=== PATIENT | female | born 1940 | race Caucasian/White ===

== ENCOUNTER → 2017-05-11 | Outpatient (CLI) | payer OTHER, MEDICARE | LOC: FIMAGING 12:24 | PROVIDERS: ATTEND Internal Medicine | DX: J44.9 Chronic obstructive pulmonary disease, unspecified (principal); R91.8 Other nonspecific abnormal finding of lung field; Z51.81 Encounter for therapeutic drug level monitoring; E87.5 Hyperkalemia; I10 Essential (primary) hypertension; K59.09 Other constipation ==

== ENCOUNTER → 2017-05-17 | Outpatient (CLI) | payer OTHER, MEDICARE | LOC: CIMAGING 09:03 | PROVIDERS: ATTEND Internal Medicine | DX: R91.8 Other nonspecific abnormal finding of lung field (principal); Z87.891 Personal history of nicotine dependence | CPT/HCPCS: 71250-PO ==

== ENCOUNTER → 2017-05-29 | Outpatient (CLI) | payer OTHER, MEDICARE | LOC: BHFA 09:30 | PROVIDERS: ATTEND Internal Medicine Cardiovascular Disease | DX: I35.1 Nonrheumatic aortic (valve) insufficiency (principal); I35.0 Nonrheumatic aortic (valve) stenosis ==

== ENCOUNTER → 2017-06-02 | Outpatient (CLI) | payer OTHER, MEDICARE ==
[~2017-06-02] MED LIST: REGADENOSON 0.4 MG/5 ML SYR IVP ONE
--- NOTE | 2017-06-02 16:42 | CPR ---
[f rep st] NONINVASIVE CARDIAC PROCEDURE REPORT DATE OF PROCEDURE: 06/02/2017 PROCEDURE PERFORMED: Nuclear Lexiscan stress test. This is an outpatient test for [facility]. REASON FOR TEST: 1. Chronic obstructive pulmonary disease. 2. Pre-surgical exam. 3. Abdominal electrocardiogram. ELECTROCARDIOGRAM PORTION: Resting EKG shows a regular sinus rhythm with a rate of 70. She has an a nterior T-wave abnormality. Resting blood pressure is 130/80. Resting heart rate 72. Oxygen satura tion 91%. She is asymptomatic. LEXISCAN NUCLEAR PORTION: Lexiscan was injected rapidly, followed by a saline flush. Cardiolite was then injected, followed by a saline flush. Peak blood pressure 132/76. Peak heart rate 85. Oxygen saturation 93%. She did feel flushed and short of breath with the injection. No EKG abnormalities or changes. RECOVERY: She did spontaneously recover. Her shortness of breath and flush did dissipate during rec overy. Recovery blood pressure 132/74, heart rate 76, oxygen saturation 92%. She was asymptomatic a t conclusion of test. At this time, she currently is stable for nuclear imaging. /[id number]/MODL
== END ==
LOC: FIMAGING 10:18
PROVIDERS: ATTEND Internal Medicine Cardiovascular Disease
DX: Z01.810 Encounter for preprocedural cardiovascular examination (principal); I35.1 Nonrheumatic aortic (valve) insufficiency; I65.29 Occlusion and stenosis of unspecified carotid artery; J44.9 Chronic obstructive pulmonary disease, unspecified
CPT/HCPCS: 78452; 93017; A9500; J2785

== ENCOUNTER 2017-06-13 09:05 | Inpatient (IN) | payer OTHER, MEDICARE ==
--- NOTE | 2017-06-13 07:31 | PDHPUP ---
History & Physical Update H&P update statement: This history and physical update is based on an assessment of the patient which was completed after admission or registration (within 24 hours), but prior to the surgery/procedure. H&P update: H&P reviewed & patient examined, no change in patient's condition since H&P completed
[~2017-06-13 09:05] MED LIST changes: -REGADENOSON 0.4 MG/5 ML SYR IVP ONE; +ceFAZolin 2 GM/DEXTROSE 100 ML IV ONE
[2017-06-13] MEDS ORDERED: ceFAZolin 2 GM/DEXTROSE 100 ML IV ONE (09:30)
[2017-06-13] MEDS ORDERED: LR 1,000 ML IV ONE (09:37)
[2017-06-13] MEDS ORDERED: LIDOCAINE 1% 2 ML INJ ID PRN (09:37)
[2017-06-13] MEDS ORDERED: BUPIVACAINE/EPI 0.5% 30 ML SDV ONE (10:08)
--- NOTE | 2017-06-13 10:08 | PDANEPAE ---
ANE History of Present Illness '77 yo F with lung nodule here for VATS vs open thoracotomy ANE Past Medical History - Cardiovascular History Hx Hypertension: Yes Hx Arrhythmias: No Hx Chest Pain: No Hx Coronary Artery / Peripheral Vascular Disease: Yes Hx CHF / Valvular Disease: Yes Hx Palpitations: No Cardiovascular History Comment: h/o aortic stenosis - Pulmonary History Hx COPD: Yes Hx Asthma/Reactive Airway Disease: No Hx Recent Upper Respiratory Infection: No Hx Oxygen in Use at Home: Yes O2 in Use at Home (L/minute): O2 2L NOC Hx Sleep Apnea: Yes Sleep Apnea Screening Result - Last Documented: Positive Pulmonary History Comment: POS SLEEP APNEA W/CPAP - Neurologic History Hx Cerebrovascular Accident: No Hx Seizures: No Hx Dementia: No - Endocrine History Hx Diabetes: No - Renal History Hx Renal Disorders: No - Liver History Hx Hepatic Disorders: No - Neurological & Psychiatric Hx Hx Neurological and Psychiatric Disorders: No - Cancer History Hx Cancer: Yes Cancer History Comment: Oral cancer. SKIN CA - REMOVED - Congenital Disorder History Hx Congenital Disorders: No - GI History Hx Gastrointestinal Disorders: No Gastrointestinal History Comment: CONSTIPATION - Other Health History Other Health History: LEG CRAMPS NOC - Chronic Pain History Chronic Pain: Yes (L LEG AND BACK) - Surgical History Prior Surgeries: 1966. Hernia (unknown date). bilateral hip replacements. Prolapsed uterus. L leg hardware. R shoulder replacement. Oral CA surgery "under my tounge" ANE Review of Systems Review of Systems: - Exercise capacity Exercise capacity: limited by disability METS (RN): 3 METS ANE Patient History - Allergies Allergies/Adverse Reactions: No Known Allergies Allergy (Unverified 05/30/17 15:00) - Home Medications Home Medications: Albuterol Sulfate [Proair Hfa] 2 puffs IH PRN 05/30/17 [Last Taken Unknown] Allopurinol 300 MG (RX) 300 mg PO BID 05/30/17 [Last Taken Unknown] Aspirin 81mg (*) 81 mg PO DAILY 05/30/17 [Last Taken 05/30/17 08:00] Atorvastatin Calcium 40 mg PO DAILY 05/30/17 [Last Taken Unknown] Chlorpheniramine Maleate [Allergy Relief] 4 mg PO PRN 05/30/17 [Last Taken Unknown] Multivitamin [Multi-Day Vitamins] 1 each PO DAILY 05/30/17 [Last Taken Unknown] Triamterene-Hctz 37.5-25 mg Cp 1 cap PO DAILY 05/30/17 [Last Taken Unknown] Vitamin D3 1,000 units PO DAILY 05/30/17 [Last Taken Unknown] traZODONE 50MG (*) 100 mg PO HS 05/30/17 [Last Taken Unknown] Umeclidinium Brm/Vilanterol Tr 06/09/17 [Last Taken Unknown] - NPO status NPO Status: no food or drink >8 hours - Anes Hx Anes Hx: no prior problems - Smoking Hx Smoking Status: Former smoker (quit ten years) - Alcohol Use Alcohol Use: Rarely - Family Anes Hx Family Anes Hx: none Family Hx Anesthesia Complications: None ANE Labs/Vital Signs - Vital Signs Vital Signs: reviewed preoperatively; see RN documention for details Height: 152.4 cm Weight: 87.09 kg ANE Physical Exam - Airway Neck exam: FROM Mallampati Score: Class 2 Mouth exam: normal dental/mouth exam - Pulmonary Pulmonary: no respiratory distress, clear to auscultation - Cardiovascular Cardiovascular: regular rate and rhythym - ASA Status ASA Status: III ANE Anesthesia Plan Anesthesia Plan: general endotracheal anesthesia Lines/Monitors: arterial line Specialized Airway: double lumen tube
[2017-06-13] MEDS ORDERED: MIDAZOLAM 2 MG/2 ML VIAL IVP ONE (10:17)
[2017-06-13] MEDS ORDERED: PROPOFOL 200 MG/20 ML VIAL ONE ×2 (10:33)
[2017-06-13] MEDS ORDERED: ROCURONIUM 50 MG/5 ML VIAL ONE (10:33)
[2017-06-13] MEDS ORDERED: fentaNYL 100 MCG/2 ML INJ ONE ×2 (10:33→11:55)
[2017-06-13] MEDS ORDERED: LIDOCAINE 2% 100 MG/5 ML SYR ONE (10:33)
[2017-06-13] MEDS ORDERED: LIDOCAINE 2% 5 ML SDV ONE (10:33)
[2017-06-13] MEDS ORDERED: HYDROmorphONE/DILAUDID 1 MG/ML INJ IVP ONE (12:00)
[2017-06-13] MEDS ORDERED: DEXAMETHASONE 4 MG/ML VIAL ONE (12:24)
[2017-06-13] MEDS ORDERED: ONDANSETRON 4 MG/2 ML VIAL ONE (12:24)
[2017-06-13] MEDS ORDERED: HEPARIN 1000 UNIT/1 ML MDV ONE (12:48)
[2017-06-13] MEDS ORDERED: KETAMINE 100 MG/10 ML SYR ONE (13:51)
[2017-06-13] MEDS ORDERED: ONDANSETRON 4 MG/2 ML VIAL IVP PRN ×2 (14:48→15:40)
[2017-06-13] MEDS ORDERED: NALOXONE HCL 0.4 MG/ML INJ IVP PRN ×2 (14:52→15:40)
--- NOTE | 2017-06-13 14:57 | POSTOPPROG ---
Post Op Note Date of Operation: 06/13/17 Surgeon: Jayden Conde Carton Forming Machine Tender: Anahi Burnette Anesthesiologist: Gurmeet Welsh Anesthesia: GET(General Endotracheal) Pre-op Diagnosis: RUL lung nodule Post-op Diagnosis: probable RUQ squamous cell lung cancer Procedure: R VATS, minithoracotomy with RUL resection, hilar LN biopsies Findings: tumor in wedge, margins grossly clear, unrecognizable RML and RUL fissures Inf/Abcess present in the surg proc area at time of surgery?: No EBL: 500cc Complications: none Specimen(s): wedge bx, RUL, and hilar LN bx's to pathology
[2017-06-13] MEDS ORDERED: fentaNYL 100 MCG/2 ML INJ IVP PRN (15:40)
[2017-06-13] MEDS ORDERED: OXYCODONE/APAP 5/325 TAB PO PRN (15:40)
[2017-06-13] MEDS ORDERED: PROMETHAZINE HCL 25 MG/ML INJ IVP PRN (15:40)
[2017-06-13] MEDS ORDERED: HYDROmorphONE/DILAUDID 1 MG/ML INJ IVP PRN (15:40)
[2017-06-13] MEDS: HYDROmorphONE/DILAUDID 1 MG/ML INJ IVP PRN (16:46)
[2017-06-13] MEDS: HYDROmorphONE/DILAUDID 6 MG/30 ML PCA IV PRN (17:00)
[2017-06-13] MEDS: BUPIVACAINE 0.5% 30 ML SDV MISC SCH ×2 (18:33→22:47)
[2017-06-13] MEDS ORDERED: ONDANSETRON DISINTEGRATING 4 MG TAB ONE (19:12)
[2017-06-13] MEDS: OXYCODONE/APAP 5/325 TAB PO PRN (19:16)
[2017-06-13] MEDS: ONDANSETRON DISINTEGRATING 4 MG TAB PO PRN (19:20)
--- NOTE | 2017-06-13 20:41 | GOP ---
[f rep st] OPERATIVE REPORT DATE OF OPERATION: 06/13/2017 SURGEON: Jayden Conde MD PERL DEVELOPER: SAMUEL Jimenez ANESTHESIOLOGIST: Dr. Welsh. PREOPERATIVE DIAGNOSIS: Suspicious right lung mass. POSTOPERATIVE DIAGNOSIS: Squamous cell carcinoma of the right upper lobe. PROCEDURE PERFORMED: 1. VATS wedge lung biopsy. 2. VATS assisted right upper lobectomy and hilar node dissection. FINDINGS: Patient was found to have a very peripheral, less than 2 cm mass in the posterior aspect o f the right upper lobe which appeared to be squamous cell cancer on frozen section. There was no tracy dence of any metastatic disease identified. Multiple hilar nodes were taken out but appeared to be n egative. Final path is pending. The 1 anatomic thing of note was the patient had no true fissures r equiring sort of artificial separation of the right upper, right middle and right lower lobes. ESTIMATED BLOOD LOSS: Less than 200 cc. DESCRIPTION OF PROCEDURE: Patient was taken to the operating room, where she received a satisfactory general endotracheal anesthesia by Dr. Welsh, had a double-lumen endotracheal tube placed and art li ne monitoring. She was placed in the left lateral decubitus position, prepped and draped in usual st erile fashion. A short incision was made in the 7th intercostal space the midaxillary line. A troca r was introduced. A thoracoscope was introduced. Two other trocars were placed under direct vision and eventually a 4th trocar was placed under direct vision. The right upper lobe was examined, tumor was palpated in the posterior wall of the right upper lobe. This area was isolated with atraumatic clamps and then removed using an Endo-VIRGILIO stapler, with multiple firings. The specimen was sent to p athology, where the report was returned as invasive squamous cell carcinoma, a search in the area rev ealed no evidence of metastatic disease, and we proceeded with a right upper lobectomy. This was chino ewhat hampered by the fact that there were no true fissures. The anterior pleural attachment was div ided over the hilum and multiple branches off the pulmonary artery were identified. These were encir cled and then ligated and divided with the Endo-VIRGILIO stapler. The inferior pulmonary artery was disse cted free in the major fissure, after dissecting this free with a tedious dissection. The superior s egment artery and the middle lobe artery were identified and spared. No other branches were identifi ed to the upper lobe. At that point, the superior pulmonary vein was dissected free and then careful ly divided with Endo-VIRGILIO stapler as well, and this took care of the vascular layer to the right upper lobe. The upper lobe bronchus was then identified and encircled. It was crossclamped and the lung was reinflated with good expansion of the middle lobe and the lower lobe. The bronchus was then divi ded with the Endo-VIRGILIO stapler as well, severing the last major attachment to the right upper lobe. H owever, the fissures were incomplete and these had to then be divided directly with staplers. This r equired enlarging the incision for adequate placement of the staplers. Much care was made to avoid t he blood supply and the bronchus to the middle lobe. This required multiple firings of Endo-VIRGILIO stap ler, where eventually the upper lobe was completely severed and removed and sent to Pathology. The r emaining lung was re-expanded. There was minimal if any air leak. The pathologic evaluation of the upper lobe revealed clear margins. At this point, the hilar node dissection was done removing approx imately 4 or 5 lymph nodes in the hilum and adjacent mediastinum. These were sent out for pathologic evaluation as well. The wound was irrigated. Hemostasis was assured. Two #28 chest tubes were bro ught in through some of the trocar sites and secured to the skin with silk sutures. A Marcaine ashley ter was brought in through a separate site and placed in the posterior chest and secured also with a silk suture. The incision was then closed with #1 Vicryl pericostal sutures, and running 0 Vicryl dean tures for the muscle layers, 2-0 Vicryl for the subcutaneous tissue and skin devin for the skin. T he remaining trocar site was also closed with skin devin for the skin. All wounds and areas were i nfiltrated with 0.5% Marcaine as well as the injection of 10 cc of Marcaine into the chest cavity. S he tolerated the procedure quite well. COMPLICATIONS: There were no complications. /[id number]/MODL
[2017-06-13] MEDS: KETOROLAC 15 MG/1 ML SDV IVP SCH (21:43)
[2017-06-13] MEDS: DOCUSATE SODIUM 100 MG CAP PO SCH (21:50)
[2017-06-13] MEDS ORDERED: ALBUMIN 5% 500 ML IV ONE (23:30)
[2017-06-13] MEDS ORDERED: ALBUMIN 5% 500 ML BOTTLE IV ONE (23:37)
[2017-06-14] MEDS: NS 1,000 ML IV SCH ×2 (03:02→17:59)
[2017-06-14] MEDS: KETOROLAC 15 MG/1 ML SDV IVP SCH ×2 (03:15→06:44)
--- NOTE | 2017-06-14 03:57 | GCON ---
[f rep st] CONSULTATION VENDOR MANAGEMENT ASSOCIATE CONSULTATION REASON FOR ADMISSION: Status post thoracotomy lung mass. HISTORY OF PRESENT ILLNESS: The patient is a very pleasant 77-year-old white female with a past medi bernard history including aortic regurgitation, aortic valve stenosis, carotid stenosis, chronic obstruct penelope pulmonary disease, hypertension, obstructive sleep apnea. She is examined postoperatively after receiving a thoracotomy by Dr. Jayden Conde. She was extubated in the PACU. She is currently only complaining of some pain, as well as some mild breathlessness. PAST MEDICAL HISTORY: Again, significant for obstructive sleep apnea, chronic obstructive pulmonary disease, hypertension, carotid stenosis, aortic stenosis. MEDICATIONS: Allopurinol, aspirin, atorvastatin, chlorpheniramine, ProAir, Spiriva, trazodone, triam terene, hydrochlorothiazide, vitamin D. ALLERGIES: No known allergies to medications. SOCIAL HISTORY: Previous heavy smoker; quit 10 years ago. No significant alcohol use. She is divor jeyson, but she has 2 children. She has excellent family support. PHYSICAL EXAMINATION: VITAL SIGNS: Blood pressure is 136/60, pulse 82, respirations 18, temperature 36.5, oxygen saturation 95% on nasal cannula. GENERAL: She is a mildly overweight, but very pleasa nt, 77-year-old white female, who is resting with mild pain. HEENT: Eyes are CARLOS, EOMI. Throat sh ows no erythema or tonsillar hypertrophy. NECK: Supple. There is no cervical adenopathy. HEART: Regular rate and rhythm without murmurs, rubs, or gallops. LUNGS: Increased crackles in the right b ase. There are no E to A changes. ABDOMEN: Soft. Nontender. Bowel sounds are present in all 4 qu adrants. EXTREMITIES: No clubbing, cyanosis, or edema. LABORATORY DATA: Currently pending. IMAGING DATA: Chest x-ray shows some volume loss with a right hemithorax. Two chest tubes in place. IMPRESSION: 1. Lung mass. 2. Status post thoracotomy. 3. Chronic obstructive pulmonary disease. 4. Hypertension. RECOMMENDATIONS: 1. Adequate pain control. 2. Frequent nebulization with both albuterol and Atrovent. 3. DVT and PE prophylaxis. 4. Stress ulcer prophylaxis. 5. Await pathology report. 6. PT and OT. /[id number]/MODL
[2017-06-14] MEDS: BUPIVACAINE 0.5% 30 ML SDV MISC SCH ×6 (04:22→22:41)
[2017-06-14 04:24] LABS: HEMATOCRIT 27.4 % (38.0-47.0); HEMOGLOBIN 8.9 g/dL (12.6-16.3)
[2017-06-14 04:33] LABS: ANION GAP 11 mEq/L (8-16); CALCIUM 8.6 mg/dL (8.5-10.4); CARBON DIOXIDE 21 mEq/l (22-31); CHLORIDE 104 mEq/L (97-110); CREATININE 1.4 mg/dL (0.6-1.0); GLOMERULAR FILTRATION RATE 37; GLUCOSE 127 mg/dL (70-100); POTASSIUM 4.9 mEq/L (3.5-5.2); SODIUM 136 mEq/L (134-144)
[2017-06-14] MEDS: DOCUSATE SODIUM 100 MG CAP PO SCH ×2 (08:15→20:51)
[2017-06-14] MEDS: OXYCODONE/APAP 5/325 TAB PO PRN ×2 (08:17→16:23)
--- NOTE | 2017-06-14 08:31 | POSTANESTH ---
Post Anesthetic Evaluation Cardiovascular Status: Normal, Stable, Similar to Pre-Op Cond Respiratory Status: Normal, Stable, Similar to Pre-op Cond. Level of Consciousness/Mental Status: Can Participate in Eval, Alert and Oriented Pain Control: Adequate, Prn Tx Ordered Nausea/Vomiting Control: Adequate, Prn Tx Ordered Complications Possibly Related to Anesthesia: None Noted
--- NOTE | 2017-06-14 08:55 | SOAPPROG ---
SOAP Progress Note Assessment/Plan: Assessment/Plan: 77 Y F s/p R VATS c minithoracotomy and RUL lobectomy, hilar LN biopsies, probable SCC, POD#1. AFVSS. CXR ok. Chest tube output ~300 overnight. +air leak. Continue CT's to LWS. Continue pain control c TELEPHONE OPERATOR CHIEF, PO meds PRN, and marcaine catheter. NATTY. Cr 1.4, previously 0.7. Urine is concentrated. D/c toradol. Avoid nephrotoxic agents. Continue/increase IVF. Repeat labs in am. Continue pace catheter for now. Acute post op blood loss anemia. Monitor. Asymptomatic. Hct 27.4. Pathology pending. Dispo: med surg. S: Does have pain. Pain meds helping but feeling "woozy." Denies SOB. Mild nausea. O: alert, nad ncat, mmm chest clear anteriorly, +air leak, occasionally at rest drainage serosanguinous rrr abd soft, nt 06/14/17 08:57 Objective: Vital Signs Temp Pulse Resp BP Pulse Ox 36 C 85 16 120/49 L 100 06/13/17 16:30 06/14/17 06:00 06/14/17 06:00 06/14/17 06:00 06/14/17 06:00 Laboratory Results 06/14/17 04:10 06/14/17 04:10 06/13/17 06/14/17 06/15/17 05:59 05:59 05:59 Intake Total 3785 Output Total 1940 Balance 1845 ICD10 Worksheet Patient Problems: Problems Problem Status Onset Status post lobectomy of lung Acute - ICD10 Problem Qualifiers (1) Status post lobectomy of lung
[2017-06-14] MEDS ORDERED: CHLORPHENIRAMINE MALEATE 4 MG TAB PO PRN (08:58)
[2017-06-14] MEDS ORDERED: ALBUTEROL INH PREPACK MDI TAKEHOME PRN (08:58)
--- NOTE | 2017-06-14 09:09 | PDINTPN ---
Hands Assembler Progress Note Assessment/Plan: Assessment/Plan: * Lung mass-path is pending * Status post thoracotomy * Obstructive sleep apnea * Chronic obstructive pulmonary disease * Chest tube-no leak is apparent, still with high output the * Pain-improved * Hypertension Overall much improved Subjective: Sitting up in bed. Comfortable. Pain is improved. Denies any breathlessness Objective: Vital Signs Temp Pulse Resp BP Pulse Ox 36 C 85 16 120/49 L 100 06/13/17 16:30 06/14/17 06:00 06/14/17 06:00 06/14/17 06:00 06/14/17 06:00 Laboratory Results 06/14/17 04:10 06/14/17 04:10 06/13/17 06/14/17 06/15/17 05:59 05:59 05:59 Intake Total 3785 Output Total 1940 Balance 1845 Physical Exam - Physical Exam General Appearance: alert, no apparent distress EENT: PERRL/EOMI, normal ENT inspection, pharynx normal, TMs normal Neck: non-tender, full range of motion, supple, normal inspection Respiratory: crackles (Increased on the right), No normal breath sounds, No respiratory distress, No wheezing Cardiac/Chest: normal peripheral pulses, regular rate, rhythm, systolic murmur Abdomen: normal bowel sounds, non-tender, soft Pelvic Exam: deferred Rectal: deferred Skin: normal color, warm/dry Extremities: normal range of motion, non-tender, normal inspection, normal capillary refill Neuro/Psych: no motor/sensory deficits, alert, normal mood/affect, oriented x 3 ICD10 Worksheet Patient Problems: Problems Problem Status Onset Status post lobectomy of lung Acute
[2017-06-14] MEDS ORDERED: ACETYLCYSTEINE 10% IH/PO 4 ML VIAL IH SCH (09:15)
[2017-06-14] MEDS: ASPIRIN EC 81 MG TAB PO SCH ×3 (09:21→20:52)
[2017-06-14] MEDS: ALLOPURINOL 300 MG TAB PO SCH ×2 (09:21→20:52)
[2017-06-14] MEDS: ATORVASTATIN CALCIUM 40 MG TAB PO SCH ×3 (09:21→20:52)
[2017-06-14] MEDS: CHOLECALCIFEROL VIT D3 1,000 UNITS TAB PO SCH ×3 (09:21→20:51)
[2017-06-14] MEDS: UMECLIDINIUM BRM IH SCH (10:00)
[2017-06-14] MEDS: VILANTEROL TR IH SCH (10:00)
[2017-06-14] MEDS ORDERED: ALBUMIN 5% 500 ML BOTTLE IV ONE (11:01)
[2017-06-14] MEDS ORDERED: ALBUMIN 5% 500 ML IV ONE (11:30)
[2017-06-14] MEDS: TRIAMTERENE/HCTZ 37.5/25 1 EACH CAP PO SCH (11:36)
--- NOTE | 2017-06-14 12:44 | ASMTCMCOM ---
CM Note CM Note Notes: Patient is POD #1 VATs and RUL lobectomy, pathology pending. She is doing well and should be able to work with PT/OT today. Has supportive daughter. Discharge needs TBD at this time, CM will follow. Date Signed: 06/14/2017 12:43 PM Electronically Signed By:Joan Yanez RN
[2017-06-14] MEDS: ALBUTEROL 200 PUFFS/18 GM MDI IH PRN (17:16)
[2017-06-14] MEDS: HYDROmorphONE/DILAUDID 1 MG/ML INJ IVP PRN (17:42)
[2017-06-14] MEDS: HYDROmorphONE/DILAUDID 6 MG/30 ML PCA IV PRN (18:29)
[2017-06-14] MEDS: traZODone 50 MG TAB PO SCH (20:53)
[2017-06-15] MEDS: NS 1,000 ML IV SCH ×4 (00:58→18:32)
[2017-06-15] MEDS: BUPIVACAINE 0.5% 30 ML SDV MISC SCH ×6 (02:20→21:54)
[2017-06-15] MEDS: OXYCODONE/APAP 5/325 TAB PO PRN ×3 (05:49→21:57)
[2017-06-15 06:04] LABS: ANION GAP 6 mEq/L (8-16); CALCIUM 6.2 mg/dL (8.5-10.4); CARBON DIOXIDE 17 mEq/l (22-31); CHLORIDE 115 mEq/L (97-110); CREATININE 0.7 mg/dL (0.6-1.0); GLOMERULAR FILTRATION RATE > 60; GLUCOSE 104 mg/dL (70-100); POTASSIUM 3.5 mEq/L (3.5-5.2); SODIUM 138 mEq/L (134-144)
[2017-06-15] MEDS: ENOXAPARIN 40 MG/0.4 ML SYR SC SCH (08:25)
[2017-06-15] MEDS: ALLOPURINOL 300 MG TAB PO SCH ×2 (08:25→21:53)
[2017-06-15] MEDS: DOCUSATE SODIUM 100 MG CAP PO SCH ×2 (08:25→21:54)
[2017-06-15] MEDS: TRIAMTERENE/HCTZ 37.5/25 1 EACH CAP PO SCH (08:50)
[2017-06-15] MEDS: UMECLIDINIUM BRM IH SCH (08:51)
[2017-06-15] MEDS: VILANTEROL TR IH SCH (08:51)
--- NOTE | 2017-06-15 11:35 | SOAPPROG ---
SOAP Progress Note Assessment/Plan: Assessment: 77 Y F s/p R VATS c minithoracotomy and RUL lobectomy, hilar LN biopsies, probable SCC, POD#2. SBP in 70s when rechecked in the 90s, H&H drop from last night Hct 20.0. Will get repeat H&H and stat CXR to evaluate. Chest tube output 1060cc. Serosang. + air leak at rest and with cough. Cont to LWS. Creat improved, 0.7 today. Cont avoiding nephrotoxic agents. Continue pace for accurate Is and Os. Uop good Pathology pending Continue pain control Regular diet S: Denies pain, SOB, dizziness. Stood up well with PT today without dizziness. Feels like her brain is "fuzzy"- Spoke with nurse who feels that she was overmedicated last night with GLOBAL HUMAN RESOURCES DIRECTOR. O: Sitting up in chair, about to start eating. NAD MMM No increased WOB. Lungs CTAB, can appreciate air leak on right CT to suction with high serosang drainage. + air leak at rest and with cough. Dressings c/d/i Abd soft, + BS Oriented and alert Objective: Vital Signs Temp Pulse Resp BP Pulse Ox 37.4 C 90 20 93/70 L 92 06/15/17 08:23 06/15/17 11:00 06/15/17 10:00 06/15/17 11:00 06/15/17 11:00 Laboratory Results 06/15/17 05:40 06/15/17 05:40 06/14/17 06/15/17 06/16/17 05:59 05:59 05:59 Intake Total 9395 2773 Output Total 5711 2242 Balance 1843 1574 ICD10 Worksheet Patient Problems: Problems Problem Status Onset Status post lobectomy of lung Acute
[2017-06-15 12:49] LABS: % IMMATURE GRANULYOCYTES 0.4 % (0.0-1.1); ABSOLUTE IMMATURE GRANULOCYTES 0.04 10^3/uL (0.00-0.10); ADD DIFF? NO; ADD MORPH? NO; ADD SCAN? NO; ATYPICAL LYMPHOCYTE FLAG 10 (0-99); FRAGMENT RBC FLAG 0 (0-99); HEMATOCRIT 23.2 % (38.0-47.0); HEMOGLOBIN 7.5 g/dL (12.6-16.3); LEFT SHIFT FLG 0 (0-99); LIPEMIA HEMOLYSIS FLAG 80 (0-99); MEAN CELL HEMOGLOBIN CONCENTR. 32.3 g/dL (32.4-36.7); MEAN CELL VOLUME 95.9 fL (81.5-99.8); MEAN PLATELET VOLUME 9.9 fL (8.7-11.7); PLATELET CLUMPS FLAG 0 (0-99); PLATELET COUNT 175 10^3/uL (150-400); RED BLOOD CELL COUNT 2.42 10^6/uL (4.18-5.33); RED CELL DISTRIBUTION WIDTH 14.2 % (11.5-15.2)
[2017-06-15] MEDS: NICOTINE POLACRILEX 2 MG GUM B PRN ×2 (12:49→15:36)
--- NOTE | 2017-06-15 12:52 | PDINTPN ---
Revenue Officer Progress Note Assessment/Plan: Assessment/Plan: * Lung mass-path is pending * Status post thoracotomy * Obstructive sleep apnea * Chronic obstructive pulmonary disease * Chest tube-no leak is apparent, still with high output. Subcutaneous emphysema present * Pain-improved * Hypertension Overall much improved Subjective: Pain is well controlled. She denies any breathlessness. Complains of thirst Objective: Vital Signs Temp Pulse Resp BP Pulse Ox 36.9 C 81 16 85/67 L 94 06/15/17 11:56 06/15/17 11:56 06/15/17 11:56 06/15/17 11:56 06/15/17 11:56 Laboratory Results 06/15/17 05:40 06/14/17 06/15/17 06/16/17 05:59 05:59 05:59 Intake Total 3785 3937 Output Total 1940 2365 Balance 1845 1572 Chest [id number]-[id number] by myself. Chest tube in good position. There is significant subcutaneous emphysema present on the right side and up into the neck Physical Exam - Physical Exam General Appearance: alert, no apparent distress EENT: PERRL/EOMI, normal ENT inspection, pharynx normal, TMs normal Neck: other (Subcutaneous emphysema) Respiratory: chest non-tender, lungs clear, normal breath sounds Cardiac/Chest: normal peripheral pulses, regular rate, rhythm, other ( Subcutaneous emphysema) Abdomen: normal bowel sounds, non-tender, soft Pelvic Exam: deferred Rectal: deferred Skin: normal color, warm/dry Extremities: normal range of motion, non-tender, normal inspection, normal capillary refill ICD10 Worksheet Patient Problems: Problems Problem Status Onset Status post lobectomy of lung Acute
[2017-06-15 20:48] LABS: HEMATOCRIT 22.9 % (38.0-47.0); HEMOGLOBIN 7.7 g/dL (12.6-16.3)
--- NOTE | 2017-06-15 21:22 | SOAPPROG ---
SOAP Progress Note Assessment/Plan: Assessment: REASONABLY COMFORTABLE TODAY BUT SIGNIFICANT HEMATOCRIT DROP AND SOME HYPOTENSION SECONDARY TO PAIN MEDICINE EXCESS PRESENTLY ALERT ORIENTED AND COOPERATIVE/SIGNIFICANT TO VOLUME OF CHEST TUBE DRAINAGE BUT SEROSANGUINEOUS FOLLOW-UP HEMATOCRIT IS STABLE AT 23 Plan: POSSIBLE TRANSFUSION IF FURTHER DROP IN HEMATOCRIT 06/15/17 21:21 Objective: Vital Signs Temp Pulse Resp BP Pulse Ox 37.5 C 92 18 118/89 H 96 06/15/17 19:52 06/15/17 19:52 06/15/17 19:52 06/15/17 19:52 06/15/17 19:52 Laboratory Results 06/15/17 20:00 06/15/17 05:40 06/14/17 06/15/17 06/16/17 05:59 05:59 05:59 Intake Total 8075 3937 2447.4 Output Total 3630 5605 950 Balance 1845 1572 1497.4 ICD10 Worksheet Patient Problems: Problems Problem Status Onset Status post lobectomy of lung Acute
[2017-06-15] MEDS: traZODone 50 MG TAB PO SCH (21:53)
[2017-06-15] MEDS: ATORVASTATIN CALCIUM 40 MG TAB PO SCH (21:54)
[2017-06-15] MEDS: ASPIRIN EC 81 MG TAB PO SCH (21:54)
[2017-06-15] MEDS: CHOLECALCIFEROL VIT D3 1,000 UNITS TAB PO SCH (21:54)
[2017-06-16] MEDS: NS 1,000 ML IV SCH ×2 (00:32→06:00)
[2017-06-16] MEDS: KETOROLAC 15 MG/1 ML SDV IVP SCH ×5 (00:32→22:49)
[2017-06-16] MEDS: NICOTINE POLACRILEX 2 MG GUM B PRN (01:00)
[2017-06-16] MEDS: BUPIVACAINE 0.5% 30 ML SDV MISC SCH ×6 (02:05→22:18)
[2017-06-16 04:19] LABS: % IMMATURE GRANULYOCYTES 0.4 % (0.0-1.1); ABSOLUTE IMMATURE GRANULOCYTES 0.04 10^3/uL (0.00-0.10); ADD DIFF? NO; ADD MORPH? NO; ADD SCAN? NO; ATYPICAL LYMPHOCYTE FLAG 0 (0-99); FRAGMENT RBC FLAG 0 (0-99); HEMATOCRIT 21.7 % (38.0-47.0); LEFT SHIFT FLG 0 (0-99); LIPEMIA HEMOLYSIS FLAG 80 (0-99); MEAN CELL HEMOGLOBIN 30.6 pg (27.9-34.1); MEAN CELL HEMOGLOBIN CONCENTR. 32.3 g/dL (32.4-36.7); MEAN CELL VOLUME 94.8 fL (81.5-99.8); MEAN PLATELET VOLUME 9.5 fL (8.7-11.7); PLATELET CLUMPS FLAG 0 (0-99); PLATELET COUNT 166 10^3/uL (150-400); RED BLOOD CELL COUNT 2.29 10^6/uL (4.18-5.33); RED CELL DISTRIBUTION WIDTH 14.2 % (11.5-15.2)
[2017-06-16] MEDS: UMECLIDINIUM BRM IH SCH (08:03)
[2017-06-16] MEDS: VILANTEROL TR IH SCH (08:03)
[2017-06-16] MEDS: TRIAMTERENE/HCTZ 37.5/25 1 EACH CAP PO SCH (09:32)
[2017-06-16] MEDS: ENOXAPARIN 40 MG/0.4 ML SYR SC SCH (09:32)
[2017-06-16] MEDS: ALLOPURINOL 300 MG TAB PO SCH ×2 (09:32→20:22)
[2017-06-16] MEDS: DOCUSATE SODIUM 100 MG CAP PO SCH ×2 (09:32→20:22)
[2017-06-16] MEDS: HYDROmorphONE/DILAUDID 6 MG/30 ML PCA IV PRN (12:01)
--- NOTE | 2017-06-16 12:31 | SOAPPROG ---
SOAP Progress Note Assessment/Plan: Assessment/Plan: * Lung mass-path is pending * Status post thoracotomy * Obstructive sleep apnea * Chronic obstructive pulmonary disease * Chest tube-no leak is apparent, still with high output. Subcutaneous emphysema present and unchanged * Pain-improved * Hypertension Continued to slowly improve Subjective: Up in chair. Complains of cough. Pain is well tolerated. There is no fever Objective: Vital Signs Temp Pulse Resp BP Pulse Ox 37.1 C 101 H 18 168/85 H 92 06/16/17 09:25 06/16/17 10:13 06/16/17 08:14 06/16/17 10:13 06/16/17 09:25 Laboratory Results 06/16/17 04:11 06/15/17 05:40 06/15/17 06/16/17 06/17/17 05:59 05:59 05:59 Intake Total 3937 4034.8 Output Total 2365 1100 1250 Balance 1572 2934.8 -1250 Chest x-geg-[id number] by myself: Little change in subcutaneous emphysema Physical Exam - Physical Exam General Appearance: WD/WN, alert, no apparent distress EENT: PERRL/EOMI, normal ENT inspection Neck: non-tender, full range of motion, supple, normal inspection Respiratory: rhonchi (Scattered), prolonged expiration, No wheezing Cardiac/Chest: normal peripheral pulses, regular rate, rhythm, systolic murmur Abdomen: normal bowel sounds, non-tender, soft Pelvic Exam: deferred Rectal: deferred Skin: normal color ICD10 Worksheet Patient Problems: Problems Problem Status Onset Status post lobectomy of lung Acute
--- NOTE | 2017-06-16 13:29 | SOAPPROG ---
SOAP Progress Note Assessment/Plan: Assessment: 77 Y F s/p R VATS c minithoracotomy and RUL lobectomy, hilar LN biopsies, probable SCC, POD#3 H/H 7 and 21 this morning. Transfused 2 PRBC. Will follow HH today. SBP in 160s. Chest tube output 350cc overnight. Serosanguinous. No air leak. CXR stable PTX and subcutaneous emphysema. Will recheck tomorrow morning. Right lung wheezing. Albuterol inh PRN Cont regular diet Cont pain control, begin weaning off of CONCRETE STONE FABRICATING SUPERVISOR and onto IV/PO for eventual discharge Path pending S: Pain controlled. Tolerating diet. States brain fog has cleared. No difficulty breathing. C/o cough that is blood tinged, explained that this was not uncommon after lung surgery. O: Sitting up in chair, NAD MMM No increased WOB. Lungs CTAB on left, expiratory wheeze appreciated on right. CT to suction with serosang drainage. No air leak. Dressings c/d/i Abd soft, + BS Oriented and alert Objective: Vital Signs Temp Pulse Resp BP Pulse Ox 37.1 C 101 H 18 168/85 H 92 06/16/17 09:25 06/16/17 10:13 06/16/17 08:14 06/16/17 10:13 06/16/17 09:25 Laboratory Results 06/16/17 04:11 06/15/17 05:40 06/15/17 06/16/17 06/17/17 05:59 05:59 05:59 Intake Total 3937 4034.8 Output Total 2365 1100 1250 Balance 1572 2934.8 -1250 ICD10 Worksheet Patient Problems: Problems Problem Status Onset Status post lobectomy of lung Acute
[2017-06-16] MEDS ORDERED: FUROSEMIDE 20 MG TAB PO ONE (17:45)
[2017-06-16 18:52] LABS: HEMATOCRIT 26.9 % (38.0-47.0); HEMOGLOBIN 8.9 g/dL (12.6-16.3)
[2017-06-16] MEDS: traZODone 50 MG TAB PO SCH (20:22)
[2017-06-16] MEDS: ASPIRIN EC 81 MG TAB PO SCH (20:23)
[2017-06-16] MEDS: CHOLECALCIFEROL VIT D3 1,000 UNITS TAB PO SCH (20:23)
[2017-06-16] MEDS: ATORVASTATIN CALCIUM 40 MG TAB PO SCH (20:23)
[2017-06-16] MEDS: OXYCODONE/APAP 5/325 TAB PO PRN (22:47)
[2017-06-17] MEDS: BUPIVACAINE 0.5% 30 ML SDV MISC SCH ×5 (01:26→18:23)
[2017-06-17] MEDS: OXYCODONE/APAP 5/325 TAB PO PRN ×5 (04:17→20:43)
[2017-06-17 04:33] LABS: % IMMATURE GRANULYOCYTES 0.3 % (0.0-1.1); ABSOLUTE IMMATURE GRANULOCYTES 0.03 10^3/uL (0.00-0.10); ABSOLUTE NRBC COUNT 0.03 10^3/uL (0-0.01); ADD DIFF? NO; ADD MORPH? NO; ADD SCAN? NO; ATYPICAL LYMPHOCYTE FLAG 0 (0-99); FRAGMENT RBC FLAG 0 (0-99); HEMATOCRIT 29.3 % (38.0-47.0); HEMOGLOBIN 10.1 g/dL (12.6-16.3); LEFT SHIFT FLG 0 (0-99); LIPEMIA HEMOLYSIS FLAG 90 (0-99); MEAN CELL HEMOGLOBIN 30.2 pg (27.9-34.1); MEAN CELL HEMOGLOBIN CONCENTR. 34.5 g/dL (32.4-36.7); MEAN CELL VOLUME 87.7 fL (81.5-99.8); MEAN PLATELET VOLUME 9.3 fL (8.7-11.7); NRBC-AUTO% 0.3 % (0.0-0.2); PLATELET CLUMPS FLAG 0 (0-99); PLATELET COUNT 201 10^3/uL (150-400); RED BLOOD CELL COUNT 3.34 10^6/uL (4.18-5.33); RED CELL DISTRIBUTION WIDTH 15.6 % (11.5-15.2)
[2017-06-17] MEDS: KETOROLAC 15 MG/1 ML SDV IVP SCH ×3 (05:25→18:22)
[2017-06-17] MEDS: ALBUTEROL 200 PUFFS/18 GM MDI IH PRN (07:54)
[2017-06-17] MEDS: UMECLIDINIUM BRM IH SCH (07:55)
[2017-06-17] MEDS: VILANTEROL TR IH SCH (07:55)
[2017-06-17] MEDS: TRIAMTERENE/HCTZ 37.5/25 1 EACH CAP PO SCH (08:59)
[2017-06-17] MEDS: ALLOPURINOL 300 MG TAB PO SCH ×2 (08:59→20:43)
[2017-06-17] MEDS: NS 1,000 ML IV SCH (09:00)
[2017-06-17] MEDS: ENOXAPARIN 40 MG/0.4 ML SYR SC SCH (09:00)
[2017-06-17] MEDS: DOCUSATE SODIUM 100 MG CAP PO SCH ×2 (10:19→20:43)
--- NOTE | 2017-06-17 10:44 | ASMTCMCOM ---
CM Note CM Note Notes: PT assessed pt yesterday and determined that pt is SNF appropriate. Met with pt and dtr Rosemary to discuss DC planning. Dtr expressed strong dissatisfaction with pt's previous rehab stays though she could not remember which facilities they were. Pt lives in [place] so suggested dtr tour the [facility] at [facility] which she will do over the weekend.Dtr prefers to wait on a referral until she tours. She is also considering home with home care. Told dtr that PT/OT therapists will help her decide if that plan would be appropriate as pt nears DC. Expect pt will be at [facility] a while. C/M will continue to follow. Date Signed: 06/17/2017 10:43 AM Electronically Signed By:Carie Dodd LCSW
--- NOTE | 2017-06-17 12:07 | SOAPPROG ---
SOAP Progress Note Assessment/Plan: Assessment/Plan: * Lung Cancer-squamous cell carcinoma * Status post thoracotomy * Obstructive sleep apnea * Chronic obstructive pulmonary disease * Chest tube-no leak is apparent, still with high output. Subcutaneous emphysema improved * Pain-improved * Hypertension Continued to slowly improve Subjective: Up in chair. Resting comfortably. Pain well controlled. Objective: Vital Signs Temp Pulse Resp BP Pulse Ox 36.4 C 89 22 H 135/77 H 92 06/17/17 08:00 06/17/17 08:00 06/17/17 08:00 06/17/17 08:00 06/17/17 08:00 Laboratory Results 06/17/17 04:18 06/15/17 05:40 06/16/17 06/17/17 06/18/17 05:59 05:59 05:59 Intake Total 4034.8 3573 Output Total 1100 4140 Balance 2934.8 -567 Physical Exam - Physical Exam General Appearance: alert, no apparent distress EENT: PERRL/EOMI, normal ENT inspection Neck: non-tender, full range of motion, supple, normal inspection Respiratory: crackles (Right base), No respiratory distress, No wheezing Cardiac/Chest: normal peripheral pulses, regular rate, rhythm Peripheral Pulses: 2+: carotid (R), carotid (L), femoral (R), femoral (L), dorsalis-pedis (R), dorsalis-pedis (L) Abdomen: normal bowel sounds, non-tender, soft Pelvic Exam: deferred Rectal: deferred Neuro/Psych: no motor/sensory deficits, alert, normal mood/affect, oriented x 3 ICD10 Worksheet Patient Problems: Problems Problem Status Onset Status post lobectomy of lung Acute
--- NOTE | 2017-06-17 12:21 | SOAPPROG ---
SOAP Progress Note Assessment/Plan: Assessment: REASONABLY COMFORTABLE TODAY BUT SIGNIFICANT HEMATOCRIT DROP AND SOME HYPOTENSION SECONDARY TO PAIN MEDICINE EXCESS PRESENTLY ALERT ORIENTED AND COOPERATIVE/SIGNIFICANT TO VOLUME OF CHEST TUBE DRAINAGE BUT SEROSANGUINEOUS FOLLOW-UP HEMATOCRIT IS STABLE AT 23 Plan: POSSIBLE TRANSFUSION IF FURTHER DROP IN HEMATOCRIT 06/15/17 21:21 06/17/17 12:18 ALERT, COOPERATIVE/ AFEBRILE/ NO AIR LEAK/ LARGE DRAINAGE/ CXR STABLE/ WOUND OK PLAN CONTINUE TUBE DRAINAGE UNTIL DECREASED VOLUME Objective: Vital Signs Temp Pulse Resp BP Pulse Ox 36.4 C 89 22 H 135/77 H 92 06/17/17 08:00 06/17/17 08:00 06/17/17 08:00 06/17/17 08:00 06/17/17 08:00 Laboratory Results 06/17/17 04:18 06/15/17 05:40 06/16/17 06/17/17 06/18/17 05:59 05:59 05:59 Intake Total 4034.8 3573 Output Total 1100 4140 Balance 2934.8 -567 ICD10 Worksheet Patient Problems: Problems Problem Status Onset Status post lobectomy of lung Acute
[2017-06-17] MEDS: ONDANSETRON DISINTEGRATING 4 MG TAB PO PRN (14:49)
[2017-06-17] MEDS: ATORVASTATIN CALCIUM 40 MG TAB PO SCH (20:43)
[2017-06-17] MEDS: CHOLECALCIFEROL VIT D3 1,000 UNITS TAB PO SCH (20:43)
[2017-06-17] MEDS: ASPIRIN EC 81 MG TAB PO SCH (20:43)
[2017-06-18] MEDS: KETOROLAC 15 MG/1 ML SDV IVP SCH ×4 (00:13→17:49)
[2017-06-18] MEDS: BUPIVACAINE 0.5% 30 ML SDV MISC SCH ×7 (00:38→21:08)
[2017-06-18] MEDS: traZODone 50 MG TAB PO SCH ×2 (00:38→21:09)
[2017-06-18] MEDS: TRIAMTERENE/HCTZ 37.5/25 1 EACH CAP PO SCH (09:31)
[2017-06-18] MEDS: ALLOPURINOL 300 MG TAB PO SCH ×2 (09:31→21:09)
[2017-06-18] MEDS: DOCUSATE SODIUM 100 MG CAP PO SCH ×2 (09:32→21:09)
[2017-06-18] MEDS: OXYCODONE/APAP 5/325 TAB PO PRN ×4 (09:32→21:09)
[2017-06-18] MEDS: ENOXAPARIN 40 MG/0.4 ML SYR SC SCH (09:34)
[2017-06-18] MEDS: VILANTEROL TR IH SCH (09:51)
[2017-06-18] MEDS: UMECLIDINIUM BRM IH SCH (09:51)
--- NOTE | 2017-06-18 13:35 | GCON ---
[f rep st] CONSULTATION HEMATOLOGY/ONCOLOGY CONSULTATION. REASON FOR CONSULTATION: A stage IA squamous cell carcinoma of the right upper lobe. RECOMMENDATIONS: I will send her tissue for EGFR, alk ros, and PDL1, but her prognosis should be exc ellent. I would recommend a followup CT scan in about 6 months. EXECUTIVE SUMMARY: The patient is a very pleasant, 77-year-old woman, who unfortunately has had a hi story of COPD for a number of years, who was undergoing a cardiac evaluation, who had a chest x-ray p erformed, which revealed that she had a right upper lobe, a 1.4 cm mass on CAT scan. A PET scan show ed no evidence of other metastatic disease. She had an FEV1 of 0.96. She underwent a wedge resectio n. The patient was found to have a 1.0 cm grade 2 squamous cell carcinoma of the lung with widely cl ear margins. The number of nodes that were examined were 3, and none were involved. The patient had a T1a N0 M0. There was no evidence for lymphovascular invasion. The patient's prognosis should be very good for lung cancer, and no adjuvant treatment would be recom mended I did recommend that the patient have a followup chest x-ray in 6 months. I will do testing f or druggable targets, should she recur, with a PDL1, EGFR, alk ros, and BRAF. I have asked her to follow up in a couple weeks, and hopefully we can have those results back. PAST MEDICAL HISTORY: Remarkable for longstanding COPD. She quit smoking a number of years ago, but has a 50 pack-year history of smoking. The patient had COPD and was on oxygen prior to surgery. PAST SURGICAL HISTORY: The patient has had a cholecystectomy in the past, and she has had multiple o rthopedic procedures, including a right shoulder replacement, bilateral knee replacements, and some f racture repairs. She has also had an umbilical hernia repair in the past. ALLERGIES: She has no known drug allergies. MEDICATIONS: She is on medication for hypertension. She also has a remote history of gout, and is o n allopurinol. FAMILY HISTORY: Remarkable in that her father at 59 of lung cancer. Her mother at 69 of o varian cancer. She has 2 sisters. 2 brothers, one of suicide, and one is 74, lives in [place], and had a history of prostate cancer. The patient is a . She had 2 daughters, 1 daughter is h ealthy and alive, and 1 daughter of a drug overdose. The patient is retired, and does not drink alcohol. REVIEW OF SYSTEMS: Noncontributory. CLINICAL EXAM: VITAL SIGNS: Reveals that she has significantly elevated body mass index. HEENT: S he has no scleral icterus. GENERAL APPEARANCE: She is very alert and pleasant. LUNGS: Clear to P and A. CV: S1 normal, S2 normally split. No S3 or S4 murmur. CHEST: She has a chest tube in plac e. EXTREMITIES: There is no extremity edema or calf tenderness. NEUROLOGICAL: She is intact. DISPOSITION: I will order some followup testing, but her prognosis should be excellent. /[id number]/MODL
--- NOTE | 2017-06-18 14:02 | SOAPPROG ---
SOAP Progress Note Assessment/Plan: Assessment/Plan: * Lung Cancer-squamous cell carcinoma * Status post thoracotomy * Obstructive sleep apnea * Chronic obstructive pulmonary disease * Chest tube-no leak is apparent, still with high output. * Pain-improved * Hypertension Continued to slowly improve 06/18/17 13:59 Subjective: Resting comfortably. Breathing easily. Chest tube pain tolerable Objective: Vital Signs Temp Pulse Resp BP Pulse Ox 36.8 C 78 20 114/69 94 06/18/17 12:40 06/18/17 12:40 06/18/17 12:40 06/18/17 12:40 06/18/17 12:40 Laboratory Results 06/17/17 04:18 06/15/17 05:40 06/17/17 06/18/17 06/19/17 05:59 05:59 05:59 Intake Total 3573 1200 Output Total 4140 1225 Balance -567 -25 Physical Exam - Physical Exam General Appearance: alert, obese EENT: PERRL/EOMI, normal ENT inspection Neck: non-tender, full range of motion, supple, normal inspection Respiratory: crackles (Few), No respiratory distress, No stridor, No wheezing Cardiac/Chest: normal peripheral pulses, regular rate, rhythm Peripheral Pulses: 2+: carotid (R), carotid (L), femoral (R), femoral (L), dorsalis-pedis (R), dorsalis-pedis (L) Abdomen: normal bowel sounds, non-tender, soft Pelvic Exam: deferred Rectal: deferred Extremities: normal range of motion, non-tender, normal inspection, normal capillary refill Neuro/Psych: no motor/sensory deficits ICD10 Worksheet Patient Problems: Problems Problem Status Onset Status post lobectomy of lung Acute
--- NOTE | 2017-06-18 14:05 | SOAPPROG ---
SOAP Progress Note Assessment/Plan: Assessment: REASONABLY COMFORTABLE TODAY BUT SIGNIFICANT HEMATOCRIT DROP AND SOME HYPOTENSION SECONDARY TO PAIN MEDICINE EXCESS PRESENTLY ALERT ORIENTED AND COOPERATIVE/SIGNIFICANT TO VOLUME OF CHEST TUBE DRAINAGE BUT SEROSANGUINEOUS FOLLOW-UP HEMATOCRIT IS STABLE AT 23 Plan: POSSIBLE TRANSFUSION IF FURTHER DROP IN HEMATOCRIT 06/15/17 21:21 06/17/17 12:18 ALERT, COOPERATIVE/ AFEBRILE/ NO AIR LEAK/ LARGE DRAINAGE/ CXR STABLE/ WOUND OK PLAN CONTINUE TUBE DRAINAGE UNTIL DECREASED VOLUME 06/18/17 14:03 OVERALL BETTER TODAY/BREATH SOUNDS EQUAL/NO AIR LEAK ON A CHEST TUBE/CHEST TUBE DRAINAGE IS DECREASING/PAIN CONTROL WAS IMPROVED PLAN IS HOPEFULLY CHEST TUBES OUT IN THE A.M./ALSO ONCOLOGY CONSULT Objective: Vital Signs Temp Pulse Resp BP Pulse Ox 36.8 C 78 20 114/69 94 06/18/17 12:40 06/18/17 12:40 06/18/17 12:40 06/18/17 12:40 06/18/17 12:40 Laboratory Results 06/17/17 04:18 06/15/17 05:40 06/17/17 06/18/17 06/19/17 05:59 05:59 05:59 Intake Total 3573 1200 Output Total 4140 1225 Balance -567 -25 ICD10 Worksheet Patient Problems: Problems Problem Status Onset Status post lobectomy of lung Acute
[2017-06-18] MEDS: CHOLECALCIFEROL VIT D3 1,000 UNITS TAB PO SCH (21:08)
[2017-06-18] MEDS: ASPIRIN EC 81 MG TAB PO SCH (21:08)
[2017-06-18] MEDS: ATORVASTATIN CALCIUM 40 MG TAB PO SCH (21:09)
[2017-06-19] MEDS: BUPIVACAINE 0.5% 30 ML SDV MISC SCH ×3 (03:02→11:53)
[2017-06-19] MEDS: KETOROLAC 15 MG/1 ML SDV IVP SCH ×4 (03:06→18:33)
[2017-06-19] MEDS: OXYCODONE/APAP 5/325 TAB PO PRN ×4 (05:02→22:03)
--- NOTE | 2017-06-19 07:42 | SOAPPROG ---
SOAP Progress Note Assessment/Plan: Assessment: 1. Stage I SCC: Should be a good prognosis. I will send for EGFR, ALk,ROS 1, and PDL-1. No further treatment needed now. Plan: follow up as OP. Needs a CT in 6 months. 06/19/17 07:29 Subjective: Laly is a 77 yo F with a T1 SCC of the RUL. She has a Ct on right. Objective: Vital Signs Temp Pulse Resp BP Pulse Ox 36.5 C 86 18 133/72 H 93 06/19/17 05:49 06/19/17 05:49 06/19/17 05:49 06/19/17 05:49 06/19/17 05:49 Laboratory Results 06/17/17 04:18 06/15/17 05:40 06/18/17 06/19/17 06/20/17 05:59 05:59 05:59 Intake Total 1200 2823 Output Total 1225 1510 Balance -25 1313 BS on Right ICD10 Worksheet Patient Problems: Problems Problem Status Onset Status post lobectomy of lung Acute
[2017-06-19] MEDS: ALBUTEROL 200 PUFFS/18 GM MDI IH PRN (08:08)
[2017-06-19] MEDS: VILANTEROL TR IH SCH (08:08)
[2017-06-19] MEDS: UMECLIDINIUM BRM IH SCH (08:08)
[2017-06-19] MEDS ORDERED: FUROSEMIDE 40 MG TAB PO ONE (09:35)
[2017-06-19] MEDS: ALLOPURINOL 300 MG TAB PO SCH ×2 (10:30→22:03)
[2017-06-19] MEDS: TRIAMTERENE/HCTZ 37.5/25 1 EACH CAP PO SCH (10:31)
[2017-06-19] MEDS: ENOXAPARIN 40 MG/0.4 ML SYR SC SCH (10:32)
[2017-06-19] MEDS: DOCUSATE SODIUM 100 MG CAP PO SCH ×2 (10:32→22:03)
--- NOTE | 2017-06-19 10:55 | SOAPPROG ---
SOAP Progress Note Assessment/Plan: Assessment: 77 Y F s/p R VATS c minithoracotomy and RUL lobectomy, hilar LN biopsies, probable SCC Path showed 1mm SCC nodule without lymph node involvement. Chest tube output 350cc overnight. Serosanguinous. Small air leak with cough. Continue chest tube. F/u CXR. Suspect aspect of fluid overload. Give lasix. D/c marcaine cath Cont regular diet Cont pain control S: Pain controlled. Tolerating diet. No difficulty breathing. O: Sitting up in chair, NAD MMM No increased WOB. Lungs CTAB anteriorly CT to suction with serosang drainage. Small airleak . Dressings c/d/i Oriented and alert Objective: Vital Signs Temp Pulse Resp BP Pulse Ox 36.4 C 75 14 138/75 H 96 06/19/17 07:52 06/19/17 08:10 06/19/17 08:10 06/19/17 07:52 06/19/17 08:10 Laboratory Results 06/17/17 04:18 06/15/17 05:40 06/18/17 06/19/17 06/20/17 05:59 05:59 05:59 Intake Total 1200 2823 Output Total 1225 1510 Balance -25 1313 ICD10 Worksheet Patient Problems: Problems Problem Status Onset Status post lobectomy of lung Acute
--- NOTE | 2017-06-19 14:44 | ASMTCMCOM ---
CM Note CM Note Notes: Met w/pt to discuss dc poc. Pt is in agreement w/plan to go to SNF and she said she and her dtr have chosen [facility]. LVM for Keyanna at [facility] and sent referral. PATRICK w/f. Date Signed: 06/19/2017 02:43 PM Electronically Signed By:Letty Brady RN
[2017-06-19] MEDS: ALTEPLASE 2 MG VIAL IVP PRN ×2 (14:56→14:57)
[2017-06-19] MEDS: traZODone 50 MG TAB PO SCH (22:02)
[2017-06-19] MEDS: ATORVASTATIN CALCIUM 40 MG TAB PO SCH (22:03)
[2017-06-19] MEDS: ASPIRIN EC 81 MG TAB PO SCH (22:03)
[2017-06-19] MEDS: CHOLECALCIFEROL VIT D3 1,000 UNITS TAB PO SCH (22:03)
[2017-06-20] MEDS: KETOROLAC 15 MG/1 ML SDV IVP SCH (02:11)
[2017-06-20] MEDS: OXYCODONE/APAP 5/325 TAB PO PRN ×4 (05:36→22:27)
[2017-06-20] MEDS: HYDROmorphONE/DILAUDID 1 MG/ML INJ IVP PRN ×2 (05:45→14:07)
[2017-06-20] MEDS: DOCUSATE SODIUM 100 MG CAP PO SCH ×2 (09:14→20:10)
[2017-06-20] MEDS: ALLOPURINOL 300 MG TAB PO SCH ×2 (09:15→20:10)
[2017-06-20] MEDS: TRIAMTERENE/HCTZ 37.5/25 1 EACH CAP PO SCH (09:15)
[2017-06-20] MEDS: ENOXAPARIN 40 MG/0.4 ML SYR SC SCH (09:16)
--- NOTE | 2017-06-20 09:26 | SOAPPROG ---
SOAP Progress Note Assessment/Plan: Assessment: 1. Stage I SCC: Should be a good prognosis. I will send for EGFR, ALk,ROS 1, and PDL-1. No further treatment needed now. Please note per Dr. Conde she had a LORENZA lobectomy. AT tumor board no adjuvatn therapy is recommended. Plan: follow up as OP. Needs a CT in 6 months. 06/19/17 07:29 06/20/17 09:24 Subjective: Laly is a 77 yo F with a T1 SCC of the RUL. She has a CT on right. Overall she is doing better. I met with her daughter Rosemary today as well. We reviewed her case at Tumor board Objective: Vital Signs Temp Pulse Resp BP Pulse Ox 36.6 C 83 18 146/53 H 94 06/20/17 08:52 06/20/17 08:52 06/20/17 08:52 06/20/17 09:15 06/20/17 08:52 Laboratory Results 06/17/17 04:18 06/15/17 05:40 06/19/17 06/20/17 06/21/17 05:59 05:59 05:59 Intake Total 2823 400 150 Output Total 1510 1650 850 Balance 1313 -1250 -[address] ICD10 Worksheet Patient Problems: Problems Problem Status Onset Status post lobectomy of lung Acute
[2017-06-20] MEDS: VILANTEROL TR IH SCH (09:41)
[2017-06-20] MEDS: UMECLIDINIUM BRM IH SCH (09:41)
[2017-06-20] MEDS: ALBUTEROL 200 PUFFS/18 GM MDI IH PRN (09:53)
--- NOTE | 2017-06-20 10:50 | ASMTCMCOM ---
CM Note CM Note Notes: Latest notes sent to [facility]. Awaiting final discharge orders. CM to follow. Date Signed: 06/20/2017 10:49 AM Electronically Signed By:Carin Martinez RN
--- NOTE | 2017-06-20 10:52 | SOAPPROG ---
SOAP Progress Note Assessment/Plan: Assessment/Plan: 77 Y F s/p R VATS c minithoracotomy and RUL lobectomy, hilar LN biopsies, POD#7. D/c'ed chest tubes. CXR this afternoon. D/c pace. IV buff capped. Appreciate oncology input. Dispo: possibly to SNF tomorrow. S: No SOB. Pain controlled. O: alert, nad ncat, mmm chest clear anteriorly, no airleak drainage serosanguinous rrr abd soft, nt 06/20/17 10:51 Objective: Vital Signs Temp Pulse Resp BP Pulse Ox 36.6 C 94 12 146/53 H 94 06/20/17 08:52 06/20/17 09:42 06/20/17 09:42 06/20/17 09:15 06/20/17 08:52 Laboratory Results 06/17/17 04:18 06/15/17 05:40 06/19/17 06/20/17 06/21/17 05:59 05:59 05:59 Intake Total 2823 400 150 Output Total 1510 1650 850 Balance 1313 -1250 -700 ICD10 Worksheet Patient Problems: Problems Problem Status Onset Status post lobectomy of lung Acute - ICD10 Problem Qualifiers (1) Status post lobectomy of lung
[2017-06-20] MEDS: ASPIRIN EC 81 MG TAB PO SCH (20:10)
[2017-06-20] MEDS: CHOLECALCIFEROL VIT D3 1,000 UNITS TAB PO SCH (20:10)
[2017-06-20] MEDS: ATORVASTATIN CALCIUM 40 MG TAB PO SCH (20:10)
[2017-06-20] MEDS: ALTEPLASE 2 MG VIAL IVP PRN (22:24)
[2017-06-20] MEDS: traZODone 50 MG TAB PO SCH (22:27)
[2017-06-21] MEDS: HYDROmorphONE/DILAUDID 1 MG/ML INJ IVP PRN (05:56)
[2017-06-21] MEDS: OXYCODONE/APAP 5/325 TAB PO PRN ×4 (06:36→20:50)
[2017-06-21] MEDS ORDERED: FUROSEMIDE 20 MG TAB PO ONE (07:42)
[2017-06-21] MEDS: DOCUSATE SODIUM 100 MG CAP PO SCH ×2 (08:57→20:51)
[2017-06-21] MEDS: ALLOPURINOL 300 MG TAB PO SCH ×2 (08:57→20:50)
[2017-06-21] MEDS: ENOXAPARIN 40 MG/0.4 ML SYR SC SCH (08:59)
[2017-06-21] MEDS: TRIAMTERENE/HCTZ 37.5/25 1 EACH CAP PO SCH (09:02)
[2017-06-21] MEDS: ALBUTEROL 200 PUFFS/18 GM MDI IH PRN (09:07)
[2017-06-21] MEDS: VILANTEROL TR IH SCH (09:08)
[2017-06-21] MEDS: UMECLIDINIUM BRM IH SCH (09:08)
[2017-06-21] MEDS ORDERED: LACTULOSE 20 GM/30 ML UDCUP PO PRN (10:15)
[2017-06-21] MEDS ORDERED: BISACODYL 10 MG SUPP PR PRN (10:15)
[2017-06-21] MEDS ORDERED: MAGNESIUM HYDROXIDE 30 ML UDCUP PO PRN (10:15)
[2017-06-21] MEDS ORDERED: POLYETHYLENE GLYCOL 3350 17 GM PKT PO PRN (10:15)
--- NOTE | 2017-06-21 11:58 | SOAPPROG ---
SOAP Progress Note Assessment/Plan: Assessment/Plan: 77 Y F s/p R VATS c minithoracotomy and RUL lobectomy, hilar LN biopsies, POD#8. Chest tubes removed. CXR stable but slightly increased diffuse patchiness. Repeat lasix today. Repeat CXR in am. Encourage OOB, IS, deep breathing. Albuterol today. Afebrile. Doubt PNA, but could develop. Will also get am labs. Dispo: likely to SNF tomorrow. S: No SOB. Had more pain the last few days but better today. Very motivated to build strength today. O: alert, nad ncat, mmm wounds well dressed mild crackles rrr abd soft, nt 06/21/17 11:55 Objective: Vital Signs Temp Pulse Resp BP Pulse Ox 36.9 C 79 18 99/57 L 93 06/21/17 08:55 06/21/17 08:55 06/21/17 08:55 06/21/17 09:02 06/21/17 08:55 Laboratory Results 06/17/17 04:18 06/15/17 05:40 06/20/17 06/21/17 06/22/17 05:59 05:59 05:59 Intake Total 400 1150 Output Total 1650 1152 150 Balance -1250 -2 -150 ICD10 Worksheet Patient Problems: Problems Problem Status Onset Status post lobectomy of lung Acute - ICD10 Problem Qualifiers (1) Status post lobectomy of lung
--- NOTE | 2017-06-21 16:25 | ASMTCMCOM ---
CM Note CM Note Notes: Pt will not DC today. Updated [facility] and faxed latest MD note. Probable DC tomorrow. Date Signed: 06/21/2017 04:25 PM Electronically Signed By:Carie Dodd LCSW
[2017-06-21] MEDS: traZODone 50 MG TAB PO SCH (20:49)
[2017-06-21] MEDS: ASPIRIN EC 81 MG TAB PO SCH (20:50)
[2017-06-21] MEDS: ATORVASTATIN CALCIUM 40 MG TAB PO SCH (20:51)
[2017-06-21] MEDS: SENNOSIDES/DOCUSATE SODIUM TAB PO SCH (20:51)
[2017-06-21] MEDS: CHOLECALCIFEROL VIT D3 1,000 UNITS TAB PO SCH (20:51)
[2017-06-22] MEDS: OXYCODONE/APAP 5/325 TAB PO PRN ×6 (01:09→21:25)
[2017-06-22] MEDS: ALTEPLASE 2 MG VIAL IVP PRN ×2 (05:52→06:25)
[2017-06-22 06:47] LABS: % IMMATURE GRANULYOCYTES 1.7 % (0.0-1.1); ABSOLUTE IMMATURE GRANULOCYTES 0.17 10^3/uL (0.00-0.10); ADD DIFF? NO; ADD MORPH? NO; ADD SCAN? NO; ATYPICAL LYMPHOCYTE FLAG 10 (0-99); FRAGMENT RBC FLAG 0 (0-99); HEMATOCRIT 30.6 % (38.0-47.0); HEMOGLOBIN 10.1 g/dL (12.6-16.3); LEFT SHIFT FLG 10 (0-99); LIPEMIA HEMOLYSIS FLAG 80 (0-99); MEAN CELL HEMOGLOBIN 30.1 pg (27.9-34.1); MEAN CELL VOLUME 91.3 fL (81.5-99.8); MEAN PLATELET VOLUME 8.8 fL (8.7-11.7); PLATELET CLUMPS FLAG 0 (0-99); PLATELET COUNT 305 10^3/uL (150-400); RED BLOOD CELL COUNT 3.35 10^6/uL (4.18-5.33); RED CELL DISTRIBUTION WIDTH 15.2 % (11.5-15.2)
[2017-06-22 07:12] LABS: ANION GAP 10 mEq/L (8-16); CALCIUM 9.7 mg/dL (8.5-10.4); CARBON DIOXIDE 27 mEq/l (22-31); CHLORIDE 102 mEq/L (97-110); CREATININE 0.7 mg/dL (0.6-1.0); GLOMERULAR FILTRATION RATE > 60; GLUCOSE 114 mg/dL (70-100); POTASSIUM 4.1 mEq/L (3.5-5.2); SODIUM 139 mEq/L (134-144)
--- NOTE | 2017-06-22 07:22 | SOAPPROG ---
SOAP Progress Note Assessment/Plan: Assessment: 1. Stage I SCC: Should be a good prognosis. I will send for EGFR, ALk,ROS 1, and PDL-1. No further treatment needed now. Please note per Dr. Conde she had a LORENZA lobectomy. AT tumor board no adjuvant therapy is recommended. I will reeval her in few weeks. Plan: follow up as OP. Needs a CT in 6 months. 06/19/17 07:29 06/20/17 09:24 06/22/17 07:35 Subjective: Laly is a 77 yo F with a T1 SCC of the RUL. She has a CT on right. Overall she is doing better. I met with her daughter Rosemary today as well. We reviewed her case at Tumor board--no adjuvant therapy. Objective: Vital Signs Temp Pulse Resp BP Pulse Ox 36.8 C 77 18 122/73 H 91 L 06/22/17 06:01 06/22/17 06:01 06/22/17 06:01 06/22/17 06:01 06/22/17 06:01 Laboratory Results 06/22/17 06:00 06/22/17 06:00 06/21/17 06/22/17 06/23/17 05:59 05:59 05:59 Intake Total 1150 1600 Output Total 1152 150 Balance -[address] is out. Rales in Right side. ICD10 Worksheet Patient Problems: Problems Problem Status Onset Status post lobectomy of lung Acute
[2017-06-22] MEDS: UMECLIDINIUM BRM IH SCH (08:17)
[2017-06-22] MEDS: VILANTEROL TR IH SCH (08:17)
[2017-06-22] MEDS: ALBUTEROL 200 PUFFS/18 GM MDI IH PRN (08:19)
[2017-06-22] MEDS: ALLOPURINOL 300 MG TAB PO SCH ×2 (08:47→21:24)
[2017-06-22] MEDS: TRIAMTERENE/HCTZ 37.5/25 1 EACH CAP PO SCH (08:47)
[2017-06-22] MEDS: DOCUSATE SODIUM 100 MG CAP PO SCH ×2 (08:48→21:26)
[2017-06-22] MEDS: ENOXAPARIN 40 MG/0.4 ML SYR SC SCH (08:48)
[2017-06-22] MEDS: FUROSEMIDE 40 MG TAB PO SCH (08:48)
[2017-06-22] MEDS: SENNOSIDES/DOCUSATE SODIUM TAB PO SCH ×2 (09:31→21:26)
--- NOTE | 2017-06-22 10:32 | SOAPPROG ---
SOAP Progress Note Assessment/Plan: Assessment: 77 Y F s/p R VATS c minithoracotomy and RUL lobectomy, hilar LN biopsies, SCC Path showed 1mm SCC nodule without lymph node involvement. Pain at chest tube site. Would like to wean off of IV pain medication if possible for eventual dispo to rehab. Added toradol CXR today still demonstrating fluid overload. Give lasix. Pulm toilet Cont regular diet Discussed c Dr. Conde S: Pain controlled. Tolerating diet. No difficulty breathing. O: Sitting up in chair, NAD MMM No increased WOB. Lungs CTAB anteriorly TTP over right thorax Oriented and alert 06/22/17 10:32 Objective: Vital Signs Temp Pulse Resp BP Pulse Ox 36.6 C 80 18 111/58 L 95 06/22/17 08:31 06/22/17 08:31 06/22/17 08:31 06/22/17 08:47 06/22/17 08:31 Laboratory Results 06/22/17 06:00 06/22/17 06:00 06/21/17 06/22/17 06/23/17 05:59 05:59 05:59 Intake Total 1150 1600 Output Total 1152 150 Balance -2 1450 ICD10 Worksheet Patient Problems: Problems Problem Status Onset Status post lobectomy of lung Acute
[2017-06-22] MEDS: KETOROLAC 15 MG/1 ML SDV IVP SCH ×2 (12:51→20:05)
[2017-06-22] MEDS: ASPIRIN EC 81 MG TAB PO SCH (21:24)
[2017-06-22] MEDS: ATORVASTATIN CALCIUM 40 MG TAB PO SCH (21:25)
[2017-06-22] MEDS: CHOLECALCIFEROL VIT D3 1,000 UNITS TAB PO SCH (21:26)
[2017-06-22] MEDS: traZODone 50 MG TAB PO SCH (21:26)
[2017-06-23] MEDS: KETOROLAC 15 MG/1 ML SDV IVP SCH ×3 (01:00→13:08)
[2017-06-23] MEDS: OXYCODONE/APAP 5/325 TAB PO PRN ×4 (01:21→13:54)
[2017-06-23 07:54] VITALS: BP 106/52; PULSE 73; RESP 18; TEMP 98.2; O2SAT 93
[2017-06-23] MEDS: ALBUTEROL 200 PUFFS/18 GM MDI IH PRN (08:26)
[2017-06-23] MEDS: UMECLIDINIUM BRM IH SCH (08:26)
[2017-06-23] MEDS: VILANTEROL TR IH SCH (08:26)
[2017-06-23] MEDS: SENNOSIDES/DOCUSATE SODIUM TAB PO SCH (08:31)
[2017-06-23] MEDS: DOCUSATE SODIUM 100 MG CAP PO SCH (08:31)
[2017-06-23] MEDS: FUROSEMIDE 40 MG TAB PO SCH (08:31)
[2017-06-23] MEDS: ALLOPURINOL 300 MG TAB PO SCH (08:31)
[2017-06-23] MEDS: ENOXAPARIN 40 MG/0.4 ML SYR SC SCH (08:31)
[2017-06-23] MEDS: TRIAMTERENE/HCTZ 37.5/25 1 EACH CAP PO SCH (09:07)
--- NOTE | 2017-06-23 10:55 | PDIAF ---
- Diagnosis Diagnosis: Lung cancer Code Status: Full Code - Medication Management Discharge Medications: Medications to Continue on Transfer Albuterol Sulfate [Proair Hfa] 2 puffs IH DAILY PRN 05/30/17 [Last Taken Unknown ] Chlorpheniramine Maleate [Allergy Relief] 4 mg PO DAILY PRN 05/30/17 [Last Taken 06/09/17] Acetaminophen [Tylenol ES 500 mg (*)] 500 - 1,000 mg PO Q6 PRN 06/13/17 [Last Taken Unknown] Allopurinol [Zyloprim] 300 mg PO BID 06/13/17 [Last Taken 06/11/17] Aspirin EC [Aspirin EC 81 mg (*)] 81 mg PO DAILY 06/13/17 [Last Taken 06/08/17] Atorvastatin Calcium [Lipitor 40 mg (*)] 40 mg PO DAILY 06/13/17 [Last Taken 10/28 21:00] Cholecalciferol Vit D3 [Vitamin D3 (*)] 1,000 units PO DAILY 06/13/17 [Last Taken 06/08/17] Ibuprofen [Motrin (*)] 200 - 600 mg PO Q6H PRN 06/13/17 [Last Taken 06/08/17] Multivitamins [Multivitamin (*)] 1 each PO DAILY 06/13/17 [Last Taken 06/08/17] Triamterene/Hydrochlorothiazid [Triamterene-Hctz 37.5-25 mg Cp] 1 each PO DAILY 06/13/17 [Last Taken 06/11/17 06:00] Umeclidinium Brm/Vilanterol Tr [Anoro Ellipta 62.5-25 Mcg INH] 1 puffs IH DAILY 06/13/17 [Last Taken 06/11/17] traZODone [traZODONE 50MG (*)] 100 mg PO HS 06/13/17 [Last Taken 06/12/17 21:30] Docusate Sodium [Colace 100 MG (*)] 100 mg PO BID cap 06/23/17 [Last Taken Unknown] Polyethylene Glycol 3350 [Miralax 17 gm (*)] 17 gm PO DAILY PRN pkt 06/23/17 [ Last Taken Unknown] Sennosides/Docusate Sodium [Senokot-S] 1 - 2 tab PO BID tab 06/23/17 [Last Taken Unknown] oxyCODONE/APAP 5/325 [Percocet 5/325 (*)] 1 - 2 tab PO Q4 PRN #30 tab 06/23/17 [ Last Taken Unknown] Discharge Medications: Refer to the Discharge Home Medication list for PRN reason. - Orders Services needed: Physical Therapy, Occupational Therapy Diet Recommendation: no restrictions on diet Diet Texture: Regular Texture Diet - Follow Up Care Current Providers and Referrals: Yodit Barclay MD [Primary Care Provider] - Jayden Conde MD [Medical Doctor] - follow up in 10 days
--- NOTE | 2017-06-23 12:21 | ASMTCMCOM ---
CM Note CM Note Notes: Pt ready for DC today. Alerted [facility]. They will provide pickup at 1400. Faxed final orders. Date Signed: 06/23/2017 12:20 PM Electronically Signed By:Carie Dodd LCSW
--- NOTE | 2017-06-23 13:12 | SOAPPROG ---
SOAP Progress Note Assessment/Plan: Assessment: 77 Y F c chronic respiratory failure on O2 s/p R VATS c minithoracotomy and RUL lobectomy, hilar LN biopsies, SCC Path showed 1mm SCC nodule without lymph node involvement. CXR today much improved. Afebrile, no SOB. Pulm toilet Cont regular diet Ambulate Dispo: to rehab today Discussed c Dr. Conde S: Pain controlled. Tolerating diet. No difficulty breathing. O: Sitting up in chair, NAD MMM No increased WOB. Lungs CTAB right thorax incisions c/d/i with devin in place Oriented and alert Objective: Vital Signs Temp Pulse Resp BP Pulse Ox 36.8 C 73 18 106/52 L 93 06/23/17 07:51 06/23/17 07:51 06/23/17 07:51 06/23/17 09:07 06/23/17 07:51 Laboratory Results 06/22/17 06:00 06/22/17 06:00 06/22/17 06/23/17 06/24/17 05:59 05:59 05:59 Intake Total 1600 1200 Output Total 150 Balance 1450 1200 ICD10 Worksheet Patient Problems: Problems Problem Status Onset Status post lobectomy of lung Acute
--- NOTE | 2017-06-23 15:51 | ASDISCHSUM ---
Discharge Information Plan Status:SNF Medically Cleared to Leave: Discharge Date:06/23/2017 02:10 PM D/C Disposition:Group Home Facility ADT D/C Disposition:Other Rehab, Not [facility] Projected Discharge Date:06/21/2017 11:00 AM Transportation at D/C:Wheelchair Van Discharge Delay Reason: Follow-Up Date:06/21/2017 11:00 AM Discharge Slot: Final Diagnosis: Placement Information Referral Type:*Prison/SNF Referral ID:[id number] Provider Name:[facility] Address 1:[address] Address 2: City:[place] Selection Factors: State:[place] Patient Contact Information Contact Name:LAINE Relationship:Daughter Address:[address] City:[place] Phone: State/Zip Code:[place] [address] Email: Financial Information Financial Class: Primary Plan Desc:MEDICARE INPATIENT Primary Plan Number:[id number] Secondary Plan Desc:[employer]/MDR SUPPLEMENT Secondary Plan Number:[id number] Assessment Information [facility] CM Progress Note CM Note CM Note Notes: Patient is POD #1 VATs and RUL lobectomy, pathology pending. She is doing well and should be able to work with PT/OT today. Has supportive daughter. Discharge needs TBD at this time, CM will follow. Date Signed: 06/14/2017 12:43 PM Electronically Signed By:Joan Yanez RN [facility] CM Progress Note CM Note CM Note Notes: PT assessed pt yesterday and determined that pt is SNF appropriate. Met with pt and dtr Rosemary to discuss DC planning. Dtr expressed strong dissatisfaction with pt's previous rehab stays though she could not remember which facilities they were. Pt lives in [place] so suggested dtr tour the [facility] [place] which she will do over the weekend.Dtr prefers to wait on a referral until she tours. She is also considering home with home care. Told dtr that PT/OT therapists will help her decide if that plan would be appropriate as pt nears DC. Expect pt will be at [facility] a while. C/M will continue to follow. Date Signed: 06/17/2017 10:43 AM Electronically Signed By:Carie Dodd LCSW [facility] CM Progress Note CM Note CM Note Notes: Met w/pt to discuss dc poc. Pt is in agreement w/plan to go to SNF and she said she and her dtr have chosen [facility]. [facility] for [facility] at [facility] and sent referral. CM w/f. Date Signed: 06/19/2017 02:43 PM Electronically Signed By:Letty Brady RN [facility] CM Progress Note CM Note CM Note Notes: Latest notes sent to [facility]. Awaiting final discharge orders. CM to follow. Date Signed: 06/20/2017 10:49 AM Electronically Signed By:Carin Martinez RN [facility] CM Progress Note CM Note CM Note Notes: Pt will not DC today. Updated [facility] and faxed latest MD note. Probable DC tomorrow. Date Signed: 06/21/2017 04:25 PM Electronically Signed By:Carie Dodd LCSW [facility] CM Progress Note CM Note CM Note Notes: Pt ready for DC today. Alerted [facility]. They will provide pickup at 1400. Faxed final orders. Date Signed: 06/23/2017 12:20 PM Electronically Signed By:Carie Dodd LCSW Intervention Information
== END 2017-06-23 14:10 | DRG 164 ==
LOC: F3E 09:05 → F2N 16:25 → F1N 06-14 20:23
PROVIDERS: ADMIT Surgery; ATTEND Surgery
PROC: 07B70ZX Excision of Thorax Lymphatic, Open Approach, Diagnostic (ICD-10-PCS; principal; 2017-06-13 10:30)
PROC: 0BTC4ZZ Resection of Right Upper Lung Lobe, Percutaneous Endoscopic Approach (ICD-10-PCS; principal; 2017-06-13 10:30)
PROC: 0BBC0ZX Excision of Right Upper Lung Lobe, Open Approach, Diagnostic (ICD-10-PCS; principal; 2017-06-13 10:30)
DX: C34.11 Malignant neoplasm of upper lobe, right bronchus or lung (principal); J96.10 Chronic respiratory failure, unspecified whether with hypoxia or hypercapnia; D62 Acute posthemorrhagic anemia; N17.9 Acute kidney failure, unspecified; J44.9 Chronic obstructive pulmonary disease, unspecified; I10 Essential (primary) hypertension; G47.33 Obstructive sleep apnea (adult) (pediatric); Z87.891 Personal history of nicotine dependence; Z99.81 Dependence on supplemental oxygen
CPT/HCPCS: 97110-GP; 97116-GP; 97161-GP; 97166-GO; 97530-GO; 97530-GP; 97535-GO; C1751; G8978-GP-CK; G8979-GP-CI; G8980-GP-CJ; G8987-GO-CL; G8988-GO-CI; J0690; J1100; J1170; J1650; J1885; J2001; J2250; J2405; J2704; J2997; J3010; P9016; P9041

== ENCOUNTER → 2017-08-25 | Outpatient (CLI) | payer OTHER, MEDICARE | LOC: BHCLAF 10:45 | PROVIDERS: ATTEND Internal Medicine Cardiovascular Disease | DX: I35.9 Nonrheumatic aortic valve disorder, unspecified (principal) | CPT/HCPCS: 93306-PO ==

== ENCOUNTER → 2017-08-31 | Outpatient (CLI) | payer OTHER, MEDICARE | LOC: BHFA 11:00 | PROVIDERS: ATTEND Internal Medicine Cardiovascular Disease | DX: I35.0 Nonrheumatic aortic (valve) stenosis (principal) ==

== ENCOUNTER 2017-09-13 06:10 | Day surgery (SDC) | payer OTHER, MEDICARE ==
[2017-09-13] MEDS ORDERED: DIAZEPAM 5 MG TAB PO ONE (06:13)
[2017-09-13] MEDS ORDERED: ASPIRIN EC 325 MG TAB PO ONE ×2 (06:13→06:43)
[2017-09-13] MEDS ORDERED: FAMOTIDINE 20 MG TAB PO ONE (06:13)
[2017-09-13] MEDS ORDERED: diphenhydrAMINE 25 MG CAP PO ONE ×2 (06:13→06:42)
[2017-09-13] MEDS ORDERED: NS 1,000 ML IV ONE (06:13)
--- NOTE | 2017-09-13 06:21 | PDPROPOC ---
Sedation Plan of Care Sedation Plan of Care: mental status noted, patient educated of risks, benefits , alternatives, patient can tolerate sedation ASA Classification: ASA 2 Planned drugs: fentanyl, midazolam Mallampati Score: Class 2 Mallampati Reference Image: Patient passed 3-3-2 rule?: Yes
[2017-09-13] MEDS ORDERED: FAMOTIDINE 20 MG TAB ONE (06:42)
[2017-09-13] MEDS ORDERED: DIAZEPAM 5 MG TAB ONE (06:43)
--- NOTE | 2017-09-13 06:49 | CPEKG ---
Heart Rate: 86 RR Interval: 698 P-R Interval: 172 QRSD Interval: 74 QT Interval: 368 QTC Interval: 440 P Ciales: 14 QRS Ciales: 13 T Wave Ciales: 119 EKG Severity - ABNORMAL ECG - EKG Impression: SINUS RHYTHM EKG Impression: NONSPECIFIC T ABNORMALITIES, LATERAL LEADS Electronically Signed By: Jaydne Hinton 13-Sep-2017 14:43:39
[2017-09-13 06:51] LABS: PLATELET COUNT 275 10^3/uL (150-400)
[2017-09-13] MEDS ORDERED: LIDOCAINE 1% 300 MG/30 ML SDV ONE (06:58)
[2017-09-13] MEDS ORDERED: fentaNYL 100 MCG/2 ML INJ ONE (06:58)
[2017-09-13] MEDS ORDERED: MIDAZOLAM 2 MG/2 ML VIAL ONE (06:58)
[2017-09-13] MEDS ORDERED: IOPAMIDOL (ISOVUE-370) 150 ML BTL IV ONE (06:59)
[2017-09-13 07:03] LABS: INR 0.99 (0.83-1.16); PROTIME(PATIENT) 13.3 SEC (12.0-15.0)
[2017-09-13] MEDS ORDERED: HEPARIN 10,000 UNIT/10 ML MDV ONE (07:20)
[2017-09-13] MEDS ORDERED: ONDANSETRON 4 MG/2 ML VIAL IVP PRN (07:45)
[2017-09-13] MEDS ORDERED: HYDROCODONE/APAP 5/325 TAB PO PRN (07:45)
[2017-09-13] MEDS ORDERED: ATROPINE SULFATE 1 MG/10 ML SYR IVP PRN (07:45)
[2017-09-13] MEDS ORDERED: OXYCODONE/APAP 5/325 TAB PO PRN (07:45)
[2017-09-13] MEDS ORDERED: NITROGLYCERIN 0.4 MG BTL SL PRN (07:45)
[2017-09-13] MEDS ORDERED: CHLORPHENIRAMINE MALEATE 4 MG TAB PO PRN (07:46)
[2017-09-13] MEDS ORDERED: ALBUTEROL SULFATE IH PRN (07:46)
--- NOTE | 2017-09-13 08:22 | CPIP ---
[f rep st] INVASIVE CARDIAC PROCEDURE DATE OF PROCEDURE: 09/13/2017 INDICATIONS FOR PROCEDURE: Severe aortic stenosis and shortness of breath. PROCEDURE PERFORMED: 1. Nonselective left groin sheathogram. 2. 7-Lithuanian sheath left common femoral vein. 3. Right heart catheterization with Pontiac-Alfred catheter. 4. Bilateral selective coronary angiography. HISTORY OF PRESENT ILLNESS: This is a 77-year-old female with history of severe aortic stenosis and lung cancer with recent lobectomy lung surgery who has been having worsening dyspnea on exertion whic h has been out of proportion to her recent lung surgery. The patient's recent echocardiogram did cornelisu w a severe aortic stenosis with aortic valve area of less than 1 cm with 1.0 cm with a peak velocity of over 4.0 cm/sec. Given these findings, patient consented for right and left heart catheterization . DESCRIPTION OF PROCEDURE: After informed consent, the patient was brought to the [facility] where the left groin as per staff in sterile fashion. Using local lidocaine, a short 6-Lithuanian sheath was placed in the left common femoral artery, verified angiographically, a 7-Lithuanian sheath lef t common femoral vein. A [place]-Alfred catheter was then advanced. RA pressure was measured to be 11/10 w ith a mean of 8. RV pressure was measure at 39/7, with an end of 13. PA pressure was 40/17 with a tima n of 26, wedge pressure was 20/23 with a mean of 18. Cardiac output was measured to be 5.5 by Blessing wi th a cardiac index of 3.1. AO saturation was 95%. PA saturation was 72%. Pont[place]-Alfred catheter was th en removed. A JL4 catheter was then advanced to the left coronary artery. Images left coronary rosa ry revealed normal left main. Left circumflex artery was large and robust giving off 2 marginal rosa erick distally, both of which were healthy and free of disease. The LAD was a large vessel which gave off a tiny diagonal artery proximally and a medium to large diagonal artery in its mid portion. The ostium of the 2nd diagonal artery had 40% to 50% ostial disease but no other high-grade obstruction. The LAD itself was healthy and free of disease as it wrapped around the apex. The diagonal 1 artery had ostial 30% to 40% disease. After the imaging, the JL4 catheter was removed. The JR4 catheter w as advanced to the right coronary artery. Images of the right coronary artery revealed normal ostial RCA. There was 20% to 30% disease in the mid RCA. The RPDA and RPLS appeared to be healthy and free of disease. At this time, the JR4 catheter was removed. The pigtail catheter was placed in the javier cending aorta. Abdominal aortogram was obtained which showed patent ascending aorta, patent bilatera l common, external, internal and TIRE INSTALLER arteries bilaterally. The common iliac artery on the right side appeared to be slightly aneurysmal but was widely patent. At the site of the catheter removal of the 3.5 wire, the left groin was then closed with manual pressure. The patient tolerated the procedure w ell. No complications. IMPRESSION: 1. Mild pulmonary hypertension. 2. Mild to moderate noncritical diagonal artery disease. 3. Mild mid right coronary artery disease. PLAN: The patient has noncritical coronary artery disease. We will continue with our workup for her underlying aortic stenosis. Given her recent lung surgery for lung cancer and her overall frailty b jc habitus and history of COPD, she appears to be at least an intermediate candidate for a TAVR. Devaughn hagen discuss this further with Dr. Franco from CT surgery and proceed accordingly. /[id number]/MODL
[2017-09-13] MEDS ORDERED: CHOLECALCIFEROL VIT D3 1,000 UNITS TAB PO SCH (09:00)
[2017-09-13] MEDS ORDERED: MULTIVITAMINS 1 EACH TAB PO SCH (09:00)
[2017-09-13] MEDS ORDERED: [UNRECOGNIZED DRUG - MIXTURE] IH SCH (09:00)
[2017-09-13] MEDS ORDERED: ALLOPURINOL 300 MG TAB PO SCH (09:00)
[2017-09-13] MEDS ORDERED: TRIAMTERENE/HCTZ 37.5/25 1 EACH CAP PO SCH (09:00)
[2017-09-13] MEDS ORDERED: ASPIRIN EC 81 MG TAB PO SCH (09:00)
[2017-09-13] MEDS ORDERED: ATORVASTATIN CALCIUM 40 MG TAB PO SCH (09:00)
[2017-09-13] MEDS ORDERED: IOPAMIDOL (ISOVUE 370) 100 ML BTL IV ONE ×2 (10:56→10:57)
--- NOTE | 2017-09-13 13:13 | GCON ---
[f rep st] CONSULTATION DATE OF CONSULTATION: 09/13/2017 PREOPERATIVE DIAGNOSES: 1. Severe aortic stenosis with symptoms of dyspnea on exertion. 2. Mild coronary artery disease. 3. Recent right upper lobectomy for bronchogenic carcinoma without toribio involvement. 4. Obesity. 5. Peripheral vascular occlusive disease with known carotid stenosis. 6. Sleep apnea. 7. Fatty liver disease. 8. Chronic obstructive pulmonary disease with asthma. RECOMMENDATIONS: This patient just underwent resection of the right upper lobe for early bronchogeni c carcinoma. No adjuvant therapy apparently is recommended. She also presented with worsening short ness of breath prior to that, was noted to have critical aortic stenosis, was referred for surgical o r TAVR intervention. MEDICAL HISTORY: As stated. Surgeries include arthroplasty of the hip, arthroplasty of the shoulder , , cholecystectomy, cystocele repair, hernia repair, oral surgery, rectocele repair, and to nsillectomy. MEDICATIONS: Allopurinol, Anoro, Ellipta, aspirin, atorvastatin, vitamin D, ibuprofen, ProAir HFA 90 mcg inhaler, sennosides docusate tablets, trazodone, and triamterene hydrochlorothiazide. ALLERGIES: She has no known allergies. FAMILY HISTORY: Noncontributory. REVIEW OF SYSTEMS: At the present time, she complains of progressive shortness of breath preceding h er lung resection. Her recovery from her right thoracotomy was rather prolonged and was marked by pr olonged ventilation and persistent dyspnea on exertion proceeding as well as following that. This wa s presumed due to her cardiac disease. She underwent diagnostic left heart cath today with nonobstru ctive coronary disease and severe aortic stenosis. Please see Dr. Henriquez's note. PHYSICAL EXAMINATION: GENERAL: This is a morbidly obese, elderly female lying supine in bed, alert, oriented, quite pleasant, in no apparent distress. VITAL SIGNS: 120/64, respirations 18 nonlabored, 93% on room air. HEENT: Normocephalic. PERRLA. EOMI. NECK: Bruits transmitted from the chest. HEART: Rate has a 3/6 systolic ejection murmur. LUNGS: Clear. ABDOMEN: Protuberant, nontender. Bowel sounds are active. She had recent groin access diagnostic left and right heart catheterization . These were not palpated. EXTREMITIES: She has 1+ edema. She has no palpable pedal pulses. RECT AL AND GENITAL: Deferred. RECOMMENDATIONS: This patient would be at a moderate or higher risk for surgery given her comorbidit y. I believe that she should experience some improvement in her symptoms with repair or replacement of her aortic valve; however, I believe her surgical approach would be marked with a high morbidity a nd a rather prolonged convalescence. Given her recent thoracotomy for lung cancer, I would proceed w ith TAVR over SAVR particularly given she has nonobstructive coronary disease and would not need byri ss surgery. Patient and her daughter were adamant about not having surgical intervention, and I conc ur with that. /[id number]/MODL
== END 2017-09-13 13:01 | disposition home or self-care (01) ==
LOC: FCATH 06:10
PROVIDERS: ATTEND Internal Medicine Cardiovascular Disease
PROC: 4A023N6 Measurement of Cardiac Sampling and Pressure, Right Heart, Percutaneous Approach (ICD-10-PCS; principal; 2017-09-13)
PROC: B2111ZZ Fluoroscopy of Multiple Coronary Arteries using Low Osmolar Contrast (ICD-10-PCS; principal; 2017-09-13)
PROC: B2151ZZ Fluoroscopy of Left Heart using Low Osmolar Contrast (ICD-10-PCS; principal; 2017-09-13)
PROC: B4101ZZ Fluoroscopy of Abdominal Aorta using Low Osmolar Contrast (ICD-10-PCS; principal; 2017-09-13)
DX: I35.0 Nonrheumatic aortic (valve) stenosis (principal); I35.1 Nonrheumatic aortic (valve) insufficiency; R06.09 Other forms of dyspnea; I65.23 Occlusion and stenosis of bilateral carotid arteries; I27.20 Pulmonary hypertension, unspecified; I25.10 Atherosclerotic heart disease of native coronary artery without angina pectoris; R01.1 Cardiac murmur, unspecified; J44.9 Chronic obstructive pulmonary disease, unspecified; K76.0 Fatty (change of) liver, not elsewhere classified; I10 Essential (primary) hypertension; I73.9 Peripheral vascular disease, unspecified; G47.33 Obstructive sleep apnea (adult) (pediatric); R91.1 Solitary pulmonary nodule; E66.9 Obesity, unspecified; Z68.36 Body mass index [BMI] 36.0-36.9, adult; Z85.118 Personal history of other malignant neoplasm of bronchus and lung; Z87.891 Personal history of nicotine dependence; Z82.49 Family history of ischemic heart disease and other diseases of the circulatory system; Z96.641 Presence of right artificial hip joint; Z96.619 Presence of unspecified artificial shoulder joint; Z90.2 Acquired absence of lung [part of]
CPT/HCPCS: J1644; J2250; J3010; Q9967

== ENCOUNTER 2017-10-16 06:02 | Inpatient (IN) | payer OTHER, MEDICARE ==
[2017-10-13 11:05] LABS: PLATELET COUNT 264 10^3/uL (150-400)
[2017-10-16] MEDS ORDERED: IOPAMIDOL (ISOVUE-370) 150 ML BTL IV ONE ×2 (06:31→09:17)
--- NOTE | 2017-10-16 06:55 | PDANEPAE ---
ANE History of Present Illness aortic stenosis - TAVR ANE Past Medical History - Cardiovascular History Hx Hypertension: Yes Hx Arrhythmias: No Hx Chest Pain: No Hx Coronary Artery / Peripheral Vascular Disease: Yes Hx CHF / Valvular Disease: Yes Hx Palpitations: No Cardiovascular History Comment: h/o aortic stenosis - Pulmonary History Hx COPD: Yes Hx Asthma/Reactive Airway Disease: No Hx Recent Upper Respiratory Infection: No Hx Oxygen in Use at Home: Yes Hx Sleep Apnea: Yes Pulmonary History Comment: POS SLEEP APNEA W/CPAP - Neurologic History Hx Cerebrovascular Accident: No Hx Seizures: No Hx Dementia: No - Endocrine History Hx Diabetes: No - Renal History Hx Renal Disorders: No - Liver History Hx Hepatic Disorders: No - Neurological & Psychiatric Hx Hx Neurological and Psychiatric Disorders: No - Cancer History Hx Cancer: Yes Cancer History Comment: Oral cancer. SKIN CA - REMOVED - Congenital Disorder History Hx Congenital Disorders: No - GI History Hx Gastrointestinal Disorders: No Gastrointestinal History Comment: CONSTIPATION - Other Health History Other Health History: LEG CRAMPS NOC - Chronic Pain History Chronic Pain: Yes (L LEG AND BACK) - Surgical History Prior Surgeries: 1966. Hernia (unknown date). bilateral hip replacements. Prolapsed uterus. L leg hardware. R shoulder replacement. Oral CA surgery "under my tounge" ANE Review of Systems Review of Systems: - Exercise capacity Exercise capacity: <4 METS ANE Patient History - Allergies Allergies/Adverse Reactions: No Known Allergies Allergy (Verified 06/13/17 19:12) - Home Medications Home Medications: Acetaminophen [Tylenol ES 500 mg (*)] 1,000 mg PO DAILY PRN 06/13/17 [Last Taken Unknown] Aspirin EC [Aspirin EC 81 mg (*)] 81 mg PO HS 06/13/17 [Last Taken 06/08/17] Atorvastatin Calcium [Lipitor 40 mg (*)] 40 mg PO HS 06/13/17 [Last Taken 21:00] Cholecalciferol Vit D3 [Vitamin D3 (*)] 1,000 units PO DAILY18 06/13/17 [Last Taken 06/08/17] Umeclidinium Brm/Vilanterol Tr [Anoro Ellipta 62.5-25 Mcg INH] 1 puffs IH DAILY 06/13/17 [Last Taken 06/11/17] traZODone [traZODONE 50MG (*)] 100 mg PO HS 06/13/17 [Last Taken 06/12/17 21:30] Multivitamins [Multivitamin (*)] 1 each PO DAILY 09/06/17 [Last Taken Unknown] Albuterol [Proventil Inhaler HFA (*)] 2 puffs IH Q6HRS PRN 10/09/17 [Last Taken Unknown] Allopurinol [Allopurinol 300 MG (RX)] 300 mg PO BID 10/09/17 [Last Taken Unknown ] Ibuprofen [Motrin (*)] 200 mg PO Q6HRS PRN 10/09/17 [Last Taken Unknown] Triamterene/Hydrochlorothiazid [Triamterene-Hctz 37.5-25 mg Tb] 1 each PO DAILY 10/09/17 [Last Taken Unknown] - Smoking Hx Smoking Status: Former smoker - Family Anes Hx Family Hx Anesthesia Complications: None ANE Labs/Vital Signs - Labs Result Diagrams: 10/16/17 09:45 10/13/17 10:45 - Vital Signs Height: 149.86 cm Weight: 77.111 kg ANE Physical Exam - Airway Mallampati Score: Class 2 - Pulmonary Pulmonary: no respiratory distress - Cardiovascular Cardiovascular: regular rate and rhythym - ASA Status ASA Status: III ANE Anesthesia Plan Anesthesia Plan: general endotracheal anesthesia
[2017-10-16] MEDS ORDERED: ROCURONIUM 100 MG/10 ML VIAL ONE (07:06)
[2017-10-16] MEDS ORDERED: PHENYLEPHRINE 10 MG/ML SDV ONE (07:06)
--- NOTE | 2017-10-16 07:13 | PDPROPOC ---
Sedation Plan of Care Sedation Plan of Care: patient educated of risks, benefits, alternatives, patient can tolerate sedation ASA Classification: ASA 2 Mallampati Score: Class 2 Mallampati Reference Image: Patient passed 3-3-2 rule?: Yes
[2017-10-16] MEDS ORDERED: LIDOCAINE 2% 5 ML SDV ONE (07:14)
[2017-10-16] MEDS ORDERED: PROPOFOL 200 MG/20 ML VIAL ONE (07:14)
[2017-10-16] MEDS ORDERED: fentaNYL 100 MCG/2 ML INJ ONE ×3 (07:14→09:42)
[2017-10-16] MEDS ORDERED: HEPARIN 10,000 UNIT/10 ML MDV (1,000 UNIT/ML) ONE (08:00)
[2017-10-16] MEDS ORDERED: SUGAMMADEX SODIUM 200 MG/2 ML VIAL IVP ONE (08:34)
[2017-10-16] MEDS ORDERED: PROTAMINE SULFATE 50 MG/5 ML VIAL IVP ONE (08:36)
[2017-10-16] MEDS ORDERED: ALBUMIN 5% 250 ML BOTTLE IV ONE (09:54)
[2017-10-16] MEDS ORDERED: BACITRACIN IRRIGATION/NS 50,000 UNITS/1,000 ML BTL IRR ONE (09:56)
[2017-10-16] MEDS ORDERED: LIDOCAINE 1% 300 MG/30 ML SDV ONE (10:04)
[2017-10-16] MEDS ORDERED: LIDO/EPI 1% **for epidural** 30 ML SDV ONE (10:05)
[2017-10-16] MEDS ORDERED: BUPIVACAINE 0.5% 30 ML SDV ONE (10:05)
[2017-10-16] MEDS ORDERED: MIDAZOLAM 2 MG/2 ML VIAL ONE (10:10)
[2017-10-16] MEDS ORDERED: SUCCINYLCHOLINE CHLORIDE 200 MG/10 ML SYR IVP ONE (10:43)
[2017-10-16] MEDS ORDERED: IOPAMIDOL (ISOVUE-300) 100 ML BTL ONE (10:44)
[2017-10-16] MEDS ORDERED: ROCURONIUM 50 MG/5 ML VIAL ONE (10:47)
--- NOTE | 2017-10-16 10:52 | GOP ---
[f rep st] OPERATIVE REPORT DATE OF OPERATION: 10/16/2017 SURGEON: Chu Franco DO MACHINE SILVER STRIPPER: Aniket Henriquez MD. PREOPERATIVE DIAGNOSIS: Critical aortic stenosis. 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 PROCEDURE PERFORMED: FINDINGS: DESCRIPTION OF PROCEDURE: Please see separate dictation by Dr. Henriquez who was in 1st position. The patient had access to both femoral arteries and the left common femoral vein with temporary pacemaker performed. Please see Dr. Jhaveri 's note. Over a __[employer] wire I positioned and deployed a 26 Medtronic valve with transesophageal echo guidance. Post deployment, there was no evidence of perivalvular leak. The valve functioning well. Ventricular function appeared preserved. There were some conduction issues requiring temporary pacing. I then assisted Dr. Perera as he deployed stents across the iliac artery for presumed disruption and dissection remaining hemodynamically stable. Please see his entire discussion. /[id number]/MODL MTDD
[2017-10-16] MEDS ORDERED: NALOXONE HCL 0.4 MG/ML INJ IVP PRN (11:35)
--- NOTE | 2017-10-16 11:35 | POSTANESTH ---
Post Anesthetic Evaluation Cardiovascular Status: Normal, Stable Respiratory Status: Normal, Stable Level of Consciousness/Mental Status: Can Participate in Eval Pain Control: Adequate, Prn Tx Ordered Nausea/Vomiting Control: Adequate, Prn Tx Ordered Complications Possibly Related to Anesthesia: None Noted
[2017-10-16] MEDS ORDERED: HYDROmorphONE/DILAUDID 1 MG/ML INJ IVP PRN (11:50)
[2017-10-16] MEDS ORDERED: hydrALAZINE 20 MG/ML VIAL IVP PRN (11:50)
[2017-10-16] MEDS ORDERED: ONDANSETRON DISINTEGRATING 4 MG TAB PO PRN (11:50)
[2017-10-16] MEDS ORDERED: ONDANSETRON 4 MG/2 ML VIAL IVP PRN (11:50)
[2017-10-16] MEDS ORDERED: IBUPROFEN 800 MG TAB PO PRN (11:50)
[2017-10-16] MEDS ORDERED: ATROPINE SULFATE 1 MG/10 ML SYR IVP PRN (11:50)
[2017-10-16] MEDS ORDERED: oxyCODONE IR 5 MG TAB PO PRN (11:50)
--- NOTE | 2017-10-16 12:26 | ASMTCMCOM ---
CM Note CM Note Notes: 77 year old female with SOB and valvular dis admitted for TAVR procedure. Patient will be seen by Therapies. NGUYEN to follow for possible discharge needs. Date Signed: 10/16/2017 12:25 PM Electronically Signed By:Jennifer Corral LCSW
[2017-10-16] MEDS: ACETAMINOPHEN 325 MG TAB PO SCH ×2 (13:37→18:33)
--- NOTE | 2017-10-16 15:28 | CPIP ---
[f rep st] INVASIVE CARDIAC PROCEDURE Operators: Drs. Henriquez and Salvador PROCEDURE: 1. Nonselective left groin sheathogram with 8-Yemeni sheath. 2. 6-Yemeni sheath to the left common femoral vein placed. 3. Temporary pacemaker placed, right ventricle. 4. 6-Yemeni sheath, right common femoral artery, upsized to an 8-Yemeni sheath with triple Perclose placement, upsized to a 16-Yemeni sheath. 5. Placement of Medtronic CoreValve Evolut Pro 26 mm valve by the transfemoral route. 6. Repair of right common femoral, external iliac artery utilizing 2 Viabahn 7.0 x 50 self expanding stents. BRIEF HISTORY: This is a 77-year-old female with history of critical aortic stenosis, carotid artery disease, COPD, who was deemed to be a suitable candidate for transfemoral TAVR by CT Surgery at . DESCRIPTION OF PROCEDURE: The patient was brought to [facility] where bilateral groins were prepped and draped in sterile fashion. The patient was electively intubated. AUGUSTINA performed by Dr. Ember Gallagher. Patient was administered 1 g Ancef IV. A 6-Yemeni sheath placed in the left common femoral artery, verified angiographically, upsized to an 8-Yemeni sheath. A 6-Yemeni sheath was placed in the left common femoral vein with temporary pacemaker placed in the right ventricle. Next, a 6-Yemeni sheath placed in right common femoral artery, upsized to an 8-Yemeni sheath after triple Perclose placement. The right groin was upsized to a 16-Yemeni [place] sheath after triple Perclose placements. The valve was crossed with AL1 catheter and a straight stiff Glidewire after 7000 heparin IV was administered, switched out for a pigtail catheter, switched out for Confida wire. The sheath was then removed and a Medtronic CoreValve Evolut PRO 26 mm valve was then advanced and deployed successfully. After deployment, there was no perivalvular leak noted. After deployment of the valve, the patient did appear to be in complete heart block, however, at this time, requiring a backup pacer rate of 50 beats per minute. At this time, the sheath was removed from the right groin. There was significant bleeding from the right groin, indicating most likely a dissection of the right common femoral artery. This was then repaired by an up-and-over method with 2 Viabahn 7 x 50s. These were deployed successfully and the patient was hemodynamically stable. The patient had the left groin sutured into place. The patient's CHB resolved on the table and she reverted back to NSR. The patient was in stable condition to be transfused 2 units, given her bleeding from the right groin, as her hemoglobin was 9.7 from baseline of 12.8. IMPRESSION: 1. Successful placement of Medtronic CoreValve Evolut PRO 26 mm valve via transfemoral route. 2. Dissection of right common femoral artery, external iliac, repaired with 2 overlapping Viabahn stents. PLAN: Further orders following clinical course. Patient will be in ICU postprocedure. /[id number]/MODL MTDD
[2017-10-17 02:49] LABS: PLATELET COUNT 160 10^3/uL (150-400)
[2017-10-17] MEDS: ACETAMINOPHEN 325 MG TAB PO SCH ×4 (03:29→18:18)
[2017-10-17] MEDS ORDERED: ALBUTEROL 60 PUFFS/8 GM MDI IH PRN (06:22)
--- NOTE | 2017-10-17 06:26 | PDCARPN ---
Cardiology Progress Note Chief Complaint: SOB Assessment/Plan: Assessment: s/p TAVR complicated by COPYWRITING INTERN dissection transient CHB Plan: 10/17/17 06:23 Stable Hgb 10, unit transfused Strong pedal pulses Moves all ext BP stable Cr normal OOB Check labs in AM Echo today Keep in ICU Subjective: tired Reviewed/Discussed With: multidisciplinary team Time Spent With Patient: 25 min Objective: Vital Signs (8 Hrs) Pulse Resp BP Pulse Ox 10/17/17 05:00 96 16 123/53 H 97 10/17/17 04:00 100 14 110/63 96 10/17/17 03:00 105 H 18 117/59 L 97 10/17/17 02:00 105 H 20 117/50 L 95 10/17/17 01:00 102 H 16 131/42 H 98 10/17/17 00:00 103 H 15 127/52 H 96 10/16/17 23:00 105 H 15 119/60 96 Intake/Output (24 Hrs) 10/16/17 10/17/17 10/18/17 05:59 05:59 05:59 Output Total 550 Balance -550 Output: Urine (ml) 550 Incontinence 550 Other: Weight 77.111 kg Number of Voids Incontinence 1 Result Diagrams: 10/17/17 02:40 10/17/17 02:40 - Physical Exam Constitutional: no apparent distress Eyes: PERRL Ears, Nose, Mouth, Throat: moist mucous membranes Cardiovascular: regular rate and rhythm Peripheral Pulses: 1+: femoral (R), femoral (L) Respiratory: clear to auscultate bilat Gastrointestinal: normoactive bowel sounds Genitourinary: no suprapubic tenderness Skin: other (bilateral groin bruising) Musculoskeletal: no muscular tenderness Neurologic: AAOx3 Psychiatric: cooperative ICD10 Worksheet Patient Problems: Problems Problem Status Onset Status post lobectomy of lung Acute
--- NOTE | 2017-10-17 08:49 | CPEKG ---
Heart Rate: 96 RR Interval: 625 P-R Interval: 176 QRSD Interval: 74 QT Interval: 376 QTC Interval: 476 P [place]: 21 QRS [place]: 27 T Wave [place]: 210 EKG Severity - ABNORMAL ECG - EKG Impression: SINUS RHYTHM EKG Impression: ABNORMAL T, CONSIDER ISCHEMIA, LATERAL LEADS Electronically Signed By: Roberto Rios 17-Oct-2017 15:53:49
[2017-10-17] MEDS: ALLOPURINOL 300 MG TAB PO SCH ×2 (09:26→19:43)
[2017-10-17] MEDS: MULTIVITAMINS 1 EACH TAB PO SCH (09:26)
--- NOTE | 2017-10-17 10:30 | ECHO ---
[email or web address] [address] Main: [phone] Fax: [email or web address] Echocardiogram Name: BRUCE YU MR#: [id number] Study Date: 10/17/2017 Study Time: 07:28 AM Date of : 1940 Age: 77 year(s) Height: 149.9 cm (59 in.) Weight: 77.11 kg (170 lb.) BSA: 1.72 m2 Gender: Female Examination: Echo Indication: Post TAVR Image Quality: Contrast: Requested by: Aniket Henriquez BP: 124 mmHg/66 mmHg Heart Rate: Rhythm: Normal sinus rhythm Indication: Post TAVR Procedure Staff Sleever: Abraham Gomes RDCS Reading Physician: Aniket Henriquez Requesting Provider: Conclusions: Normal global systolic LV function. EF is 62 %. There is a AV CoreValve with a Av Vmax of 1.8 m/s and AO mean PG of 8 mmHg. There is no obvious evidence of a perivalvular leak and there is no pericardical effusion. The CoreValve is well seated.. No pericardial effusion. Measurements: Chambers Valvular Assessment AV/MV Valvular Assessment TV/PV Normal Normal Normal Name Value Range Name Value Range Name Value Range Ao Yanet (MM): 2.0 cm (2.2 cm-3.7 AV Vmax: 1.87 m/s (1 m/s-1.7 cm) m/s) IVSd (2D): 0.8 cm (0.6 cm-1.1 AV maxP mmHg ( - ) cm) AV meanP mmHg ( - ) LVDd (2D): 4.2 cm (3.9 cm-5.3 YEISON (VTI): 1.6 cm ( - ) cm) MV E Vmax: 1.26 m/s ( - ) LVDs (2D): 2.8 cm (2.1 cm-4 MV A Vmax: 1.51 m/s ( - ) cm) MV E/A: 0.83 ( - ) LVPWd (2D): 0.8 cm ( - ) MV meanP mmHg ( - ) LVOTd 1.6 cm 1.6 cm mm MVA (Vmax): 1.4 m/s ( - ) LVEF (2D): 62 (>=54 %) Continued Measurements: Chambers Valvular Assessment AV/MV Name Value Name Value LADs Lon.7 cm MV E' Septal: 0.05 m/s LA Area: 14.0 cm2 MV E/E' Septal: 25.90 MV E/E' Lateral: 30.10 Patient: BRUCE YU Study Date: 10/17/2017 Page 1 of 2 07:28 AM MV VTI: 39.50 cm Findings: Left Ventricle: Normal size left ventricle. No LV hypertrophy. Normal global systolic LV function. EF is 62 %. No regional wall motion abnormality. Diastolic dysfunction is present. . Right Ventricle: Normal size right ventricle. Normal RV function. Left Atrium: The left atrium is normal in size. Right Atrium: The right atrium is normal in size. Mitral Valve: Mild mitral valve leaflet calcification is present. No mitral stenosis is present. Aortic Valve: There is a AV CoreValve with a Av Vmax of 1.8 m/s and AO mean PG of 8 mmHg. There is no obvious evidence of a perivalvular leak and there is no pericardical effusion. The CoreValve is well seated.. Tricuspid Valve: The tricuspid valve is normal in appearance and function. Pulmonic Valve: The pulmonic valve is normal in appearance and function. Aorta: The aorta is normal. Pericardium: No pericardial effusion. (No Signature Object) Patient: BRUCE YU Study Date: 10/17/2017 Page 2 of 2 07:28 AM [id number]
[2017-10-17 11:44] LABS: PLATELET COUNT 136 10^3/uL (150-400)
--- NOTE | 2017-10-17 13:37 | GCON ---
[f rep st] CONSULTATION PULMONARY/CRITICAL CARE CONSULTATION. DATE OF CONSULTATION: 10/17/2017 REASON FOR CONSULTATION: Intensive care evaluation and medical management of a patient with multiple medical problems, status post TAVR. HISTORY: The patient is a 77-year-old, who was admitted to the hospital on October 16 for a TAVR pro cedure secondary to aortic stenosis. A new aortic valve was placed successfully via a transfemoral a pproach. The procedure was complicated by dissection of the right common femoral artery and internal iliac which were then stented. The patient was kept on the ventilator initially postoperatively but was subsequently extubated prior to returning to the intensive care unit. She has been in stable co ndition since. She was initially slow to wake up and is still a little confused and moving slowly a day after the procedure; however, she has no obvious focal neurologic deficits. PAST MEDICAL HISTORY: Remarkable for obstructive sleep apnea. She uses CPAP and oxygen at night. T here is a history of COPD secondary to previous tobacco abuse. She quit smoking many years ago. 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 O ther problems include systemic hypertension, skin cancer, and depression. MEDICATIONS: Home medication included ibuprofen, Lipitor, aspirin, allopurinol, albuterol, and Anoro Ellipta, trazodone, triamterene/hydrochlorothiazide, multivitamins, and vitamin D. PAST SURGICAL HISTORY: Multiple, as outlined per her records from [facility]. DRUG ALLERGIES: No known drug allergies. SOCIAL HISTORY: The patient lives in [facility]. She is . She has 2 children. She is no longer smoking. Alcohol is denied. She quit smoking over 10 years ago. FAMILY HISTORY: Heart disease, hypertension, and lung cancer. REVIEW OF SYSTEMS: A 10-point review of systems is somewhat difficult to obtain. The patient denies significant pain at this point in time, no shortness of breath. She denies known thromboembolic dis ease or blood clots in the past. Denies abdominal problems or renal disease. PHYSICAL EXAMINATION: GENERAL: Reveals an elderly woman, who is overweight, sitting up in a chair w ithout distress. Nasal cannula oxygen is in place at 2 L. VITAL SIGNS: Saturations are 98%. Blood pressure is 125/66, heart rate 90 with sinus rhythm on the monitor. She is afebrile. HEENT: Unrem arkable for lymphadenopathy or thyromegaly. There is no obvious jugular venous distention; however, she has a relatively large short neck. CHEST: Clear anteriorly. Breath sounds are somewhat diminis hed at the bases bilaterally secondary to body habitus. Breath sounds are somewhat coarse at the rig ht posterior base compared to the left; however, there are no consolidative changes. Few rales are p resent. There are no rhonchi. HEART: Regular in rate and rhythm. A systolic murmur is present. T here are no obvious gallops. ABDOMEN: Overweight, soft, nontender. Bowel sounds are present. EXTR EMITIES: Remarkable for 1+ pitting edema bilaterally. There are no obvious cords, no tenderness. N EUROLOGIC: Appears intact and is nonfocal. She has good strength bilaterally. Cranial nerves and v isual ambriz appear to be intact. She is oriented to person and place, and the fact that it is Febru mike. She has difficulty coming up with names of physicians, where exactly she lives etc. DATABASE: Cardiac echo done today is within normal limits. Ejection fraction is approximately 60%. Right heart function is normal. LABORATORY: White blood cell count is 14,000, hematocrit 33. Platelets are 136,000. Sodium is 147, potassium 3.6, BUN 40 with a creatinine of 0.9. Glucose is 149, calcium 9.0. Urinalysis on 10/13 s howed some white blood cells and trace bacteria. Cultures were not performed. ASSESSMENT: 1. Status post transcatheter aortic valve replacement: She is doing well, is hemodynamically stable , without arrhythmias. 2. Altered mental status: She is having some cognitive issues but neurologically appears to be nonf ocal. This is likely multifactorial and related to surgery, age, possible underlying mild dementia, and acute toxic metabolic factors. 3. History of chronic obstructive pulmonary disease. She appears stable. She is on albuterol. If she has her own Anoro Ellipta inhaler this can be restarted as well, 1 puff per day. There is no tracy dence of exacerbation. 4. Obstructive sleep apnea: She has her continuous positive airway pressure machine here and is usi ng it at night along with oxygen. 5. Metabolic: No issues identified. 6. Gastrointestinal prophylaxis: None indicated, eating. 7. Deep venous thrombosis prophylaxis. Sequential compression devices alone. Prophylactic enoxapar in could be initiated per Cardiology/Cardiovascular Surgery. PLAN AND RECOMMENDATIONS: The patient will be kept in the intensive care unit for now. Increasing m obilization will be encouraged. Laboratory will be followed. Chest x-ray will be repeated in the a. m. Neurologic status will be followed. PT, OT, and Speech will continue to see the patient. Further plans recommendations will be made based on her progress over the next 12-24 hours. /[id number]/MODL
[2017-10-18] MEDS: ACETAMINOPHEN 325 MG TAB PO SCH ×2 (02:42→06:27)
[2017-10-18 04:18] LABS: PLATELET COUNT 134 10^3/uL (150-400)
--- NOTE | 2017-10-18 07:04 | PDCARPN ---
Cardiology Progress Note Chief Complaint: SOB Assessment/Plan: Assessment: s/p TAVR complicated by OCCUPATIONAL THERAPY ASSIST dissection transient CHB Plan: 10/17/17 06:23 Stable Hgb 10, unit transfused Strong pedal pulses Moves all ext BP stable Cr normal OOB Check labs in AM Echo today Keep in ICU 10/18/17 07:02 Pleasantly confused to PPT but moves all ext/no focal deficits BP/HR stable Hgb stable OOB PT transfer to PCU echo- NL EF, NL TAVR Reviewed/Discussed With: multidisciplinary team Time Spent With Patient: 25 min Objective: Vital Signs (8 Hrs) Pulse Resp BP Pulse Ox 10/18/17 06:00 90 15 143/67 H 95 10/18/17 05:00 88 16 141/60 H 94 10/18/17 04:00 87 14 145/60 H 98 10/18/17 03:00 88 16 146/64 H 97 10/18/17 02:00 89 16 159/73 H 96 10/18/17 01:00 90 15 135/67 H 95 10/18/17 00:00 88 14 149/66 H 97 Intake/Output (24 Hrs) 10/17/17 10/18/17 10/19/17 05:59 05:59 05:59 Intake Total 500 1540 Output Total 800 Balance -300 1540 Intake: Oral (ml) 1540 IV Intake (ml) 250 Packed Red Blood Cells ( 250 ml) Output: Urine (ml) 800 Incontinence 800 Other: Weight 77.111 kg Number of Voids Incontinence 1 2 Toilet 2 Number of Stools Incontinence 2 Toilet 1 Result Diagrams: 10/18/17 04:00 10/18/17 04:00 - Physical Exam Constitutional: healthy appearing Eyes: PERRL Ears, Nose, Mouth, Throat: moist mucous membranes Cardiovascular: regular rate and rhythm Peripheral Pulses: 1+: femoral (R), femoral (L) Respiratory: clear to auscultate bilat Gastrointestinal: normoactive bowel sounds Genitourinary: no suprapubic tenderness Skin: no rashes Musculoskeletal: no muscular tenderness Neurologic: AAOx3 Psychiatric: cooperative ICD10 Worksheet Patient Problems: Problems Problem Status Onset Status post lobectomy of lung Acute
[2017-10-18] MEDS ORDERED: ASPIRIN 81 MG CHEWABLE TAB PO SCH (09:00)
[2017-10-18] MEDS ORDERED: CIPROFLOXACIN 250 MG TAB PO SCH (10:00)
--- NOTE | 2017-10-18 11:02 | ASMTCMCOM ---
CM Note CM Note Notes: Patient is POD #2 complicated TAVR. This morning, she c/o neurologic deficits and had trouble word finding. She was taken to CT and found to have multiple CVA, some old and some acute. Her discharge needs/date remain TBD but an inpatient rehab consult has been ordered. Therapies will work with her when appropriate. Her daughter Rosemary is at the bedside. CM will follow. Current CM Discharge plan: TBD Date Signed: 10/18/2017 11:01 AM Electronically Signed By:Joan Yanez RN
[2017-10-18] MEDS ORDERED: ACETAMINOPHEN 650 MG SUPP PR PRN (11:35)
[2017-10-18] MEDS ORDERED: CIPROFLOXACIN 200 MG/DEXTROSE 100 ML IV SCH (11:45)
[2017-10-18] MEDS ORDERED: ASPIRIN RECTAL 300 MG SUPP PR SCH (11:45)
--- NOTE | 2017-10-18 12:22 | PDINTPN ---
Teaching Fellow Progress Note Assessment/Plan: Assessment: Status post TAVR. Doing well. Blood pressure and hemodynamics stable. Stroke. She does have some acute lesions on the left as well as evidence chronic small strokes in the same areas. She has known severe carotid artery disease, the likely source. Started on aspirin. She was on this at home. Swallow safety: Need speech evaluation at bedside, video if indicated. Asthma: No evidence of an exacerbation. On p.r.n. albuterol. She takes Anoro at home. History of lung cancer: Status post right upper lobectomy without evidence of recurrence. Metabolic: No issues identified. DVT prophylaxis: None indicated currently with acute stroke in small area bleeding. On SCDs. GI prophylaxis: None currently. Will start famotidine as she is NPO for now. Plan: Continue care in the intensive care unit. Neurology will evaluate patient later today. Continue present therapies. Continue NPO status until evaluated by speech. When she can swallow we can restart her usual oral outpatient medications, give oral potassium, etc. Continue medications for underlying asthma. Follow the laboratory intermittently. Consider further evaluation of carotids, evaluate for and arterectomy if indicated and feasible. 30 min of critical care time was spent directly with the patient. Discussed with the patient's daughter, nursing, Cardiology, and the ICU multi disciplinary team. Subjective: More somnolent today. Arouses. Increased problems with word finding. Denies headache, shortness of breath. Objective: Vital Signs Temp Pulse Resp BP Pulse Ox 37.7 C 87 20 144/60 H 98 10/18/17 07:56 10/18/17 11:00 10/18/17 11:00 10/18/17 11:00 10/18/17 11:00 Laboratory Results 10/18/17 04:00 10/18/17 04:00 10/17/17 10/18/17 10/19/17 05:59 05:59 05:59 Intake Total 500 1540 Output Total 800 Balance -[address] head: Small areas of acute and chronic stroke in the left frontal and parietal areas. 1 associated with a small area hemorrhage. Physical Exam - Physical Exam General Appearance: obese, other (Somnolent, arouses, obvious word finding problems new since last night. Cannot say "hospital ", "[facility] "this a.m. 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
[2017-10-18] MEDS: POTASSIUM CL 20 MEQ TAB PO SCH (13:45)
[2017-10-18] MEDS: MULTIVITAMINS 1 EACH TAB PO SCH (13:46)
[2017-10-18] MEDS: ALLOPURINOL 300 MG TAB PO SCH (13:46)
[2017-10-18] MEDS ORDERED: ACETAMINOPHEN 325 MG TAB PO PRN (16:02)
--- NOTE | 2017-10-18 16:04 | NEUROPROG ---
Assessment: HOSPITAL NEUROLOGY CONSULT REQUESTING: Aniket Henriquez MD REASON: stroke HPI: 77 year old right-handed woman with a history of HTN, HLD, GIOVANNI on CPAP, known ANGI stenosis, prior smoking with COPD who was admitted 10/16 for TAVR for severe aortic stenosis. She did have a presumed right common femoral/iliac dissection indicated by surgical site bleeding and this was repaired with stenting. Post-operatively, the patient was quite confused. Her daughter, who is present today, indicated the patient is normally mentally sharp and independent. Her mentation has been improving and resembled cognitive difficulty from anesthesia during her prior pneumonectomy, but she is still not herself. Specifically her memory is quite impaired. She has difficulty recalling her home address and city, dates and circumstances of her admission. This morning she was having difficulty navigating the breakfast menu. This prompted a stroke alert and CT head wo revealed wedge-shaped cortical hypodensities in the left frontal and left parietal-occipital lobes consistent with subacute ischemia - the left frontal region had a punctate area of suspected hemorrhage. Telestroke service felt she was not a tPA candidate due to the recent procedure and presence of completed infarct on CT - same goes for intervention. Patient has no prior history of stroke/TIA. She has not had any visual disturbance, GRANDE, weakness, sensory loss, dizziness, hearing changes, speech change. ROS: As per the HPI, otherwise a complete 12 point ROS was performed and is negative ALLERGIES AND MEDS: As recorded in the EMR - reviewed and reconciled PFSH: As per the ICU consult H&P by Dr. Resendiz from 10/16 EXAM: VS reviewed in EMR GEN: WDWN sitting in NAD HEENT: NCAT, sclera anicteric, conjunctiva not injected, MMM, oropharynx clear, no scalp tenderness NECK: supple, nontender, no meningismus CV: RRR s1 s2 wo m/r/c/g. Carotid pulses 2+ wo bruit NEURO: MS: awake, alert, oriented to self only. Speech nondysarthric. She does have some word finding difficulty, but otherwise her language function is preserved. Follows commands. Attends to both sides. Episodic global memory impairment on casual conversation. Mood euthymic. Adequate fund of knowledge. No dyspraxia with mimicking hand gestures or common activities. CN: pupils 3mm round and reactive. Unable to visualize fundi. VFF. Primary gaze centered. Full ocular motility with motor impersistence on smooth pursuit. Facial sensation preserved. Face symmetric. Hearing grossly intact to finger rub. Palatoglossal movements intact. Shoulder shrug and head turn strong. MOTOR: normal bulk/tone. No adventitial movements. Full power throughout, with exception of left hip flexion which is 4/5 (chronic from prior femur fracture). SENSORY: symmetric/intact LT/PP throughout. No extinction. Cortical sensory function intact. COORD: no ataxia FN/HS. Durga preserved. REFLEX: plantars equivocal. No clonus. Absent ankle jerks, other DTRs trace. GAIT: deferred to PT safety eval DATA REVIEW: Labs reviewed in EMR PERSONALLY INTERPRETED RESULTS AND DATA: CT head wo - as per the HPI IMPRESSION AND RECOMMENDATIONS: // SUBACUTE ISCHEMIC STROKE // ACUTE COGNITIVE CHANGE // S/P TAVR // HX ANGI STENOSIS Infarcts are likely from embolism during manipulation of the aortic valve with TAVR - discussed with Dr. Henriquez who is in agreement. Patient's symptoms certainly could be from an embolic shower, but post-anesthesia effect should also be considered. Her frontal and parietal ischemia would not necessarily explain her mainly memory dysfunction, but the frontal infarct could be responsible for her mild word-finding difficulty. Will check MRI brain wo to assess for ischemia to the mesial temporal structures , as well as assess full extent of infarcts. I would also like to update her CTA head/neck to assess any progression of her known ANGI stenosis - there has been some indication of other intracranial stenoses resulting in possible hemispheric perfusion solely from the LICA - this may further guide treatment, both medically and surgically. For now, she will be maintained on ASA, statin, anti-HTN and continue CPAP at night. Maintain BP as per post-TAVR protocol - would avoid hypotension, though. Goal LDL will be < 70 - her last LDL in April 2017 was 45 so continue current statin. Long-term A1c goal < 6.5 - last A1c in 2015 was 5.8 PT/OT/HOSPITALITY RECRUITER consults. Stroke education. Objective: Vital Signs Temp Pulse Resp BP Pulse Ox 37.7 C 89 14 146/102 H 100 10/18/17 07:56 10/18/17 13:00 10/18/17 13:00 10/18/17 13:00 10/18/17 13:00 Laboratory Results 10/18/17 04:00 10/18/17 04:00 10/17/17 10/18/17 10/19/17 05:59 05:59 05:59 Intake Total 500 1540 Output Total 800 300 Balance -300 1540 -300 Allergies/Adverse Reactions: No Known Allergies Allergy (Verified 06/13/17 19:12)
--- NOTE | 2017-10-18 17:12 | ASMTCMCOM ---
CM Note CM Note Notes: PT/OT recommending Inpt Rehab. Met w/pt's daughter, Rosemary to discuss (pt still with some confiusion although improved from yesteday). Rosemary's first choice in [facility] In[facility] re[facility]. Order in and left voicemail for Staci at Inpt rehab. Discussed with daughter that they will evaluate her for inpt rehab but also good idea to have backup SNF in case she does not qualify. Rosemary said that pt was recently at [facility] and that would most likely be choice for SNF if she cannot go to inpt rehab. Daughter reports sean pt normally lives alone in [address] (very independant) and has daughter who is local and very supportive. CM will follow up with inpt rehab in AM. Date Signed: 10/18/2017 05:11 PM Electronically Signed By:Letty Brady RN
[2017-10-18] MEDS ORDERED: IOPAMIDOL (ISOVUE 370) 100 ML BTL IV ONE (20:15)
[2017-10-18] MEDS: CIPROFLOXACIN 250 MG TAB PO SCH (20:54)
[2017-10-19 05:56] LABS: PLATELET COUNT 130 10^3/uL (150-400)
--- NOTE | 2017-10-19 07:09 | PDCARPN ---
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 transient CHB Plan: 10/17/17 06:23 Stable Hgb 10, unit transfused Strong pedal pulses Moves all ext BP stable Cr normal OOB Check labs in AM Echo today Keep in ICU 10/18/17 07:02 Pleasantly confused to PPT but moves all ext/no focal deficits BP/HR stable Hgb stable OOB PT transfer to PCU echo- NL EF, NL TAVR 10/19/17 07:06 improved today MS getting better walking more MRI confirms multiple small infarcts (most likely embolic from procedure) d/w neurology--will plan to d/c to rehab today, continue current meds cipro x 5 more days for uti carotid CTA could not be done secondary to lack of IV access Will check carotid U/S this AM Subjective: still confused but pleasant Reviewed/Discussed With: multidisciplinary team Time Spent With Patient: 25 min Objective: Vital Signs (8 Hrs) Pulse Resp BP Pulse Ox 10/19/17 04:00 89 16 130/61 H 98 10/19/17 00:00 86 18 131/56 H 96 Intake/Output (24 Hrs) 10/18/17 10/19/17 10/20/17 05:59 05:59 05:59 Intake Total 1540 405 Output Total 850 Balance 1540 -445 Intake: Oral (ml) 1540 300 IV Intake (ml) 105 Output: Urine (ml) 850 Bedside Commode 500 Incontinence 350 Other: Number of Voids Bedside Commode 1 Incontinence 2 1 Toilet 2 Number of Stools Incontinence 2 Toilet 1 Result Diagrams: 10/19/17 05:30 10/19/17 05:30 - Physical Exam Constitutional: healthy appearing Eyes: other (left pupil slighlty dilated) Ears, Nose, Mouth, Throat: moist mucous membranes Cardiovascular: regular rate and rhythm Peripheral Pulses: 1+: femoral (R), femoral (L) Respiratory: clear to auscultate bilat Gastrointestinal: normoactive bowel sounds Genitourinary: no suprapubic tenderness Skin: no rashes Musculoskeletal: no muscular tenderness Neurologic: CN II-XII grossly intact Psychiatric: cooperative Lymph, Heme, Immunologic: no lymphadenopathy ICD10 Worksheet Patient Problems: Problems Problem Status Onset Status post lobectomy of lung Acute
[2017-10-19] MEDS: POTASSIUM CL 20 MEQ TAB PO SCH (08:31)
--- NOTE | 2017-10-19 08:32 | NEUROPROG ---
Assessment: BACKGROUND: 10/18 77 year old right-handed woman with a history of HTN, HLD, GIOVANNI on CPAP, known ANGI stenosis, prior smoking with COPD who was admitted 10/16 for TAVR for severe aortic stenosis. She did have a presumed right common femoral/iliac dissection indicated by surgical site bleeding and this was repaired with stenting. Post-operatively, the patient was quite confused. Her daughter, who is present today, indicated the patient is normally mentally sharp and independent. Her mentation has been improving and resembled cognitive difficulty from anesthesia during her prior pneumonectomy, but she is still not herself. Specifically her memory is quite impaired. She has difficulty recalling her home address and city, dates and circumstances of her admission. This morning she was having difficulty navigating the breakfast menu. This prompted a stroke alert and CT head wo revealed wedge-shaped cortical hypodensities in the left frontal and left parietal-occipital lobes consistent with subacute ischemia - the left frontal region had a punctate area of suspected hemorrhage. Telestroke service felt she was not a tPA candidate due to the recent procedure and presence of completed infarct on CT - same goes for intervention. Patient has no prior history of stroke/TIA. She has not had any visual disturbance, GRANDE, weakness, sensory loss, dizziness, hearing changes, speech change. INTERVAL HISTORY: 10/19: No clinical changes. Daughter at bedside and thinks patient is the same. No new signs/symptoms/concerns. Unable to get CTA due to inability to get right AC IV access last night. EXAM: VS reviewed in EMR GEN: WDWN sitting in NAD MS: awake, alert, oriented to self, month only. Speech nondysarthric. She does have some word finding difficulty, but otherwise her language function is preserved. Follows commands. Attends to both sides. Episodic global memory impairment on casual conversation. Mood euthymic. Adequate fund of knowledge. No dyspraxia with mimicking hand gestures or common activities. CN: pupils 3mm round and reactive. VFF. Primary gaze centered. Full ocular motility with motor impersistence on smooth pursuit. Facial sensation preserved. Face symmetric. Hearing grossly intact to finger rub. Palatoglossal movements intact. Shoulder shrug and head turn strong. MOTOR: normal bulk/tone. No adventitial movements. Full power throughout, with exception of left hip flexion which is 4/5 (chronic from prior femur fracture). SENSORY: symmetric/intact LT/PP throughout. No extinction. COORD: no ataxia FN/HS. Durga preserved. REFLEX: plantars equivocal. No clonus. Absent ankle jerks, other DTRs trace. GAIT: deferred to PT safety eval DATA REVIEW: Labs reviewed in EMR PERSONALLY INTERPRETED RESULTS AND DATA: CT head wo - as per the [facility] MRI brain wo 10/18 - subacute wedge-shaped cortically-based infarcts in the left frontal, left parietal-occipital lobes, punctate infarcts in both thalami with a few scattered punctate areas of infarct in the supratentorial hemispheres and cerebellar hemispheres. Small area of petechial hemorrhage in the left frontal infarct. IMPRESSION AND RECOMMENDATIONS: // SUBACUTE ISCHEMIC STROKE // ACUTE COGNITIVE CHANGE // S/P TAVR // HX ANGI STENOSIS Infarcts are likely from embolism during manipulation of the aortic valve with TAVR - discussed with Dr. Henriquez who is in agreement. Patient's symptoms certainly could be from an embolic shower, but post-anesthesia effect should also be considered. Bilateral thalamic infarcts can cause cognitive disturbance , but the infarcts present are quite small. I suspect her cognitive change is likely a combination of embolic shower and post-anesthesia effect. Will check MRI brain wo to assess for ischemia to the mesial temporal structures , as well as assess full extent of infarcts. I would also like to update her CTA head/neck to assess any progression of her known ANGI stenosis - there has been some indication of other intracranial stenoses resulting in possible hemispheric perfusion solely from the LICA - this may further guide treatment, both medically and surgically. We can reattempt right AC access today, and if unable can attempt again after discharge. For now, she will be maintained on ASA, statin, anti-HTN and continue CPAP at night. Maintain BP as per post-TAVR protocol - would avoid hypotension, though. Long- term goal normotension. Goal LDL will be < 70 - her last LDL in April 2017 was 45 so continue current statin. Long-term A1c goal < 6.5 - last A1c in 2016 was 5.8 PT/OT/SILVER PLATER consults. Stroke education. Being transferred to PCU today and likely discharge to rehab later today. I would like her to followup with me after she is discharged from rehab. Objective: Vital Signs Temp Pulse Resp BP Pulse Ox 37.1 C 88 19 97/49 L 97 10/19/17 07:54 02/08/18 07:54 10/19/17 07:54 10/19/17 07:54 10/19/17 07:54 Laboratory Results 10/19/17 05:30 10/19/17 05:30 10/18/17 10/19/17 10/20/17 05:59 05:59 05:59 Intake Total 1540 405 Output Total 850 Balance 1540 -954 Allergies/Adverse Reactions: No Known Allergies Allergy (Verified 06/13/17 19:12)
[2017-10-19] MEDS ORDERED: ASPIRIN 81 MG CHEWABLE TAB PO SCH (09:00)
[2017-10-19] MEDS ORDERED: ATORVASTATIN CALCIUM 20 MG TAB PO SCH (09:00)
[2017-10-19] MEDS: CIPROFLOXACIN 250 MG TAB PO SCH (09:45)
--- NOTE | 2017-10-19 10:52 | ASMTCMCOM ---
CM Note CM Note Notes: Spoke with Staci Wagner from inpatient rehab and let her know patient is ready to d/c today. She agreed to work on completing the admission paperwork and get back to me on the time she wants her to arrive. Awaiting Staci's call to arrange transportation. CM will follow. Date Signed: 10/19/2017 10:52 AM Electronically Signed By:Kathryn Collins LCSW
[2017-10-19 11:56] VITALS: BP 114/49; PULSE 79; RESP 18; TEMP 97.9; O2SAT 98
--- NOTE | 2017-10-19 12:43 | PDIAF ---
- Diagnosis Diagnosis: s/p TAVR Code Status: Full Code - Medication Management Discharge Medications: Medications to Continue on Transfer Acetaminophen [Tylenol ES 500 mg (*)] 1,000 mg PO DAILY PRN 06/13/17 [Last Taken Unknown] Aspirin EC [Aspirin EC 81 mg (*)] 81 mg PO HS 06/13/17 [Last Taken 06/08/17] Atorvastatin Calcium [Lipitor 40 mg (*)] 40 mg PO HS 06/13/17 [Last Taken 21:00] Cholecalciferol Vit D3 [Vitamin D3 (*)] 1,000 units PO DAILY18 06/13/17 [Last Taken 06/08/17] Umeclidinium Brm/Vilanterol Tr [Anoro Ellipta 62.5-25 Mcg INH] 1 puffs IH DAILY 06/13/17 [Last Taken 06/11/17] traZODone [traZODONE 50MG (*)] 100 mg PO HS 06/13/17 [Last Taken 06/12/17 21:30] Multivitamins [Multivitamin (*)] 1 each PO DAILY 09/06/17 [Last Taken Unknown] Albuterol [Proventil Inhaler HFA (*)] 2 puffs IH Q6HRS PRN 10/09/17 [Last Taken Unknown] Allopurinol [Allopurinol 300 MG (RX)] 300 mg PO BID 10/09/17 [Last Taken Unknown ] Aspirin [Aspirin 81mg (*)] 81 mg PO DAILY tab.chew 10/19/17 [Last Taken Unknown ] Ciprofloxacin [Cipro] 250 mg PO BID@1000,2000 5 Days #11 tab 10/19/17 [Last Taken Unknown] Potassium Cl [Klor-Con 20 meq (*)] 20 meq PO DAILY tab 10/19/17 [Last Taken Unknown] Discharge Medications: Refer to the Discharge Home Medication list for PRN reason. PICC Care - Routine: N/A - Orders Services needed: Registered Nurse, Physical Therapy, Occupational Therapy, Speech Language Pathologist Isolation Type: None Diet Recommendation: cardiac -low fat low salt Diet Texture: Thin Liquids, Meds Whole w/Liquids Weigh Patient: weekly - Labs/Radiology BMP Date: 10/24/17 CBC w/diff Date: 10/24/17 - Follow Up Care Current Providers and Referrals: Aniket Henriquez MD [Medical Doctor] - 10/25/17 1:00 pm Shayna Nunn MD [Primary Care Provider] -
--- NOTE | 2017-10-19 15:17 | PDINTPN ---
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 Doing well. Blood pressure and hemodynamics stable. Stroke. She does have acute lesions bilaterally, left greater than right consistent with an embolic shower. She has known severe carotid artery disease as well. Started on aspirin. She was on this at home. Swallow safety: Cleared without precautions Asthma: No evidence of an exacerbation. On p.r.n. albuterol. She takes Anoro at home. She can use her own here History of lung cancer: Status post right upper lobectomy without evidence of recurrence. Metabolic: No issues identified. DVT prophylaxis: None indicated currently with acute stroke and small area bleeding. On SCDs. GI prophylaxis: Famotidine, can discontinue on discharge issues eating.. Plan: Can transfer to rehab inpatient today if a bed is available. Continue medications on transfer. 20 min of critical care time was spent directly with the patient. Discussed with nursing, Cardiology, and the ICU multi disciplinary team. Subjective: Mental status and word-finding seem significantly better this morning. Denies headache, shortness of breath, pain Objective: Vital Signs Temp Pulse Resp BP Pulse Ox 36.6 C 79 18 114/49 L 98 10/19/17 11:55 10/19/17 11:55 10/19/17 11:55 10/19/17 11:55 10/19/17 11:55 Laboratory Results 10/19/17 05:30 10/19/17 05:30 10/18/17 10/19/17 10/20/17 05:59 05:59 05:59 Intake Total 1540 405 Output Total 850 Balance 1540 -445 Carotid ultrasound: Bilateral carotid disease with approximately 60% occlusion bilaterally Physical Exam - Physical Exam General Appearance: alert, no apparent distress, obese EENT: PERRL/EOMI, other (Nasal cannula in place at 1 L) Neck: normal inspection Respiratory: lungs clear (Anteriorly), decreased breath sounds Cardiac/Chest: regular rate, rhythm, systolic murmur Abdomen: normal bowel sounds, non-tender, soft Skin: normal color, warm/dry Extremities: pedal edema (Trace +) Neuro/Psych: no motor/sensory deficits (Moves all extremities equally), cognition abnormalities (Improved today, word-finding much better.) ICD10 Worksheet Patient Problems: Problems Problem Status Onset Status post lobectomy of lung Acute
--- NOTE | 2017-10-19 17:23 | ECHO ---
[email or web address] [address] [address] Main: [phone] Fax: Transesophageal Echocardiography Name: BRUCE YU MR#: [id number] Study Date: 10/16/2017 Study Time: 07:38 AM Date of : 1940 Age: 77 year(s) Height: ( ) Weight: ( ) BSA: Gender: Female Examination: AUGUSTINA Indication: Pre TAVR Image Quality: Contrast: Requested by: Aniket Henriquez Heart Rate: Rhythm: BP: / Procedure Staff Live Truck Technician: Abraham Gomes RDCS Reading Physician: Ember Gallagher Requesting Provider: Aniket Henriquez Live Truck Technician: Reading Physician: Requesting Provider: AUGUSTINA Exam Details Conclusions: Successful TAVR with trace AR slight increase in predeployment MR. Normal LVEF Measurements: Chambers Valvular Assessment AV/MV Valvular Assessment TV/PV Normal Normal Normal Name Value Range Name Value Range Name Value Range LVOTd 1.5 cm 1.5 cm mm AV Vmax: 1.69 m/s (1 m/s-1.7 m/s) AV maxP mmHg ( - ) AV meanP mmHg ( - ) YEISON (VTI): 0.3 cm ( - ) Additional Measurements: Findings: Left Ventricle: Normal global systolic LV function. Exam Comments: Pre TAVR gradients from [facility] was a Ao peak of 4.0 m/s with a Mean Ao gradient of 37 Patient: BRUCE YU Study Date: 10/16/2017 Page 1 of 2 07:38 AM mmHg. In the clinical laboratory scientist prior to TAVR with AUGUSTINA, The Vmax is 2.8 m/s with a Ao mean PG of 20 mmHg. Mild MR. Normal LVEF and normal wall motion. Successful CoreValve deployment with a Ao Mean PG of 6 mmHg and a Ao Vmax of 1.7 m/s. Trace AR; mild to moderate MR. Normal EF, no wall motion abnormalities with no pericardial effusion.. l1n (No Signature Object) Patient: BRUCE YU Study Date: 10/16/2017 Page 2 of 2 07:38 AM [id number]
--- NOTE | 2017-10-19 21:13 | GDS ---
[f rep st] DISCHARGE SUMMARY DISCHARGE DIAGNOSIS: Aortic stenosis/cerebrovascular accident. HOSPITAL COURSE: Briefly, this is a 77-year-old female who underwent transfemoral TAVR on 10/16/2017 secondary to severe symptomatic aortic stenosis and being deemed to be a high-risk candidate by CT s urgery. The patient's procedure was complicated by right common femoral artery/external iliac artery dissection which was repaired successfully endovascular with 2 covered stents. Postprocedure, the p atient did have some difficulty with memory issues as well as word-finding. Neurology was consulted and CT and MRI of the head were performed, which showed multiple tiny embolic infarcts mainly in the left side of the brain. The patient was clinically stable with heart rate and blood pressure being c ontrolled without medications. Echocardiogram showed a normal ejection fraction with normally functi oning TAVR valve. She had no focal deficits with her extremities or facial gestures. Neurology agre ed to the patient at this time, which would be best suited with a conservative therapy with aspirin a nd statin. The patient will be discharged to inpatient rehab today. Of note, the patient did have a transient episode of complete heart block during her TAVR procedure, which she corrected without any intervention on the table. She in the last 72 hours has not had any arrhythmia noted and has been i n sinus rhythm. The patient will be discharged this afternoon with her home medications. She did simpson ve evidence of bacteria and leukocyte esterase on her baseline urinalysis and was started on Cipro 25 0 mg p.o. twice daily for a total of 5 days. She will follow up in the office in 1-2 weeks time. /[id number]/MODL
== END 2017-10-19 13:40 | DRG 266 ==
LOC: FCATH 06:02 → F2N 11:23
PROVIDERS: ADMIT Internal Medicine Cardiovascular Disease; ATTEND Internal Medicine Cardiovascular Disease
PROC: 30233N1 Transfusion of Nonautologous Red Blood Cells into Peripheral Vein, Percutaneous Approach (ICD-10-PCS; principal; 2017-10-16)
PROC: B245ZZ4 Ultrasonography of Left Heart, Transesophageal (ICD-10-PCS; principal; 2017-10-16)
PROC: 047L3DZ Dilation of Left Femoral Artery with Intraluminal Device, Percutaneous Approach (ICD-10-PCS; principal; 2017-10-16)
PROC: 5A1223Z Performance of Cardiac Pacing, Continuous (ICD-10-PCS; principal; 2017-10-16)
PROC: 047H3DZ Dilation of Right External Iliac Artery with Intraluminal Device, Percutaneous Approach (ICD-10-PCS; principal; 2017-10-16)
PROC: 02RF38Z Replacement of Aortic Valve with Zooplastic Tissue, Percutaneous Approach (ICD-10-PCS; principal; 2017-10-16)
DX: I35.0 Nonrheumatic aortic (valve) stenosis (principal); Z00.6 Encounter for examination for normal comparison and control in clinical research program; I77.77 Dissection of artery of lower extremity; I44.2 Atrioventricular block, complete; I97.810 Intraoperative cerebrovascular infarction during cardiac surgery; I65.23 Occlusion and stenosis of bilateral carotid arteries; R82.71 Bacteriuria; E66.09 Other obesity due to excess calories; G47.33 Obstructive sleep apnea (adult) (pediatric); J44.9 Chronic obstructive pulmonary disease, unspecified; I10 Essential (primary) hypertension; Z85.118 Personal history of other malignant neoplasm of bronchus and lung; Z87.891 Personal history of nicotine dependence; Z85.828 Personal history of other malignant neoplasm of skin
CPT/HCPCS: 82947-QW; 92507-GN; 92523-GN; 92526-GN; 92610-GN; 97116-GP; 97161-GP; 97166-GO; 97530-GP; 97535-GO; C1725; C1760; C1769; C1894; G8978-GP-CJ; G8979-GP-CI; G8987-GO-CK; G8988-GO-CJ; G8996-GN-CH; G8996-GN-CI; G8997-GN-CH; G8997-GN-CI; G8998-GN-CH; G9162-GN-CL; G9163-GN-CI; J0171; J0330; J0690; J1644; J2250; J2370; J2704; J2720; J3010; P9016; P9041; Q9967

== ENCOUNTER 2017-10-19 14:10 | Inpatient (IN) | payer OTHER, MEDICARE ==
[2017-10-19] MEDS ORDERED: ALBUTEROL 60 PUFFS/8 GM MDI IH PRN ×2 (15:17→20:00)
[2017-10-19] MEDS ORDERED: ACETAMINOPHEN 500 MG TAB PO PRN (15:17)
[2017-10-19] MEDS ORDERED: ALBUTEROL 200 PUFFS/18 GM MDI IH PRN (15:41)
[2017-10-19] MEDS ORDERED: BISACODYL 10 MG SUPP PR PRN (16:14)
--- NOTE | 2017-10-19 17:12 | GHP ---
[f rep st] HISTORY AND PHYSICAL POST ADMISSION PHYSICIAN EVALUATION AND REHABILITATION TREATMENT PLAN DATE OF ADMISSION: 10/19/2017 DATE OF EVALUATION: October 19, 2017. TIME OF EVALUATION: 1525. REFERRING FACILITY: [facility]. IMPAIRMENT GROUP: 1.9. DATE OF ONSET: 10/18/2017. REFERRING PHYSICIAN: Dr. Resendiz. CONSULTING PHYSICIANS: register repairer, Dr. Henriquez; ferris wheel attendant , Dr. Resendiz; neurologist, Dr. Hodge. REHABILITATION DIAGNOSIS: Cerebrovascular accident following TAVR. ETIOLOGIC DIAGNOSIS: Other stroke. HISTORY OF PRESENT ILLNESS: This patient was admitted to [facility] on 10/16/2017 for a transcatheter aortic valve replacement, which was done on 10/16/2017. She had a dissection of the right common femoral artery and internal iliac artery which was repaired with stenting. She had mental status change on 10/18/2017. A head CT showed acute/ subacute ischemia in the left frontoparietal and occipital lobes with punctate focus of hemorrhagic transformation in the left frontal lobe. Brain MRI showed multiple acute infarcts involving bilateral cerebral hemispheres, bilateral thalami, bilateral cerebellar hemispheres and a left frontal lobe infarct with petechial hemorrhage. Additionally, there was anemia that required a transfusion and she is being treated with antibiotics for a urinary tract infection. Other studies and labs during her stay: She had anemia, and on the day of discharge, her hemoglobin is 9.8 and hematocrit is 29.4. The previous day, hemoglobin was 11 and hematocrit was 31.2. She has had leukocytosis which has been improving. On the day of discharge, her white blood cell count is 11.46. There is no left shift. There is a predominance of absolute neutrophils and absolute monocytes. Serum chemistry on the day of discharge shows mild hyponatremia with a sodium of 146. Otherwise, renal function and electrolytes were within normal limits except for an elevated BUN at 29, creatinine was 0.8 with an estimated GFR of greater than 60. Glucose was elevated at 135. She had labs done prior to admission, which revealed normal liver function tests. Urinalysis done on 10/13/2017 was positive for leukocyte esterase, and had 15- 25 white blood cells. There were trace epithelial cells and trace bacteria. There was no culture. A carotid Doppler study was done which showed bilateral significant calcified plaques at the carotid bulbs with velocities consistent with 50% to 70% stenosis at the origin of the right and left carotid artery. Echocardiogram done the day after the procedure showed an ejection fraction of 62%. The artificial valve was functioning normally with no perivalvular leak and no pericardial effusion. Atria were normal in size. She had normal right ventricular function and there were no other valvular abnormalities. EKG done the day after the procedure showed normal sinus rhythm and abnormal T-waves consistent with possible ischemia in the lateral leads. PRECAUTIONS: She is a fall risk and she is limited to no lifting, pushing or pulling objects heavier than 10 pounds for 2-3 days after the surgery. ACTIVE COMORBIDITIES: She has the tier 2 comorbidity of dysphagia, which is mild, and she has the tier 3 comorbidity of morbid obesity. Otherwise, she has no tier 1, tier 2 or tier 3 comorbidities. PAST MEDICAL HISTORY: 1. Aortic stenosis. 2. Obstructive sleep apnea. 3. Chronic obstructive pulmonary disease. 4. 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 5. Hypertension. 6. Skin cancer. 7. Depression. PAST SURGICAL HISTORY: She has had a section. She has had a lung lobectomy. MEDICATIONS: Prior to admission: 1. Ibuprofen. 2. Atorvastatin. 3. Aspirin. 4. Allopurinol. 5. Albuterol. 6. Umeclidinium/vilaterol metered dose inhaler. 7. Trazodone. 8. Triamterene/hydrochlorothiazide. 9. Multivitamins. 10. Vitamin D. ALLERGIES: There are no known drug allergies. ADMISSION MEDICATIONS: 1. Acetaminophen 1000 mg q. day p.r.n. headache. 2. Albuterol inhaler 2 puffs q.6 hours p.r.n. 3. Allopurinol 300 mg p.o. b.i.d. 4. Aspirin 81 mg p.o. q. day. 5. Atorvastatin 40 mg p.o. q.h.s. 6. Cholecalciferol 1000 units p.o. q. day at 1800. 7. Ciprofloxacin 250 mg p.o. b.i.d. 8. Umeclidinium/vilaterol metered dose inhaler 1 puff q. day. 9. Multivitamin q. day. 10. Potassium chloride 20 mEq p.o. q. day. 11. Trazodone 100 mg p.o. q.h.s. SOCIAL HISTORY: She is . She lives alone. She has 2 local daughters. 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 She has a remote history of smoking but quit more than 10 years ago. FAMILY HISTORY: Noncontributory. REVIEW OF SYSTEMS: She is not aware of weakness or loss of sensation. She denies difficulty swallowing. She reports vision change and says that if she looks at a person's left eye she stops seeing the person's right eye. She denies headache. She denies cough or dyspnea. She denies fevers or chills. She is not in pain though with certain movements she has soreness in the right hip area. She denies nausea, vomiting, constipation, or diarrhea. She denies dysuria or urinary frequency and is not at the moment aware of having had urinary tract infection symptoms. Otherwise, a 10-point review of systems is negative. PHYSICAL EXAM: VITAL SIGNS: Blood pressure is 110/56, heart rate is 82, respiratory rate is 18, oxygen saturation is 98% on 2 L. Temperature is 36.8 degrees centigrade. She has not been weighed yet at inpatient rehabilitation but her last weight at [facility] was 77.1 kg for a body mass index of 34.3. GENERAL: This is an obese woman, lying in bed, dressed in street clothes , cooperative and in no acute distress. She is emotionally labile. HEENT: Extraocular movements are intact. Pupils are equal, round, and reactive to light. Mucous membranes are moist. Dentition is in good condition. She has a moderately crowded airway, Mallampati class 3. NECK: Full and supple. HEART: There is regular rate and rhythm with no murmurs, rubs, or gallops. LUNGS: Clear to auscultation bilaterally. ABDOMEN: Obese, soft, nontender, nondistended with normoactive bowel sounds and no hepatosplenomegaly. EXTREMITIES: There is no cyanosis or clubbing. There is trace edema pretibial. Radial and dorsalis pedis pulses are 2+ bilaterally. NEUROLOGIC: She is alert, oriented to the month and the day of the month, but not to the year. She is oriented to her location and her general situation. Cranial nerves 2-12 are grossly intact. There is no focal weakness overall except perhaps at the right hip flexor which is 4/5. Sensation is intact to light touch. Deep tendon reflexes are 2+ bilaterally at the biceps and patellar tendons and hypoactive at the Achilles tendon. [id number] is within normal limits. There is no pronator drift. Plantar reflex is upgoing bilaterally. Visual ambriz appear to be full by confrontation. CURRENT LEVEL OF FUNCTION: Per the pre-admission screen regarding diet, feeding , and swallowing, she was noted to have mild dysphagia and she was maintained upright for all oral intake. She was on a regular diet with thin liquids. Grooming required contact guard assist. She was incontinent of bladder but continent of bowel. Bed mobility required moderate to contact guard assist with voice cues. Transfers required minimal to moderate assist with voice cues. She used a 4-wheeled walker with contact guard assist and voice cues, requiring 2 L of oxygen. Balance, seated required contact guard assist and voice cues and standing required minimal to moderate assist with voice cues. Endurance was fair. She ambulated 100 feet with a 4-wheeled walker and contact guard assist and voice cues. She had a slow gait maxwell and an ataxic gait pattern. Regarding communication, she was noted to have impairments in word finding and confusion. Cognition was moderately impaired and she had decreased coordination in the lower extremities and right inattention. On today's exam, her level of function does not appear to be different from the pre-admission screen. IMPRESSION: This is a 77-year-old woman who has had a successful transcatheter aortic valve replacement, but then suffered a stroke subsequent to the procedure. It is bilateral and multifocal, however, she is without focal hemiparesis or loss of sensation. She appears to have cognitive involvement with very concrete and limited responses to questions and some memory loss, and per the preadmission screen, she has ataxia and balance impairment. She also has mild dysphagia. She is appropriate for inpatient rehabilitation where she will benefit from PT and OT to optimize mobility and activities of daily living toward independence to modified independence for mobility and activities of daily living including ambulation with the least restrictive device on level and unlevel surfaces. It is anticipated that she may require supervision for bathing and assistance for meal preparation, household management, and shopping. She will receive therapy with physical therapy, occupational therapy, and speech and language pathology for 60 minutes per day for each discipline on 5 to 7 days of the week. Her expected duration of stay is 7 to 10 days. It is anticipated that upon discharge she will be continued to benefit from home health services including nursing, speech and language pathology, a home health aide, occupational therapy, and physical therapy. She also will benefit from a brain injury support group. PLAN: 1. Cerebrovascular accident with ataxia and hemineglect. PT and OT to optimize mobility and activities of daily living toward a discharge home at the independent level. 2. Cognitive impairment and mild dysphagia to be assessed and treated per Speech and Language Pathology. 3. Secondary prevention of cerebrovascular accident. She is on aspirin, as well as atorvastatin. 4. Status post transcatheter aortic valve replacement. She has extensive bruising in her inguinal and perineal area due to arterial dissection and she has anemia. Otherwise, valve function was verified with an echocardiogram and she does not appear to be in congestive heart failure. She will be monitored regarding her cardiorespiratory function. 5. COPD, on metered-dose inhalers, which will be continued as well as oxygen as long as she needs it. She will have incentive spirometry and it is hoped that she will be liberated from oxygen before her discharge. 6. Obstructive sleep apnea. She uses a CPAP machine. This should be brought in and she should continue to use her CPAP during her stay. 7. Depression. She was emotionally labile during her exam today. She takes trazodone 100 mg p.o. q.h.s. She will have counseling per social worker delinquency prevention on the unit and will consider addition of other antidepressants if necessary. 8. Presumed history of gout, on allopurinol. Will continue the allopurinol. 9. Possible urinary tract infection. She denies symptoms. The positive urinalysis is from 10/13/2017. However, antibiotics were not begun until 2017. Given the simplicity of her answers and apparent memory loss, it is conceivable that she had symptoms and no longer has them. The discharge paperwork indicates continuing the ciprofloxacin for a total of 5 days and this will be continued. Subsequently, she will be observed for any signs or symptoms of a urinary tract infection. 10. Vitamin D deficiency. Continue cholecalciferol. 11. Anemia. Check CBC tomorrow morning. If anemia is worsening, then further evaluation will be done. 12. Hypernatremia, very mild and possible dehydration with an elevated BUN to creatinine ratio. Will repeat a BMP in the morning. 13. Prophylaxis. She is not hemiparetic, and she has ambulated 100 feet. However, she has risk factors of age and obesity. At present, will not initiate anticoagulation. Will observe for improved mobility. Followup. She has followup scheduled with slubber operator, Dr. Henriquez, on 10/25/2017 at 1 p.m., and she will follow up after discharge with her primary care provider, Dr. Shayna Nunn. /[id number]/MODL MTDD
[2017-10-19] MEDS: traZODone 50 MG TAB PO SCH (19:20)
[2017-10-19] MEDS: CHOLECALCIFEROL VIT D3 1,000 UNITS TAB PO SCH (19:20)
[2017-10-19] MEDS: ATORVASTATIN CALCIUM 40 MG TAB PO SCH (19:20)
[2017-10-19] MEDS: ALLOPURINOL 300 MG TAB PO SCH (19:20)
[2017-10-19] MEDS: CIPROFLOXACIN 250 MG TAB PO SCH (19:20)
[2017-10-20 08:23] LABS: PLATELET COUNT 167 10^3/uL (150-400)
[2017-10-20] MEDS: POTASSIUM CL 20 MEQ TAB PO SCH (08:39)
[2017-10-20] MEDS: ASPIRIN 81 MG CHEWABLE TAB PO SCH (08:41)
[2017-10-20] MEDS: CIPROFLOXACIN 250 MG TAB PO SCH ×2 (08:41→20:44)
[2017-10-20] MEDS: ALLOPURINOL 300 MG TAB PO SCH ×2 (08:42→20:44)
[2017-10-20] MEDS: VILANTEROL TR IH SCH (08:43)
[2017-10-20] MEDS: UMECLIDINIUM BRM IH SCH (08:43)
[2017-10-20] MEDS ORDERED: MULTIVITAMINS 1 EACH TAB PO SCH (09:00)
--- NOTE | 2017-10-20 09:30 | PDOREHIP ---
Admission [facility] - Admission - 3 Day Assessment Period Admission Date/Day 1: 10/19/17 Day 2: 10/20/17 Day 3: 10/21/17 - Active Diagnoses Comorbidities and Co-existing Conditions at Admission: 45140. None of the Above - Skin Conditions Unhealed Pressure Ulcer (1 or more/Stage 1 or >)-Admission: 0. No
--- NOTE | 2017-10-20 09:57 | SOAPPROG ---
SOAP Progress Note Assessment/Plan: Assessment: * Cerebrovascular accident with ataxia and hemineglect. * PT and OT to optimize mobility and activities of daily living towards discharge home at the independent level. * Cognitive impairment and mild dysphagia, * To be assessed and treated per speech and language pathology. * Secondary prevention of CVA. Continue aspirin and atorvastatin * Status post TAVR. Normal valve function on echocardiogram and presentation not consistent with CHF. * COPD. Continue metered dose inhalers. Encourage incentive spirometry with goal of no oxygen requirement by the time she discharges home * Obstructive sleep apnea. Continue CPAP at night. * Depression and emotional lability. Continue trazodone 100 mg p.o. at bedtime. Counseling per health care social worker. Consider addition of other antidepressants. * Presumed history of gout. Continue allopurinol. *Possible urinary tract infection. Unclear whether she ever had symptoms of UTI but there was a positive urinalysis 10/13/2017. No culture was done. * Will continue 5 days of ciprofloxacin as ordered out of the hospital, through 10/22/2017. * Vitamin-D deficiency. Continue cholecalciferol *Anemia. Slightly worse on CBC 10/20/2017. * Will repeat on 10/23/2017. * Hypernatremia, resolved on BMP 10/20/2017. Appears mildly dehydrated with elevated BUN to creatinine ratio. Encourage normal oral hydration. * Prophylaxis. She is not hemiparetic and she has ambulated 100 ft. She has risk factors of age and obesity. Continue SCDs at night. Observe for improved mobility. Follow-up. She has followup scheduled with seater grinder Dr. Daniel lennon on 10/25/2017 at 1:00 p.m. and she is to see Cardiology at [facility] once a week regarding possible CHF. She will follow up after discharge with her primary care provider Dr. Shayna Nunn. 10/20/17 11:52 Subjective: No complaints this morning. Reports that a lot happened overnight but she does not elaborate other than to say that her daughter visited. She thinks she slept well. She is not sure she recalls using her CPAP though it is on the bed next to her pillow. She denies pain, cough or dyspnea. She says that she had used oxygen at home at 1 point but that she stopped using it. Objective: Vital Signs Temp Pulse Resp BP Pulse Ox 37.4 C 79 17 128/66 H 97 10/19/17 19:40 10/19/17 19:40 10/19/17 19:40 10/19/17 19:40 10/19/17 19:40 Laboratory Results 10/20/17 07:00 10/20/17 07:00 10/19/17 10/20/17 10/21/17 05:59 05:59 05:59 Intake Total 200 Output Total 750 200 Balance -550 -200 Physical Exam - Physical Exam General Appearance: WD/WN, alert, no apparent distress, obese Respiratory: normal breath sounds, decreased breath sounds (Left lung ambriz), No crackles, No rhonchi, No wheezing Cardiac/Chest: regular rate, rhythm, No diastolic murmur, No systolic murmur Skin: normal color, warm/dry Neuro/Psych: no motor/sensory deficits, alert, normal mood/affect ICD10 Worksheet Patient Problems: Problems Problem Status Onset Status post lobectomy of lung Acute
[2017-10-20] MEDS: CHOLECALCIFEROL VIT D3 1,000 UNITS TAB PO SCH (18:11)
[2017-10-20] MEDS: ATORVASTATIN CALCIUM 40 MG TAB PO SCH (20:44)
[2017-10-20] MEDS: traZODone 50 MG TAB PO SCH (20:44)
[2017-10-21] MEDS: VILANTEROL TR IH SCH (08:45)
[2017-10-21] MEDS: UMECLIDINIUM BRM IH SCH (08:45)
[2017-10-21] MEDS: POTASSIUM CL 20 MEQ TAB PO SCH (08:46)
[2017-10-21] MEDS: ALLOPURINOL 300 MG TAB PO SCH ×2 (08:46→20:43)
[2017-10-21] MEDS: ASPIRIN 81 MG CHEWABLE TAB PO SCH (08:46)
[2017-10-21] MEDS: CIPROFLOXACIN 250 MG TAB PO SCH ×2 (08:46→20:43)
--- NOTE | 2017-10-21 13:26 | SOAPPROG ---
SOAP Progress Note Assessment/Plan: Assessment: * Cerebrovascular accident with ataxia and hemineglect. * PT and OT to optimize mobility and activities of daily living towards discharge home at the independent level. * Cognitive impairment and mild dysphagia, * To be assessed and treated per speech and language pathology. * Secondary prevention of CVA. Continue aspirin and atorvastatin * Status post TAVR. Normal valve function on echocardiogram and presentation not consistent with CHF. * COPD. Continue metered dose inhalers. Encourage incentive spirometry with goal of no oxygen requirement by the time she discharges home * Obstructive sleep apnea. Continue CPAP at night. * Depression and emotional lability. Continue trazodone 100 mg p.o. at bedtime. Counseling per social work program coordinator. * Will add Celexa * Presumed history of gout. Continue allopurinol. *Possible urinary tract infection. Unclear whether she ever had symptoms of UTI but there was a positive urinalysis 10/13/2017. No culture was done. * Will continue 5 days of ciprofloxacin as ordered out of the hospital, through 10/22/2017. * Vitamin-D deficiency. Continue cholecalciferol *Anemia. Slightly worse on CBC 10/20/2017. * Will repeat on 10/23/2017. * Hypernatremia, resolved on BMP 10/20/2017. Appears mildly dehydrated with elevated BUN to creatinine ratio. Encourage normal oral hydration. * Prophylaxis. She is not hemiparetic and she has ambulated 100 ft. She has risk factors of age and obesity. Continue SCDs at night. Observe for improved mobility. Plan: 10/21/17 13:25 Subjective: Tearful. Doesn't want to talk Objective: Vital Signs Temp Pulse Resp BP Pulse Ox 36.6 C 84 16 118/62 98 10/20/17 19:10 10/20/17 19:10 10/20/17 19:10 10/20/17 19:10 10/20/17 19:10 Laboratory Results 10/20/17 07:00 10/20/17 07:00 10/20/17 10/21/17 10/22/17 05:59 05:59 05:59 Intake Total 200 193 Output Total 750 500 500 Balance -550 -500 -307 Physical Exam - Physical Exam General Appearance: WD/WN, alert, no apparent distress Respiratory: No respiratory distress Skin: normal color, warm/dry Neuro/Psych: alert, depressed affect ICD10 Worksheet Patient Problems: Problems Problem Status Onset Status post lobectomy of lung Acute
[2017-10-21] MEDS ORDERED: CITALOPRAM 20 MG TAB PO SCH (13:30)
[2017-10-21] MEDS: CHOLECALCIFEROL VIT D3 1,000 UNITS TAB PO SCH (17:23)
[2017-10-21] MEDS: ATORVASTATIN CALCIUM 40 MG TAB PO SCH (20:43)
[2017-10-21] MEDS: traZODone 50 MG TAB PO SCH (20:43)
[2017-10-21] MEDS: ACETAMINOPHEN 500 MG TAB PO PRN (21:50)
[2017-10-22] MEDS: ASPIRIN 81 MG CHEWABLE TAB PO SCH (08:42)
[2017-10-22] MEDS: CIPROFLOXACIN 250 MG TAB PO SCH (08:42)
[2017-10-22] MEDS: ALLOPURINOL 300 MG TAB PO SCH ×2 (08:43→20:32)
[2017-10-22] MEDS: CITALOPRAM 20 MG TAB PO SCH (08:43)
[2017-10-22] MEDS: POTASSIUM CL 20 MEQ TAB PO SCH (08:43)
[2017-10-22] MEDS: VILANTEROL TR IH SCH (08:46)
[2017-10-22] MEDS: UMECLIDINIUM BRM IH SCH (08:46)
[2017-10-22] MEDS: ACETAMINOPHEN 500 MG TAB PO PRN ×2 (10:53→20:18)
[2017-10-22] MEDS: SENNOSIDES 1 TAB PO PRN (17:23)
[2017-10-22] MEDS: CHOLECALCIFEROL VIT D3 1,000 UNITS TAB PO SCH (17:23)
[2017-10-22] MEDS: ATORVASTATIN CALCIUM 40 MG TAB PO SCH (20:31)
[2017-10-22] MEDS: traZODone 50 MG TAB PO SCH (20:32)
--- NOTE | 2017-10-22 21:25 | SOAPPROG ---
SOAP Progress Note Assessment/Plan: Assessment: * Cerebrovascular accident with ataxia and hemineglect. * PT and OT to optimize mobility and activities of daily living towards discharge home at the independent level. * Cognitive impairment and mild dysphagia, * To be assessed and treated per speech and language pathology. * Secondary prevention of CVA. Continue aspirin and atorvastatin * Status post TAVR. Normal valve function on echocardiogram and presentation not consistent with CHF. * COPD. Continue metered dose inhalers. Encourage incentive spirometry with goal of no oxygen requirement by the time she discharges home * Obstructive sleep apnea. Continue CPAP at night. * Depression and emotional lability. Continue trazodone 100 mg p.o. at bedtime. Counseling per social service liaison. * Celexa added to 10/21/2017 * Presumed history of gout. Continue allopurinol. *Possible urinary tract infection. Unclear whether she ever had symptoms of UTI but there was a positive urinalysis 10/13/2017. No culture was done. * Will continue 5 days of ciprofloxacin as ordered out of the hospital, through 10/22/2017. * Vitamin-D deficiency. Continue cholecalciferol *Anemia. Slightly worse on CBC 10/20/2017. * Will repeat on 10/23/2017. * Hypernatremia, resolved on BMP 10/20/2017. Appears mildly dehydrated with elevated BUN to creatinine ratio. Encourage normal oral hydration. * Prophylaxis. She is not hemiparetic and she has ambulated 100 ft. She has risk factors of age and obesity. Continue SCDs at night. Observe for improved mobility. Plan: 10/21/17 13:25 10/22/17 21:24 Subjective: Seems a little bit less emotionally labile Objective: Vital Signs Temp Pulse Resp BP Pulse Ox 37.2 C 86 16 134/64 H 97 10/22/17 20:50 10/22/17 19:17 10/22/17 19:17 10/22/17 19:17 10/22/17 19:17 Laboratory Results 10/20/17 07:00 10/20/17 07:00 10/21/17 10/22/17 10/23/17 05:59 05:59 05:59 Intake Total 1151 838 Output Total 500 500 Balance -500 651 838 Physical Exam - Physical Exam General Appearance: alert, no apparent distress Respiratory: No respiratory distress Skin: normal color Neuro/Psych: alert, depressed affect ICD10 Worksheet Patient Problems: Problems Problem Status Onset Status post lobectomy of lung Acute
[2017-10-23] MEDS: POTASSIUM CL 20 MEQ TAB PO SCH (09:19)
[2017-10-23] MEDS: CITALOPRAM 20 MG TAB PO SCH (09:20)
[2017-10-23] MEDS: ALLOPURINOL 300 MG TAB PO SCH ×2 (09:20→20:32)
[2017-10-23] MEDS: ASPIRIN 81 MG CHEWABLE TAB PO SCH (09:20)
[2017-10-23] MEDS: UMECLIDINIUM BRM IH SCH (09:21)
[2017-10-23] MEDS: VILANTEROL TR IH SCH (09:21)
--- NOTE | 2017-10-23 13:30 | SOAPPROG ---
SOAP Progress Note Assessment/Plan: Assessment: * Cerebrovascular accident with ataxia and visual deficit. * Initial FIM 70. Standby assist for bed mobility, ambulated 100-150 feet front wheeled walker with standby assist. Negotiated 6 steps with bilateral rails. Does grooming and hygiene standing with cues, upper body dressing setup to standby assist, lower body dressing with minimal assist, shower and shower transfer with minimal assist. Needs cues to initiate in cues to persist. * No hemineglect per OT testing. May have diplopia. Wearing clear glasses with occlusive tape. * PT and OT to optimize mobility and activities of daily living towards discharge home at the independent level. * Cognitive impairment and mild dysphagia, * Moderate to severe deficits to memory, problem solving, processing, orientation, word-finding, and elaboration. * Distressed regarding her deficits. * Continue ASSISTANT COMMISSIONER. * Secondary prevention of CVA. Continue aspirin and atorvastatin * Status post TAVR. Normal valve function on echocardiogram and presentation not consistent with CHF. * COPD. Continue metered dose inhalers. * Encourage incentive spirometry with goal of no oxygen requirement by the time she discharges home * Diastolic CHF. * Contributes to hypoxia/MARTÍNEZ. * Continue incentive spirometry, O2 p.r.n.. * Obstructive sleep apnea. Continue CPAP at night. * Depression and emotional lability. * Continue trazodone 100 mg p.o. at bedtime. * Citalopram was started 10/22/2017 at 10 mg q.day. Observe for access serotonergic affect with concurrent trazodone. * Counseling per social group worker. * Presumed history of gout. Continue allopurinol. *Possible urinary tract infection. Unclear whether she ever had symptoms of UTI but there was a positive urinalysis 10/13/2017. No culture was done. * Completed 5 days of ciprofloxacin 10/22/2017. Observe for recurrent symptoms * Vitamin-D deficiency. Continue cholecalciferol *Anemia. Slightly worse on CBC 10/20/2017. * Will repeat on 10/24/2017. * Hypernatremia, resolved on BMP 10/20/2017. Appears mildly dehydrated with elevated BUN to creatinine ratio. Encourage normal oral hydration. * Prophylaxis. She is not hemiparetic and she has ambulated 100 ft. She has risk factors of age and obesity. Continue SCDs at night. Observe for improved mobility. Attended staffing, 15 min. Discussed with case management, dietitian, PT, OT, ASSISTANT COMMISSIONER. She lives alone in a single level home. 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 Daughter works during the day so she will need to be independent at home. Tentative discharge date set for 11/03/2017. Follow-up. She is scheduled for echocardiogram 11/13/17 and then follow-up with camp housekeeper Dr. Henriquez are on 11/15/2017 at 11:00 p.m. She will follow up after discharge with her primary care provider Dr. Shayna Nunn. 10/23/17 13:30 Subjective: No complaints. Denies fevers, chills, cough, dyspnea. Not in pain. Sleeping well. Objective: Vital Signs Temp Pulse Resp BP Pulse Ox 37.3 C 88 16 136/63 H 91 L 10/23/17 06:04 10/23/17 06:04 10/23/17 06:04 10/23/17 06:04 10/23/17 06:04 Laboratory Results 10/20/17 07:00 10/20/17 07:00 10/22/17 10/23/17 10/24/17 05:59 05:59 05:59 Intake Total 1151 1138 Output Total 500 Balance 651 1138 - Time Spent With Patient Time Spent With Patient: Greater than 35 min staff time today, including more than 50% of time in coordination of care during staffing meeting, and counseling patient. Physical Exam - Physical Exam General Appearance: WD/WN, alert, no apparent distress, obese Respiratory: normal breath sounds, decreased breath sounds (Mildly decreased left lower lung field.), No crackles, No rhonchi, No wheezing Cardiac/Chest: regular rate, rhythm, No edema, No JVD, No diastolic murmur, No systolic murmur Skin: normal color, warm/dry Neuro/Psych: alert, normal mood/affect, No motor weakness ICD10 Worksheet Patient Problems: Problems Problem Status Onset Status post lobectomy of lung Acute
[2017-10-23] MEDS: CHOLECALCIFEROL VIT D3 1,000 UNITS TAB PO SCH (17:13)
[2017-10-23] MEDS: ACETAMINOPHEN 500 MG TAB PO PRN (19:11)
[2017-10-23] MEDS: ATORVASTATIN CALCIUM 40 MG TAB PO SCH (20:32)
[2017-10-23] MEDS: traZODone 50 MG TAB PO SCH (20:32)
[2017-10-24] MEDS: ASPIRIN 81 MG CHEWABLE TAB PO SCH (08:44)
[2017-10-24] MEDS: CITALOPRAM 20 MG TAB PO SCH (08:44)
[2017-10-24] MEDS: ALLOPURINOL 300 MG TAB PO SCH ×2 (08:45→20:28)
[2017-10-24] MEDS: VILANTEROL TR IH SCH (08:47)
[2017-10-24] MEDS: UMECLIDINIUM BRM IH SCH (08:47)
--- NOTE | 2017-10-24 09:24 | SOAPPROG ---
SOAP Progress Note Assessment/Plan: 77-year-old woman with multifocal stroke following a trans aortic valve replacement, complicated will by ataxia, visual deficit, cognitive impairments Today's update: Patient doing well, tolerating 2 L oxygen by nasal cannula at about 91%. Participating well in therapies per report of staff so far today, continue rehabilitation plan below. * Cerebrovascular accident with ataxia and visual deficit. * Initial FIM 70. Standby assist for bed mobility, ambulated 100-150 feet front wheeled walker with standby assist. Negotiated 6 steps with bilateral rails. Does grooming and hygiene standing with cues, upper body dressing setup to standby assist, lower body dressing with minimal assist, shower and shower transfer with minimal assist. Needs cues to initiate in cues to persist. * No hemineglect per OT testing. May have diplopia. Wearing clear glasses with occlusive tape. * PT and OT to optimize mobility and activities of daily living towards discharge home at the independent level. * Cognitive impairment and mild dysphagia, * Moderate to severe deficits to memory, problem solving, processing, orientation, word-finding, and elaboration. * Distressed regarding her deficits. * Continue FOOD SERVICE ATTENDANT. * Secondary prevention of CVA. Continue aspirin and atorvastatin * Status post TAVR. Normal valve function on echocardiogram and presentation not consistent with CHF. * COPD. Continue metered dose inhalers. * Encourage incentive spirometry with goal of no oxygen requirement by the time she discharges home * Diastolic CHF. * Contributes to hypoxia/MARTÍNEZ. * Continue incentive spirometry, O2 p.r.n.. * Obstructive sleep apnea. Continue CPAP at night. * Depression and emotional lability. * Continue trazodone 100 mg p.o. at bedtime. * Citalopram was started 10/22/2017 at 10 mg q.day. Observe for access serotonergic affect with concurrent trazodone. * Counseling per social services coordinator. * Presumed history of gout. Continue allopurinol. *Possible urinary tract infection. Unclear whether she ever had symptoms of UTI but there was a positive urinalysis 10/13/2017. No culture was done. * Completed 5 days of ciprofloxacin 10/22/2017. Observe for recurrent symptoms * Vitamin-D deficiency. Continue cholecalciferol *Anemia. Slightly worse on CBC 10/20/2017. * Will repeat on 10/24/2017. * Hypernatremia, resolved on BMP 10/20/2017. Appears mildly dehydrated with elevated BUN to creatinine ratio. Encourage normal oral hydration. * Prophylaxis. She is not hemiparetic and she has ambulated 100 ft. She has risk factors of age and obesity. Continue SCDs at night. Observe for improved mobility. She lives alone in a single level home. 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 Daughter works during the day so she will need to be independent at home. Tentative discharge date set for 11/03/2017. Follow-up. She is scheduled for echocardiogram 11/13/17 and then follow-up with retoucher photoengraving Dr. Henriquez are on 11/15/2017 at 11:00 p.m. She will follow up after discharge with her primary care provider Dr. Shayna Nunn. 10/24/17 09:21 Subjective: Chief complaint: Rehab progress No acute events overnight. Patient denies any new shortness of breath or chest pain, no new numbness, tingling, or weakness. She feels that she is doing okay in therapies but defers to the therapist for an opinion. No new concerns, no new concerns from staff either. Objective: Vital Signs Temp Pulse Resp BP Pulse Ox 37.1 C 83 16 139/69 H 91 L 10/24/17 06:27 10/24/17 06:27 10/24/17 06:27 10/24/17 06:27 10/24/17 06:27 Laboratory Results 10/20/17 07:00 10/20/17 07:00 10/23/17 10/24/17 10/25/17 05:59 05:59 05:59 Intake Total 1138 875 Balance 1138 875 Physical Exam - Physical Exam General Appearance: WD/WN, alert, no apparent distress EENT: No scleral icterus (R), No scleral icterus (L) Respiratory: lungs clear, wheezing (Mild expiratory wheezing on the right lower lobe), No respiratory distress, No accessory muscle use, No decreased breath sounds Cardiac/Chest: normal peripheral pulses, regular rate, rhythm, No edema, No diastolic murmur, No systolic murmur Skin: normal color, warm/dry, No cyanosis, No diaphoresis Neuro/Psych: alert, normal mood/affect, No oriented x 3 (Off by 1 day otherwise oriented) ICD10 Worksheet Patient Problems: Problems Problem Status Onset Status post lobectomy of lung Acute
[2017-10-24] MEDS: CHOLECALCIFEROL VIT D3 1,000 UNITS TAB PO SCH (17:37)
[2017-10-24] MEDS: ATORVASTATIN CALCIUM 40 MG TAB PO SCH (20:27)
[2017-10-24] MEDS: traZODone 50 MG TAB PO SCH (20:27)
[2017-10-25] MEDS: CITALOPRAM 20 MG TAB PO SCH (09:17)
[2017-10-25] MEDS: ASPIRIN 81 MG CHEWABLE TAB PO SCH (09:18)
[2017-10-25] MEDS: UMECLIDINIUM BRM IH SCH (09:18)
[2017-10-25] MEDS: VILANTEROL TR IH SCH (09:18)
[2017-10-25] MEDS: SENNOSIDES 1 TAB PO PRN ×2 (09:18→17:36)
[2017-10-25] MEDS: ALLOPURINOL 300 MG TAB PO SCH ×2 (09:18→21:20)
--- NOTE | 2017-10-25 14:00 | SOAPPROG ---
SOAP Progress Note Assessment/Plan: Assessment: * Cerebrovascular accident with ataxia and visual deficit. * Initial FIM 70 on 10/23/2017. Standby assist for bed mobility, ambulated 100- 150 feet front wheeled walker with standby assist. Negotiated 6 steps with bilateral rails. Does grooming and hygiene standing with cues, upper body dressing setup to standby assist, lower body dressing with minimal assist, shower and shower transfer with minimal assist. Needs cues to initiate in cues to persist. * No hemineglect per OT testing. May have diplopia. Wearing clear glasses with occlusive tape. 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 * PT and OT to optimize mobility and activities of daily living towards discharge home at the independent level. * Cognitive impairment and mild dysphagia, * Moderate to severe deficits to memory, problem solving, processing, orientation, word-finding, and elaboration. * Distressed regarding her deficits. * Continue PRODUCTION MACHINE TENDER. * Secondary prevention of CVA. Continue aspirin and atorvastatin * Status post TAVR. Normal valve function on echocardiogram. * COPD. Continue metered dose inhalers. * Encourage incentive spirometry with goal of no oxygen requirement by the time she discharges home * Diastolic CHF. * Contributes to hypoxia/MARTÍNEZ. May be etiologic of edema. * Continue incentive spirometry, O2 p.r.n. * Ckeck BNP on 10/26/2017. * Obstructive sleep apnea. Continue CPAP at night. * Depression and emotional lability. * Continue trazodone 100 mg p.o. at bedtime. * Citalopram was started 10/22/2017 at 10 mg q.day. Titrate to 20 mg q.day starting 10/26/2017. Observe for access serotonergic affect with concurrent trazodone. * Counseling per social media marketing analyst. * Presumed history of gout. Continue allopurinol. *Possible urinary tract infection. Unclear whether she ever had symptoms of UTI but there was a positive urinalysis 10/13/2017. No culture was done. * Completed 5 days of ciprofloxacin 10/22/2017. Observe for recurrent symptoms * Vitamin-D deficiency. Continue cholecalciferol *Anemia. Slightly worse on CBC 10/20/2017. * Will repeat on 10/26/2017. * Hypernatremia, resolved on BMP 10/20/2017. Appears mildly dehydrated with elevated BUN to creatinine ratio. Encourage normal oral hydration. * Prophylaxis. She is not hemiparetic and she has ambulated 100 ft. She has risk factors of age and obesity. Continue SCDs at night. Observe for improved mobility. She lives alone in a single level home. 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 Plan for discharge home alone or to daughter' s home depending on progress with functional independence. Tentative discharge date set for 11/03/2017. Follow-up. She is scheduled for echocardiogram 11/13/17 and then follow-up with fire sprinkler service technician Dr. Henriquez are on 11/15/2017 at 11:00 p.m. She will follow up after discharge with her primary care provider Dr. Shayna Nunn. 10/25/17 13:53 Subjective: No complaints. Denies symptoms of excess serotonergic effect including no tremor, no sweats and no diarrhea. Has not noticed any effect on her depressive symptoms. Objective: Vital Signs Temp Pulse Resp BP Pulse Ox 36.9 C 84 17 103/56 L 90 L 10/25/17 05:55 10/25/17 05:55 10/25/17 05:55 10/25/17 05:55 10/25/17 05:55 Laboratory Results 10/20/17 07:00 10/20/17 07:00 10/24/17 10/25/17 10/26/17 05:59 05:59 05:59 Intake Total 875 600 Balance 875 600 Physical Exam - Physical Exam General Appearance: WD/WN, alert, no apparent distress, obese Respiratory: normal breath sounds, No crackles, No rhonchi, No wheezing Cardiac/Chest: regular rate, rhythm, edema (1+ bilateral lower extremities), No diastolic murmur, No systolic murmur Skin: normal color, warm/dry Neuro/Psych: alert, normal mood/affect, oriented x 3, No abnormal gait (With front wheeled walker, wide base of support, step through pattern, normal pace, accompanied by nurse.) ICD10 Worksheet Patient Problems: Problems Problem Status Onset Status post lobectomy of lung Acute
[2017-10-25] MEDS: CHOLECALCIFEROL VIT D3 1,000 UNITS TAB PO SCH (17:33)
[2017-10-25] MEDS: ACETAMINOPHEN 500 MG TAB PO PRN (17:36)
[2017-10-25] MEDS: ATORVASTATIN CALCIUM 40 MG TAB PO SCH (21:20)
[2017-10-25] MEDS: traZODone 50 MG TAB PO SCH (21:20)
[2017-10-26] MEDS: ASPIRIN 81 MG CHEWABLE TAB PO SCH (09:12)
[2017-10-26] MEDS: ALLOPURINOL 300 MG TAB PO SCH ×2 (09:12→20:48)
[2017-10-26] MEDS: UMECLIDINIUM BRM IH SCH (09:12)
[2017-10-26] MEDS: CITALOPRAM 20 MG TAB PO SCH (09:12)
[2017-10-26] MEDS: VILANTEROL TR IH SCH (09:12)
[2017-10-26 09:17] LABS: PLATELET COUNT 342 10^3/uL (150-400)
[2017-10-26] MEDS: SENNOSIDES 1 TAB PO PRN (09:18)
--- NOTE | 2017-10-26 10:06 | SOAPPROG ---
SOAP Progress Note Assessment/Plan: 77-year-old woman with multifocal stroke following a trans aortic valve replacement, complicated will by ataxia, visual deficit, cognitive impairments Today's update: Discussed case with [facility], they received some concern about pitting edema in the lower limbs. Patient appears relatively euvolemic on exam, BNP was 315. Daily weights have not been recorded, obtaining additional information and will discuss with cardiothoracic surgery and consider 40 mg Lasix p.o. Q.day with 10 mEq of potassium at their recommendation. Will discuss with Dr. Almanzar as well. Electrolytes normal. A total of 35 min was spent on the floor in the care of the patient, the majority of which was spent in the counseling and coordination of care regarding volume status. Additionally, family reports some emotional lability after anesthesia in the past. Will also consider stopping trazodone and starting a low-dose Seroquel at night. Likely component of resolving delirium on top of stroke. * Cerebrovascular accident with ataxia and visual deficit. * Initial FIM 70 on 10/23/2017. Standby assist for bed mobility, ambulated 100- 150 feet front wheeled walker with standby assist. Negotiated 6 steps with bilateral rails. Does grooming and hygiene standing with cues, upper body dressing setup to standby assist, lower body dressing with minimal assist, shower and shower transfer with minimal assist. Needs cues to initiate in cues to persist. * No hemineglect per OT testing. May have diplopia. Wearing clear glasses with occlusive tape. 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 * PT and OT to optimize mobility and activities of daily living towards discharge home at the independent level. * Cognitive impairment and mild dysphagia, stroke related as well as likely a component of resolving delirium * Moderate to severe deficits to memory, problem solving, processing, orientation, word-finding, and elaboration. * Distressed regarding her deficits. * Continue TYPE BAR AND SEGMENT ASSEMBLER. * Secondary prevention of CVA. Continue aspirin and atorvastatin * Status post TAVR. Normal valve function on echocardiogram. * COPD. Continue metered dose inhalers. * Encourage incentive spirometry with goal of no oxygen requirement by the time she discharges home * Diastolic CHF. BNP ordered on 10/26 was 315. * Contributes to hypoxia/MARTÍNEZ. May be etiologic of edema. * Continue incentive spirometry, O2 p.r.n. * Daily weights ordered * Obstructive sleep apnea. Continue CPAP at night. * Depression and emotional lability. * Continue trazodone 100 mg p.o. at bedtime. * Citalopram was started 10/22/2017 at 10 mg q.day. Titrate to 20 mg q.day starting 10/26/2017. Observe for access serotonergic affect with concurrent trazodone. * Counseling per social work program coordinator. * Presumed history of gout. Continue allopurinol. *Possible urinary tract infection. Unclear whether she ever had symptoms of UTI but there was a positive urinalysis 10/13/2017. No culture was done. * Completed 5 days of ciprofloxacin 10/22/2017. Observe for recurrent symptoms * Vitamin-D deficiency. Continue cholecalciferol *Anemia. Slightly worse on CBC 10/20/2017. * Will repeat on 10/26/2017. * Hypernatremia, resolved on BMP 10/20/2017. Appears mildly dehydrated with elevated BUN to creatinine ratio. Encourage normal oral hydration. * Prophylaxis. She is not hemiparetic and she has ambulated 100 ft. She has risk factors of age and obesity. Continue SCDs at night. Observe for improved mobility. She lives alone in a single level home. 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 Plan for discharge home alone or to daughter' s home depending on progress with functional independence. Tentative discharge date set for 11/03/2017. Follow-up. She is scheduled for echocardiogram 11/13/17 and then follow-up with division superintendent Dr. Henriquez are on 11/15/2017 at 11:00 p.m. She will follow up after discharge with her primary care provider Dr. Shayna Nunn. 10/24/17 09:21 10/26/17 10:03 10/26/17 10:15 10/26/17 10:20 Subjective: Chief complaint: Desaturation with activity No acute events overnight. Patient notes some mild shortness of breath when ambulating further than approximately 1 length of the hallway or less. Physical therapy notes that on her current 1-1 and 0.5 L she desaturates down to low 80s. Patient denies any new shortness of breath or chest pain but does note some shortness of breath when she is walking as noted above. No new numbness, tingling, or weakness. Also talked with Brit Simon about the case and they have some concern about fluid overload. Objective: Vital Signs Temp Pulse Resp BP Pulse Ox 36.8 C 77 16 129/67 H 92 10/26/17 07:37 10/26/17 07:37 10/26/17 07:37 10/26/17 07:37 10/26/17 07:37 Laboratory Results 10/26/17 08:10 10/26/17 08:10 10/25/17 10/26/17 10/27/17 05:59 05:59 05:59 Intake Total 600 218 Balance 600 218 Physical Exam - Physical Exam General Appearance: WD/WN, alert, no apparent distress EENT: other (1.5 L nasal cannula), No scleral icterus (R), No scleral icterus (L ) Respiratory: wheezing (Mild expiratory wheezing on the right), No respiratory distress, No accessory muscle use, No rales, No rhonchi, No retractions Cardiac/Chest: normal peripheral pulses, regular rate, rhythm, edema (trace bilaterally), other (Extremities warm) Skin: normal color, warm/dry, No cyanosis, No diaphoresis, No pallor Extremities: No calf tenderness, No swelling Neuro/Psych: alert, normal mood/affect ICD10 Worksheet Patient Problems: Problems Problem Status Onset Status post lobectomy of lung Acute
[2017-10-26] MEDS: POTASSIUM CL 10 MEQ TAB PO SCH (12:28)
[2017-10-26] MEDS: FUROSEMIDE 40 MG TAB PO SCH (12:28)
[2017-10-26] MEDS: CHOLECALCIFEROL VIT D3 1,000 UNITS TAB PO SCH (18:22)
[2017-10-26] MEDS: ATORVASTATIN CALCIUM 40 MG TAB PO SCH (20:48)
[2017-10-26] MEDS: traZODone 50 MG TAB PO SCH (20:48)
[2017-10-27] MEDS: FUROSEMIDE 40 MG TAB PO SCH (08:38)
[2017-10-27] MEDS: ACETAMINOPHEN 500 MG TAB PO PRN (08:38)
[2017-10-27] MEDS: ASPIRIN 81 MG CHEWABLE TAB PO SCH (08:38)
[2017-10-27] MEDS: POTASSIUM CL 10 MEQ TAB PO SCH (08:39)
[2017-10-27] MEDS: ALLOPURINOL 300 MG TAB PO SCH ×2 (08:39→20:11)
[2017-10-27] MEDS: CITALOPRAM 20 MG TAB PO SCH (08:39)
[2017-10-27] MEDS: UMECLIDINIUM BRM IH SCH (08:40)
[2017-10-27] MEDS: VILANTEROL TR IH SCH (08:40)
--- NOTE | 2017-10-27 14:00 | SOAPPROG ---
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 * Initial FIM 70 on 10/23/2017. Standby assist for bed mobility, ambulated 100- 150 feet front wheeled walker with standby assist. Negotiated 6 steps with bilateral rails. Does grooming and hygiene standing with cues, upper body dressing setup to standby assist, lower body dressing with minimal assist, shower and shower transfer with minimal assist. Needs cues to initiate in cues to persist. * No hemineglect per OT testing. May have diplopia. Wearing clear glasses with occlusive tape. 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 * PT and OT to optimize mobility and activities of daily living towards discharge home at the independent level. * PROBABLE VASOVAGAL EPISODE-PATIENT INITIALLY HAD PULSE OF 72, BLOOD PRESSURE 76/52. AFTER LYING SUPINE FOR 15 MIN BLOOD PRESSURE INCREASED TO 93/47 AND PULSE INCREASED TO 76. PATIENT WAS NOT DIAPHORETIC, NO CHANGE IN MENTAL STATUS, NO CHANGE IN NEUROLOGICAL EXAM COMPARED TO PREVIOUS EXAMS. PATIENT IS NOTED TO BE ON LASIX 40 MG Q.A.M.. [address] PL[address] ORDER FOR COMPRESSION STOCKINGS TO BE WORN WHILE UPRIGHT. WILL ALSO ASK NURSING TO PERFORM ORTHOSTATICS. ENCOURAGE P.O. FLUIDS. * Cognitive impairment and mild dysphagia, stroke related as well as likely a component of resolving delirium * Moderate to severe deficits to memory, problem solving, processing, orientation, word-finding, and elaboration. * Distressed regarding her deficits. 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 * Secondary prevention of CVA. Continue aspirin and atorvastatin * Status post TAVR. Normal valve function on echocardiogram. * COPD. Continue metered dose inhalers. * Encourage incentive spirometry with goal of no oxygen requirement by the time she discharges home * Diastolic CHF. NO OVERT SIGNS OF CONGESTIVE HEART FAILURE ON TODAY'S EXAM. * Contributes to hypoxia/MARTÍNEZ. May be etiologic of edema. * Continue incentive spirometry, O2 p.r.n. * Daily weights ordered * Obstructive sleep apnea. Continue CPAP at night. * Depression and emotional lability. * Continue trazodone 100 mg p.o. at bedtime. * Citalopram was started 10/22/2017 at 10 mg q.day. Titrate to 20 mg q.day starting 10/26/2017. Observe for access serotonergic affect with concurrent trazodone. * Counseling per bilingual social worker. * Presumed history of gout. Continue allopurinol. *Possible urinary tract infection. Unclear whether she ever had symptoms of UTI but there was a positive urinalysis 10/13/2017. No culture was done. * Completed 5 days of ciprofloxacin 10/22/2017. Observe for recurrent symptoms. * Vitamin-D deficiency. Continue cholecalciferol *Anemia. Slightly worse on CBC 10/20/2017. * Will repeat on 10/26/2017. * Hypernatremia, resolved on BMP 10/20/2017. Appears mildly dehydrated with elevated BUN to creatinine ratio. Encourage normal oral hydration. * Prophylaxis. She is not hemiparetic and she has ambulated 100 ft. She has risk factors of age and obesity. Continue SCDs at night. Observe for improved mobility. She lives alone in a single level home. 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 Plan for discharge home alone or to daughter' s home depending on progress with functional independence. Tentative discharge date set for 11/03/2017. Follow-up. She is scheduled for echocardiogram 11/13/17 and then follow-up with director of enterprise architecture Dr. Henriquez are on 11/15/2017 at 11:00 p.m. She will follow up after discharge with her primary care provider Dr. Shayna Nunn. Plan: 10/27/17 14:01 Subjective: CALLED TO SEE PATIENT TODAY BY NURSING STAFF BECAUSE PATIENT HAD APPARENT VASOVAGAL EPISODE. SHE WAS ON HER WAY BACK FROM THERAPY AND SUDDENLY FELT VERY LIGHTHEADED AND HAD TO SIT DOWN. SHE DENIED HEADACHE OR CHEST PAIN. SHE DENIED NEW ONSET WEAKNESS. SHE DENIED NECK OR JAW PAIN, DENIED TONGUE CLAUDICATION. DENIED LEFT UPPER EXTREMITY PAIN. Objective: Vital Signs Temp Pulse Resp BP Pulse Ox 36.8 C 69 14 93/47 L 95 10/27/17 06:14 10/27/17 12:04 10/27/17 12:04 10/27/17 12:04 10/27/17 12:04 Laboratory Results 10/26/17 08:10 10/26/17 08:10 10/26/17 10/27/17 10/28/17 05:59 05:59 05:59 Intake Total 388 Balance 388 Physical Exam - Physical Exam General Appearance: WD/WN, alert, mild distress EENT: other (LEFT PUPIL IS SLIGHTLY MORE DILATED THAN RIGHT BUT OCCUPATIONAL THERAPY NOTED THIS IS AN OLD FINDING.), No PERRL/EOMI Neck: supple Respiratory: lungs clear, normal breath sounds, No respiratory distress Cardiac/Chest: regular rate, rhythm, edema (PEDAL EDEMA, NO PRETIBIAL EDEMA.), No JVD Abdomen: non-tender, soft Skin: warm/dry, No diaphoresis ICD10 Worksheet Patient Problems: Problems Problem Status Onset Status post lobectomy of lung Acute
--- NOTE | 2017-10-27 17:20 | CPEKG ---
Heart Rate: 70 RR Interval: 857 P-R Interval: 208 QRSD Interval: 76 QT Interval: 420 QTC Interval: 454 P [place]: 9 QRS [place]: 53 T Wave [place]: 76 EKG Severity - NORMAL ECG - EKG Impression: SINUS RHYTHM Electronically Signed By: Aniket Henriquez 28-Oct-2017 09:31:02
[2017-10-27 18:16] LABS: PLATELET COUNT 358 10^3/uL (150-400)
[2017-10-27] MEDS: CHOLECALCIFEROL VIT D3 1,000 UNITS TAB PO SCH (18:50)
[2017-10-27] MEDS: ATORVASTATIN CALCIUM 40 MG TAB PO SCH (20:11)
[2017-10-27] MEDS: traZODone 50 MG TAB PO SCH (20:11)
[2017-10-28] MEDS: CITALOPRAM 20 MG TAB PO SCH (08:28)
[2017-10-28] MEDS: SENNOSIDES 1 TAB PO PRN (08:28)
[2017-10-28] MEDS: UMECLIDINIUM BRM IH SCH (08:28)
[2017-10-28] MEDS: ALLOPURINOL 300 MG TAB PO SCH ×2 (08:28→20:02)
[2017-10-28] MEDS: POTASSIUM CL 10 MEQ TAB PO SCH (08:28)
[2017-10-28] MEDS: ASPIRIN 81 MG CHEWABLE TAB PO SCH (08:28)
[2017-10-28] MEDS: FUROSEMIDE 40 MG TAB PO SCH (08:28)
[2017-10-28] MEDS: VILANTEROL TR IH SCH (08:28)
--- NOTE | 2017-10-28 11:02 | SOAPPROG ---
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 * Initial FIM 70 on 10/23/2017. Standby assist for bed mobility. SHE IS AMBULATING IN THE HALLWAY STANDBY ASSIST USING THE F WW AT LEAST 200 FT. DEMONSTRATES FAIRLY GOOD TRUNK STABILITY, NO EVIDENCE OF KNEE INSTABILITY OR FOOTDROP. Negotiated 6 steps with bilateral rails. Does grooming and hygiene standing with cues, upper body dressing setup to standby assist, lower body dressing with minimal assist, shower and shower transfer with minimal assist. Needs cues to initiate in cues to persist. * No hemineglect per OT testing. May have diplopia. Wearing clear glasses with occlusive tape. 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 * PT and OT to optimize mobility and activities of daily living towards discharge home at the independent level. * PROBABLE VASOVAGAL EPISODE-YESTERDAY. NO SIMILAR EPISODES REPORTED YESTERDAY EVENING OR THIS MORNING. SHE MAY HAVE THE 9 POSITIONAL VERTIGO AND WILL ASK PHYSICAL THERAPY TO TEST FOR THIS WELL. BLOOD PRESSURE THIS MORNING WAS 121/ 67 WITH PULSE OF 93. SERUM ELECTROLYTES FOLLOWS: SODIUM 138, POTASSIUM 4.2. * Cognitive impairment and mild dysphagia, stroke related as well as likely a component of resolving delirium * Moderate to severe deficits to memory, problem solving, processing, orientation, word-finding, and elaboration. * Distressed regarding her deficits. 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 * Secondary prevention of CVA. Continue aspirin and atorvastatin * Status post TAVR. Normal valve function on echocardiogram. * COPD. Continue metered dose inhalers. LUNGS ARE CLEAR TO AUSCULTATION. * Encourage incentive spirometry with goal of no oxygen requirement by the time she discharges home * Diastolic CHF. SLIGHT PRETIBIAL EDEMA TODAY BUT NOT ENOUGH TO WARRANT AN EXTRA DOSE OF LASIX. HER LUNGS REMAIN CLEAR. * Contributes to hypoxia/MARTÍNEZ. May be etiologic of edema. * Continue incentive spirometry, O2 p.r.n. * Daily weights ordered * Obstructive sleep apnea. Continue CPAP at night. * Depression and emotional lability. * Continue trazodone 100 mg p.o. at bedtime. * Citalopram was started 10/22/2017 at 10 mg q.day. Titrate to 20 mg q.day starting 10/26/2017. Observe for access serotonergic affect with concurrent trazodone. * Counseling per social media senior associate. * Presumed history of gout. Continue allopurinol. *Possible urinary tract infection. Unclear whether she ever had symptoms of UTI but there was a positive urinalysis 10/13/2017. No culture was done. * Completed 5 days of ciprofloxacin 10/22/2017. Observe for recurrent symptoms. * Vitamin-D deficiency. Continue cholecalciferol *Anemia. Slightly worse on CBC 10/20/2017. * Will repeat on 10/26/2017. * Hypernatremia, resolved on BMP 10/20/2017. Appears mildly dehydrated with elevated BUN to creatinine ratio. Encourage normal oral hydration. * Prophylaxis. She is not hemiparetic and she has ambulated 100 ft. She has risk factors of age and obesity. Continue SCDs at night. Observe for improved mobility. She lives alone in a single level home. 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 Plan for discharge home alone or to daughter' s home depending on progress with functional independence. Tentative discharge date set for 11/03/2017. Follow-up. She is scheduled for echocardiogram 11/13/17 and then follow-up with auditor tax Dr. Henriquez are on 11/15/2017 at 11:00 p.m. She will follow up after discharge with her primary care provider Dr. Shayna Nunn. Plan: 10/27/17 14:01 10/28/17 11:02 Subjective: SHE DOES NOT VERBALIZE ANY COMPLAINTS THIS MORNING. SHE DENIES ANY DIZZINESS OR SYNCOPAL EPISODES. DENIES SYMPTOMS CONSISTENT WITH ORTHOSTATIC HYPOTENSION HER OCCUPATIONAL THERAPIST REPORTED TODAY THAT SHE MAY HAVE GOTTEN A LITTLE DIZZY DURING THERAPY SESSION. Objective: Vital Signs Temp Pulse Resp BP Pulse Ox 37.1 C 93 18 121/67 H 93 10/28/17 08:00 10/28/17 08:00 10/28/17 08:00 10/28/17 08:00 10/28/17 08:00 Laboratory Results 10/27/17 16:15 10/28/17 06:00 10/27/17 10/28/17 10/29/17 05:59 05:59 05:59 Intake Total 388 780 320 Balance 388 780 320 Physical Exam - Physical Exam General Appearance: alert, no apparent distress EENT: anisocoria (LEFT PUPIL SLIGHTLY LARGER THAN RIGHT, APPARENTLY OLD FINDING) Respiratory: lungs clear, normal breath sounds Cardiac/Chest: regular rate, rhythm, No edema Abdomen: non-tender, soft Skin: warm/dry Extremities: other (PLUS ONE PRETIBIAL EDEMA, UNCHANGED FROM YESTERDAY), No swelling, No Luisito's sign ICD10 Worksheet Patient Problems: Problems Problem Status Onset Status post lobectomy of lung Acute
[2017-10-28] MEDS: CHOLECALCIFEROL VIT D3 1,000 UNITS TAB PO SCH (17:34)
[2017-10-28] MEDS: ATORVASTATIN CALCIUM 40 MG TAB PO SCH (20:02)
[2017-10-28] MEDS: traZODone 50 MG TAB PO SCH (20:02)
[2017-10-29] MEDS: UMECLIDINIUM BRM IH SCH (08:42)
[2017-10-29] MEDS: VILANTEROL TR IH SCH (08:42)
[2017-10-29] MEDS: ASPIRIN 81 MG CHEWABLE TAB PO SCH (08:43)
[2017-10-29] MEDS: ALLOPURINOL 300 MG TAB PO SCH ×2 (08:43→20:25)
[2017-10-29] MEDS: FUROSEMIDE 40 MG TAB PO SCH (08:43)
[2017-10-29] MEDS: POTASSIUM CL 10 MEQ TAB PO SCH (08:43)
[2017-10-29] MEDS: SENNOSIDES 1 TAB PO PRN (08:43)
[2017-10-29] MEDS: CITALOPRAM 20 MG TAB PO SCH (08:43)
--- NOTE | 2017-10-29 10:48 | SOAPPROG ---
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 HER MORNING SESSION OF PHYSICAL THERAPY WAS DISCONTINUED PREMATURELY SECONDARY TO HER FEELING FATIGUED BUT SHE HAS NO SPECIFIC COMPLAINTS REGARDING THIS. BLOOD PRESSURE THIS MORNING IS STABLE AT 141/66, PULSE WAS 80 AND REGULAR. O2 SAT 91 ON 1 L * Initial FIM 70 on 10/23/2017. Standby assist for bed mobility. SHE IS AMBULATING IN THE HALLWAY STANDBY ASSIST USING THE F WW AT LEAST 200 FT. DEMONSTRATES FAIRLY GOOD TRUNK STABILITY, NO EVIDENCE OF KNEE INSTABILITY OR FOOTDROP. Negotiated 6 steps with bilateral rails. Does grooming and hygiene standing with cues, upper body dressing setup to standby assist, lower body dressing with minimal assist, shower and shower transfer with minimal assist. Needs cues to initiate in cues to persist. * No hemineglect per OT testing. May have diplopia. Wearing clear glasses with occlusive tape. 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 * PT and OT to optimize mobility and activities of daily living towards discharge home at the independent level. * PROBABLE VASOVAGAL EPISODE-MONDAY. NO SIMILAR EPISODES REPORTED YESTERDAY EVENING OR THIS MORNING. SHE MAY HAVE THE 9 POSITIONAL VERTIGO AND WILL ASK PHYSICAL THERAPY TO TEST FOR THIS WELL. BLOOD PRESSURE THIS MORNING WAS 121/ 67 WITH PULSE OF 93. SERUM ELECTROLYTES FOLLOWS: SODIUM 138, POTASSIUM 4.2. * Cognitive impairment and mild dysphagia, stroke related as well as likely a component of resolving delirium * Moderate to severe deficits to memory, problem solving, processing, orientation, word-finding, and elaboration. * Distressed regarding her deficits. 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 * Secondary prevention of CVA. Continue aspirin and atorvastatin * Status post TAVR. Normal valve function on echocardiogram. * COPD. Continue metered dose inhalers. LUNGS ARE CLEAR TO AUSCULTATION. * Encourage incentive spirometry with goal of no oxygen requirement by the time she discharges home * Diastolic CHF. SLIGHT PEDAL EDEMA TODAY, UNCHANGED FROM PREVIOUS DAYS BUT NOT ENOUGH TO WARRANT AN EXTRA DOSE OF LASIX. HER LUNGS REMAIN CLEAR. * Contributes to hypoxia/MARTÍNEZ. May be etiologic of edema. * Continue incentive spirometry, O2 p.r.n. * Daily weights ordered * Obstructive sleep apnea. Continue CPAP at night. * Depression and emotional lability. * Continue trazodone 100 mg p.o. at bedtime. * Citalopram was started 10/22/2017 at 10 mg q.day. Titrate to 20 mg q.day starting 10/26/2017. Observe for serotonergic affect with concurrent trazodone. * Counseling per elementary school social worker. * Presumed history of gout. Continue allopurinol. *Possible urinary tract infection. Unclear whether she ever had symptoms of UTI but there was a positive urinalysis 10/13/2017. No culture was done. * Completed 5 days of ciprofloxacin 10/22/2017. Observe for recurrent symptoms. WILL REPEAT URINALYSIS TODAY * Vitamin-D deficiency. Continue cholecalciferol * Hypernatremi. WILL REPEAT BMP TODAY. Encourage normal oral hydration. * Prophylaxis. She is not hemiparetic and she has ambulated 100 ft. She has risk factors of age and obesity. Continue SCDs at night. Observe for improved mobility. She lives alone in a single level home. 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 Plan for discharge home alone or to daughter' s home depending on progress with functional independence. Tentative discharge date set for 11/03/2017. Follow-up. She is scheduled for echocardiogram 11/13/17 and then follow-up with transport aide Dr. Henriquez are on 11/15/2017 at 11:00 p.m. She will follow up after discharge with her primary care provider Dr. Shayna Nunn. Plan: 10/27/17 14:01 10/28/17 11:02 10/29/17 10:38 Subjective: She denies chest pain, shortness of breath, dizziness or feeling lightheaded. She states that her a.m shortened because she was not feeling well. She currently reports no specific problems. Objective: Vital Signs Temp Pulse Resp BP Pulse Ox 37.0 C 75 15 141/66 H 91 L 10/29/17 07:17 10/29/17 07:17 10/29/17 07:17 10/29/17 07:17 10/29/17 07:17 Laboratory Results 10/27/17 16:15 10/28/17 06:00 10/28/17 10/29/17 10/30/17 05:59 05:59 05:59 Intake Total 780 1170 120 Balance 780 1170 120 Physical Exam - Physical Exam General Appearance: WD/WN Respiratory: lungs clear, normal breath sounds, No crackles, No rales, No wheezing Abdomen: non-tender, soft Skin: normal color, warm/dry Extremities: other (Plus one pretibial edema more pronounced in feet.), No calf tenderness, No Luisito's sign Neuro/Psych: depressed affect ICD10 Worksheet Patient Problems: Problems Problem Status Onset Status post lobectomy of lung Acute
[2017-10-29 12:24] LABS: PLATELET COUNT 329 10^3/uL (150-400)
[2017-10-29] MEDS: CHOLECALCIFEROL VIT D3 1,000 UNITS TAB PO SCH (17:34)
[2017-10-29] MEDS: traZODone 50 MG TAB PO SCH (20:25)
[2017-10-29] MEDS: ATORVASTATIN CALCIUM 40 MG TAB PO SCH (20:25)
[2017-10-30] MEDS: ASPIRIN 81 MG CHEWABLE TAB PO SCH (08:27)
[2017-10-30] MEDS: ALLOPURINOL 300 MG TAB PO SCH ×2 (08:28→20:16)
[2017-10-30] MEDS: CITALOPRAM 20 MG TAB PO SCH (08:28)
[2017-10-30] MEDS: POTASSIUM CL 10 MEQ TAB PO SCH (08:28)
[2017-10-30] MEDS: FUROSEMIDE 40 MG TAB PO SCH (08:28)
[2017-10-30] MEDS: VILANTEROL TR IH SCH (08:29)
[2017-10-30] MEDS: UMECLIDINIUM BRM IH SCH (08:29)
--- NOTE | 2017-10-30 13:06 | SOAPPROG ---
SOAP Progress Note Assessment/Plan: Assessment: 77-year-old woman with multifocal stroke following a trans aortic valve replacement, complicated will by ataxia, visual deficit, cognitive impairments PATIENT WAS DISCUSSED TODAY DURING REHAB ROUNDS * Cerebrovascular accident with ataxia and visual deficit. * SHE IS INDEPENDENT IN BED MOBILITY. SHE IS TRANSFERRING WITH A CANE. SHE AMBULATES USING A CANE WITH INTERMITTENT CONTACT GUARD ASSIST. SHE HAS 2 L O2 WHEN WALKING. SHE CONTINUES TO NEED ASSISTANCE WITH OXYGEN TO MANAGEMENT. Wearing clear glasses with occlusive tape. 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 * SHE HAS BEEN INDEPENDENT WITH SELF-CARE SINCE ADMISSION. SHE NEEDS CUE FOR WIPING AFTER HAVING BOWEL MOVEMENTS. SHE SHOWS POOR ENDURANCE DURING OT ACTIVITIES. THEY ARE WORKING ON MEAL PREP TODAY. * PROBABLE VASOVAGAL EPISODE-MONDAY. NO SIMILAR EPISODES REPORTED YESTERDAY EVENING OR THIS MORNING. SHE MAY HAVE THE 9 POSITIONAL VERTIGO AND WILL ASK PHYSICAL THERAPY TO TEST FOR THIS WELL. BLOOD PRESSURE THIS MORNING WAS 121/ 67 WITH PULSE OF 93. SERUM ELECTROLYTES FOLLOWS: SODIUM 138, POTASSIUM 4.2. * Cognitive impairment and mild dysphagia, stroke related as well as likely a component of resolving delirium * Moderate to severe deficits to memory, problem solving, processing, orientation, word-finding, and elaboration. * Distressed regarding her deficits. * Continue DITCH DIGGER. * Secondary prevention of CVA. Continue aspirin and atorvastatin * VISUAL DISTURBANCE-CASE MANAGEMENT IS WORKING ON GET HER AN APPOINTMENT TO SEE A NEURO PAY STATION DEPARTMENT MANAGER TO FURTHER EVALUATE FOR POSSIBLE VISUAL FIELD DEFICIT. SHE MAY HAVE A RETINAL PROBLEM WELL. SHE MAY NEED AN MRI OF HER BRAIN AND BRAINSTEM TO FURTHER EVALUATE ANISOCORIA, SINCE THIS HAS BEEN PRESENT FOR AN UNDETERMINED AMOUNT OF TIME. * Status post TAVR. Normal valve function on echocardiogram. * COPD. Continue metered dose inhalers. LUNGS ARE CLEAR TO AUSCULTATION. * Encourage incentive spirometry with goal of no oxygen requirement by the time she discharges home * Diastolic CHF. SLIGHT PEDAL EDEMA TODAY, UNCHANGED FROM PREVIOUS DAYS BUT NOT ENOUGH TO WARRANT AN EXTRA DOSE OF LASIX. HER LUNGS REMAIN CLEAR. * Contributes to hypoxia/MARTÍNEZ. May be etiologic of edema. * Continue incentive spirometry, O2 p.r.n. * Daily weights ordered * SHE HAS ECHOCARDIOGRAM SCHEDULED ON 11/13. SHE HAS FOLLOW-UP APPOINTMENT WITH HER HEMOTHERAPIST ON 11/15 * Obstructive sleep apnea. Continue CPAP at night. * Depression and emotional lability. * Continue trazodone 100 mg p.o. at bedtime. * Citalopram was started 10/22/2017 at 10 mg q.day. Titrate to 20 mg q.day starting 10/26/2017. Observe for serotonergic affect with concurrent trazodone. * Counseling per drug abuse social worker. * Presumed history of gout. Continue allopurinol. *Possible urinary tract infection. Unclear whether she ever had symptoms of UTI but there was a positive urinalysis 10/13/2017. No culture was done. * Completed 5 days of ciprofloxacin 10/22/2017. Observe for recurrent symptoms. WILL REPEAT URINALYSIS TODAY * Vitamin-D deficiency. Continue cholecalciferol * Hypernatremi. WILL REPEAT BMP TODAY. Encourage normal oral hydration. * Prophylaxis. She is not hemiparetic and she has ambulated 100 ft. She has risk factors of age and obesity. Continue SCDs at night. Observe for improved mobility. She lives alone in a single level home. 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 CURRENT COGNITIVE STATUS IS BIGGEST OBSTACLE TO RETURNING TO LIVING INDEPENDENTLY WITHOUT ASSISTANCE. MOST LIKELY WILL NEED SOME SUPERVISION DURING THE DAY AFTER DISCHARGE. Follow-up. She is scheduled for echocardiogram 11/13/17 and then follow-up with train brake operator Dr. Henriquez are on 11/15/2017 at 11:00 p.m. She will follow up after discharge with her primary care provider Dr. Shayna Nunn. Plan: 10/27/17 14:01 10/28/17 11:02 10/29/17 10:38 10/30/17 13:06 Subjective: SHE DID HAVE ANY SPECIFIC COMPLAINTS REGARDING SHORTNESS OF BREATH, CHEST PAIN, DIZZINESS OR FEELING LIGHTHEADED. SHE CONTINUES TO DESCRIBE SOME VISUAL DISTURBANCES, HOWEVER SHE IS NOT SURE HOW LONG THIS HAS BEEN OCCURRING. SHE CONTINUES TO REPORT TO THE STAFF THAT THIS IS PROBLEMATIC TO HER Objective: Vital Signs Temp Pulse Resp BP Pulse Ox 37.0 C 76 16 132/51 H 91 L 10/30/17 06:31 10/30/17 06:31 10/30/17 06:31 10/30/17 06:31 10/30/17 06:31 Laboratory Results 10/29/17 11:20 10/29/17 11:20 10/29/17 10/30/17 10/31/17 05:59 05:59 05:59 Intake Total 1170 1180 670 Balance 1171 3612 125 Physical Exam - Physical Exam General Appearance: no apparent distress EENT: other (LEFT PUPIL SLIGHTLY DILATED COMPARED TO RIGHT) Respiratory: lungs clear, normal breath sounds Cardiac/Chest: regular rate, rhythm, edema (PEDAL EDEMA), No gallop Abdomen: normal bowel sounds, non-tender Skin: normal color, warm/dry (BLUNT AFFECT) Neuro/Psych: motor weakness (SHE HAS AT LEAST ANTIGRAVITY STRENGTH BOTH UPPER AND BOTH LOWER EXTREMITIES.) ICD10 Worksheet Patient Problems: Problems Problem Status Onset Status post lobectomy of lung Acute
[2017-10-30] MEDS: CHOLECALCIFEROL VIT D3 1,000 UNITS TAB PO SCH (17:43)
[2017-10-30] MEDS: ATORVASTATIN CALCIUM 40 MG TAB PO SCH (20:16)
[2017-10-30] MEDS: traZODone 50 MG TAB PO SCH (20:16)
[2017-10-31] MEDS: FUROSEMIDE 40 MG TAB PO SCH ×2 (08:01→15:24)
[2017-10-31] MEDS: ALLOPURINOL 300 MG TAB PO SCH ×2 (08:01→20:54)
[2017-10-31] MEDS: POTASSIUM CL 10 MEQ TAB PO SCH (08:01)
[2017-10-31] MEDS: ASPIRIN 81 MG CHEWABLE TAB PO SCH (08:01)
[2017-10-31] MEDS: CITALOPRAM 20 MG TAB PO SCH (08:01)
[2017-10-31] MEDS: VILANTEROL TR IH SCH (08:04)
[2017-10-31] MEDS: UMECLIDINIUM BRM IH SCH (08:04)
--- NOTE | 2017-10-31 11:47 | SOAPPROG ---
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 Plan to monitor fluid status closely with weights which have been stable in around the 81-82 kg range. Creatinine is also stable at 0.7 today and potassium is 4.0, stable. Has not had any repeat vasovagal or orthostatic episodes like occurred on Monday. Repeat labs on . Participation in therapy has been good, nursing notes that she is more alert today. Total of 35 min was spent on the floor in the care of the patient, the majority of which was spent on counseling and coordination of care regarding fluid management strategies. * Cerebrovascular accident with ataxia and visual deficit. * Independent in bed mobility, transferring with a cane, needs oxygen with activity. Wearing clear glasses with occlusive tape. 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 * Has overall poor endurance and requires cuing for activities. Continue PT, OT , speech. * probable vasovagal episode: Has not repeated. Appears to be slightly fluid overload as addressed elsewhere in this note. * Checking orthostatics. * Cognitive impairment and mild dysphagia, stroke related as well as likely a component of resolving delirium * Moderate to severe deficits to memory, problem solving, processing, orientation, word-finding, and elaboration. * Distressed regarding her deficits. 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 * Secondary prevention of CVA. 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 Normal valve function on echocardiogram. * Diastolic CHF. Appears to be slightly fluid overload with 1+ pitting edema in the bilateral lower extremities. Creatinine has been stable, weight has been stable at about 81 kg. * Furosemide at 40 mg twice a day, increased from 40 mg once a day on 2017. Potassium increased to 20 mEq daily from 10 mEq daily. * Contributes to hypoxia/MARTÍNEZ. May be etiologic of edema. * Continue incentive spirometry, O2 p.r.n. * Daily weights ordered, monitor * Has echocardiogram 11/13. Has follow-up appointment with lead network engineer 11/15 * COPD. Continue metered dose inhalers. * Encourage incentive spirometry with goal of no oxygen requirement by the time she discharges home * Obstructive sleep apnea. Continue CPAP at night. * Depression and emotional lability. * Continue trazodone 100 mg p.o. at bedtime. * Citalopram was started 10/22/2017 at 10 mg q.day. Titrate to 20 mg q.day starting 10/26/2017. Observe for serotonergic affect with concurrent trazodone. * Counseling per social media executive. * Presumed history of gout. Continue allopurinol. *Possible urinary tract infection. Unclear whether she ever had symptoms of UTI but there was a positive urinalysis 10/13/2017. No culture was done. * Completed 5 days of ciprofloxacin 10/22/2017. Observe for recurrent symptoms. WILL REPEAT URINALYSIS TODAY * Vitamin-D deficiency. Continue cholecalciferol * Hypernatremia: Resolved. Encourage normal oral hydration. * Prophylaxis. She is not hemiparetic and she has ambulated 100 ft. She has risk factors of age and obesity. Continue SCDs at night. Observe for improved mobility. She lives alone in a single level home. 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 Cognitive impairment is a big obstacle and she will likely need some supervision after discharge. Follow-up. She is scheduled for echocardiogram 11/13/17 and then follow-up with technical spec Dr. Florence lennon on 11/15/2017 at 11:00 p.m. She will follow up after discharge with her primary care provider Dr. Shayna Nunn. 10/24/17 09:21 10/26/17 10:03 10/26/17 10:15 10/26/17 10:20 10/31/17 11:29 10/31/17 11:48 Subjective: Chief complaint: Fluid status No acute events overnight. Patient continues to participate with therapies and nursing notes that she is more alert today. No new shortness of breath or chest pain, no new numbness, tingling, or weakness. She denies any repeat symptoms like she had last Monday of orthostasis or any vasovagal response. Objective: Vital Signs Temp Pulse Resp BP Pulse Ox 36.9 C 69 16 139/61 H 91 L 10/31/17 08:00 10/31/17 08:00 10/31/17 08:00 10/31/17 08:00 10/31/17 08:00 Laboratory Results 10/29/17 11:20 10/31/17 06:00 10/30/17 10/31/17 11/01/17 05:59 05:59 05:59 Intake Total 1180 1420 464 Balance 1180 1420 464 Physical Exam - Physical Exam General Appearance: WD/WN, alert, no apparent distress EENT: No scleral icterus (R), No scleral icterus (L) Respiratory: lungs clear, normal breath sounds, No respiratory distress, No accessory muscle use, No decreased breath sounds, No rales, No rhonchi, No wheezing Cardiac/Chest: normal peripheral pulses, regular rate, rhythm, edema (1+ in the bilateral lower extremities), No diastolic murmur, No systolic murmur Skin: normal color, warm/dry, No cyanosis, No diaphoresis Neuro/Psych: alert, normal mood/affect, other (Anisocoria), No oriented x 3 ( Oriented to self, date, but not to place) ICD10 Worksheet Patient Problems: Problems Problem Status Onset Status post lobectomy of lung Acute
[2017-10-31] MEDS: CHOLECALCIFEROL VIT D3 1,000 UNITS TAB PO SCH (18:10)
[2017-10-31] MEDS: ATORVASTATIN CALCIUM 40 MG TAB PO SCH (20:54)
[2017-10-31] MEDS: traZODone 50 MG TAB PO SCH (20:54)
[2017-11-01] MEDS: ASPIRIN 81 MG CHEWABLE TAB PO SCH (08:51)
[2017-11-01] MEDS: ALLOPURINOL 300 MG TAB PO SCH ×2 (08:52→19:36)
[2017-11-01] MEDS: CITALOPRAM 20 MG TAB PO SCH (08:52)
[2017-11-01] MEDS: FUROSEMIDE 40 MG TAB PO SCH ×2 (08:52→14:34)
[2017-11-01] MEDS: UMECLIDINIUM BRM IH SCH (08:53)
[2017-11-01] MEDS: VILANTEROL TR IH SCH (08:53)
[2017-11-01] MEDS ORDERED: POTASSIUM CL 20 MEQ TAB PO SCH (09:00)
--- NOTE | 2017-11-01 14:32 | SOAPPROG ---
SOAP Progress Note Assessment/Plan: Assessment: * Cerebrovascular accident with ataxia and visual deficit. * Initial FIM 70 on 10/23/2017. Standby assist for bed mobility, ambulated 100- 150 feet front wheeled walker with standby assist. Negotiated 6 steps with bilateral rails. Does grooming and hygiene standing with cues, upper body dressing setup to standby assist, lower body dressing with minimal assist, shower and shower transfer with minimal assist. Needs cues to initiate in cues to persist. * Advanced to independent in room 7:00 a.m. To 7:00 p.m. with a cane, needs oxygen with activity. * No hemineglect per OT testing. May have diplopia. Wearing clear glasses with occlusive tape. 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 * Continue PT and OT to optimize mobility and activities of daily living towards discharge home at the independent level. * Cognitive impairment and mild dysphagia, * Improving deficits to memory, problem solving, processing, orientation, word- finding, and elaboration. * Continue FAMILY PSYCHOLOGIST. * Secondary prevention of CVA. Continue aspirin and atorvastatin * Status post TAVR. Normal valve function on echocardiogram. * COPD. Continue metered dose inhalers. * Encourage incentive spirometry with goal of no oxygen requirement by the time she discharges home * Diastolic CHF. * Contributes to hypoxia/MARTÍNEZ. May be etiologic of edema. * Continue incentive spirometry, O2 p.r.n. * Furosemide increased 10/31/2017 regarding edema. BNP was not consistent with CHF on 10/27/2017. Continue daily weights. * Obstructive sleep apnea. Continue CPAP at night. * Depression and emotional lability. * Continue trazodone 100 mg p.o. at bedtime. * Citalopram was started 10/22/2017 at 10 mg q.day. Titrate to 20 mg q.day starting 10/26/2017. Mood much improved. * Counseling per renal social worker. * Presumed history of gout. Continue allopurinol. *Possible urinary tract infection. Unclear whether she ever had symptoms of UTI but there was a positive urinalysis 10/13/2017. No culture was done. * Completed 5 days of ciprofloxacin 10/22/2017. Observe for recurrent symptoms * Vitamin-D deficiency. Continue cholecalciferol *Anemia. Slightly worse on CBC 10/20/2017. * Stable 10/27/2017 and 10/29/2017. * Hypernatremia, resolved on BMP 10/20/2017 * Renal function and electrolytes stable with diuresis. * Prophylaxis. She is not hemiparetic and she has ambulated 100 ft. She has risk factors of age and obesity. Continue SCDs at night. Observe for improved mobility. She lives alone in a single level home. 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 Plan for discharge home alone or to daughter' s home on 11/03/2017. Follow-up. She is scheduled for echocardiogram 11/13/17 and then follow-up with recapper Dr. Henriquez are on 11/15/2017 at 11:00 p.m. She will follow up after discharge with her primary care provider Dr. Shayna Nunn. 11/01/17 14:25 Subjective: No complaints. Slept well. Not in pain. No cough or dyspnea; breathing feels at baseline. Mood is much better. She thinks it is more because of her functional improvement than because of the antidepressant. She still has visual deficit and cannot clearly see the examiner when silhouetted against the window in the room. Objective: Vital Signs Temp Pulse Resp BP Pulse Ox 36.8 C 77 18 130/62 H 93 11/01/17 08:00 11/01/17 08:00 11/01/17 08:00 11/01/17 08:00 11/01/17 08:00 Laboratory Results 10/29/17 11:20 10/31/17 06:00 10/31/17 11/01/17 11/02/17 05:59 05:59 05:59 Intake Total 1420 964 Balance 1420 964 Physical Exam - Physical Exam General Appearance: WD/WN, alert, no apparent distress, obese Respiratory: normal breath sounds, No crackles, No rhonchi, No wheezing Cardiac/Chest: regular rate, rhythm, edema (2+ bilateral pretibial) Skin: normal color, warm/dry Neuro/Psych: no motor/sensory deficits, alert, normal mood/affect, oriented x 3 ICD10 Worksheet Patient Problems: Problems Problem Status Onset Status post lobectomy of lung Acute
[2017-11-01] MEDS: CHOLECALCIFEROL VIT D3 1,000 UNITS TAB PO SCH (17:17)
[2017-11-01] MEDS: ATORVASTATIN CALCIUM 40 MG TAB PO SCH (19:36)
[2017-11-01] MEDS: traZODone 50 MG TAB PO SCH (19:37)
[2017-11-02] MEDS ORDERED: POTASSIUM CL 10 MEQ TAB PO ONE (08:33)
[2017-11-02] MEDS: ASPIRIN 81 MG CHEWABLE TAB PO SCH (08:51)
[2017-11-02] MEDS: ALLOPURINOL 300 MG TAB PO SCH ×2 (08:51→20:08)
[2017-11-02] MEDS: POTASSIUM CL 10 MEQ TAB PO SCH (08:52)
[2017-11-02] MEDS: CITALOPRAM 20 MG TAB PO SCH (08:52)
[2017-11-02] MEDS: FUROSEMIDE 40 MG TAB PO SCH ×2 (08:52→14:38)
[2017-11-02] MEDS: UMECLIDINIUM BRM IH SCH (09:35)
[2017-11-02] MEDS: VILANTEROL TR IH SCH (09:35)
--- NOTE | 2017-11-02 09:59 | PDOREHIP ---
Admission [facility] - Admission - 3 Day Assessment Period Admission Date/Day 1: 10/19/17 Day 2: 10/20/17 Day 3: 10/21/17 Discharge [facility] - Discharge - 3 Day Assessment Period 2 Days Prior to Anticipated Discharge Date: 11/01/17 1 Day Prior to Anticipated Discharge Date: 11/02/17 Anticipated Discharge Date: 11/03/17 - Discharge Skin Conditions Unhealed Pressure Ulcer (1 or more/Stage 1 or >)-Discharge: 0. No
--- NOTE | 2017-11-02 10:14 | SOAPPROG ---
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 Plan to discharge the patient on her current dose of Lasix, increased potassium to 30 mEq daily today. Creatinine is stable, potassium was slightly low. Still has pretibial edema. Continues on low level of oxygen during the day, but noted to be hypoxic at night when off of her CPAP. Goal to discharge home without oxygen, to be readdressed by Dr. Almanzar tomorrow. Weights are stable. A total of 35 min was spent on the floor in the care of the patient, the majority of which was spent in counseling and coordination of care regarding CPAP management and discharge planning * Cerebrovascular accident with ataxia and visual deficit. * Initial FIM 70 on 10/23/2017. Standby assist for bed mobility, ambulated 100- 150 feet front wheeled walker with standby assist. Negotiated 6 steps with bilateral rails. Does grooming and hygiene standing with cues, upper body dressing setup to standby assist, lower body dressing with minimal assist, shower and shower transfer with minimal assist. Needs cues to initiate in cues to persist. * Advanced to independent in room 7:00 a.m. To 7:00 p.m. with a cane, needs oxygen with activity. * No hemineglect per OT testing. May have diplopia. Wearing clear glasses with occlusive tape. 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 * Continue PT and OT to optimize mobility and activities of daily living towards discharge home at the independent level. * Cognitive impairment and mild dysphagia, * Improving deficits to memory, problem solving, processing, orientation, word- finding, and elaboration. * Continue GROUP TEACHER. * Secondary prevention of CVA. Continue aspirin and atorvastatin * Status post TAVR. Normal valve function on echocardiogram. * COPD. Continue metered dose inhalers. * Encourage incentive spirometry with goal of no oxygen requirement by the time she discharges home * Diastolic CHF. * Contributes to hypoxia/MARTÍNEZ. May be etiologic of edema. * Continue incentive spirometry, O2 p.r.n. * Furosemide increased 10/31/2017 regarding edema. BNP was not consistent with CHF on 10/27/2017. Continue daily weights. * Cardiac diet * Obstructive sleep apnea. Continue CPAP at night. * Depression and emotional lability. * Continue trazodone 100 mg p.o. at bedtime. * Citalopram was started 10/22/2017 at 10 mg q.day. Titrate to 20 mg q.day starting 10/26/2017. Mood much improved. * Counseling per public health social worker. * Presumed history of gout. Continue allopurinol. *Possible urinary tract infection. Unclear whether she ever had symptoms of UTI but there was a positive urinalysis 10/13/2017. No culture was done. * Completed 5 days of ciprofloxacin 10/22/2017. Observe for recurrent symptoms * Vitamin-D deficiency. Continue cholecalciferol *Anemia. Slightly worse on CBC 10/20/2017. * Stable 10/27/2017 and 10/29/2017. * Hypernatremia, resolved on BMP 10/20/2017 * Renal function and electrolytes stable with diuresis. * Prophylaxis. She is not hemiparetic and she has ambulated 100 ft. She has risk factors of age and obesity. Continue SCDs at night. Observe for improved mobility. She lives alone in a single level home. 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 Plan for discharge home alone or to daughter' s home on 11/03/2017. Follow-up. She is scheduled for echocardiogram 11/13/17 and then follow-up with logistics service representative Dr. Henriquez are on 11/15/2017 at 11:00 p.m. She will follow up after discharge with her primary care provider Dr. Shayna Nunn. 10/24/17 09:21 10/26/17 10:03 10/26/17 10:15 10/26/17 10:20 10/31/17 11:29 10/31/17 11:48 11/02/17 10:11 Subjective: Chief complaint: Fluid status and discharge planning No acute events overnight. Patient denies any new shortness of breath or chest pain, no new numbness, tingling, or weakness. Continues on a cardiac diet. Labs indicated slightly low potassium and stable creatinine. Nurses state that she is working well with them, patient is nervous about discharge home. Objective: Vital Signs Temp Pulse Resp BP Pulse Ox 36.9 C 75 16 122/55 H 89 L 11/02/17 06:41 11/02/17 06:41 11/02/17 06:41 11/02/17 06:41 11/02/17 06:33 Laboratory Results 10/29/17 11:20 11/02/17 06:00 11/01/17 11/02/17 11/03/17 05:59 05:59 05:59 Intake Total 964 1189 Balance 964 1189 Physical Exam - Physical Exam General Appearance: alert, no apparent distress EENT: No scleral icterus (R), No scleral icterus (L) Respiratory: normal breath sounds, No respiratory distress, No accessory muscle use, No rales, No rhonchi, No wheezing Cardiac/Chest: normal peripheral pulses, regular rate, rhythm, edema (1+ bilateral pretibial) Skin: normal color, warm/dry, No cyanosis Neuro/Psych: alert, normal mood/affect ICD10 Worksheet Patient Problems: Problems Problem Status Onset Status post lobectomy of lung Acute
[2017-11-02] MEDS: CHOLECALCIFEROL VIT D3 1,000 UNITS TAB PO SCH (17:26)
[2017-11-02] MEDS: ATORVASTATIN CALCIUM 40 MG TAB PO SCH (20:09)
[2017-11-02] MEDS: traZODone 50 MG TAB PO SCH (20:09)
[2017-11-03 05:52] VITALS: RESP 16
[2017-11-03] MEDS: ALLOPURINOL 300 MG TAB PO SCH (08:58)
[2017-11-03] MEDS: CITALOPRAM 20 MG TAB PO SCH (08:58)
[2017-11-03] MEDS: FUROSEMIDE 40 MG TAB PO SCH ×2 (08:58→16:01)
[2017-11-03] MEDS: ASPIRIN 81 MG CHEWABLE TAB PO SCH (08:58)
[2017-11-03] MEDS: POTASSIUM CL 10 MEQ TAB PO SCH (08:59)
[2017-11-03] MEDS: VILANTEROL TR IH SCH (09:04)
[2017-11-03] MEDS: UMECLIDINIUM BRM IH SCH (09:04)
[2017-11-03] MEDS: CHOLECALCIFEROL VIT D3 1,000 UNITS TAB PO SCH (17:25)
[2017-11-03 18:42] VITALS: BP 115/58; PULSE 80; TEMP 97.7; O2SAT 94
--- NOTE | 2017-11-06 17:10 | GDS ---
[f rep st] DISCHARGE SUMMARY ADMISSION DIAGNOSIS: Cerebrovascular accident following transcatheter aortic valve replacement. DISCHARGE DIAGNOSIS: Cerebrovascular accident following transcatheter aortic valve replacement. OTHER DISCHARGE DIAGNOSES: 1. Chronic obstructive pulmonary disease. 2. Diastolic congestive heart failure. 3. Depression and emotional lability. CONSULTATIONS: None. PROCEDURES: None. COMPLICATIONS: None. HISTORY AND HOSPITAL COURSE: This patient underwent TAVR on 10/16/2017. After the procedure, she simpson d a mental status change. A head CT showed acute/subacute ischemia in the left frontoparietal and oc cipital lobes with a punctate focus of hemorrhagic transformation in the left frontal lobe. MRI of [facility] brain showed multiple acute infarcts involving the bilateral cerebral hemispheres, bilateral thala mi, bilateral cerebellar hemispheres and a left frontal lobe infarct with petechial hemorrhages. She was stabilized. Further studies included a carotid Doppler study which showed bilateral significant calcified plaques at the carotid bulbs with velocities consistent with 50% to 70% stenosis. Echocar diogram showed an ejection fraction of 62%, normally functioning aortic valve, normal sized atria, no rmal right ventricular function, and no other valvular abnormalities. She did well in rehabilitation. Her initial functional independence measure was 70 on 10/23/2017. S he was soon ambulating 150 feet or greater with a front-wheeled walker (consistent with function at [facility] assisted level and needing assistance with multiple domains of mobility and activities of marich[place] y living). She was advanced to independent in her room. She had visual deficit. It was not hemineglect. There was concern regarding possible diplopia versu s visual deficit due to a left occipital infarction. There was cognitive impairment and mild dysphasia noted, and these deficits improved in particular wi th improvements in memory, problem solving, processing, orientation, word finding and elaboration. She required oxygen throughout her stay, 3 L at night and 1 L during the day. This was considered to be due to COPD as well as likely diastolic CHF. She had edema and an increase in furosemide on 10/13. She was noted to have depression and emotional lability. She had been treated with trazodon e 100 mg at h.s., citalopram was added at 10 mg per day on 10/22/2017, and titrated to 20 mg daily on 10/26/2017. She had great improvement in her mood. It was unclear whether this was due to the janene tion of citalopram versus her improving function. She had anemia which worsened slightly and then st abilized. LABS AND RADIOLOGY STUDIES DURING HOSPITALIZATION: CBC initially on 10/20/2017, showed anemia with a hemoglobin and hematocrit of 9.8 and 28.3. This decreased to 8.9 and 26.9 on 10/26, and was essentia lly stable by 10/29 at 9.4 and 28.4. It was normocytic and normochromic. Serum chemistry revealed no rmal renal function and electrolytes with occasional elevated glucose on multiple determinations. BN P was 315 on 10/26/2017, not consistent with myocardial strain. Urinalysis on 10/29/2017, showed 2+ urobilinogen and otherwise was normal. Blood pressure was well controlled through her stay and she w as not orthostatic. DISCHARGE PLAN: 1. Condition upon discharge is good. 2. Activity is ad gely, but no driving. 3. Diet is regular. 4. Date of next appointment:. a. She will follow up with laboratory veterinarian, Dr. Aniket Henriquez on 11/15/2017. b. With neuro telecommunicator supervisor, Dr. Bernardo Byrne. c. With primary care provider, Dr. Shayna Nunn on 11/10/2017. d. With slasher sawyer, Dr. Bernardo Preciado on 11/08/2017. e. She also has a followup scheduled with Dr. Carlos Figueroa, Hematology/Oncology. I am not sure why she needs to see Dr. Figueroa. MEDICATIONS AT DISCHARGE: 1. Acetaminophen 1000 mg p.o. daily p.r.n. 2. Aspirin 81 mg p.o. daily. 3. Multivitamin 1 p.o. daily. 4. Cholecalciferol 1000 units p.o. daily. 5. Trazodone 50 mg p.o. at bedtime. 6. Potassium chloride 30 mEq p.o. daily. 7. Furosemide 40 mg p.o. twice daily, at 0900 and 1500. 8. Citalopram 20 mg p.o. daily. 9. Atorvastatin 40 mg p.o. at bedtime. 10. Allopurinol 300 mg p.o. twice daily. 11. Albuterol 2 puffs q.6 hours p.r.n. ISSUES TO BE ADDRESSED AT FOLLOWUP: 1. Functional status: She will continue occupational therapy, physical therapy and speech and langu age pathology at home, and can follow up with her primary care provider regarding her progress. 2. Status post TAVR. Follow up with laboratory veterinarian, Dr. Henriquez. 3. Depression and emotional lability. These seem to have resolved. Consider taper and discontinuat ion of citalopram. She can make this decision with primary care provider, Dr. Nunn. 4. Anemia. Advise a routine repeat CBC per primary care provider. /[id number]/MODL
== END 2017-11-03 19:40 | disposition home health service (06) | DRG 57 ==
LOC: BREH 14:10
PROVIDERS: ADMIT Internal Medicine; ATTEND Internal Medicine
DX: I69.393 Ataxia following cerebral infarction (principal); I69.391 Dysphagia following cerebral infarction; N39.0 Urinary tract infection, site not specified; E87.0 Hyperosmolality and hypernatremia; R41.4 Neurologic neglect syndrome; G31.84 Mild cognitive impairment of uncertain or unknown etiology; I50.30 Unspecified diastolic (congestive) heart failure; F32.9 Major depressive disorder, single episode, unspecified; J44.9 Chronic obstructive pulmonary disease, unspecified; G47.33 Obstructive sleep apnea (adult) (pediatric); E55.9 Vitamin D deficiency, unspecified; D64.9 Anemia, unspecified; E66.01 Morbid (severe) obesity due to excess calories; M10.9 Gout, unspecified; Z85.118 Personal history of other malignant neoplasm of bronchus and lung; Z95.3 Presence of xenogenic heart valve
CPT/HCPCS: 92507-GN; 92522-GN; 92610-GN; 97110-GO; 97110-GP; 97112-GP; 97116-GP; 97162-GP; 97166-GO; 97530-GO; 97530-GP; 97535-GO; G0515-GO

== ENCOUNTER 2017-11-05 16:33 | Emergency (ER) | payer OTHER, MEDICARE ==
[2017-11-05 17:08] VITALS: BP 138/64; PULSE 82; RESP 16; TEMP 98.2; O2SAT 96
[2017-11-05] MEDS ORDERED: CEPHALEXIN 500 MG CAP PO ONE (17:15)
--- NOTE | 2017-11-05 17:20 | EDPHY ---
H & P Time Seen by Provider: 11/05/17 17:04 HPI/ROS: HPI Urinary complaints. 77-year-old female by private vehicle with daughter. This patient complains of increased frequency with urination and some mild hematuria over the last 24 hr. No fever. No back pain. No nausea or vomiting. No other complaints. She was recently discharged from a rehab center where she was treated post CVA. She is now staying with her daughter. ROS: Constitutional: No fever, no chills. No weakness. Respiratory: No cough. No shortness of breath. Cardiac: No chest pain, no palpitations. Gastrointestinal: No abdominal pain, no vomiting, no diarrhea. Genitourinary: As above. No dysuria.. Musculoskeletal: No back pain. No neck pain. No myalgias or arthralgias. Skin: No rashes. Neurological: No headache. No focal weakness or altered sensation. Past medical history: Right lung cancer, COPD, CVA October 16 of this year, depression, dementia, confusion, hernia repair, orthopedic surgeries. Social history: Former smoker. Currently living with daughter. No alcohol. As above. Physical Exam: General Appearance: Pleasant elderly female. Alert, no distress. Moderately obese. This patient is responding to questions appropriately and in full sentences. This patient appears well-hydrated and well-nourished. Eyes: Pupils equal and round no pallor or injection. No lid edema, erythema or injection. Respiratory: There are no retractions, lungs are clear to auscultation with good air movement bilaterally. Cardiovascular: Regular rate and rhythm. No murmur. Gastrointestinal: Abdomen is soft and nontender, no masses, bowel sounds normal. No focal tenderness at McBurney's point. No Lima sign. Neurological: Motor sensory function is grossly intact. Cranial nerves are normal. Skin: Warm and dry, no rashes. Musculoskeletal: No CVA tenderness bilaterally. Extremities are symmetrical. All joints range without pain or impingement. Psychiatric: No agitation. No depression. Database: EKG: Imaging: Procedures: Emergency department course: Vital signs reviewed and are normal. I reviewed her medication allergies. Urinalysis obtained and significant for hematuria. However given her symptoms in previous history of urinary tract infections with similar symptoms will start her on Keflex 500 mg four times daily for the next 5 days. She was given her 1st dose here in the emergency department. She and her daughter feel comfortable being discharged. She will follow up with her primary care physician in 1-2 days for re-evaluation. Return to emergency department precautions thoroughly reviewed with the 2 of them. All of their questions were answered. The patient was discharged in good condition with her daughter. Differential Diagnosis: The differential diagnosis on this patient includes but is not limited to urinary tract infection. Pyelonephritis, urosepsis unlikely. This represents a partial list of diagnoses considered. These considerations are based on history, physical exam, past history, reassessment and diagnostic testing. Smoking Status: Former smoker Constitutional: Initial Vital Signs Temperature (C) 36.8 C 11/05/17 17:02 Heart Rate 82 11/05/17 17:02 Respiratory Rate 16 11/05/17 17:02 Blood Pressure 138/64 H 11/05/17 17:02 O2 Sat (%) 96 11/05/17 17:02 O2 Delivery Mode Nasal Cannula O2 (L/minute) 2 Allergies/Adverse Reactions: No Known Allergies Allergy (Verified 11/05/17 17:00) Home Medications: Medication Instructions Recorded Acetaminophen [Tylenol ES 500 mg 1,000 mg PO DAILY PRN 06/13/17 (*)] Cholecalciferol Vit D3 [Vitamin D3 1,000 units PO DAILY18 06/13/17 (*)] Multivitamins [Multivitamin (*)] 1 each PO DAILY 09/06/17 Aspirin [Aspirin 81mg (*)] 81 mg PO DAILY tab.chew 10/19/17 Albuterol [Proventil Inhaler HFA 2 puffs IH Q6HRS PRN #1 mdi 11/02/17 (*)] Allopurinol [Allopurinol 300 MG 300 mg PO BID #30 tab 11/02/17 (RX)] Atorvastatin Calcium [Lipitor 40 40 mg PO HS #30 tab 11/02/17 mg (*)] Citalopram [CeleXA 20 MG] 20 mg PO DAILY #30 tab 11/02/17 Furosemide [Lasix 40 MG (*)] 40 mg PO BID@0900,1500 #15 tab 11/02/17 Potassium Chloride [Klor-Con 10] 30 meq PO DAILY #21 tablet.er 11/02/17 Umeclidinium Brm/Vilanterol Tr 1 puffs IH DAILY #1 mdi 11/02/17 [Anoro Ellipta 62.5-25 Mcg INH] traZODone [traZODONE 50MG (*)] 50 mg PO HS #30 tab 11/02/17 Cephalexin [Keflex (*)] 500 mg PO Q6 5 Days cap 11/05/17 Medical Decision Making - Data Points Laboratory Results: 11/05/17 16:45 Urine Color YELLOW Urine Appearance HAZY Urine pH 6.5 (5.0-7.5) Ur Specific [place] <= 1.005 (1.002-1.030) Urine Protein NEGATIVE (NEGATIVE) Urine Ketones NEGATIVE (NEGATIVE) Urine Blood 1+ H (NEGATIVE) Urine Nitrate NEGATIVE (NEGATIVE) Urine Bilirubin NEGATIVE (NEGATIVE) Urine Urobilinogen 1.0 EU EU (0.2-1.0) Ur Leukocyte Esterase NEGATIVE (NEGATIVE) Urine RBC 5-10 /hpf H /hpf (0-3) Urine WBC NONE SEEN /hpf /hpf (0-3) Ur Epithelial Cells TRACE /lpf /lpf (NONE-1+) Urine Bacteria TRACE /hpf H /hpf (NONE SEEN) Hyaline Casts 3-5 /lpf H /lpf (0-1) Urine Mucus TRACE /lpf /lpf (NONE-1+) Urine Glucose NEGATIVE (NEGATIVE) Departure - Departure Disposition: Home, Routine, Self-Care Clinical Impression: Urinary tract infection Condition: Good Instructions: Urinary Tract Infection in Women (ED) Additional Instructions: Read and follow provided instructions. Follow-up with your primary care physician in 1-2 days for re-evaluation. Take antibiotic as prescribed through entire course of treatment. Return to the emergency department for worsening symptoms, fever, chills, back pain, nausea and vomiting, abdominal pain or other serious concerns. Referrals: Shayna Nunn MD [Primary Care Provider] - As per Instructions Prescriptions: Cephalexin [Keflex (*)] 500 mg PO Q6 5 Days cap
== END 2017-11-05 17:30 | disposition home or self-care (01) ==
LOC: CED 16:33
DX: N39.0 Urinary tract infection, site not specified (principal); B95.2 Enterococcus as the cause of diseases classified elsewhere; J44.9 Chronic obstructive pulmonary disease, unspecified; Z79.82 Long term (current) use of aspirin; Z85.118 Personal history of other malignant neoplasm of bronchus and lung; Z86.73 Personal history of transient ischemic attack (TIA), and cerebral infarction without residual deficits; Z87.891 Personal history of nicotine dependence
CPT/HCPCS: 81003-PO; 81015-PO

== ENCOUNTER → 2017-11-29 | Outpatient (CLI) | payer OTHER, MEDICARE | LOC: BHFA 10:00 | PROVIDERS: ATTEND Internal Medicine Cardiovascular Disease | DX: I35.9 Nonrheumatic aortic valve disorder, unspecified (principal) ==

== ENCOUNTER 2018-03-06 10:12 | Inpatient (IN) | payer OTHER, MEDICARE ==
--- NOTE | 2018-03-06 10:27 | EDPHY ---
H & P Time Seen by Provider: 03/06/18 10:26 HPI/ROS: CHIEF COMPLAINT: Diarrhea for 7 days HISTORY OF PRESENT ILLNESS: Patient presented to primary care physician's office today for worsening diarrhea over the last 7 days. Occasionally black and associated with some right-sided abdominal pain. Symptoms moderate today also associated with some confusion and which the primary care office spoke the daughter and she ready has some confusion from previous stroke but today it seemed a little bit worse. No fevers or chills and no recent antibiotics. She feels dehydrated and thirsty. REVIEW OF SYSTEMS: Eye: no change in vision ENT: no sore throat Cardiac: no chest pain or syncope Pulmonary: no cough or SOB Abdomen: HPI Musculoskeletal: no back pain Skin: no rash Neuro: No headache Constitutional: no fever : no urinary symptoms A comprehensive 10 point review of systems is otherwise negative aside from elements mentioned in the history of present illness. PAST MEDICAL HISTORY: Includes COPD, stroke, gout, depression, high cholesterol Social history: No alcohol, from primary care doctor's office General Appearance: Alert and conversant, cooperative. Eyes: No scleral icterus. ENT, Mouth: Dry mucous membranes. Respiratory: Normal respiratory effort, breath sounds equal, lungs are clear to auscultation. Cardiovascular: Regular rate and rhythm. Gastrointestinal: Right upper and mid right abdominal tenderness without Lima sign or right upper quadrant or liver tenderness. Neurological: Alert, face symmetric, normal motor and sensory in extremities. She knows her age and the year but can't remember why she is here even after I told her she came from her primary care doctor's office. Skin: Warm and dry, no rashes. Musculoskeletal: No peripheral edema. Psychiatric: Not agitated. Emergency Department course/MDM: Discussed with Dr. Rylee Alvarez at 9:53 a.m. Prior to patient's arrival. Head CT, i-STAT in fecal occult blood, CBC and chemistry. CT scanning to evaluate for colitis or appendicitis with right lower abdominal tenderness. Admission hospitalist service; IV fluids, evaluation of mental status, further evaluation of abdominal pain. Smoking Status: Former smoker Constitutional: Initial Vital Signs Temperature (C) 36.8 C 03/06/18 10:21 Heart Rate 78 03/06/18 10:21 Respiratory Rate 16 03/06/18 10:21 Blood Pressure 113/60 03/06/18 10:21 O2 Sat (%) 90 L 03/06/18 10:21 O2 Delivery Mode Room Air Allergies/Adverse Reactions: No Known Allergies Allergy (Verified 03/06/18 10:24) Home Medications: Medication Instructions Recorded Aspirin [Aspirin 81mg (*)] 81 mg PO DAILY tab.chew 10/19/17 Umeclidinium Brm/Vilanterol Tr 1 puffs IH DAILY #1 mdi 11/02/17 [Anoro Ellipta 62.5-25 Mcg INH] Allopurinol [Allopurinol 300 MG 300 mg PO DAILY 03/06/18 (RX)] Atorvastatin Calcium [Lipitor 40 40 mg PO DAILY 03/06/18 mg (*)] Chlorpheniramine Maleate 4 mg PO DAILY PRN 03/06/18 Docusate Sodium [Colace 100 MG (*)] 100 mg PO BID PRN 03/06/18 Furosemide [Lasix 40 MG (*)] 40 mg PO DAILY 03/06/18 Triamterene/Hydrochlorothiazid 1 each PO DAILY 03/06/18 [Triamterene-Hctz 37.5-25 mg Tb] Medical Decision Making - Diagnostics EKG Interpretation: 12-lead EKG interpreted by me; official reading is in trace master. My interpretation is sinus rhythm rate 73 no ischemic changes. Imaging Results: Imaging Impressions Head CT 03/06/18 10:35 Impression: Chronic ischemic changes in the left frontal and occipital lobes and changes of chronic microvascular ischemic disease. No acute intracranial process. Abdomen CT 03/06/18 11:01 Impression: 1. Eccentric wall thickening in the lateral cecum, new since the comparison, which could be related colitis/inflammation or malignancy. Colonoscopy is recommended for further evaluation. 2. Small hiatal hernia. 3. Diverticulosis without evidence of diverticulitis. 4. Severe degenerative change in the lumbar spine. 5. Additional findings as above. Findings discussed with Dr. Kevan Burciaga on March 06, 2018 at 1213 hours. Cecal thickening on abdominal pelvis CT per Dr. Echeverria at 12:11 p.m.. Imaging: Discussed imaging studies w/ at home independent call center agent Radiologist Differential Diagnosis: Differential for diarrhea and abdominal pain considered including but not limited to gastroenteritis, GI bleed, appendicitis, Clostridium difficile, colitis. Consult/Admit Bed Type: [place] [id number] - Data Points Laboratory Results: Laboratory Results 03/06/18 11:45 03/06/18 03/06/18 03/06/18 11:45 10:49 10:40 WBC 11.48 10^3/uL H 10^3/uL (3.80-9.50) RBC 3.98 10^6/uL L 10^6/uL (4.18-5.33) Hgb 11.9 g/dL L g/dL (12.6-16.3) POC Hgb 13.9 gm/dL gm/dL (12.6-16.3) Hct 35.0 % L % (38.0-47.0) POC Hct 41 % % (38-47) MCV 87.9 fL fL (81.5-99.8) MCH 29.9 pg pg (27.9-34.1) MCHC 34.0 g/dL g/dL (32.4-36.7) RDW 14.9 % % (11.5-15.2) Plt Count 223 10^3/uL 10^3/uL (150-400) MPV 9.9 fL fL (8.7-11.7) Neut % (Auto) 81.7 % H % (39.3-74.2) Lymph % (Auto) 9.9 % L % (15.0-45.0) Caroline % (Auto) 6.9 % % (4.5-13.0) Eos % (Auto) 0.2 % L % (0.6-7.6) Baso % (Auto) 0.3 % % (0.3-1.7) Nucleat RBC Rel Count 0.0 % % (0.0-0.2) Absolute Neuts (auto) 9.37 10^3/uL H 10^3/uL (1.70-6.50) Absolute Lymphs (auto) 1.14 10^3/uL 10^3/uL (1.00-3.00) Absolute Monos (auto) 0.79 10^3/uL 10^3/uL (0.30-0.80) Absolute Eos (auto) 0.02 10^3/uL L 10^3/uL (0.03-0.40) Absolute Basos (auto) 0.04 10^3/uL 10^3/uL (0.02-0.10) Absolute Nucleated RBC 0.00 10^3/uL 10^3/uL (0-0.01) Immature Gran % 1.0 % % (0.0-1.1) Immature Gran # 0.12 10^3/uL H 10^3/uL (0.00-0.10) POC Sodium 134 mEq/L L mEq/L (135-145) POC Potassium 4.5 mEq/L mEq/L (3.3-5.0) POC Chloride 102 mEq/L mEq/L (97-110) POC BUN 30 mg/dL H mg/dL (7-23) POC Creatinine 0.7 mg/dL mg/dL (0.6-1.0) POC Glucose 153 mg/dL H mg/dL (70-100) Stool Occult Bld Scrn NEGATIVE (NEGATIVE) Point of Care Test Results: Chemistry 03/06/18 10:49 POC Sodium 134 mEq/L L mEq/L (135-145) POC Potassium 4.5 mEq/L mEq/L (3.3-5.0) POC Chloride 102 mEq/L mEq/L (97-110) POC BUN 30 mg/dL H mg/dL (7-23) POC Creatinine 0.7 mg/dL mg/dL (0.6-1.0) POC Glucose 153 mg/dL H mg/dL (70-100) ISTAT H&H 03/06/18 10:49 POC Hgb 13.9 gm/dL gm/dL (12.6-16.3) POC Hct 41 % % (38-47) Departure - Departure Disposition: [facility] Inpatient Acute Clinical Impression: Encephalopathy acute Diarrhea Qualifiers: Diarrhea type: unspecified type Qualified Code(s): R19.7 - Diarrhea, unspecified Condition: Fair
--- NOTE | 2018-03-06 11:05 | CPEKG ---
Heart Rate: 73 RR Interval: 822 P-R Interval: 184 QRSD Interval: 86 QT Interval: 416 QTC Interval: 459 P [place]: 10 QRS [place]: 40 T Wave [place]: 53 EKG Severity - NORMAL ECG - EKG Impression: SINUS RHYTHM Electronically Signed By: Kevan Burciaga 06-Mar-2018 12:52:57
[2018-03-06] MEDS ORDERED: IOPAMIDOL (ISOVUE-300) 100 ML BTL ONE ×2 (11:11→16:27)
[2018-03-06 12:01] LABS: PLATELET COUNT 223 10^3/uL (150-400)
[2018-03-06] MEDS ORDERED: ONDANSETRON 4 MG/2 ML VIAL IVP PRN (14:17)
[2018-03-06] MEDS ORDERED: ACETAMINOPHEN 325 MG TAB PO PRN (14:17)
[2018-03-06] MEDS ORDERED: ONDANSETRON DISINTEGRATING 4 MG TAB PO PRN (14:17)
--- NOTE | 2018-03-06 14:55 | GHP ---
[f rep st] HISTORY AND PHYSICAL DATE OF ADMISSION: 03/06/2018 HISTORY OF PRESENT ILLNESS: The patient is a 78-year-old female with a history of TAVR and lung [facility] [place] er status post resection, who presents with a several-day history of diarrhea that is black in nature . She does not take iron. She has not had hematemesis or coffee-ground emesis. She has not had fev er, chills, or myalgias. She has had no nausea. She does not take iron. She has had some generaliz ed weakness and confusion. She saw her primary care physician today for further evaluation and was r eferred to the emergency department. When I speak with her, she is alert and conversant. Her daughter is present at the bedside, who feel s she is not confused, perhaps just a bit slower than usual. She feels well. She is not having feve r or chills. She is complaining of some cramping and perhaps some swelling in her legs. She is not having fever or chills. REVIEW OF SYSTEMS: Complete 10-point review of systems conducted and negative except as noted in the HPI. ALLERGIES: No known drug allergies. HOME MEDICATIONS: Anoro Ellipta inhaler, triamterene/hydrochlorothiazide, furosemide, docusate, chlo rpheniramine, atorvastatin, aspirin, and allopurinol. PAST MEDICAL HISTORY: Lung cancer status post wedge resection with clean margins, no chemotherapy. TAVR for aortic stenosis. Embolic CVA following TAVR. Asthma, hypertension, and hyperlipidemia. SOCIAL HISTORY: No alcohol. Quit tobacco 11 years ago. Lives locally. Daughter present at the bed side. FAMILY HISTORY: Parents . PHYSICAL EXAMINATION: VITAL SIGNS: Temperature 36.8, blood pressure 111/55, pulse 76, breathing 15 times a minute, and 91% on room air. GENERAL: No acute distress. HEENT: Sclerae anicteric. Oroph arynx clear. Mucous membranes moist. NECK: Supple without lymphadenopathy or JVD. LUNGS: Clear t o auscultation bilaterally. HEART: S1 and S2. There is a faint systolic murmur. There is no click . ABDOMEN: Soft, nontender, and nondistended. Bowel sounds are present. EXTREMITIES: Lower extre mity edema is 1+ bilaterally. Calves are nontender. SKIN: Without rash. NEUROLOGIC: Exam is nonf ocal. LABS: White count 11.5 and hematocrit 35. Her baseline is a little hard to calculate because of pro cedural blood loss. It appears to be in the low 40s going back to the fall of 2017. Platelets are n ormal at 223,000. Sodium is 134, potassium 4.5, chloride 102, bicarbonate 30, BUN 0.7, and glucose 1 33. These are point of care values. UA today is unremarkable. Stool occult blood is negative. Abd ominal CT reviewed and interpreted by me shows a cecal mass or cecal thickening, small hiatal hernia, diverticulosis without diverticulitis, and no appendicitis. Noncontrast head CT shows evidence of o ld chronic ischemic change in the left frontal and occipital lobes, as well as changes of microvascul ar ischemic disease. EKG interpreted by me shows sinus at 73 with normal axis and intervals. No ST- T wave changes. I discussed the case with Dr. Kevan Burciaga. ASSESSMENT/PLAN: This 78-year-old female presents with diarrhea, possible confusion, anemia, and pos sible cecal mass. 1. Cecal mass. Needs colonoscopy. Gastroenterology has been consulted. They will see her and dete rmine the timing of colonoscopy. 2. Possible upper gastrointestinal bleed, black diarrhea noted which is Hemoccult negative. She is more anemic than usual. I think an upper gastrointestinal study would be reasonable, as possibly the se are right-sided losses from the purported cecal mass as well. I will hold her aspirin. She does not have a rapid ongoing blood loss. Her BUN is high, but about the same as it has been. 3. History of transcatheter aortic valve replacement, now with lower extremity edema. Will follow. She may be a candidate for diuretics. I will not get an echocardiogram at this time. 4. Confusion. She appears largely at her baseline to me. This is not an acute neurovascular event. We will follow. Any confusion may be secondary to her history of previous stroke and intercurrent illness. 5. Prophylaxis. Pharmacologic prophylaxis is indicated, but there is a concern for potential ongoin g bleeding. We will follow. DISPOSITION: Inpatient status. /[id number]/MODL
[2018-03-06] MEDS ORDERED: PEG 3350/NA SULF,BICARB,CL/KCL (GAVILYTE-G) 4000 ML BTL PO ONE (15:10)
--- NOTE | 2018-03-06 15:41 | PDMN ---
Medical Necessity Medical necessity: Pt meets IP criteria per MD; est los >2 mn for eval/tx of diarrhea, anemia, confusion & generalized weakness r/t possible GI bleed & cecal mass; admit for further workup/monitoring, GI consult w/interventions & therapies; hx TAVR, CVA & lung cancer s/p resection; per H&P & order 03/06/18
--- NOTE | 2018-03-06 15:46 | GCON ---
[f rep st] CONSULTATION DATE OF CONSULTATION: 03/06/2018 REFERRING PHYSICIAN: Jagdeep Montes MD Dear Dr. Montes: Thank you very kindly for asking me to evaluate the patient in consultation for a chief complaint of diarrhea. She has been reporting about 7 days of diarrhea and right lower quadrant abdominal pain wi thout fever. The stools have been somewhat dark, loose, and frequent. She was seen today by her [facility] provider and was sent to the emergency room for further evaluation because of the pain and diarrhea. It was also noted that her mental status was slightly worse than baseline. She has a know n cerebral vascular accident and does have some underlying dementia from this as has been reported th rough her chart. Imaging in the ER revealed eccentric wall thickening to the cecum, which was new in comparison to a CT scan from September of 2017. The patient is admitted for further evaluation of her diarrhea, abdominal pain, and altered mentation. I am asked to assist with further evaluation and m anagement. 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 She has had embolic CVA following TAVR, hiatal hernia, colonic diverticulosis. PAST SURGICAL HISTORY: Significant for a hip arthroplasty, , cholecystectomy, cystocele rep air, hernia surgery, rectocele repair, and tonsillectomy, TAVR, ventral hernia repair with mesh impla ntation, bilateral hip replacements. SOCIAL HISTORY: No alcohol. Remote tobacco abuse. FAMILY HISTORY: Significant for heart disease. There is no family history of colon cancer. HOME MEDICATIONS: Include Elipta inhaler, triamterene hydrochlorothiazide, furosemide, stool softene r, chlorpheniramine, atorvastatin, aspirin, allopurinol. ALLERGIES: None. REVIEW OF SYSTEMS: CONSTITUTIONAL: Has been feeling somewhat poorly, describing feeling weak and so mewhat ill. Denies any fever or chills. HEENT: Denies headache or visual disturbances. No sore th roat. Over no rhinorrhea. No epistaxis. PULMONARY: Denies cough or shortness of breath. CARDIOVA SCULAR: No chest pain or palpitations. GASTROINTESTINAL: She describes right lower quadrant pain a nd frequent loose, dark, watery bowel movements. She says the stool has been somewhat black in color . Occasionally, she denies any foreign travel, recent antibiotics, or sick contacts. She denies ini tiation of any new medications. She denies nausea, vomiting, dysphagia, or heartburn. RHEUMATOLOGIC : No joint pain or swelling. ENDOCRINE: No heat or cold intolerance. GENITOURINARY: No dysuria o r hematuria. HEMATOLOGIC: No bruising or epistaxis. DERMATOLOGIC: No jaundice, rash, or pruritus. PHYSICAL EXAMINATION: VITAL SIGNS: Blood pressure 115/55, heart rate is 76, respirations are 15, ox ygenation is 91% on room air, 97% on 2 L nasal cannula. Temperature 37.0. GENERAL: Elderly female in no acute distress. NECK: No jugular venous distention. She does seem to have a right-sided mensah tid bruit. No lymphadenopathy. No thyromegaly. HEENT: Oropharynx is clear. Mucous membranes are moist. LUNGS: Diminished breath sounds at the bases. No rales. No wheeze. CARDIOVASCULAR: Regul ar rate and rhythm. Systolic murmur 2/6 at the right upper sternal border, seems to radiate into the right neck. GI: Abdomen is obese, soft, tender to palpation in the right lower quadrant without re bound or guarding. Bowel sounds are hypoactive. No ascites. No shifting dullness. No abdominal br uit. MUSCULOSKELETAL: No joint deformity, swelling, or warmth. DERMATOLOGIC: Skin is pale without rash or jaundice. NEUROLOGIC: Alert to person, place, but is disoriented to time. She does not se em to remember much of her medical history. Most of this is taken from her chart. Speech is fluent. Face is symmetric. No obvious cranial nerve deficits. Motor is nonfocal and symmetric. DATABASE: Includes a white blood count of 11.4, hematocrit is 35, which actually improved from her d ischarge in October of 29.4, MCV is 87.9, platelets 223. Sodium 134, potassium 4.5, chloride 102, b icarbonate 30, BUN is 30, creatinine 0.7, glucose 153. Stool for occult blood is negative. CT scan of the abdomen and pelvis March 06, 2018: Liver, spleen, pancreas, and adrenals are normal. Gallbladder is absent. 2 cm right-sided renal cyst, small hiatal hernia, sigmoid diverticulosis with out inflammation. The cecum appears mildly thickened extending to the base of the appendix. The jacque endix does radiographically seem normal. The colon and small bowel are normal in caliber. Ventral h ernia with mesh is noted. There is atherosclerosis in the aorta, as well as at the origin of the SMA and renal arteries. There are bilateral hip prostheses. IMPRESSION: 1. Diarrhea. 2. Right lower quadrant pain. 3. Cecal wall thickening. 4. Chronic obstructive pulmonary disease. 5. Valvular heart disease. 6. Cerebrovascular accident with some dementia. RECOMMENDATIONS: 1. The colonoscopy will be arranged to evaluate her diarrhea, cecal wall thickening, and anemia. 2. If this is unremarkable, we will consider an upper endoscopy for further evaluation of the anemia , but I feel the best starting place is the colonoscopy given the clustering of clinical findings. 3. The patient is aware of the need for the colonoscopy and is agreeable, but has asked me to speak with her daughter and [id number] and I have left a voice message for her daughter to discuss t his. 4. Anesthesia assistance will be needed for the patient's procedure as she is at high risk for proce dure intervention due to her CVA with dementia, COPD, and valvular heart disease, as well as obesity. 5. Further recommendations to follow the colonoscopy. /[id number]/MODL
[2018-03-06] MEDS ORDERED: ALTEPLASE 2 MG VIAL IVP PRN (15:58)
[2018-03-07 05:58] LABS: PLATELET COUNT 254 10^3/uL (150-400)
[2018-03-07] MEDS: [UNRECOGNIZED DRUG - MIXTURE] IH SCH (10:07)
--- NOTE | 2018-03-07 10:38 | PDANEPAE ---
ANE History of Present Illness EGD, colonoscopy ANE Past Medical History - Cardiovascular History Hx Hypertension: Yes Hx Arrhythmias: No Hx Chest Pain: No Hx Coronary Artery / Peripheral Vascular Disease: Yes Hx CHF / Valvular Disease: Yes Hx Palpitations: No Cardiovascular History Comment: h/o aortic stenosis, s/p TAVR - Pulmonary History Hx COPD: Yes Hx Asthma/Reactive Airway Disease: No Hx Recent Upper Respiratory Infection: No Hx Oxygen in Use at Home: No Hx Sleep Apnea: Yes Sleep Apnea Screening Result - Last Documented: Positive Pulmonary History Comment: POS SLEEP APNEA W/CPAP - Neurologic History Hx Cerebrovascular Accident: No Hx Seizures: No Hx Dementia: No - Endocrine History Hx Diabetes: No Hypothyroid: No Hyperthyroid: No Obesity: moderate - Renal History Hx Renal Disorders: No - Liver History Hx Hepatic Disorders: No - Neurological & Psychiatric Hx Hx Neurological and Psychiatric Disorders: No - Cancer History Hx Cancer: Yes 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 Hernia (unknown date). bilateral hip replacements. Prolapsed uterus. L leg hardware. R shoulder replacement. Oral CA surgery "under my tounge" ANE Review of Systems Review of Systems: - Exercise capacity METS (RN): 4 METS ANE Patient History - Allergies Allergies/Adverse Reactions: No Known Allergies Allergy (Verified 03/06/18 10:24) - Home Medications Home Medications: Allopurinol [Allopurinol 300 MG (RX)] 300 mg PO DAILY 03/06/18 [Last Taken 03/06] Atorvastatin Calcium [Lipitor 40 mg (*)] 40 mg PO DAILY 03/06/18 [Last Taken ] Chlorpheniramine Maleate 4 mg PO DAILY PRN 03/06/18 [Last Taken Unknown] Docusate Sodium [Colace 100 MG (*)] 100 mg PO BID PRN 03/06/18 [Last Taken Unknown] Furosemide [Lasix 40 MG (*)] 40 mg PO DAILY 03/06/18 [Last Taken 03/06/18] Triamterene/Hydrochlorothiazid [Triamterene-Hctz 37.5-25 mg Tb] 1 each PO DAILY 03/06/18 [Last Taken 03/06/18] - NPO status NPO Since - Liquids (Date): 03/07/18 NPO Since - Liquids (Time): 06:00 NPO Since - Solids (Date): 03/06/18 NPO Since - Solids (Time): 19:00 - Anes Hx Anes Hx: no prior problems - Smoking Hx Smoking Status: Former smoker Marijuana use: No - Alcohol Use Alcohol Use: None - Family Anes Hx Family Anes Hx: none Family Hx Anesthesia Complications: None ANE Labs/Vital Signs - Labs Result Diagrams: 03/07/18 05:45 03/07/18 05:45 - Vital Signs Blood Pressure: 135/73 Heart Rate: 77 Respiratory Rate: 14 O2 Sat (%): 92 Height: 149.86 cm Weight: 78.018 kg ANE Physical Exam - Airway Neck exam: FROM (occasional extra beats) Mallampati Score: Class 2 Mouth exam: normal dental/mouth exam - Pulmonary Pulmonary: no rales or rhonchi - Cardiovascular Cardiovascular: regular rate and rhythym - ASA Status ASA Status: III ANE Anesthesia Plan Anesthesia Plan: GA with mask
[2018-03-07] MEDS ORDERED: fentaNYL 100 MCG/2 ML INJ ONE (10:44)
[2018-03-07] MEDS ORDERED: PROPOFOL 200 MG/20 ML VIAL ONE ×2 (10:44→11:07)
[2018-03-07] MEDS ORDERED: NALOXONE HCL 0.4 MG/ML INJ IVP PRN (10:49)
--- NOTE | 2018-03-07 10:52 | ASMTCASEMG ---
Living Arrangements What is your living Answers: Alone arrangement? Who do you live with? Type Of Residence What kind of residence do Answers: House you live in? Discharge Plan Comments Coordination Status Comments Notes: Pt is a 78 y/o female admitted for diarrhea and encephelopathy. Therapies have been ordered and awaitng recommendations. Needs are TBD at this time. CM to follow. Plan: TBD Date Signed: 03/07/2018 10:51 AM Electronically Signed By:JJ Rodas
--- NOTE | 2018-03-07 11:30 | GIREPORT ---
[facility] Surgical Services - Endoscopy Department Patient Name: Laly Ugalde Procedure Date: 03/07/2018 10:58 AM Patient Type: Inpatient Attending MD/ ER Physician: Mayank Sepulveda MD Procedure: Colonoscopy Indications: Abdominal pain in the right lower quadrant, Clinically significant diar graham of unexplained origin, Abnormal CT of the GI tract Providers: Mayank Sepulveda MD Medicines: Propofol per Anesthesia Complications: No immediate complications. Description of Procedure: After obtaining informed consent, the scope was passed under direct vis ion. Throughout the procedure, the patient's blood pressure, pulse, and oxyg en saturations were monitored continuously. The Colonoscope with irrigatio n channel was introduced through the anus and advanced to the cecum, identified by appendiceal orifice and ileocecal valve. The colonoscopy was performed without difficulty. The patient tolerated the procedure well. The quality of the bowel preparation was good. The ileocecal valve, appendi ceal orifice, and rectum were photographed. Findings: The digital rectal exam findings include non-thrombosed external hemorrhoids. Pertinent negatives include no palpable rectal lesions. A single (solitary) twenty mm ulcer was found in the cecum. No bleeding was present. No stigmata of recent bleeding were seen. Biopsies were taken with a cold forceps for histology. Multiple small and large-mouthed diverticula were found in the sigmoid colon and ascending colon. Multiple sessile polyps were found in the rectum. The polyps were dimin utive in size. These were biopsied with a cold forceps for histology. Not all the polyps were removed but all appear endoscopically benign and consistent with hyperplastic lesions. Estimated Blood Loss: Estimated blood loss was minimal. Post Op Diagnosis: - Non-thrombosed external hemorrhoids found on digital rectal exam. - A single (solitary) ulcer in the cecum. Biopsied. - Diverticulosis in the sigmoid colon and in the ascending colon. - Multiple diminutive polyps in the rectum. Biopsied. - The endoscopic appearance is most supportive of an acute ischemic ulceration. I can not completely exclude malignancy and will need to aw ait tissue pathology results. Recommendation: - Await pathology results. - Repeat colonoscopy (date not yet determined) for surveillance based o n pathology results. - Advance diet as tolerated. - [facility] patient to [facility] for ongoing care. - Thank you for allowing me to be involved in the care of your patient. Attending Participation: I personally performed the entire procedure without the assistance of a fellow, resident or surg ical tourist information assistant. Mayank Sepulveda MD Mayank Sepulveda MD 03/07/2018 11:30:10 AM This report has been signed electronicallyDavid MD Derick Number of Addenda: 0 Note Initiated On: 03/07/2018 10:58 AM Total Procedure Duration Time 0 hours 21 minutes 31 seconds [email or web address]
--- NOTE | 2018-03-07 11:32 | POSTANESTH ---
Post Anesthetic Evaluation Cardiovascular Status: Similar to Pre-Op Cond Respiratory Status: Similar to Pre-op Cond. Level of Consciousness/Mental Status: Can Participate in Eval Pain Control: Adequate, Prn Tx Ordered Nausea/Vomiting Control: Adequate, Prn Tx Ordered Complications Possibly Related to Anesthesia: None Noted
--- NOTE | 2018-03-07 14:19 | HOSPPROG ---
Hospitalist Progress Note Assessment/Plan: 78y female with c/o dark stools. First encounter, chart reviewed. D/W Dr Montes. *Diarrhea appreciate GI consult colonoscopy today *RLQ pain, thickening scope bx pending *COPD on o2 *Confusion at baseline *Dispo possible 1-2 days bx results pending cont supportive care Subjective: Feels fine. No complaints post scope. Objective: Vital Signs Temp Pulse Resp BP Pulse Ox 36.9 C 95 18 156/76 H 97 03/07/18 14:06 03/07/18 14:06 03/07/18 14:06 03/07/18 14:06 03/07/18 14:06 Microbiology 03/07/18 06:30 Gastrointestinal Tract Panel (PCR) - Final Stool No Organism Detected Laboratory Results 03/07/18 05:45 03/07/18 05:45 03/06/18 03/07/18 03/08/18 05:59 05:59 05:59 Intake Total 1000 360 Output Total 1575 1 Balance -575 359 - Physical Exam Constitutional: appears nourished, chronically ill appearing, obese Eyes: PERRL, anicteric sclera, EOMI Ears, Nose, Mouth, Throat: moist mucous membranes, hearing normal, ears appear normal Cardiovascular: edema, No JVD, No tachycardia Respiratory: no respiratory distress, no rales or rhonchi, reduced air movement Gastrointestinal: No tenderness, No ascites, No guarding Skin: warm, normal color, No mottled Musculoskeletal: normal joint ROM, no joint effusions, generalized weakness Psychiatric: not anxious, poor insight, poor judgement, poor memory ICD10 Worksheet Patient Problems: Problems Problem Status Onset Status post lobectomy of lung Acute Diarrhea Acute Encephalopathy acute Acute
[2018-03-08] MEDS: [UNRECOGNIZED DRUG - MIXTURE] IH SCH (08:15)
--- NOTE | 2018-03-08 10:24 | ASMTCMCOM ---
CM Note CM Note Notes: Chart reviewed. Patient has been seen by OT and PT, She has some memory deficits and confusion. Left message with her daughter Meredith who is her POA. Therapies recommending [facility]. CM to follow. Plan: Likely home with [facility]. Date Signed: 03/08/2018 10:24 AM Electronically Signed By:Carin Martinez RN
--- NOTE | 2018-03-08 11:17 | PDIAF ---
- Diagnosis Diagnosis: diarrhea Code Status: Full Code - Medication Management Discharge Medications: Medications to Continue on Transfer Aspirin [Aspirin 81mg (*)] 81 mg PO DAILY tab.chew 10/19/17 [Last Taken ] Umeclidinium Brm/Vilanterol Tr [Anoro Ellipta 62.5-25 Mcg INH] 1 puffs IH DAILY #1 mdi 11/02/17 [Last Taken 03/06/18] Allopurinol [Allopurinol 300 MG (RX)] 300 mg PO DAILY 03/06/18 [Last Taken 03/06] Atorvastatin Calcium [Lipitor 40 mg (*)] 40 mg PO DAILY 03/06/18 [Last Taken ] Chlorpheniramine Maleate 4 mg PO DAILY PRN 03/06/18 [Last Taken Unknown] Docusate Sodium [Colace 100 MG (*)] 100 mg PO BID PRN 03/06/18 [Last Taken Unknown] Furosemide [Lasix 40 MG (*)] 40 mg PO DAILY 03/06/18 [Last Taken 03/06/18] Triamterene/Hydrochlorothiazid [Triamterene-Hctz 37.5-25 mg Tb] 1 each PO DAILY 03/06/18 [Last Taken 03/06/18] Acetaminophen [Tylenol 325mg (*)] 650 mg PO Q4HRS PRN tab 03/08/18 [Last Taken Unknown] Discharge Medications: Refer to the Discharge Home Medication list for PRN reason. PICC Care - Routine: N/A - Orders Services needed: Home Care, Physical Therapy, Occupational Therapy Home Care Face to Face: I certify that this patient was under my care and that I had the required [id number] encounter meeting the encounter requirements on the discharge day. My findings support the fact that the patient is homebound as defined in Home Care Face to Face Continued: CMS Chapter 7 Medicare Benefits Manual 30.1.1 , The condition of the patient is such that there exists a normal inability to leave home and consequently, leaving home would require a considerable and taxing effort. Isolation Type: None Diet Recommendation: no restrictions on diet Additional Instructions: follow up with biopsy results from colonoscopy with your primary care doctor. - Follow Up Care Current Providers and Referrals: Rylee Alvarez MD [Primary Care Provider] - As per Instructions
--- NOTE | 2018-03-08 12:11 | ASMTCMCOM ---
CM Note CM Note Notes: Spoke with daughter. She would prefer [facility]. She will pick her mother up about 5:30. Referral to [facility] and spoke with office, orders via allscript. CM available should other needs arise. Plan: Home with [facility] Date Signed: 03/08/2018 12:11 PM Electronically Signed By:Carin Martinez RN
--- NOTE | 2018-03-08 15:04 | GDS ---
[f rep st] DISCHARGE SUMMARY DISCHARGE DIAGNOSES: 1. Diarrhea. 2. History of chronic obstructive pulmonary disease. 3. History of dementia. 4. Ulcer on the patient's cecum. PHYSICAL EXAM: GENERAL: The patient is alert. VITAL SIGNS: Afebrile at 36.8, pulse 74, respirator y rate is 18, blood pressure is 114/53. She is saturating greater than 90% on 2 L. I have seen and evaluated the patient on the day of discharge. HOSPITAL COURSE: Ms. Ugalde is a 78-year-old female, who presented to the emergency room foot with c omplaints of diarrhea. She was evaluated in the hospital setting and a colonoscopy was performed. D uring the patient's colonoscopy, she was noted to have a cecal ulcer. There was no identifiable sour ce of bleeding. Her laboratory evaluations have remained stable during this hospital course. Her di arrhea has resolved and she has returned to her baseline mentation. She will be discharged home with her daughter and home health care. DISCHARGE MEDICATIONS: Please refer to EMR form. I have not discontinued any of the patient's previ ously prescribed home medications to the best of my knowledge. FOLLOWUP: She will follow up with her primary care physician for biopsy results as well as Dr. Sepulveda . PENDING STUDIES: Include biopsy pathology. /[id number]/MODL
--- NOTE | 2018-03-08 15:07 | ASMTLACE ---
CHE Acuity / Level of Answers: Yes Care: Did the patient have an inpatient admission? Comorbidities - select Answers: Any tumor (including all that apply lymphoma or leukemia) Cerebrovascular disease (CVA, TIA, aneurysms, vasc ular dementia) Chronic pulmonary disease Other Notes: HTN # of Emergency department Answers: 1-2 visits in the last 6 months Social determinants Answers: Mental health diagnosis (anxiety, depression, pers onality disorders, etc.) Score: 13 Date Signed: 03/08/2018 03:07 PM Electronically Signed By:Roxanne Infante
[2018-03-08 16:59] VITALS: BP 106/53
--- NOTE | 2018-03-09 14:02 | ASDISCHSUM ---
Discharge Information Plan Status:Home with Home Health Medically Cleared to Leave:03/08/2018 Discharge Date:03/08/2018 05:58 PM D/C Disposition:Home Health Service [facility] D/C Disposition:Home, Routine, Self-Care Projected Discharge Date:03/08/2018 11:00 AM Transportation at D/C:Family Discharge Delay Reason: Follow-Up Date:03/08/2018 11:00 AM Discharge Slot: Final Diagnosis: Placement Information Referral Type:*Home Health Care Services Referral ID:[id number] Provider Name:[facility] [place] Address 1:[address] [address] Address 2: City:[place] Selection Factors: State:[place] Patient Contact Information Contact Name:LAINE Relationship:Daughter Address:[address] City:[place] Alternate Phone: State/Zip Code:[place] [address] Email: Financial Information Financial Class:Medicare Primary Plan Desc:MEDICARE INPATIENT Primary Plan Number:[id number] Secondary Plan Desc:[employer]/MDR SUPPLEMENT Secondary Plan Number:[id number] Assessment Information LACE LACE Acuity / Level of Answers: Yes Care: Did the patient have an inpatient admission? Comorbidities - select Answers: Any tumor (including all that apply lymphoma or leukemia) Cerebrovascular disease (CVA, TIA, aneurysms, vasc ular dementia) Chronic pulmonary disease Other Notes: HTN # of Emergency department Answers: 1-2 visits in the last 6 months Social determinants Answers: Mental health diagnosis (anxiety, depression, pers onality disorders, etc.) Score: 13 Date Signed: 03/08/2018 03:07 PM Electronically Signed By:Roxanne Infante [facility] Initial CM Assessment Living Arrangements What is your living Answers: Alone arrangement? Who do you live with? Type Of Residence What kind of residence do Answers: House you live in? Discharge Plan Comments Coordination Status Comments Notes: Pt is a 78 y/o female admitted for diarrhea and encephelopathy. Therapies have been ordered and awaitng recommendations. Needs are TBD at this time. CM to follow. Plan: TBD Date Signed: 03/07/2018 10:51 AM Electronically Signed By:JJ Rodas [facility] CM Progress Note CM Note CM Note Notes: Chart reviewed. Patient has been seen by OT and PT, She has some memory deficits and confusion. Left message with her daughter Meredith who is her POA. Therapies recommending [facility]. CM to follow. Plan: Likely home with [facility]. Date Signed: 03/08/2018 10:24 AM Electronically Signed By:Carin Martinez RN [facility] CM Progress Note CM Note CM Note Notes: Spoke with daughter. She would prefer [facility]. She will pick her mother up about 5:30. Referral to [facility] and spoke with office, orders via allscript. CM available should other needs arise. Plan: Home with [facility] Date Signed: 03/08/2018 12:11 PM Electronically Signed By:Carin Martinez RN Intervention Information
== END 2018-03-08 17:58 | disposition home health service (06) | DRG 392 ==
LOC: F3N 13:17
PROVIDERS: ADMIT Internal Medicine; ATTEND Internal Medicine
PROC: 02HV33Z Insertion of Infusion Device into Superior Vena Cava, Percutaneous Approach (ICD-10-PCS; 2018-03-06)
PROC: 0DBH8ZX Excision of Cecum, Via Natural or Artificial Opening Endoscopic, Diagnostic (ICD-10-PCS; principal; 2018-03-07 10:45)
DX: R19.7 Diarrhea, unspecified (principal); K63.3 Ulcer of intestine; J44.9 Chronic obstructive pulmonary disease, unspecified; F03.90 Unspecified dementia, unspecified severity, without behavioral disturbance, psychotic disturbance, mood disturbance, and anxiety; M10.9 Gout, unspecified; F32.9 Major depressive disorder, single episode, unspecified; E78.00 Pure hypercholesterolemia, unspecified; I10 Essential (primary) hypertension; K64.4 Residual hemorrhoidal skin tags; Z95.3 Presence of xenogenic heart valve; Z86.73 Personal history of transient ischemic attack (TIA), and cerebral infarction without residual deficits; Z99.81 Dependence on supplemental oxygen
CPT/HCPCS: 82435-PO; 82565-PO; 82947-PO; 84132-PO; 84295-PO; 84520-PO; 85014-PO; 97162-GP; 97166-GO; 97535-GO; C1751; G8978-GP-CJ; G8979-GP-CI; G8987-GO-CI; G8988-GO-CI; J2704; J3010; Q9967

== ENCOUNTER 2018-03-10 17:33 | Inpatient (IN) | payer OTHER, MEDICARE ==
--- NOTE | 2018-03-10 17:41 | EDPHY ---
H & P Smoking Status: Former smoker Time Seen by Provider: 03/10/18 17:41 HPI/ROS: CHIEF COMPLAINT short of breath and weakness HISTORY OF PRESENT ILLNESS: 78-year-old woman was admitted to the hospital and discharged on the 08 of March for diarrhea and COPD. Had colonoscopy with cecal ulcer found. She presents today unable to even go up the 5 steps in her daughter's house, more short of breath and very weak. Symptoms of weakness are severe, shortness of breath is mild to moderate. Much worse with any exertion. Not associated with chest pain, subjective fever and chills. Mild cough. Not productive of sputum. REVIEW OF SYSTEMS: Eye: no change in vision ENT: no sore throat Cardiac: no chest pain or syncope Pulmonary: HPI Abdomen: HPI diarrhea seems to be resolving Musculoskeletal: Bilateral leg edema, unchanged Skin: no rash Neuro: no headache Constitutional: HPI : no urinary symptoms A comprehensive 10 point review of systems is otherwise negative aside from elements mentioned in the history of present illness. PAST MEDICAL HISTORY: Includes COPD, TAVR, embolic stroke, gout and depression , high cholesterol Social history: Here with her daughter General Appearance: Alert and conversant, cooperative. Eyes: No scleral icterus. ENT, Mouth: Slightly dry mucous membranes. Respiratory: Decreased breath sounds bilaterally. Cardiovascular: Regular rate and rhythm. Soft 1/6 systolic murmur. Gastrointestinal: Abdomen is soft , mild right mid abdomen tenderness without rebound or guarding. Neurological: Alert, face symmetric, follows commands. 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 She can bend each knee with equal strength but has difficulty lifting her right leg off the bed but appears because of pain and not because of weakness. Skin: Warm and dry, no rashes. Musculoskeletal: Bilateral peripheral edema but no calf tenderness. No extremity tenderness to palpation, no hip pain on rotation or axial loading. Psychiatric: Not agitated. Emergency Department course/MDM: Presents febrile and hypoxic, concern for healthcare associated pneumonia. Differential also includes but not limited to UTI, pulmonary embolism, acute abdominal problems such as perforation or intestinal ischemia. Plan chest x-ray and sepsis lab screening. 1918: CTAngio chest and CT Abdomen pelvis: performed for hypoxia with negative CXR, abdominal pain and tenderness with recent colon procedure; Small R pleural effusion, no pneumonia or PE, no free air or evidence of perforation; Nusser. 2000: at this time unable to get further blood draws, patient insistent does not want any more needle sticks. Does not have PE or pneumonia on CT to explain hypoxemia, will treat for COPD with nebulized bronchodilators and steroids. UA negative for infection. Admit for treatment of hypoxemia, monitoring, evaluation of weakness. I think stroke is unlikely. Amanda to speak with Preeti. (Kevan Burciaga) Constitutional: Initial Vital Signs Temperature (C) 37.9 C 03/10/18 17:35 Heart Rate 92 03/10/18 17:35 Respiratory Rate 20 03/10/18 17:35 Blood Pressure 163/71 H 03/10/18 17:35 O2 Sat (%) 87 L 03/10/18 17:35 O2 Delivery Mode Nasal Cannula O2 (L/minute) 3 Allergies/Adverse Reactions: No Known Allergies Allergy (Verified 03/10/18 17:35) Home Medications: Medication Instructions Recorded Aspirin [Aspirin 81mg (*)] 81 mg PO DAILY tab.chew 10/19/17 Umeclidinium Brm/Vilanterol Tr 1 puffs IH DAILY #1 mdi 11/02/17 [Anoro Ellipta 62.5-25 Mcg INH] Allopurinol [Allopurinol 300 MG 300 mg PO DAILY 03/06/18 (RX)] Atorvastatin Calcium [Lipitor 40 40 mg PO DAILY 03/06/18 mg (*)] Furosemide [Lasix 40 MG (*)] 40 mg PO DAILY 03/06/18 Triamterene/Hydrochlorothiazid 1 each PO DAILY 03/06/18 [Triamterene-Hctz 37.5-25 mg Tb] Medical Decision Making - Diagnostics Imaging: Discussed imaging studies w/ call or contact centre manager Radiologist - Diagnostics Imaging Results: Imaging Impressions Chest X-Ray 03/10/18 17:54 Impression: Question mild bronchitis. No other findings for an acute cardiopulmonary abnormality. Stable mild cardiomegaly. Interval placement of TAVR. Abdomen CT 03/10/18 18:28 Impression: No evidence for free intraperitoneal air or abscess. Diverticulosis sigmoid colon, without evidence for diverticulitis. No CT findings for appendicitis. Stable other chronic findings, as above. Results called and discussed with Kevan Burciaga M.D., on March 10, 2018 at 1925. E:amm Chest/Thorax CTA 03/10/18 18:28 Impression: 1. No evidence of pulmonary thromboembolic disease. 2. Interval aortic valve replacement. No evidence for thoracic aortic dissection. Calcifications in the coronary arteries indicating atherosclerotic disease. 3. Small right pleural effusion. 4. Stable scarring right hilar region and pleura along the right lateral chest wall. 5. Other chronic findings, as above. Results called and discussed with Kevan Burciaga M.D., on March 10, 2018 at 1922. ED Course/Re-evaluation: This patient was turned over to me at shift change. Unfortunately this patient is a very difficult blood drawn were unable to get bloods more than the i-STAT point care bloods and a blood gas. This patient has a negative CT angiography. I do not have anything to explain her hypoxemia other than a COPD exacerbation. She has been treated with steroids and nebulizers. Urine is pending. I spoke with Dr. Yadiel Álvarez and he is happy to accept the patient. We will get additional labs with a PICC line. This patient has normal urine and does not require antibiotics at this time. Dr. Álvarez is in the room. (Teodoro Patel) Differential Diagnosis: Differential for weakness considered including but not limited to UTI, pneumonia , PE, ACS, sepsis, stroke, hypoxemia (Kevan Burciaga) - Data Points Laboratory Results: 03/10/18 03/10/18 03/10/18 20:00 18:12 18:11 POC Hgb POC Hct POC Blood Source VENOUS Patient Temperature 37.9 DEGREES DEGREES POC VBG pH 7.53 H (7.31-7.42) POC VBG pCO2 30 mmHg L mmHg (40-44) POC VBG pO2 54 mmHg H mmHg (35-40) POC VBG HCO3 25 mEq/L mEq/L (22-26) POC VBG Total CO2 26 mEq/L mEq/L (21-27) POC VBG Base Excess 3.0 mEq/L H mEq/L (-2.5-2.5) POC Mix VBG O2 Sat 90 % H % (65-75) POC Sodium POC Potassium POC Chloride POC BUN POC Creatinine POC Glucose POC Lactic Acid Julio 2.0 mmol/L mmol/L (0.7-2.1) POC Troponin I 0.03 ng/mL ng/mL (0.00-0.08) Urine Color YELLOW Urine Appearance CLEAR Urine pH 6.0 (5.0-7.5) Ur Specific [place] > 1.060 H (1.002-1.030) Urine Protein NEGATIVE (NEGATIVE) Urine Ketones NEGATIVE (NEGATIVE) Urine Blood NEGATIVE (NEGATIVE) Urine Nitrate NEGATIVE (NEGATIVE) Urine Bilirubin NEGATIVE (NEGATIVE) Urine Urobilinogen 4.0 EU H EU (0.2-1.0) Ur Leukocyte Esterase NEGATIVE (NEGATIVE) Urine Glucose NEGATIVE (NEGATIVE) 03/10/18 18:09 POC Hgb 12.9 gm/dL gm/dL (12.6-16.3) POC Hct 38 % % (38-47) POC Blood Source Patient Temperature POC VBG pH POC VBG pCO2 POC VBG pO2 POC VBG HCO3 POC VBG Total CO2 POC VBG Base Excess POC Mix VBG O2 Sat POC Sodium 135 mEq/L mEq/L (135-145) POC Potassium 4.3 mEq/L mEq/L (3.3-5.0) POC Chloride 98 mEq/L mEq/L (97-110) POC BUN 16 mg/dL mg/dL (7-23) POC Creatinine 0.5 mg/dL L mg/dL (0.6-1.0) POC Glucose 130 mg/dL H mg/dL (70-100) POC Lactic Acid Julio POC Troponin I Urine Color Urine Appearance Urine pH Ur Specific [place] Urine Protein Urine Ketones Urine Blood Urine Nitrate Urine Bilirubin Urine Urobilinogen Ur Leukocyte Esterase Urine Glucose Microbiology Results: MICROBIOLOGY 03/10/18 18:05 Nasal, Sinus - Swab Respiratory Panel (PCR) - Final No Organism Detected Medications Given: Discontinued Medications Albuterol/Ipratropium (Duoneb) 3 ml IH EDNOW ONE Stop: 03/10/18 18:33 Last Admin: 03/10/18 19:40 Dose: 3 ml Sodium Chloride (Ns) 1,000 mls @ 0 mls/hr IV ONCE ONE PRN Reason: Wide Open Stop: 03/10/18 18:14 Last Admin: 03/10/18 18:13 Dose: 1,000 mls Methylprednisolone Sodium Succinate (Solu-Medrol) 125 mg IVP EDNOW ONE Stop: 03/10/18 19:39 Last Admin: 03/10/18 19:44 Dose: 125 mg Point of Care Test Results: Chemistry 03/10/18 03/10/18 18:12 18:09 POC Sodium 135 mEq/L mEq/L (135-145) POC Potassium 4.3 mEq/L mEq/L (3.3-5.0) POC Chloride 98 mEq/L mEq/L (97-110) POC BUN 16 mg/dL mg/dL (7-23) POC Creatinine 0.5 mg/dL L mg/dL (0.6-1.0) POC Glucose 130 mg/dL H mg/dL (70-100) POC Troponin I 0.03 ng/mL ng/mL (0.00-0.08) Blood Gas/Lactic Acid-Arterial 03/10/18 18:11 POC Blood Source VENOUS Blood Gas/Lactic Acid-Venous 03/10/18 18:11 POC VBG pH 7.53 H (7.31-7.42) POC VBG pCO2 30 mmHg L mmHg (40-44) POC VBG pO2 54 mmHg H mmHg (35-40) POC VBG HCO3 25 mEq/L mEq/L (22-26) POC VBG Total CO2 26 mEq/L mEq/L (21-27) POC VBG Base Excess 3.0 mEq/L H mEq/L (-2.5-2.5) POC Mix VBG O2 Sat 90 % H % (65-75) POC Lactic Acid Julio 2.0 mmol/L mmol/L (0.7-2.1) ISTAT H&H 03/10/18 18:09 POC Hgb 12.9 gm/dL gm/dL (12.6-16.3) POC Hct 38 % % (38-47) Departure - Departure Disposition: [facility] Inpatient Acute Clinical Impression: Chronic obstructive pulmonary disease with acute exacerbation Fever Qualifiers: Fever type: unspecified Qualified Code(s): R50.9 - Fever, unspecified Condition: Fair
[2018-03-10] MEDS ORDERED: NS 1,000 ML IV ONE (18:13)
[2018-03-10] MEDS ORDERED: IPRATROPIUM/ALBUTEROL 3 ML DEYVIAL IH ONE (18:32)
[2018-03-10] MEDS ORDERED: IOPAMIDOL (ISOVUE 370) 100 ML BTL IV ONE (18:39)
[2018-03-10] MEDS ORDERED: methylPREDNISolone SOD SUCC 125 MG/2 ML VIAL IVP ONE (19:38)
[2018-03-10] MEDS ORDERED: ONDANSETRON DISINTEGRATING 4 MG TAB PO PRN (20:16)
[2018-03-10] MEDS ORDERED: ONDANSETRON 4 MG/2 ML VIAL IVP PRN (20:16)
--- NOTE | 2018-03-10 22:53 | PDGENHP ---
History and Physical - Chief Complaint Acute weakness - History of Present Illness Primary care provider: Dr. Shayna Nunn Primary access representative: Dr. Bernardo Preciado HPI: 78-year-old female presents with acute weakness characterized as severe generalized weakness and inability to ambulate greater than 5 steps with some associated shortness of breath exacerbated by ambulation and any physical mobility. She has also had associated subjective fever and a documented temperature of a 100 degrees F. The onset of the symptoms was on the day prior to presentation duration has been persistent and worsening thereafter. The patient's daughter notes that on the day after she was discharged home from the hospital, she seemed fatigue and was excessively resting, but this was felt to be expected given her recent episode of care. However, on the next day, the patient's mobility and energy did not seem to improve and the patient seemed to be struggling to walk up the stairs or to do any activities at home. She is notably not been wearing oxygen during the day, and is only utilizing at night, which is her baseline. She denied any cough or sore throat. History Information - Allergies/Home Medication List Allergies/Adverse Reactions: No Known Allergies Allergy (Verified 03/10/18 17:35) Home Medications: Allopurinol [Allopurinol 300 MG (RX)] 300 mg PO DAILY 03/06/18 [Last Taken 03/10] Atorvastatin Calcium [Lipitor 40 mg (*)] 40 mg PO DAILY 03/06/18 [Last Taken ] Furosemide [Lasix 40 MG (*)] 40 mg PO DAILY 03/06/18 [Last Taken 03/06/18] Triamterene/Hydrochlorothiazid [Triamterene-Hctz 37.5-25 mg Tb] 1 each PO DAILY 03/06/18 [Last Taken 03/10/18] I have personally reviewed and updated: family history, medical history, social history, surgical history - Past Medical History COPD (With nocturnal oxygen use) Additional medical history: Obstructive sleep apnea. Mild dementia. Depression. 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 Cardioembolic CVA. Hypertension. Hyperlipidemia. Recent hospitalization for diarrhea and cecal ulcer. History of aortic stenosis status post TAVR - Surgical History Additional surgical history: TAVR. Recent colonoscopy. Pulmonary wedge resection - Family History Additional family history: Daughter with cold-like symptoms - Social History Smoking Status: Former smoker Alcohol Use: None Drug Use: None Additional social history: Lives at home with daughter Review of Systems Review of Systems: ROS: 10pt was reviewed & negative except for what was stated in HPI & below Constitutional: Reports: fever, weakness Respiratory: Reports: shortness of breath Physical Exam Physical Exam: Temp Pulse Resp BP Pulse Ox 36.7 C 73 16 118/65 94 03/10/18 22:34 03/10/18 22:34 03/10/18 22:34 03/10/18 22:34 03/10/18 22:34 O2 (L/minute) 3 Constitutional: no apparent distress, not in pain, chronically ill appearing, No uncomfortable Eyes: PERRL, anicteric sclera, EOMI Ears, Nose, Mouth, Throat: moist mucous membranes, hearing normal, ears appear normal, no oral mucosal ulcers Cardiovascular: regular rate and rhythym (Distant heart sounds), no murmur, rub , or gallop, No edema Respiratory: reduced air movement (On expiration bilaterally), No expiratory wheeze, No inspiratory crackles, No bronchial breath sounds, No respiratory distress Gastrointestinal: normoactive bowel sounds, soft, non-tender abdomen, no palpable masses Neurologic: AAOx3, sensation intact bilaterally, weakness (Subjective in the right lower extremity, otherwise 5/5 bilaterally), No facial droop Psychiatric: not anxious, not encephalopathic, flat affect, No agitated Lab Data & Imaging Review POC Hgb 12.9 gm/dL (12.6-16.3) 03/10/18 18:09 POC Hct 38 % (38-47) 03/10/18 18:09 POC Blood Source VENOUS 03/10/18 18:11 Patient Temperature 37.9 DEGREES 03/10/18 18:11 POC VBG pH 7.53 (7.31-7.42) H 03/10/18 18:11 POC VBG pCO2 30 mmHg (40-44) L 03/10/18 18:11 POC VBG pO2 54 mmHg (35-40) H 03/10/18 18:11 POC VBG HCO3 25 mEq/L (22-26) 03/10/18 18:11 POC VBG Total CO2 26 mEq/L (21-27) 03/10/18 18:11 POC VBG Base Excess 3.0 mEq/L (-2.5-2.5) H 03/10/18 18:11 POC Mix VBG O2 Sat 90 % (65-75) H 03/10/18 18:11 POC Sodium 135 mEq/L (135-145) 03/10/18 18:09 POC Potassium 4.3 mEq/L (3.3-5.0) 03/10/18 18:09 POC Chloride 98 mEq/L (97-110) 03/10/18 18:09 POC BUN 16 mg/dL (7-23) 03/10/18 18:09 POC Creatinine 0.5 mg/dL (0.6-1.0) L 03/10/18 18:09 POC Glucose 130 mg/dL (70-100) H 03/10/18 18:09 POC Lactic Acid Julio 2.0 mmol/L (0.7-2.1) 03/10/18 18:11 POC Troponin I 0.03 ng/mL (0.00-0.08) 03/10/18 18:12 Urine Color YELLOW 03/10/18 20:00 Urine Appearance CLEAR 03/10/18 20:00 Urine pH 6.0 (5.0-7.5) 03/10/18 20:00 Ur Specific [place] > 1.060 (1.002-1.030) H 03/10/18 20:00 Urine Protein NEGATIVE (NEGATIVE) 03/10/18 20:00 Urine Ketones NEGATIVE (NEGATIVE) 03/10/18 20:00 Urine Blood NEGATIVE (NEGATIVE) 03/10/18 20:00 Urine Nitrate NEGATIVE (NEGATIVE) 03/10/18 20:00 Urine Bilirubin NEGATIVE (NEGATIVE) 03/10/18 20:00 Urine Urobilinogen 4.0 EU (0.2-1.0) H 03/10/18 20:00 Ur Leukocyte Esterase NEGATIVE (NEGATIVE) 03/10/18 20:00 Urine Glucose NEGATIVE (NEGATIVE) 03/10/18 20:00 Visualized and Interpreted imaging results: Yes Interpretation: CT angiogram demonstrating some pulmonary scarring but no evidence of pulmonary embolism, small right-sided pleural effusion did Assessment & Plan Assessment: 78-year-old female presents with acute COPD exacerbation Plan: 1. Acute COPD exacerbation. New problem this provider, further workup indicated. Evidenced by reportedly expiratory wheezes on presentation, slightly impaired expiratory air movement on my physical exam, hypoxia on presentation at with an SpO2 of 87%, and underlying history of COPD -patient has begun clinically responding to DuoNeb treatment as well as systemic steroids, will continue prednisone for 5 day burst and continue scheduled duo nebs at this time -send respiratory viral panel given recent hospitalization and exposure risk -pH demonstrating no evidence of ongoing retention -suspect patient will require supplemental oxygen for home use at time of discharge and the patient's symptoms of generalized weakness as well as bilateral lower extremity discomfort with ambulation most likely secondary to symptomatic hypoxia -get physical and occupational therapy assessments to ensure patient is safe for discharge home 2. Chronic encephalopathy. Secondary to dementia, mild, currently not interfering with activities of daily living 3. Hypertension. Continue patient's home medications 4. Cecal ulcer. Reviewed outside records including 03/08/2018 discharge summary by Rachel Pedraza, she reports the patient presented with diarrhea but no active bleeding, most likely secondary to cecal ulceration, is recommend to the patient that she follow up in the outpatient setting with Dr. Mayank Sepulveda -currently abd pain free, CT w/o perforation Diet. Regular Prophylaxis. High risk patient, Lovenox 40 Code. Full, daughter is MD FLORENCE Disposition. Anticipated discharge 03/11, pending further workup and stabilization of conditions outlined above as well as patient's ability to discharge home safely independently. If patient is unsafe to discharge back into the home setting tomorrow, then she may require upgraded to inpatient admission status on 03/11 for ongoing workup, treatment, and potential placement. Discussed with Dr. Teodoro Patel in the emergency department, he has reported to me that the patient had difficult blood draws and IV access, she currently does have IV access but additional laboratory draws will have to wait until phlebotomy is able to re-attempt.
[2018-03-11] MEDS: IPRATROPIUM/ALBUTEROL 3 ML DEYVIAL IH SCH ×5 (04:21→21:34)
[2018-03-11] MEDS: ASPIRIN 81 MG CHEWABLE TAB PO SCH (09:34)
[2018-03-11] MEDS: FUROSEMIDE 40 MG TAB PO SCH (09:34)
[2018-03-11] MEDS: ALLOPURINOL 300 MG TAB PO SCH (09:34)
[2018-03-11] MEDS: TRIAMTERENE/HCTZ 37.5/25 1 EACH TAB PO SCH (09:34)
[2018-03-11] MEDS: predniSONE 20 MG TAB PO SCH (09:34)
[2018-03-11] MEDS: ATORVASTATIN CALCIUM 40 MG TAB PO SCH (09:34)
[2018-03-11] MEDS: ENOXAPARIN 40 MG/0.4 ML SYR SC SCH (09:36)
[2018-03-11 09:39] LABS: PLATELET COUNT 245 10^3/uL (150-400)
[2018-03-11 09:47] LABS: INR 1.18 (0.83-1.16); PROTIME(PATIENT) 15.2 SEC (12.0-15.0)
[2018-03-11] MEDS: [UNRECOGNIZED DRUG - MIXTURE] IH SCH (11:03)
--- NOTE | 2018-03-11 14:02 | HOSPPROG ---
Hospitalist Progress Note Assessment/Plan: 78-year-old female presents with acute COPD exacerbation. Plan: 1. Acute COPD exacerbation. - slightly impaired expiratory air movement - hypoxia on presentation at with an SpO2 of 87%, and underlying history of COPD - patient has begun clinically responding to DuoNeb treatment as well as systemic steroids, -will continue prednisone for 5 day burst and continue scheduled duo nebs at this time -respiratory viral panel negative -pH demonstrating no evidence of ongoing retention -get physical and occupational therapy assessments to ensure patient is safe for discharge home 2. 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 Hypertension. - Continue patient's home medications 4. Cecal ulcer. - diarrhea but no active bleeding, most likely secondary to cecal ulceration, is recommend to the patient that she follow up in the outpatient setting with Dr. Mayank Sepulveda -currently abd pain free, CT w/o perforation 5. Weakness -unclear etiol -pt poor historian -doesn't feel well -check ECHO 6. Constipation -bowel therapy Diet. Regular Prophylaxis. High risk patient, Lovenox 40 Code. Full, daughter is MD FLORENCE Disposition. change to inpt status will require further evaluation in hospital setting ECHO PT/OT eval consider snf? where's nocturnal O2 Subjective: Feeling ok. Still tired. No pain. Still SOB. Objective: Vital Signs Temp Pulse Resp BP Pulse Ox 36.7 C 79 18 126/56 H 91 L 03/11/18 07:49 03/11/18 11:47 03/11/18 11:47 03/11/18 11:47 03/11/18 11:47 Laboratory Results 03/11/18 09:20 03/11/18 04:45 03/10/18 03/11/18 03/12/18 05:59 05:59 05:59 Intake Total 480 Balance 480 PT 15.2 SEC (12.0-15.0) H 03/11/18 09:20 INR 1.18 (0.83-1.16) H 03/11/18 09:20 - Physical Exam Constitutional: appears nourished, chronically ill appearing, obese Eyes: PERRL, anicteric sclera, EOMI Ears, Nose, Mouth, Throat: moist mucous membranes, hearing normal, ears appear normal Cardiovascular: edema, No JVD, No tachycardia Respiratory: no respiratory distress, no rales or rhonchi, reduced air movement Gastrointestinal: normoactive bowel sounds, No tenderness, No ascites Skin: warm, normal color, No mottled Musculoskeletal: normal joint ROM, no joint effusions, generalized weakness Psychiatric: interacting appropriately, not anxious, not encephalopathic, poor memory ICD10 Worksheet Patient Problems: Problems Problem Status Onset Status post lobectomy of lung Acute Diarrhea Acute Encephalopathy acute Acute Chronic obstructive pulmonary disease with acute exacerbation Acute Fever Acute
[2018-03-11] MEDS ORDERED: LACTULOSE 20 GM/30 ML UDCUP PO PRN (14:03)
[2018-03-11] MEDS ORDERED: BISACODYL 10 MG SUPP PR PRN (14:03)
[2018-03-11] MEDS ORDERED: POLYETHYLENE GLYCOL 3350 17 GM PKT PO PRN (14:03)
[2018-03-11] MEDS ORDERED: MAGNESIUM HYDROXIDE 30 ML UDCUP PO PRN (14:03)
--- NOTE | 2018-03-11 14:54 | ASMTCMCOM ---
CM Note CM Note Notes: 78yr old female admitted for Acute COPD exascerbation, Encephalopathy, HTN, Cecal Ulcer. Patient has a Hx of Dementia, COPD, GIOVANNI, Depression Lung CA, CVA, HLD, Aortic stenosis-s/p TAVR. H&P reports that patient lives with her daughter. OT recommending SNF depending on O2 needs. PT notes aren't in as yet. CM to follow. Date Signed: 03/11/2018 02:54 PM Electronically Signed By:Jennifer Corral LCSW
--- NOTE | 2018-03-11 15:05 | ECHO ---
[email or web address] [address] [address] Main: [phone] Fax: [email or web address] Echocardiogram Name: BRUCE YU MR#: [id number] Study Date: 03/11/2018 Study Time: 01:22 PM Date of : 1940 Age: 78 year(s) Height: 149.9 cm (59 in.) Weight: 74.84 kg (165 lb.) BSA: 1.7 m2 Gender: Female Examination: Echo Indication: Shortness of breath Image Quality: Adequate Contrast: Requested by: Rachel White BP: 126 mmHg/56 mmHg Heart Rate: Rhythm: Indication: Shortness of breath Procedure Staff [place] Guide: Keyona Quintanilla KAYLA Reading Physician: Nael Huff MD Requesting Provider: Conclusions: Normal size left ventricle. Mild concentric LV hypertrophy. Normal global systolic LV function. The ejection fraction is visually estimated to be 60 %. Septal E/e' of 27.2 consistent with elevated left atrial pressure. . The left atrium is mildly dilated. Mild mitral valve leaflet calcification is present. Moderate mitral annular calcification. Peak gradient of 12 mmHg, Mean gradient 4 mmhg, consistent with mild mitral stenosis. . Normal functioning aortic valve prosthesis. Moderate tricuspid regurgitation is present. Right ventricular systolic pressure measures 38mmHg. The pulmonary artery pressure is mildly increased. The IVC is normal sized. RAP 5 mmHg . No pericardial effusion. Measurements: Chambers Valvular Assessment AV/MV Valvular Assessment TV/PV Normal Normal Normal Name Value Range Name Value Range Name Value Range Ao Yanet (2D): 2.2 cm (1.4 cm-2.6 AV Vmax: 1.77 m/s (1 m/s-1.7 TR Vmax: 2.89 mm/s ( - ) cm) m/s) TR PGmax: 33 mmHg ( - ) IVSd (2D): 1.1 cm (0.6 cm-1.1 AV maxP mmHg ( - ) syst. PAP: 38 mmHg ( - ) cm) AV meanP mmHg ( - ) PV Vmax: 1.06 m/s (0.6 m/s-0.9 LVDd (2D): 4.1 cm (3.9 cm-5.3 YEISON (VTI): 1.4 cm ( - ) m/s) cm) MV E Vmax: 1.43 m/s ( - ) PV PGmax: 4 mmHg ( - ) LVDs (2D): 2.5 cm (2.1 cm-4 MV A Vmax: 1.05 m/s ( - ) cm) MV E/A: 1.36 ( - ) LVPWd (2D): 1.1 cm ( - ) MV meanP mmHg ( - ) Patient: BRUCE YU Study Date: 03/11/2018 Page 1 of 3 01:22 PM LVOTd 1.6 cm 1.6 cm mm MV PHT: 0.083 s ( - ) LVEF (BP): 66 % (>=55 %) MVA (Vmax): 1.1 m/s ( - ) Visual EF: 60 % MVA (PHT): 2.7 s ( - ) RVDd(2D): 3.1 cm (1.9 cm-3.8 cmmm) Continued Measurements: Chambers Valvular Assessment AV/MV Valvular Assessment TV/PV Name Value Name Value Name Value LADs: 3.4 cm MV DecTime: 239 m/s CVP (est.): 5 mmHg LADs Lon.9 cm MV E' Septal: 0.05 m/s LA Area: 17.1 cm2 MV E/E' Septal: 27.20 LA Volume: 60 ml MV E/E' Lateral: 25.70 LA Volume Index: 35.3 ml/m2 MV VTI: 47.40 cm RA Area: 18.4 cm2 Additional Vessels Name Value Ao Ascendin.1 cm Inferior Vena Cava: 1.4 cm Findings: Left Ventricle: Normal size left ventricle. Mild concentric LV hypertrophy. Normal global systolic LV function. The ejection fraction is visually estimated to be 60 %. No regional wall motion abnormality. Diastolic dysfunction is present. . Septal E/e' of 27.2 consistent with elevated left atrial pressure. . Right Ventricle: Normal size right ventricle. Normal RV function. Left Atrium: The left atrium is mildly dilated. Right Atrium: The right atrium is normal in size. Mitral Valve: Mild mitral valve leaflet calcification is present. Moderate mitral annular calcification. Mild mitral valve regurgitation is present. Mild mitral valve stenosis is present. Peak gradient of 12 mmHg, Mean gradient 4 mmhg, consistent with mild mitral stenosis. . Aortic Valve: The aortic valve is a bioprosthesis. Normal functioning aortic valve prosthesis. The prosthetic aortic valve is normal. No prosthesis regurgitation. Tricuspid Valve: The tricuspid valve is normal in appearance and function. Moderate tricuspid regurgitation is present. Right ventricular systolic pressure measures 38mmHg. The pulmonary artery pressure is mildly increased. Pulmonic Valve: The pulmonic valve is normal in appearance and function. There is no pulmonic regurgitation seen. Aorta: The aorta is normal. Normal size aortic root measuring 2.2 cm. Normal size ascending aorta measuring 2.1 cm. IVC: The IVC is normal sized. RAP 5 mmHg . Pericardium: No pericardial effusion. No pleural effusion. (No Signature Object) Patient: BRUCE YU Study Date: 03/11/2018 Page 2 of 3 01:22 PM Patient: BRUCE YU Study Date: 03/11/2018 Page 3 of 3 01:22 PM [id number]
[2018-03-11] MEDS: SENNOSIDES/DOCUSATE SODIUM TAB PO SCH (19:57)
--- NOTE | 2018-03-11 23:14 | HOSPPROG ---
Hospitalist Progress Note Assessment/Plan: XC: Notified of blood cultures positive for streptococcus. Noting COPD exacerbation, most likely source would seem pneumonia. She does have a bioprosthetic AV, but TTE performed today was unremarkable. Will order CTX 2g IV qD (bacteremia dosing) and order repeat blood cultures for the morning. If blood cultures become positive again, would consider AUGUSTINA. Objective: Vital Signs Temp Pulse Resp BP Pulse Ox 36.3 C 86 20 117/62 94 03/11/18 23:11 03/11/18 23:11 03/11/18 23:11 03/11/18 23:11 03/11/18 23:11 Microbiology 03/11/18 04:45 Blood Panel (PCR) - Final Blood Streptococcus Laboratory Results 03/11/18 09:20 03/11/18 04:45 03/10/18 03/11/18 03/12/18 05:59 05:59 05:59 Intake Total 1980 Balance 1979 PT 15.2 SEC (12.0-15.0) H 03/11/18 09:20 INR 1.18 (0.83-1.16) H 03/11/18 09:20 ICD10 Worksheet Patient Problems: Problems Problem Status Onset Chronic obstructive pulmonary disease with acute exacerbation Acute Fever Acute Diarrhea Acute Encephalopathy acute Acute Status post lobectomy of lung Acute
[2018-03-12] MEDS: IPRATROPIUM/ALBUTEROL 3 ML DEYVIAL IH SCH ×4 (06:07→21:41)
[2018-03-12] MEDS: FUROSEMIDE 40 MG TAB PO SCH (09:27)
[2018-03-12] MEDS: TRIAMTERENE/HCTZ 37.5/25 1 EACH TAB PO SCH (09:27)
[2018-03-12] MEDS: SENNOSIDES/DOCUSATE SODIUM TAB PO SCH ×2 (09:27→20:19)
[2018-03-12] MEDS: ENOXAPARIN 40 MG/0.4 ML SYR SC SCH (09:27)
[2018-03-12] MEDS: predniSONE 20 MG TAB PO SCH (09:27)
[2018-03-12] MEDS: ATORVASTATIN CALCIUM 40 MG TAB PO SCH (09:27)
[2018-03-12] MEDS: ASPIRIN 81 MG CHEWABLE TAB PO SCH (09:27)
[2018-03-12] MEDS: ALLOPURINOL 300 MG TAB PO SCH (09:27)
[2018-03-12] MEDS: [UNRECOGNIZED DRUG - MIXTURE] IH SCH (09:28)
--- NOTE | 2018-03-12 14:56 | HOSPPROG ---
Hospitalist Progress Note Assessment/Plan: 78-year-old female presents with acute COPD exacerbation. Plan: 1. Acute COPD exacerbation. - slightly impaired expiratory air movement - hypoxia on presentation at with an SpO2 of 87%, and underlying history of COPD - DuoNeb treatment as well as systemic steroids, -will continue prednisone for 5 day burst and continue scheduled duo nebs at this time -respiratory viral panel negative -pH demonstrating no evidence of ongoing retention -get physical and occupational therapy assessments to ensure patient is safe for discharge home 2. 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 Hypertension. - Continue patient's home medications 4. Cecal ulcer. - diarrhea but no active bleeding, most likely secondary to cecal ulceration, is recommend to the patient that she follow up in the outpatient setting with Dr. Mayank Sepulveda -currently abd pain free, CT w/o perforation 5. Weakness -unclear etiol -pt poor historian -feels better today -ECHO stable 6. Constipation -bowel therapy 7. Strep bacteremia -CTX -etiol unclear -D/W Dr Ross -will await cx results -may need repeat colon vs AUGUSTINA Diet. Regular Prophylaxis. High risk patient, Lovenox 40 Code. Full, daughter is MD FLORENCE Disposition. change to inpt status will require further evaluation in hospital setting PT/OT eval consider snf? wears nocturnal O2 Subjective: Feeing better today. Still weak. Still some confusion. Objective: Vital Signs Temp Pulse Resp BP Pulse Ox 36.3 C 77 14 122/76 H 944 H 03/12/18 07:24 03/12/18 11:17 03/12/18 11:17 03/12/18 07:24 03/12/18 11:17 Microbiology 03/11/18 04:45 Blood Panel (PCR) - Final Blood Streptococcus Laboratory Results 03/11/18 09:20 03/11/18 04:45 03/11/18 03/12/18 03/13/18 05:59 05:59 05:59 Intake Total 2737 Output Total 600 Balance 2737 -600 PT 15.2 SEC (12.0-15.0) H 03/11/18 09:20 INR 1.18 (0.83-1.16) H 03/11/18 09:20 - Physical Exam Constitutional: not in pain, chronically ill appearing, obese Eyes: PERRL, anicteric sclera, EOMI Ears, Nose, Mouth, Throat: moist mucous membranes, hearing normal, ears appear normal Cardiovascular: No JVD, No tachycardia, No edema Respiratory: no respiratory distress, no rales or rhonchi, reduced air movement Gastrointestinal: normoactive bowel sounds, No tenderness, No ascites Skin: warm, normal color, No mottled Musculoskeletal: normal joint ROM, no joint effusions, generalized weakness Neurologic: AAOx3 Psychiatric: not encephalopathic, poor insight, poor judgement, poor memory ICD10 Worksheet Patient Problems: Problems Problem Status Onset Status post lobectomy of lung Acute Diarrhea Acute Encephalopathy acute Acute Chronic obstructive pulmonary disease with acute exacerbation Acute Fever Acute
--- NOTE | 2018-03-12 15:06 | PDMN ---
Medical Necessity Medical necessity: change to IP; los>2mn for acute COPD exacerbation, and weakness; requires continued scheduled nebs, PT/OT to determine safe dispo at discharge; comorbid chronic encephalopathy, cecal ulcer, HTN; per order and progress note 03/11/18
--- NOTE | 2018-03-12 15:22 | GCON ---
[f rep st] CONSULTATION INPATIENT INFECTIOUS DISEASE CONSULTATION REFERRING PHYSICIAN: Rachel Pedraza NP REASON FOR REFERRAL: Streptococcal bacteremia, unknown source. HISTORY OF PRESENT ILLNESS: Patient is a 78-year-old female who had a recent hospitalization the wee k before this admission for melenic stool. She was discovered on abdominal and pelvic imaging to hav e irregularly thickened cecum. A colonoscopy and biopsy were performed. The colonoscopy revealed an ulceration of the cecum. The biopsy results did not show any clear etiology and showed nonmalignant tissue. The patient was sent home but continued to feel poorly. This drove her back to the emergen cy room on 03/10/2018, complaining of feeling bad. The patient had blood cultures drawn on 8 as part of the routine workup. Both sets are positive for GPCs in chains. PCR panel indicates thi s is a streptococcal species. The patient was started yesterday on empiric ceftriaxone. Currently, she is resting in her hospital bed. States she still feels poorly, maybe a slight bit better than ye sterday. She has no localizing symptoms. She relates that the blood or melena in her stool did not recur. She does have a history of having a transvenous aortic valve replacement. This was a number of years ago. A 2D echo was performed that showed no obvious dysfunction in the valve and revealed n o vegetations. The patient has been afebrile since admission. PAST MEDICAL HISTORY: 1. Recent admission for melenic stool and discovery of a small cecal ulcer of unclear etiology. 2. COPD. 3. Obstructive sleep apnea. 4. Mild dementia. 5. Depression. 6. History of squamous cell cancer of the lung. 7. History of cardioembolic stroke. 8. Hypertension. 9. Hyperlipidemia. 10. History of aortic stenosis. PAST SURGICAL HISTORY: 1. Status post TAVR. 2. Status post pulmonary wedge resection. ANTIBIOTICS: Ceftriaxone. ALLERGIES: The patient has no known drug allergies. SOCIAL HISTORY: The patient is a former tobacco user. No alcohol or drug use. She lives at home wi th her daughter. FAMILY HISTORY: Reviewed but noncontributory. REVIEW OF SYSTEMS: Other than that detailed above in history of present illness, a comprehensive 10- system review is negative. PHYSICAL EXAMINATION: VITAL SIGNS: Temperature maximum is 37.9, temperature current is 36.3; heart rate is 77, respiratory rate is 14, blood pressure is 122/76. GENERAL: The patient is a well-formed , well-nourished elderly female who appears chronically ill. She is awake and alert. She is oriente d x3. She has a pleasant demeanor. HEENT: Normocephalic for age. Atraumatic. No scleral icterus. No oral lesion or drainage from the nares. Eyes: Lids and conjunctivae are within normal limits. Pupils are equal and round bilaterally. NECK : Supple. No meningismus. LUNGS: Clear to auscultation bilaterally with good effort. HEART: Reg ular rate and rhythm. No significant peripheral edema. ABDOMEN: Soft, nontender; no masses. SKIN: Warm and dry to the touch. No rash or lesion seen. MUSCULOSKELETAL: No muscle belly tenderness i s noted. No joint line effusion or arthritis is seen. NEURO: Cranial nerves 2-12 seem to be intact . Peripheral sensation seems intact in extremities. LABORATORY DATA: The patient has a CBC dated 03/11/2018 that shows white blood cell count of 7.9, he moglobin of 12.1, hematocrit of 35.7, and a platelet count of 245. Differential is left shifted with 90% segmented neutrophils. Serum chemistries on 03/11/2018 show sodium of 134, potassium 4.5, chlor adamaris of 106, bicarbonate of 19, BUN of 16, and creatinine of 0.5. MICROBIOLOGIC DATA: Patient has blood cultures dated 03/11/2018; 2/2 sets are positive for gram-posi tive cocci in chains. PCR panel reveals a streptococcal species. Repeat blood cultures on are pending. RADIOLOGIC DATA: Patient has an echocardiogram dated 03/11/2018, which shows normal functioning pros thetic aortic valve. Chest CT on 03/10/2018 shows no evidence of PE. Shows a well-placed aortic tiffanie ve replacement. Small right pleural effusion. Abdominal CT dated 03/10/2018 shows no evidence of in traperitoneal air or abscess. Shows diverticulosis in the sigmoid colon. No diverticulitis. The wa ll thickening of the cecum seen the week prior is less predominant than the prior study. ASSESSMENT: Streptococcal bacteremia. Unclear etiology. She does not have any localizing signs or symptoms to betray a source. The 2 obvious sources, given her history, are either the cecal lesion o r the aortic valve which is a prosthetic. There is no evidence of vegetation on the prosthetic aorti c valve, although she may require transesophageal echocardiogram to really investigate this properly. However, this is very dependent upon which species of streptococcus is circulating. If this is Str eptococcus bovis, then attention would turn to the possibility that this cecal irregularity seen in m [facility] CT scans and biopsy last visit may actually be malignant. This would probably push us to put her through another bowel prep, colonoscopy and biopsy procedure. If, however, the streptococcal ba cteremia is an oral streptococcus, then I think transesophageal echocardiogram would be a more approp riate direction. In the meantime, we will continue her on empiric ceftriaxone at current dose. This was explained in detail to her daughter. PLAN: 1. Continue IV ceftriaxone. 2. Testing algorithm dependent upon species identification of the circulating streptococcus, as outl ined above. 3. Follow her clinical course. /[id number]/MODL
[2018-03-12] MEDS: traZODone 50 MG TAB PO SCH (20:56)
[2018-03-13] MEDS: IPRATROPIUM/ALBUTEROL 3 ML DEYVIAL IH SCH ×4 (05:41→22:09)
--- NOTE | 2018-03-13 09:26 | ASMTCMCOM ---
CM Note CM Note Notes: Chart reviewed. Per PT patient able to dc home if she has 24 hour supervision. Attempted to call Meredith her daughter and left message for her to return my call. Query need for SNF rehab at this point. CM to follow. Plan: TBD Date Signed: 03/13/2018 09:25 AM Electronically Signed By:Carin Martinez RN
[2018-03-13] MEDS: ALLOPURINOL 300 MG TAB PO SCH (09:35)
[2018-03-13] MEDS: ATORVASTATIN CALCIUM 40 MG TAB PO SCH (09:35)
[2018-03-13] MEDS: predniSONE 20 MG TAB PO SCH (09:35)
[2018-03-13] MEDS: TRIAMTERENE/HCTZ 37.5/25 1 EACH TAB PO SCH (09:36)
[2018-03-13] MEDS: SENNOSIDES/DOCUSATE SODIUM TAB PO SCH ×2 (09:37→21:46)
[2018-03-13] MEDS: ASPIRIN 81 MG CHEWABLE TAB PO SCH (09:37)
[2018-03-13] MEDS: FUROSEMIDE 40 MG TAB PO SCH (09:37)
[2018-03-13] MEDS: [UNRECOGNIZED DRUG - MIXTURE] IH SCH (09:38)
[2018-03-13] MEDS: ENOXAPARIN 40 MG/0.4 ML SYR SC SCH (09:38)
--- NOTE | 2018-03-13 13:18 | HOSPPROG ---
Hospitalist Progress Note Assessment/Plan: 78-year-old female presents with weakness and not feeling right. Plan: #Strep bacteremia -appears to be Strep bovis -CTX -D/W Dr Lynn, will consult -repeat cx positive -may need repeat colon vs AUGUSTINA -pt with hx of valve -will review with infectious disease # Acute COPD exacerbation. - resolved - hypoxia on presentation at with an SpO2 of 87%, and underlying history of COPD - DuoNeb treatment as well as systemic steroids, -DC prednisone -respiratory viral panel negative -pH demonstrating no evidence of ongoing retention -get physical and occupational therapy assessments to ensure patient is safe for discharge home # Chronic encephalopathy. -Secondary to dementia, mild, currently not interfering with activities of daily living -at baseline # Hypertension. - Continue patient's home medications # Cecal ulcer -recent diagnosis -no diarrhea -repeat colon? await GI recs # Weakness -second to infection -better -PT/OT # Constipation -bowel therapy Diet. Regular Prophylaxis. High risk patient, Lovenox 40 Code. Full, daughter is MD PORaisa Disposition. change to inpt status will require further evaluation in hospital setting PT/OT eval consider snf? wears nocturnal O2 Subjective: Up at edge of bed. Feeling better today. Having some memory issues. Objective: Vital Signs Temp Pulse Resp BP Pulse Ox 36.3 C 70 17 115/64 92 03/13/18 08:00 03/13/18 12:02 03/13/18 12:02 03/13/18 09:36 03/13/18 12:02 Microbiology 03/12/18 04:30 Blood Panel (PCR) - Final Blood Staph Coagulase Negative 03/12/18 03/13/18 03/14/18 05:59 05:59 05:59 Intake Total 2257 50 Output Total 2000 600 Balance 2257 -1950 -600 PT 15.2 SEC (12.0-15.0) H 03/11/18 09:20 INR 1.18 (0.83-1.16) H 03/11/18 09:20 - Physical Exam Constitutional: no apparent distress, appears nourished, obese Eyes: PERRL, anicteric sclera, EOMI Ears, Nose, Mouth, Throat: moist mucous membranes, hearing normal, ears appear normal Cardiovascular: No JVD, No tachycardia, No edema Respiratory: no respiratory distress, no rales or rhonchi, reduced air movement Gastrointestinal: normoactive bowel sounds, No tenderness, No ascites Skin: warm, normal color, No mottled Musculoskeletal: normal joint ROM, no joint effusions, generalized weakness Psychiatric: agitated, poor insight, poor judgement, poor memory ICD10 Worksheet Patient Problems: Problems Problem Status Onset Chronic Disease Mgmt/Transitional Care Acute Status post lobectomy of lung Acute Diarrhea Acute Encephalopathy acute Acute Chronic obstructive pulmonary disease with acute exacerbation Acute Fever Acute
--- NOTE | 2018-03-13 16:11 | ASMTCMCOM ---
CM Note CM Note Notes: Chart reviewed. Spoke with daughter Meredith. Patient lives independently. 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 PT and OT have recommendations for possible SNF, daughter feels that is not needed at this time. She reports her mom has been safe at home with her equipment and she checks on her frequently. CM to follow. Plan: Home with HHC and family support. Date Signed: 03/13/2018 04:10 PM Electronically Signed By:Carin Martinez RN
--- NOTE | 2018-03-13 18:49 | PCMIDPN ---
Assessment/Plan: Assessment/Plan: * Streptococcus bovis bacteremia: Blood culture show growth of Streptococcus bovis with exact speciation difficult in laboratory. Agree with plans for repeat colonoscopy given strong association between Streptococcus bovis and colon cancer, particularly in setting of known cecal ulceration (biopsies initially negative). Also patient is status post TAVR - think she should also undergo AUGUSTINA at some point to ensure no evidence of endocarditis given this is also strongly associated with Streptococcus bovis. Continue ceftriaxone. Follow up repeat blood cultures to assess for clearing of bacteremia. * Positive blood culture 1/4 bottles coagulase-negative Staphylococcus: Consistent with skin contaminant. Do not think contributing to current presentation. 03/13/18 18:46 Subjective: Patient complains of not having her typical cognitive function. Objective: Vital Signs Temp Pulse Resp BP Pulse Ox 36.7 C 82 20 125/68 H 91 L 03/13/18 16:27 03/13/18 16:27 03/13/18 16:27 03/13/18 16:27 03/13/18 16:27 Microbiology 03/12/18 04:30 Blood Panel (PCR) - Final Blood Staph Coagulase Negative 03/12/18 03/13/18 03/14/18 05:59 05:59 05:59 Intake Total 2257 50 240 Output Total 1999 2299 Balance 2256 Ceftriaxone # 3 Blood cultures 03/11/2018 Streptococcus bovis Blood cultures 03/12/2018 1/4 bottles coagulase-negative Staph - Physical Exam General Appearance: alert, no apparent distress EENT: No scleral icterus, No thrush, No conjunctival petechiae Respiratory: lungs clear, No respiratory distress Cardiac/Chest: regular rate, rhythm, No systolic murmur Extremities: No inflammation Abdomen: non-tender, No distended Skin: No embolic lesions ICD10 Worksheet Patient Problems: Problems Problem Status Onset Chronic Disease Mgmt/Transitional Care Acute Chronic obstructive pulmonary disease with acute exacerbation Acute Fever Acute Diarrhea Acute Encephalopathy acute Acute Status post lobectomy of lung Acute
[2018-03-13] MEDS: traZODone 50 MG TAB PO SCH (21:46)
[2018-03-14] MEDS: IPRATROPIUM/ALBUTEROL 3 ML DEYVIAL IH SCH ×4 (05:16→21:21)
--- NOTE | 2018-03-14 08:38 | HOSPPROG ---
Hospitalist Progress Note Assessment/Plan: 78-year-old female presents with weakness and not feeling right. Today is my first encounter w the patient, chart reviewed. #Streptococcus bovis bacteremia -strong association with this and colon ca -Ceftriaxone -GI to see/ spoke with Dr Lynn, appreciate his involement -hx of TAVR (will need a AUGUSTINA at some point) # Acute COPD exacerbation. - resolved - hypoxia on presentation at with an SpO2 of 87%, and underlying history of COPD - DuoNeb treatment as well as systemic steroids, - respiratory viral panel negative #Hyperglycemia -secondary form steroids # Chronic encephalopathy. -Secondary to dementia, mild, currently not interfering with activities of daily living -at baseline # Hypertension. -Continue patient's home medications -bp elevated this morning # Cecal ulcer -recent diagnosis -no diarrhea -repeat colonoscopy to further diagnoise # Weakness -PT/OT # Constipation -bowel therapy # Plan: GI to see, colonoscopy tomorrow. Subjective: Laly is feeling much better today, has no specific complaints. Objective: Vital Signs Temp Pulse Resp BP Pulse Ox 36.7 C 79 16 157/84 H 92 03/14/18 08:00 03/14/18 08:00 03/14/18 08:00 03/14/18 08:00 03/14/18 08:21 Microbiology 03/12/18 04:30 Blood Panel (PCR) - Final Blood Staph Coagulase Negative 03/13/18 03/14/18 03/15/18 05:59 05:59 05:59 Intake Total 50 240 Output Total 2000 2600 600 Balance -1950 -2360 -600 PT 15.2 SEC (12.0-15.0) H 03/11/18 09:20 INR 1.18 (0.83-1.16) H 03/11/18 09:20 - Physical Exam Constitutional: no apparent distress, appears nourished, not in pain, chronically ill appearing Eyes: PERRL Ears, Nose, Mouth, Throat: hearing normal Cardiovascular: regular rate and rhythym Respiratory: no respiratory distress, reduced air movement Gastrointestinal: normoactive bowel sounds Genitourinary: no bladder fullness Skin: warm Musculoskeletal: generalized weakness Neurologic: AAOx3 Psychiatric: interacting appropriately ICD10 Worksheet Patient Problems: Problems Problem Status Onset Chronic Disease Mgmt/Transitional Care Acute Chronic obstructive pulmonary disease with acute exacerbation Acute Fever Acute Diarrhea Acute Encephalopathy acute Acute Status post lobectomy of lung Acute
[2018-03-14] MEDS: TRIAMTERENE/HCTZ 37.5/25 1 EACH TAB PO SCH (08:39)
[2018-03-14] MEDS: ALLOPURINOL 300 MG TAB PO SCH (08:39)
[2018-03-14] MEDS: FUROSEMIDE 40 MG TAB PO SCH (08:39)
[2018-03-14] MEDS: SENNOSIDES/DOCUSATE SODIUM TAB PO SCH ×2 (08:39→20:50)
[2018-03-14] MEDS: ENOXAPARIN 40 MG/0.4 ML SYR SC SCH (08:39)
[2018-03-14] MEDS: ASPIRIN 81 MG CHEWABLE TAB PO SCH (08:39)
[2018-03-14] MEDS: ATORVASTATIN CALCIUM 40 MG TAB PO SCH (08:39)
[2018-03-14] MEDS: [UNRECOGNIZED DRUG - MIXTURE] IH SCH (09:07)
[2018-03-14] MEDS ORDERED: PEG 3350/NA SULF,BICARB,CL/KCL (GAVILYTE-G) 4000 ML BTL PO ONE (11:08)
--- NOTE | 2018-03-14 11:43 | GCON ---
[f rep st] CONSULTATION GI CONSULTATION DATE OF CONSULTATION: 03/14/2018 REQUESTING PHYSICIAN: Radha Mcgregor NP. REASON FOR CONSULTATION: Strep bovis bacteremia with a recent history of cecal ulceration on colonoscopy, rule out colon cancer. HISTORY OF PRESENT ILLNESS: The patient is a 78-year-old female who was admitted to the hospital on 03/10/2018 with generalized weakness and inability to ambulate with shortness of breath. She had an associated fever of 100. She was found on blood cultures to grow out strep bovis bringing up the possibility of occult GI malignancy. She does have a history of colonoscopy performed on by Dr. Sepulveda, at which time there was a solitary ulcer of the cecum measuring 20 mm in diameter and diminutive polyps of the rectum which were removed and were hyperplastic. The biopsy of the cecum revealed chronic active nonneoplastic mucosal ulceration. The rectal polyps revealed serrated adenoma. Since admission, the patient has been on ceftriaxone IV for her bacteremia and has clinically improved with increased appetite and energy level. She did have an echocardiogram 2 days ago which revealed a normal-sized left ventricle with mild concentric LV hypertrophy and normal global systolic LV function with ejection fraction of 60%. Normal size right ventricle with a normal RV function , mildly dilated left atrium, normal right atrium, mild mitral valve leaflet calcification, moderate mitral annular calcification and mild mitral valve regurgitation and stenosis. Aortic valve revealed a bioprosthesis with normal functioning aortic valve without regurgitation. The tricuspid valve was normal in appearance and function with moderate tricuspid regurgitation. The aorta appeared normal. Prior to admission, the patient was on allopurinol 300 mg p.o. daily, atorvastatin 40 mg p.o. daily, furosemide 40 mg p.o. daily, and triamterene-hydrochlorothiazide 37.5/25 mg p.o. daily. ALLERGIES: She has no known drug allergies. PAST MEDICAL HISTORY: Significant for COPD on home nighttime O2, obstructive sleep apnea, mild dementia, depression, squamous cell carcinoma of the lung without indication for chemotherapy, cardioembolic CVA, essential hypertension, hyperlipidemia, and history of aortic stenosis status post TAVR. PAST SURGICAL HISTORY: Significant for lung wedge resection, recent colonoscopy as noted in HPI, TVAR. FAMILY HISTORY: Negative for GI malignancies. SOCIAL HISTORY: She is a former smoker. Has not smoked for many years. She does not drink alcohol. She lives at home with her daughter. REVIEW OF SYSTEMS: Other than complaints of fatigue, fever, shortness of breath prior to admission were negative for comprehensive review of systems. PHYSICAL EXAMINATION: VITAL SIGNS: On my examination, temperature 36.7 Celsius , pulse 108 regular, blood pressure 157/84, respiratory rate was 16, O2 saturation 92% on 2 L per nasal cannula. GENERAL: This is a well-developed, well-nourished female, in no apparent distress. HEENT: Head atraumatic, normocephalic. Pupils equal, round, reactive to light. EOMs are intact. Sclerae nonicteric. Mucous membranes moist. Dentition good. NECK: Supple. Trachea midline. LYMPHATICS: No cervical or axillary adenopathy noted. PULMONARY: Lungs clear to percussion and auscultation. CARDIOVASCULAR: Regular rhythm and rate. Normal S1, S2 with trace systolic murmur. Peripheral pulses decreased bilaterally. GASTROINTESTINAL: Abdomen supple. Positive bowel sounds. No liver, spleen tip palpable. No masses or tenderness noted. EXTREMITIES: Without deformity. NEUROLOGIC: Patient is alert, oriented x3. There are no focal neurologic deficits. LABORATORY DATA: Labs today showed hemoglobin of 12.1, hematocrit 35.7, white count 7.94, platelets 245,000. Protime 15.2, INR 1.18, sodium 134, potassium 4.5, chloride 106, CO2 19, anion gap 9, BUN 16, creatinine 0.5. Urinalysis negative. The date of these labs are 03/11/2018. IMAGING: Abdominal CT on 03/10/2018, noted diverticulosis of the left colon. No evidence of diverticulitis or appendicitis or other chronic findings. IMPRESSION: 1. Streptococcus bovis bacteremia of unclear etiology. Rule out colon cancer involving the right cecal ulceration or missed lesion on recent colonoscopy. 2. Chronic obstructive pulmonary disease with home O2 needs. 3. History of cerebrovascular accident. 4. Mild dementia. 5. Aortic valve replacement. 6. Squamous cell carcinoma of the lung with prior wedge resection without chemo. RECOMMENDATION(S): I had a lengthy discussion with the patient and her daughter about pros and cons of repeat colonoscopy to assess for cancer associated with cecal ulceration versus missed lesion on prior colonoscopy. They were agreeable to do this. We will, therefore, set this up with propofol anesthesia due to her complicated medical problems for tomorrow a.m. /[id number]/MODL MTDD
--- NOTE | 2018-03-14 18:56 | PCMIDPN ---
Assessment/Plan: Assessment/Plan: * Streptococcus bovis bacteremia: Blood culture show growth of Streptococcus bovis with exact speciation difficult in laboratory. Plans for colonoscopy tomorrow to reassess for colon cancer given strong association of Streptococcus bovis bacteremia and colon cancer. Will coordinate with cardiology regarding possible AUGUSTINA later in the week to ensure no evidence of endocarditis given its association with Streptococcus bovis bacteremia. Continue ceftriaxone. Blood culture show clearing of bacteremia. * Positive blood culture 1/2 sets coagulase-negative Staphylococcus: Noted on cultures obtained to assess for clearing of streptococcal bacteremia. Consistent with skin contaminant. No targeted antibiotic therapy necessary for this organism. 03/14/18 18:53 03/14/18 18:55 Subjective: Patient without complaints today. Plans for colonoscopy tomorrow. Objective: Vital Signs Temp Pulse Resp BP Pulse Ox 36.4 C 66 16 135/72 H 96 03/14/18 15:33 03/14/18 17:00 03/14/18 17:00 03/14/18 15:33 03/14/18 17:00 Microbiology 03/12/18 04:30 Blood Panel (PCR) - Final Blood Staph Coagulase Negative 03/13/18 03/14/18 03/15/18 05:59 05:59 05:59 Intake Total 50 240 Output Total 1999 2500 600 Balance -3243 -1097 -600 Ceftriaxone # 4 Blood cultures 03/12/2018 1/2 sets coagulase-negative Staph - Physical Exam General Appearance: alert, no apparent distress EENT: No scleral icterus, No thrush, No conjunctival petechiae Respiratory: lungs clear, No respiratory distress Cardiac/Chest: regular rate, rhythm, systolic murmur (2/6 right upper sternal border) Abdomen: tender (Mild diffusely) Skin: No embolic lesions ICD10 Worksheet Patient Problems: Problems Problem Status Onset Chronic Disease Mgmt/Transitional Care Acute Chronic obstructive pulmonary disease with acute exacerbation Acute Fever Acute Diarrhea Acute Encephalopathy acute Acute Status post lobectomy of lung Acute
[2018-03-14] MEDS: traZODone 50 MG TAB PO SCH (20:50)
[2018-03-15 05:13] LABS: PLATELET COUNT 304 10^3/uL (150-400)
[2018-03-15] MEDS: IPRATROPIUM/ALBUTEROL 3 ML DEYVIAL IH SCH ×4 (05:50→21:07)
[2018-03-15] MEDS: ACETAMINOPHEN 325 MG TAB PO PRN (07:43)
[2018-03-15] MEDS ORDERED: LR 1,000 ML IV ONE (10:07)
[2018-03-15] MEDS: [UNRECOGNIZED DRUG - MIXTURE] IH SCH (10:14)
--- NOTE | 2018-03-15 10:17 | PDANEPAE ---
ANE History of Present Illness Colonoscopy ANE Past Medical History - Cardiovascular History Hx Hypertension: Yes Hx Arrhythmias: No Hx Chest Pain: No Hx Coronary Artery / Peripheral Vascular Disease: Yes Hx CHF / Valvular Disease: Yes Hx Palpitations: No Cardiovascular History Comment: h/o aortic stenosis, s/p TAVR - Pulmonary History Hx COPD: Yes Hx Asthma/Reactive Airway Disease: No Hx Recent Upper Respiratory Infection: No Hx Oxygen in Use at Home: Yes O2 in Use at Home (L/minute): 2 Hx Sleep Apnea: Yes Sleep Apnea Screening Result - Last Documented: Positive Pulmonary History Comment: POS SLEEP APNEA W/CPAP - Neurologic History Hx Cerebrovascular Accident: No Hx Seizures: No Hx Dementia: No - Endocrine History Hx Diabetes: No Hypothyroid: No Hyperthyroid: No Obesity: moderate - Renal History Hx Renal Disorders: No - Liver History Hx Hepatic Disorders: No - Neurological & Psychiatric Hx Hx Neurological and Psychiatric Disorders: No - Cancer History Hx Cancer: Yes Cancer History Comment: Oral cancer. SKIN CA - REMOVED - Congenital Disorder History Hx Congenital Disorders: No - GI History GERD: no Hx Gastrointestinal Disorders: No Gastrointestinal History Comment: CONSTIPATION - Other Health History Other Health History: LEG CRAMPS NOC. Gout - Chronic Pain History Chronic Pain: Yes (L LEG AND BACK) - Surgical History Prior Surgeries: 1966. Hernia (unknown date). bilateral hip replacements. Prolapsed uterus. L leg hardware. R shoulder replacement. Oral CA surgery "under my tounge" ANE Review of Systems Review of Systems: - Exercise capacity METS (RN): 3 METS ANE Patient History - Allergies Allergies/Adverse Reactions: No Known Allergies Allergy (Verified 03/10/18 17:35) - Home Medications Home Medications: Allopurinol [Allopurinol 300 MG (RX)] 300 mg PO DAILY 03/06/18 [Last Taken 03/10] Atorvastatin Calcium [Lipitor 40 mg (*)] 40 mg PO DAILY 03/06/18 [Last Taken ] Furosemide [Lasix 40 MG (*)] 40 mg PO DAILY 03/06/18 [Last Taken 03/06/18] Triamterene/Hydrochlorothiazid [Triamterene-Hctz 37.5-25 mg Tb] 1 each PO DAILY 03/06/18 [Last Taken 03/10/18] - NPO status NPO Since - Liquids (Date): 03/15/18 NPO Since - Liquids (Time): 00:00 NPO Since - Solids (Date): 03/15/18 NPO Since - Solids (Time): 00:00 - Smoking Hx Smoking Status: Former smoker - Alcohol Use Alcohol Use: None - Family Anes Hx Family Hx Anesthesia Complications: None ANE Labs/Vital Signs - Labs Result Diagrams: 03/15/18 04:35 03/15/18 04:35 - Vital Signs Blood Pressure: 123/60 Heart Rate: 78 Respiratory Rate: 16 O2 Sat (%): 93 Height: 149.86 cm Weight: 74.843 kg ANE Physical Exam - Airway Neck exam: decreased ROM (slight ROM decrease with extension) Mallampati Score: Class 3 Mouth exam: normal dental/mouth exam - Pulmonary Pulmonary: clear to auscultation - Cardiovascular Cardiovascular: regular rate and rhythym - ASA Status ASA Status: III ANE Anesthesia Plan Anesthesia Plan: GA with mask
--- NOTE | 2018-03-15 10:23 | HOSPPROG ---
Hospitalist Progress Note Assessment/Plan: 78-year-old female presents with weakness and not feeling right. Reviewed her care w Dr Perez and Dr Rios #Streptococcus bovis bacteremia -strong association with this and colon ca, colonoscopy today -Ceftriaxone -hx of TAVR (will need a AUGUSTINA tomorrow, spoke w Dr Denny Rios-will make NPO after midnight) # Acute COPD exacerbation. - resolved - respiratory viral panel negative #Hyperglycemia -secondary form steroids # Chronic encephalopathy. -Secondary to dementia, mild, currently not interfering with activities of daily living -at baseline # Hypertension. -Continue patient's home medications # Cecal ulcer -recent diagnosis -no diarrhea -repeat colonoscopy today further diagnose # Weakness -PT/OT # Constipation -bowel therapy # Plan:AUGUSTINA tomorrow, message left for patient's daughter, Meredith in regards to the above ([phone]), will make NPO after midnight Subjective: Laly is tearful and wants to get well Objective: Vital Signs Temp Pulse Resp BP Pulse Ox 36.6 C 78 16 123/60 H 93 03/15/18 09:56 03/15/18 10:18 03/15/18 10:18 03/15/18 10:18 03/15/18 10:18 Microbiology 03/12/18 04:30 Blood Culture - Final Blood Staphylococcus Epidermidis Blood Panel (PCR) - Final Staph Coagulase Negative Laboratory Results 03/15/18 04:35 03/15/18 04:35 03/14/18 03/15/18 03/16/18 05:59 05:59 05:59 Intake Total 240 Output Total 2600 600 Balance -2360 -600 PT 15.2 SEC (12.0-15.0) H 03/11/18 09:20 INR 1.18 (0.83-1.16) H 03/11/18 09:20 - Physical Exam Constitutional: chronically ill appearing Eyes: PERRL Ears, Nose, Mouth, Throat: hearing normal Cardiovascular: regular rate and rhythym Respiratory: no respiratory distress Gastrointestinal: normoactive bowel sounds Skin: warm Musculoskeletal: generalized weakness Neurologic: AAOx3 Psychiatric: interacting appropriately ICD10 Worksheet Patient Problems: Problems Problem Status Onset Chronic Disease Mgmt/Transitional Care Acute Chronic obstructive pulmonary disease with acute exacerbation Acute Fever Acute Diarrhea Acute Encephalopathy acute Acute Status post lobectomy of lung Acute
[2018-03-15] MEDS ORDERED: PROPOFOL 200 MG/20 ML VIAL ONE ×4 (10:35→11:53)
[2018-03-15] MEDS ORDERED: fentaNYL 100 MCG/2 ML INJ ONE (10:35)
[2018-03-15] MEDS ORDERED: NALOXONE HCL 0.4 MG/ML INJ IVP PRN (11:49)
[2018-03-15] MEDS ORDERED: ALBUTEROL 3 ML DEYVIAL IH PRN (11:49)
[2018-03-15] MEDS ORDERED: ONDANSETRON 4 MG/2 ML VIAL IVP PRN (11:49)
[2018-03-15] MEDS ORDERED: fentaNYL 100 MCG/2 ML INJ IVP PRN (11:49)
--- NOTE | 2018-03-15 12:07 | GIREPORT ---
[facility] - Endoscopy Department Patient Name: Laly Ugalde Procedure Date: 03/15/2018 10:37 AM Patient Type: Inpatient Attending MD/ ER Physician: Juan Lynn MD Procedure: Colonoscopy Indications: Cecal ulcer, R/O cancer. Providers: Juan Lynn MD Medicines: General Anesthesia Complications: No immediate complications. Description of Procedure: After obtaining informed consent, the scope was passed under direct vis ion. Throughout the procedure, the patient's blood pressure, pulse, and oxyg en saturations were monitored continuously. The Colonoscope was introduced through the anus and advanced to the cecum, identified by appendiceal orifice and ileocecal valve. The colonoscopy was unusually difficult du e to a redundant colon, significant looping and a tortuous colon. Successful completion of the procedure was aided by changing the patient to a supi ne position, using manual pressure and receiving assistance from [facility] staff. The patient tolerated the procedure well. The quality of the bow el preparation was excellent. Findings: Nonbleeding ulcerated mucosa with no stigmata of recent bleeding were present in the cecum. Biopsies were taken with a cold forceps for histo logy. The transverse colon, ascending colon, appendiceal orifice and ileoceca l valve appeared normal. Two sessile polyps were found in the descending colon. The polyps were 5 to 7 mm in size. These polyps were removed with a cold snare. Resection an d retrieval were complete. Multiple diverticula were found in the sigmoid colon. A 7 mm polyp was found in the rectum. The polyp was sessile. The polyp was removed with a cold snare. Resection and retrieval were complete. The perianal and digital rectal examinations were normal. Estimated Blood Loss: Estimated blood loss: none. Post Op Diagnosis: - Mucosal ulceration. Biopsied. Appears ischemic, doubt underlying canc er. - The transverse colon, ascending colon, appendiceal orifice and ileoce bernard valve are normal. - Two 5 to 7 mm polyps in the descending colon, removed with a cold sna re. Resected and retrieved. - Diverticulosis in the sigmoid colon. - One 7 mm polyp in the rectum, removed with a cold snare. Resected and retrieved. Recommendation: - Return patient to [facility] for ongoing care. - Advance diet as tolerated today. - Await pathology results. Attending Participation: I personally performed the entire procedure. Juan Lynn MD Juan Lynn MD 03/15/2018 12:07:31 PM This report has been signed electronicallyJuan Lynn MD Number of Addenda: 0 Note Initiated On: 03/15/2018 10:37 AM Total Procedure Duration Time 1 hour 4 minutes 0 seconds [email or web address]
[2018-03-15] MEDS: ATORVASTATIN CALCIUM 40 MG TAB PO SCH (13:25)
[2018-03-15] MEDS: FUROSEMIDE 40 MG TAB PO SCH (13:25)
[2018-03-15] MEDS: TRIAMTERENE/HCTZ 37.5/25 1 EACH TAB PO SCH (13:25)
[2018-03-15] MEDS: ENOXAPARIN 40 MG/0.4 ML SYR SC SCH (13:25)
[2018-03-15] MEDS: ASPIRIN 81 MG CHEWABLE TAB PO SCH (13:25)
[2018-03-15] MEDS: ALLOPURINOL 300 MG TAB PO SCH (13:25)
[2018-03-15] MEDS: SENNOSIDES/DOCUSATE SODIUM TAB PO SCH ×2 (13:29→21:40)
--- NOTE | 2018-03-15 18:30 | PCMIDPN ---
Assessment/Plan: Assessment/Plan: * Streptococcus bovis bacteremia: Blood culture show growth of Streptococcus bovis with exact speciation difficult in laboratory. Colonoscopy shows persistent cecal ulceration with ischemic appearance. Small polyps also present which were removed. No overt evidence of colon cancer present. Have reviewed with Cardiology with plans for AUGUSTINA in a.m. to ensure no evidence of prosthetic valve endocarditis. Blood culture show rapid clearing of bacteremia. Continue ceftriaxone. Can place PICC line at this point in time since blood cultures on repeat show no persistence of Streptococcus bovis. * Positive blood culture 1/2 sets coagulase-negative Staphylococcus: Noted on cultures obtained to assess for clearing of streptococcal bacteremia. Consistent with skin contaminant. No targeted antibiotic therapy necessary for this organism. Clinical findings and plan reviewed with patient, Dr. Lynn, Radha Mcgregor, [employer] and voice message left for patient's daughter. 03/15/18 18:27 Subjective: Patient status post colonoscopy. Clinical findings similar to initial colonoscopy with no overt evidence of colon cancer. Objective: Vital Signs Temp Pulse Resp BP Pulse Ox 36.8 C 68 18 131/76 H 96 03/15/18 16:11 03/15/18 16:39 03/15/18 16:39 03/15/18 16:11 03/15/18 16:39 Microbiology 03/12/18 04:30 Blood Culture - Final Blood Staphylococcus Epidermidis Blood Panel (PCR) - Final Staph Coagulase Negative Laboratory Results 03/15/18 04:35 03/15/18 04:35 03/14/18 03/15/18 03/16/18 05:59 05:59 05:59 Intake Total 240 850 Output Total 2600 600 30 Balance -2360 -600 820 Ceftriaxone # 5 Blood cultures 03/12/2018 1/2 sets coagulase-negative Staph - Physical Exam General Appearance: alert, no apparent distress EENT: No scleral icterus, No conjunctival petechiae Respiratory: lungs clear, No respiratory distress Cardiac/Chest: regular rate, rhythm, systolic murmur (2/6 left upper sternal border) Extremities: No inflammation Abdomen: distended (Mild), tender (Mild diffusely) Skin: No embolic lesions ICD10 Worksheet Patient Problems: Problems Problem Status Onset Chronic Disease Mgmt/Transitional Care Acute Chronic obstructive pulmonary disease with acute exacerbation Acute Fever Acute Diarrhea Acute Encephalopathy acute Acute Status post lobectomy of lung Acute
[2018-03-15] MEDS: traZODone 50 MG TAB PO SCH (21:40)
[2018-03-16] MEDS: IPRATROPIUM/ALBUTEROL 3 ML DEYVIAL IH SCH ×2 (04:53→12:02)
[2018-03-16] MEDS ORDERED: NS 1,000 ML IV ONE (06:00)
--- NOTE | 2018-03-16 10:07 | ASMTCMCOM ---
CM Note CM Note Notes: CM spoke w/dtr Meredith, pt continues to be weak and not ready for dc. The plan is for the pt to go home w/[facility], and if needed her daughter will stay with her. Daughter does not want SNF, states they have been "everywhere" and she "just sits in her room all day." Pt will also need IV abx, referral sent to [facility], d/w INTERNAL [employer], will continue to assPATRICK flanagan w/f, [facility] Plan: [facility] care/ [facility] + [facility] +Family assistance Date Signed: 03/16/2018 09:55 AM Electronically Signed By:Thea Schmidt RN
--- NOTE | 2018-03-16 10:15 | HOSPPROG ---
Hospitalist Progress Note Assessment/Plan: 78-year-old female presents with weakness and not feeling right. #Streptococcus bovis bacteremia -strong association with this and colon ca, s/p colonoscopy (awaiting pathology but no signs of cancer) -Ceftriaxone -hx of TAVR (AUGUSTINA today) # Acute COPD exacerbation. - resolved - respiratory viral panel negative #Hyperglycemia -secondary form steroids # Chronic encephalopathy. -Secondary to dementia, mild, currently not interfering with activities of daily living -at baseline # Hypertension. -Continue patient's home medications # Cecal ulcer -recent diagnosis -no diarrhea -repeat colonoscopy today further diagnose # Weakness -PT/OT # Constipation -bowel therapy # Plan: daughter, Jenelle, at the bedside. Updated her on the plan of care. Will order PICC placement for today Subjective: Laly wants to get the procedures over with. Objective: Vital Signs Temp Pulse Resp BP Pulse Ox 36.4 C 80 16 115/60 94 03/16/18 08:00 03/16/18 08:00 03/16/18 08:00 03/16/18 08:00 03/16/18 08:00 Microbiology 03/12/18 04:30 Blood Culture - Final Blood Staphylococcus Epidermidis Blood Panel (PCR) - Final Staph Coagulase Negative Laboratory Results 03/15/18 04:35 03/15/18 04:35 03/15/18 03/16/18 03/17/18 05:59 05:59 05:59 Intake Total 850 Output Total 600 381 Balance -600 469 PT 15.2 SEC (12.0-15.0) H 03/11/18 09:20 INR 1.18 (0.83-1.16) H 03/11/18 09:20 - Physical Exam Constitutional: no apparent distress, appears nourished, not in pain Eyes: PERRL Ears, Nose, Mouth, Throat: hearing normal Respiratory: no respiratory distress, reduced air movement Skin: warm, No normal color (pale) Musculoskeletal: generalized weakness Neurologic: AAOx3 Psychiatric: interacting appropriately ICD10 Worksheet Patient Problems: Problems Problem Status Onset Chronic Disease Mgmt/Transitional Care Acute Chronic obstructive pulmonary disease with acute exacerbation Acute Fever Acute Diarrhea Acute Encephalopathy acute Acute Status post lobectomy of lung Acute
[2018-03-16] MEDS ORDERED: ALTEPLASE 2 MG VIAL IVP PRN (10:18)
[2018-03-16] MEDS: [UNRECOGNIZED DRUG - MIXTURE] IH SCH (10:31)
--- NOTE | 2018-03-16 10:44 | PDANEPAE ---
ANE History of Present Illness r/o endocarditis ANE Past Medical History - Cardiovascular History Hx Hypertension: Yes Hx Arrhythmias: No Hx Chest Pain: No Hx Coronary Artery / Peripheral Vascular Disease: Yes Hx CHF / Valvular Disease: Yes Hx Palpitations: No Cardiovascular History Comment: h/o aortic stenosis, s/p TAVR - Pulmonary History Hx COPD: Yes Hx Asthma/Reactive Airway Disease: No Hx Recent Upper Respiratory Infection: No Hx Oxygen in Use at Home: Yes O2 in Use at Home (L/minute): 2 Hx Sleep Apnea: Yes Sleep Apnea Screening Result - Last Documented: Positive Pulmonary History Comment: POS SLEEP APNEA W/CPAP - Neurologic History Hx Cerebrovascular Accident: No Hx Seizures: No Hx Dementia: No - Endocrine History Hx Diabetes: No Hypothyroid: No Hyperthyroid: No Obesity: moderate - Renal History Hx Renal Disorders: No - Liver History Hx Hepatic Disorders: No - Neurological & Psychiatric Hx Hx Neurological and Psychiatric Disorders: No - Cancer History Hx Cancer: Yes Cancer History Comment: Oral cancer. SKIN CA - REMOVED - Congenital Disorder History Hx Congenital Disorders: No - GI History GERD: no Hx Gastrointestinal Disorders: No Gastrointestinal History Comment: CONSTIPATION - Other Health History Other Health History: LEG CRAMPS NOC. Gout - Chronic Pain History Chronic Pain: Yes (L LEG AND BACK) - Surgical History Prior Surgeries: 1966. Hernia (unknown date). bilateral hip replacements. Prolapsed uterus. L leg hardware. R shoulder replacement. Oral CA surgery "under my tounge" ANE Review of Systems Review of Systems: - Exercise capacity METS (RN): 3 METS ANE Patient History - Allergies Allergies/Adverse Reactions: No Known Allergies Allergy (Verified 03/10/18 17:35) - Home Medications Home Medications: Allopurinol [Allopurinol 300 MG (RX)] 300 mg PO DAILY 03/06/18 [Last Taken 03/10] Atorvastatin Calcium [Lipitor 40 mg (*)] 40 mg PO DAILY 03/06/18 [Last Taken ] Furosemide [Lasix 40 MG (*)] 40 mg PO DAILY 03/06/18 [Last Taken 03/06/18] Triamterene/Hydrochlorothiazid [Triamterene-Hctz 37.5-25 mg Tb] 1 each PO DAILY 03/06/18 [Last Taken 03/10/18] - NPO status NPO Since - Liquids (Date): 03/15/18 NPO Since - Liquids (Time): 00:00 NPO Since - Solids (Date): 03/15/18 NPO Since - Solids (Time): 00:00 - Smoking Hx Smoking Status: Former smoker - Alcohol Use Alcohol Use: None - Family Anes Hx Family Hx Anesthesia Complications: None ANE Labs/Vital Signs - Labs Result Diagrams: 03/15/18 04:35 03/15/18 04:35 - Vital Signs Blood Pressure: 115/60 Heart Rate: 80 Respiratory Rate: 16 O2 Sat (%): 94 Height: 149.86 cm Weight: 74.843 kg ANE Physical Exam - Airway Neck exam: FROM Mallampati Score: Class 2 Mouth exam: normal dental/mouth exam - Pulmonary Pulmonary: no respiratory distress - Cardiovascular Cardiovascular: regular rate and rhythym - ASA Status ASA Status: III ANE Anesthesia Plan Total IV Anesthesia: Yes
[2018-03-16] MEDS ORDERED: PROPOFOL 200 MG/20 ML VIAL ONE ×2 (10:45)
--- NOTE | 2018-03-16 12:11 | ECHO ---
[email or web address] [place] [id number] Main: [phone] Fax: Transesophageal Echocardiography Name: RBUCE YU MR#: [id number] Study Date: 03/16/2018 Study Time: 10:47 AM Date of : 1940 Age: 78 year(s) Height: 149.9 cm (59 in.) Weight: 74.84 kg (165 lb.) BSA: 1.7 m2 Gender: Female Examination: AUGUSTINA Indication: R/O SBE Image Quality: Adequate Contrast: Requested by: Roberto Rios Heart Rate: Rhythm: BP: / Procedure Staff Back Hanger: Keyona Quintanilla [facility] Reading Physician: Roberto Rios MD Requesting Provider: AUGUSTINA Exam Details Patient Consent: Risks, alternatives of procedure explained to patient, informed consent obtained. Conclusions: Normal size left ventricle. Normal global systolic LV function. The ejection fraction is estimated to be 55-60 %. No regional wall motion abnormality. Lipomatous interatrial septum. Intact ineratrial septum on color flow and doppler imaging. ANGEL free of thrombus. Mild mitral valve regurgitation is present. There is an aortic valve bioprosthesis. No evidence of aortic regurgitation. No evidence of endocarditis. Trivial tricuspid valve regurgitation. Mobile appearing plaque seen the distal arch and descending aorta. No evidence of vegetations. Consider AUGUSTINA if clinically indicated. Measurements: Chambers Valvular Assessment AV/MV Valvular Assessment TV/PV Normal Normal Normal Name Value Range Name Value Range Name Value Range EF Range: 55-60 % Additional Measurements: Patient: BRUCE YU Study Date: 03/16/2018 Page 1 of 2 10:47 AM Findings: Left Ventricle: Normal size left ventricle. No LV hypertrophy. Normal global systolic LV function. The ejection fraction is estimated to be 55-60 %. No regional wall motion abnormality. Unable to assess diastolic dysfunction. Right Ventricle: Normal size right ventricle. Left Atrium: The left atrium is normal in size. Lipomatous interatrial septum. Intact ineratrial septum on color flow and doppler imaging. ANGEL free of thrombus. Right Atrium: The right atrium is normal in size. Mitral Valve: The mitral valve is normal in appearance and function. Mild mitral valve regurgitation is present. No mitral stenosis is present. No evidence of endocarditis. Aortic Valve: There is an aortic valve bioprosthesis. No evidence of aortic regurgitation. No evidence of endocarditis. Tricuspid Valve: The tricuspid valve is normal in appearance and function. Trivial tricuspid valve regurgitation. No evidence of endocarditis. Pulmonic Valve: The pulmonic valve is normal in appearance and function. No evidence of endocarditis. Aorta: Mobile appearing plaque seen the distal arch and descending aorta. The aorta is normal. Pericardium: No pericardial effusion. l1n (No Signature Object) Patient: BRUCE YU Study Date: 03/16/2018 Page 2 of 2 10:47 AM [id number]
[2018-03-16] MEDS: TRIAMTERENE/HCTZ 37.5/25 1 EACH TAB PO SCH (12:26)
[2018-03-16] MEDS: SENNOSIDES/DOCUSATE SODIUM TAB PO SCH ×2 (12:26→19:46)
[2018-03-16] MEDS: FUROSEMIDE 40 MG TAB PO SCH (12:26)
[2018-03-16] MEDS: ALLOPURINOL 300 MG TAB PO SCH (12:26)
[2018-03-16] MEDS: ENOXAPARIN 40 MG/0.4 ML SYR SC SCH (12:27)
[2018-03-16] MEDS: ATORVASTATIN CALCIUM 40 MG TAB PO SCH (12:27)
[2018-03-16] MEDS: ACETAMINOPHEN 325 MG TAB PO PRN (12:27)
[2018-03-16] MEDS: ASPIRIN 81 MG CHEWABLE TAB PO SCH (12:27)
[2018-03-16] MEDS ORDERED: IPRATROPIUM/ALBUTEROL 3 ML DEYVIAL IH PRN (13:30)
--- NOTE | 2018-03-16 16:22 | PCMIDPN ---
Assessment/Plan: Assessment: Strep bovis bacteremia. Unclear source associated with malignancy but the patient does have an ischemic cecal ulcer. Repeat biopsy of the area is pending. The gross appearance is non malignant however. Currently treating with ceftriaxone. Plan a 2 week course from cleared blood cultures on 2017. Single coagulase-negative Staphylococcus in 03/12 culture is a contaminant. Patient is currently sleeping after her AUGUSTINA earlier today. Plan: 1. Continue IV ceftriaxone. 2. Follow up on vital signs, temp curve and follow up culture data. 3. Follow up on repeat: Pathology. 03/16/18 16:19 03/16/18 16:20 Subjective: Patient is resting following PICC line placement and AUGUSTINA. Did not awaken. No fevers or chills noted. Objective: Ceftriaxone #6 Vital Signs Temp Pulse Resp BP Pulse Ox 36.9 C 81 14 145/62 H 92 03/16/18 15:31 03/16/18 15:31 03/16/18 15:31 03/16/18 15:31 03/16/18 15:31 Laboratory Results 03/15/18 04:35 03/15/18 04:35 03/15/18 03/16/18 03/17/18 05:59 05:59 05:59 Intake Total 850 Output Total 600 381 350 Balance -600 469 -350 - Physical Exam General Appearance: WD/WN, non-toxic ICD10 Worksheet Patient Problems: Problems Problem Status Onset Chronic Disease Mgmt/Transitional Care Acute Chronic obstructive pulmonary disease with acute exacerbation Acute Fever Acute Diarrhea Acute Encephalopathy acute Acute Status post lobectomy of lung Acute
--- NOTE | 2018-03-16 17:09 | ASMTCMCOM ---
CM Note CM Note Notes: Received a call from Gretel at [facility] [phone], she wants to make sure that dtr will be the one adminstering the medication since the pt may not be teachable. PATRICK called pt's dtr Meredith but vm was full, Barbara from [facility] also called pt's daughter and left message. DC Plan: Home care/ [facility] (GRAD[facility]) + [employer] + family assistance Date Signed: 03/16/2018 05:09 PM Electronically Signed By:Thea Schmidt RN
[2018-03-16] MEDS: traZODone 50 MG TAB PO SCH (19:45)
--- NOTE | 2018-03-17 08:26 | HOSPPROG ---
Hospitalist Progress Note Assessment/Plan: 78-year-old female presents with weakness and not feeling right. #Streptococcus bovis bacteremia -strong association with this and colon ca, s/p colonoscopy (awaiting pathology but no signs of cancer) -Ceftriaxone -hx of TAVR (AUGUSTINA today doesn't show any vegetations but she has multiple areas of plaque) #plaque on distal arch and descending aorta noted on AUGUSTINA -recommendation is possibly dual anti-platelet treatment and should discuss this with Dr Jerome # Acute COPD exacerbation. - resolved - respiratory viral panel negative #Hyperglycemia -secondary form steroids # Chronic encephalopathy. -Secondary to dementia # Hypertension. -Continue patient's home medications # Cecal ulcer -path pending # Weakness -PT/OT # Constipation -bowel therapy # Plan: daughter wants her to go home, but I am very concerned about her being too weak, concerned pulling PICC out at night (she gets confusion in the night) . PT recommending SNF or 24 hour care. She was slightly tachycardic during my interview; will get a 12 lead now. Will ask ST to do a cognitive evaluation. Dr Villarreal filled out interagency form in case we are able to safely dc. Subjective: Laly says she is hungry but didn't order breakfast. Objective: Vital Signs Temp Pulse Resp BP Pulse Ox 36.6 C 77 16 121/69 H 95 03/16/18 22:17 03/16/18 22:17 03/16/18 22:17 03/16/18 22:17 03/16/18 22:17 Microbiology 03/12/18 04:35 Blood Culture - Final Blood Laboratory Results 03/15/18 04:35 03/15/18 04:35 03/16/18 03/17/18 03/18/18 05:59 05:59 05:59 Intake Total 850 Output Total 381 350 Balance 469 -350 PT 15.2 SEC (12.0-15.0) H 03/11/18 09:20 INR 1.18 (0.83-1.16) H 03/11/18 09:20 - Physical Exam Constitutional: appears nourished, not in pain, obese Eyes: PERRL Ears, Nose, Mouth, Throat: hearing normal Cardiovascular: regular rate and rhythym, tachycardia Respiratory: no respiratory distress, reduced air movement Skin: warm Musculoskeletal: generalized weakness Neurologic: other (alert but not as clear this morning. Isn't sure how to order breakfast.) Psychiatric: poor insight, poor judgement, poor memory ICD10 Worksheet Patient Problems: Problems Problem Status Onset Chronic Disease Mgmt/Transitional Care Acute Chronic obstructive pulmonary disease with acute exacerbation Acute Fever Acute Diarrhea Acute Encephalopathy acute Acute Status post lobectomy of lung Acute
[2018-03-17] MEDS: SENNOSIDES/DOCUSATE SODIUM TAB PO SCH ×2 (08:39→22:09)
[2018-03-17] MEDS: ALLOPURINOL 300 MG TAB PO SCH (08:39)
[2018-03-17] MEDS: FUROSEMIDE 40 MG TAB PO SCH (08:40)
[2018-03-17] MEDS: TRIAMTERENE/HCTZ 37.5/25 1 EACH TAB PO SCH (08:40)
[2018-03-17] MEDS: ATORVASTATIN CALCIUM 40 MG TAB PO SCH (08:41)
[2018-03-17] MEDS: ENOXAPARIN 40 MG/0.4 ML SYR SC SCH (08:42)
[2018-03-17] MEDS: [UNRECOGNIZED DRUG - MIXTURE] IH SCH (09:05)
--- NOTE | 2018-03-17 10:26 | PDIAF ---
- Diagnosis Diagnosis: Streptococcus bovis bacteremia Code Status: Full Code - Medication Management Discharge Medications: Medications to Continue on Transfer Aspirin [Aspirin 81mg (*)] 81 mg PO DAILY tab.chew 10/19/17 [Last Taken ] Umeclidinium Brm/Vilanterol Tr [Anoro Ellipta 62.5-25 Mcg INH] 1 puffs IH DAILY #1 mdi 11/02/17 [Last Taken 03/06/18] Allopurinol [Allopurinol 300 MG (RX)] 300 mg PO DAILY 03/06/18 [Last Taken 03/10] Atorvastatin Calcium [Lipitor 40 mg (*)] 40 mg PO DAILY 03/06/18 [Last Taken ] Furosemide [Lasix 40 MG (*)] 40 mg PO DAILY 03/06/18 [Last Taken 03/06/18] Triamterene/Hydrochlorothiazid [Triamterene-Hctz 37.5-25 mg Tb] 1 each PO DAILY 03/06/18 [Last Taken 03/10/18] Residential Antibiotics: Ceftriaxone 2 g IV daily 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 PICC Care - Routine: Yes - Orders Services needed: Home Care, Registered Nurse Home Care Face to Face: I certify that this patient was under my care and that I had the required [id number] encounter meeting the encounter requirements on the discharge day. My findings support the fact that the patient is homebound as defined in Home Care Face to Face Continued: CMS Chapter 7 Medicare Benefits Manual 30.1.1 , The condition of the patient is such that there exists a normal inability to leave home and consequently, leaving home would require a considerable and taxing effort. Isolation Type: None - Labs/Radiology CBC w/diff Date: 03/26/18 CMP Date: 03/26/18 Call or Fax Lab and Imaging Results to: Vannesa Villarreal MD [facility] at fax [phone] - Follow Up Care Current Providers and Referrals: Shayna Nunn MD [Primary Care Provider] - As per Instructions
--- NOTE | 2018-03-17 10:26 | PCMIDPN ---
Assessment/Plan: # Streptococcus bovis bacteremia following colon biopsy in the setting of underlying TAVR in prosthetic aortic valve. Rapid clearance of blood cultures and no evidence of endocarditis on AUGUSTINA therefore can treat with for 2 weeks. Blood cultures from March 12 show clearance of Streptococcus bacteremia. Presence of Staph epi in 1 of the blood cultures reflects contamination --continue ceftriaxone 2 g IV daily through 03/26/2018 --no ID follow-up needed --call ID for additional questions over hospitalization Medications Ceftriaxone 2 g IV daily Subjective: Patient denies any specific complaints including palpitation, diarrhea, itching or rash Objective: Vital Signs Temp Pulse Resp BP Pulse Ox 36.8 C 96 16 116/45 L 91 L 03/17/18 08:21 03/17/18 08:21 03/17/18 08:38 03/17/18 08:40 03/17/18 08:38 Microbiology 03/12/18 04:35 Blood Culture - Final Blood Laboratory Results 03/15/18 04:35 03/15/18 04:35 03/16/18 03/17/18 03/18/18 05:59 05:59 05:59 Intake Total 850 Output Total 381 350 Balance 469 -350 - Physical Exam General Appearance: alert, no apparent distress, obese EENT: pale conjunctiva Respiratory: No accessory muscle use Neck: supple Cardiac/Chest: tachycardia, irregularly irregular Abdomen: non-tender, soft Skin: No rash Neuro/Psych: alert, normal mood/affect - Line/s RUE PICC Lines: No drainage, No erythema - Time Spent With Patient Time Spent with Patient: greater than 35 minutes Time Spent with Patient: Greater than 35 minutes spent on this patients care, greater than 50% of time spent counseling, educating, and coordinating care regarding the above mentioned plan. ICD10 Worksheet Patient Problems: Problems Problem Status Onset Chronic Disease Mgmt/Transitional Care Acute Chronic obstructive pulmonary disease with acute exacerbation Acute Fever Acute Diarrhea Acute Encephalopathy acute Acute Status post lobectomy of lung Acute
[2018-03-17] MEDS: ASPIRIN 81 MG CHEWABLE TAB PO SCH (11:10)
--- NOTE | 2018-03-17 11:27 | CPEKG ---
Heart Rate: 159 RR Interval: 377 QRSD Interval: 74 QT Interval: 280 QTC Interval: 456 QRS [place]: 34 T Wave [place]: 196 EKG Severity - ABNORMAL ECG - EKG Impression: ATRIAL FIBRILLATION WITH RAPID V-RATE EKG Impression: REPOLARIZATION ABNORMALITY, PROB RATE RELATED Electronically Signed By: Chu Lopez 22-Mar-2018 21:13:06
[2018-03-17] MEDS ORDERED: DIGOXIN 500 MCG/2 ML AMP IVP ONE ×2 (11:42→18:30)
[2018-03-17] MEDS ORDERED: NS 500 ML IV ONE (11:43)
[2018-03-17] MEDS ORDERED: DILTIAZEM 125 MG in D5W 125 ML IV SCH (11:45)
--- NOTE | 2018-03-17 12:06 | PDCARCONS ---
Cardiology Consult Reason for Consult: Atrial fibrillation with a rapid ventricular response. Chief Complaint: At the present time the patient has no complaints. Requesting Physician: Radha Mcgregor NP. History of Present Illness: 78-year-old female seen in consultation on the Medical/Surgical Service. She was admitted to the hospital on March 10 with symptoms of severe weakness. At that time, she was noted to have a COPD exacerbation which has been treated fairly aggressively and currently has resolved. During this hospitalization she has undergone further workup for a cecal ulcer. At the present time this is stable. Additionally, she has been noted to have strep bovis bacteremia. Yesterday I performed a transesophageal echocardiogram which did not demonstrate any indication of endocarditis. From a cardiovascular perspective, her history includes known peripheral vascular disease characterized by asymptomatic high-grade carotid stenosis on the left. Additionally, her recent transesophageal echocardiogram indicates mobile atheroma in the distal arch and descending thoracic aorta. Furthermore, she has known valvular heart disease. Because of the development of aortic stenosis she underwent TAVR in October of 2017. She has no history of arrhythmia. She has no history of CAD-cardiac catheterization in September demonstrated only nonobstructive disease. We are asked to see her regarding the development of atrial fibrillation. Earlier today she developed atrial fibrillation with a rapid ventricular response. Heart rates were in the 150s to 160s. This was associated with minor nonspecific ST and T changes. In talking to her, she denies palpitations. She notes no chest pain, chest pressure, heaviness or dyspnea. She has never had any bleeding issues. Apparently, she does have significant dementia and lives in a long-term. History Information - Allergies/Home Medication List Allergies/Adverse Reactions: No Known Allergies Allergy (Verified 03/10/18 17:35) Home Medications: Allopurinol [Allopurinol 300 MG (RX)] 300 mg PO DAILY 03/06/18 [Last Taken 03/10] Atorvastatin Calcium [Lipitor 40 mg (*)] 40 mg PO DAILY 03/06/18 [Last Taken ] Furosemide [Lasix 40 MG (*)] 40 mg PO DAILY 03/06/18 [Last Taken 03/06/18] Triamterene/Hydrochlorothiazid [Triamterene-Hctz 37.5-25 mg Tb] 1 each PO DAILY 03/06/18 [Last Taken 03/10/18] I have personally reviewed and updated: family history, medical history, social history, surgical history Past Medical History: - Past Medical History Additional medical history: Valvular heart disease with recent transcatheter aortic valve replacement, peripheral vascular disease characterized by carotid stenosis and aortic atheroma, history of heavy tobacco use with resultant COPD, hypertension, obstructive sleep apnea, history of skin cancer, 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 - Surgical History Reports: no pertinent surgical hx - Family History Positive for: non-pertinent - Social History Smoking Status: Former smoker Alcohol Use: None Drug Use: None Age in Years: 75 or older Sex: Female Congestive Heart Failure History: No Hypertension History: Yes Stroke/TIA/Thromboembolism History: Yes Vascular Disease History: Yes Diabetes Mellitus: No [id number] Score: 7 Physical Exam Physical Exam: Temp Pulse Resp BP Pulse Ox 36.9 C 150 H 14 94/45 L 95 03/17/18 11:33 03/17/18 11:33 03/17/18 11:33 03/17/18 10:46 03/17/18 11:33 O2 (L/minute) 2 Constitutional: no apparent distress, appears nourished, not in pain Eyes: PERRL, anicteric sclera, EOMI Ears, Nose, Mouth, Throat: moist mucous membranes, hearing normal, ears appear normal, no oral mucosal ulcers Cardiovascular: no murmur, rub, or gallop, systolic murmur (1/6 systolic ejection murmur left sternal border), irregularly irregular, No edema Peripheral Pulses: 2+: carotid (R), carotid (L) Respiratory: no respiratory distress, no rales or rhonchi, clear to auscultation Gastrointestinal: normoactive bowel sounds, soft, non-tender abdomen, no palpable masses Genitourinary: other (Deferred) Skin: warm, normal color, no rashes or abrasions, no fluctuance, no induration, No mottled Musculoskeletal: other (Deferred) Neurologic: other (He is confused. She is only oriented to her current place.) Psychiatric: interacting appropriately, not anxious Lab and Imaging 03/15/18 04:35 03/15/18 04:35 WBC 9.92 10^3/uL (3.80-9.50) H 03/15/18 04:35 RBC 3.92 10^6/uL (4.18-5.33) L 03/15/18 04:35 Hgb 11.7 g/dL (12.6-16.3) L 03/15/18 04:35 POC Hgb 12.9 gm/dL (12.6-16.3) 03/10/18 18:09 Hct 35.6 % (38.0-47.0) L 03/15/18 04:35 POC Hct 38 % (38-47) 03/10/18 18:09 MCV 90.8 fL (81.5-99.8) 03/15/18 04:35 MCH 29.8 pg (27.9-34.1) 03/15/18 04:35 MCHC 32.9 g/dL (32.4-36.7) 03/15/18 04:35 RDW 15.9 % (11.5-15.2) H 03/15/18 04:35 Plt Count 304 10^3/uL (150-400) 03/15/18 04:35 MPV 9.6 fL (8.7-11.7) 03/15/18 04:35 Neut % (Auto) 76.3 % (39.3-74.2) H 03/15/18 04:35 Lymph % (Auto) 15.1 % (15.0-45.0) 03/15/18 04:35 Wilkinson % (Auto) 6.5 % (4.5-13.0) 03/15/18 04:35 Eos % (Auto) 1.1 % (0.6-7.6) 03/15/18 04:35 Baso % (Auto) 0.3 % (0.3-1.7) 03/15/18 04:35 Nucleat RBC Rel Count 0.0 % (0.0-0.2) 03/15/18 04:35 Absolute Neuts (auto) 7.57 10^3/uL (1.70-6.50) H 03/15/18 04:35 Absolute Lymphs (auto) 1.50 10^3/uL (1.00-3.00) 03/15/18 04:35 Absolute Monos (auto) 0.64 10^3/uL (0.30-0.80) 03/15/18 04:35 Absolute Eos (auto) 0.11 10^3/uL (0.03-0.40) 03/15/18 04:35 Absolute Basos (auto) 0.03 10^3/uL (0.02-0.10) 03/15/18 04:35 Absolute Nucleated RBC 0.00 10^3/uL (0-0.01) 03/15/18 04:35 Immature Gran % 0.7 % (0.0-1.1) 03/15/18 04:35 Immature Gran # 0.07 10^3/uL (0.00-0.10) 03/15/18 04:35 PT 15.2 SEC (12.0-15.0) H 03/11/18 09:20 INR 1.18 (0.83-1.16) H 03/11/18 09:20 APTT 24.9 SEC (23.0-38.0) 03/11/18 09:20 D-Dimer 1.66 ug/mLFEU (0.00-0.50) H 03/11/18 09:20 POC Blood Source VENOUS 03/10/18 18:11 Patient Temperature 37.9 DEGREES 03/10/18 18:11 POC VBG pH 7.53 (7.31-7.42) H 03/10/18 18:11 POC VBG pCO2 30 mmHg (40-44) L 03/10/18 18:11 POC VBG pO2 54 mmHg (35-40) H 03/10/18 18:11 POC VBG HCO3 25 mEq/L (22-26) 03/10/18 18:11 POC VBG Total CO2 26 mEq/L (21-27) 03/10/18 18:11 POC VBG Base Excess 3.0 mEq/L (-2.5-2.5) H 03/10/18 18:11 VBG Lactic Acid 1.9 mmol/L (0.7-2.1) 03/11/18 09:20 POC Mix VBG O2 Sat 90 % (65-75) H 03/10/18 18:11 POC Sodium 135 mEq/L (135-145) 03/10/18 18:09 Sodium 140 mEq/L (135-145) 03/15/18 04:35 POC Potassium 4.3 mEq/L (3.3-5.0) 03/10/18 18:09 Potassium 4.8 mEq/L (3.3-5.0) 03/15/18 04:35 POC Chloride 98 mEq/L (97-110) 03/10/18 18:09 Chloride 101 mEq/L (97-110) 03/15/18 04:35 Carbon Dioxide 30 mEq/l (22-31) 03/15/18 04:35 Anion Gap 9 mEq/L (8-16) 03/15/18 04:35 POC BUN 16 mg/dL (7-23) 03/10/18 18:09 BUN 10 mg/dL (7-23) 03/15/18 04:35 Creatinine 0.6 mg/dL (0.6-1.0) 03/15/18 04:35 POC Creatinine 0.5 mg/dL (0.6-1.0) L 03/10/18 18:09 Estimated GFR > 60 03/15/18 04:35 Glucose 109 mg/dL (70-100) H 03/15/18 04:35 POC Glucose 130 mg/dL (70-100) H 03/10/18 18:09 POC Lactic Acid Julio 2.0 mmol/L (0.7-2.1) 03/10/18 18:11 Calcium 9.3 mg/dL (8.5-10.4) 03/15/18 04:35 Total Bilirubin 0.4 mg/dL (0.1-1.4) 03/15/18 04:35 AST 34 IU/L (14-46) 03/15/18 04:35 ALT 59 IU/L (9-52) H 03/15/18 04:35 Alkaline Phosphatase 77 IU/L (38-126) 03/15/18 04:35 POC Troponin I 0.03 ng/mL (0.00-0.08) 03/10/18 18:12 Total Protein 5.1 g/dL (6.3-8.2) L 03/15/18 04:35 Albumin 2.5 g/dL (3.5-5.0) L 03/15/18 04:35 Urine Color YELLOW 03/10/18 20:00 Urine Appearance CLEAR 03/10/18 20:00 Urine pH 6.0 (5.0-7.5) 03/10/18 20:00 Ur Specific [place] > 1.060 (1.002-1.030) H 03/10/18 20:00 Urine Protein NEGATIVE (NEGATIVE) 03/10/18 20:00 Urine Ketones NEGATIVE (NEGATIVE) 03/10/18 20:00 Urine Blood NEGATIVE (NEGATIVE) 03/10/18 20:00 Urine Nitrate NEGATIVE (NEGATIVE) 03/10/18 20:00 Urine Bilirubin NEGATIVE (NEGATIVE) 03/10/18 20:00 Urine Urobilinogen 4.0 EU (0.2-1.0) H 03/10/18 20:00 Ur Leukocyte Esterase NEGATIVE (NEGATIVE) 03/10/18 20:00 Urine Glucose NEGATIVE (NEGATIVE) 03/10/18 20:00 Visualized and Interpreted Chest x-ray results: No Visualized and Interpreted imaging results: No Visualized and Interpreted EKG results: Yes EKG additional interpertation: Atrial fibrillation with a rapid ventricular response. Nonspecific ST and T changes. A/P Assessment: This is a 78-year-old female with a cardiovascular history to include valvular heart disease status post transcatheter aortic valve replacement which was performed in October of this year, peripheral vascular disease characterized by an asymptomatic high-grade left carotid stenosis and mobile atheroma appreciated in the distal aortic arch and descending aorta and now the development of atrial fibrillation with a rapid ventricular response. Fortunately, she appears hemodynamically stable and is currently asymptomatic. Her chads Vasc score is at least 6. This places her at a very high risk for stroke. Certainly in the range when systemic anticoagulation should be considered. She certainly is a risk for fall in light of her dementia. There is no history of bleeding otherwise. Plan: 1. She will be transferred to the progressive care unit where she can be monitored on telemetry. 2. I have ordered 0.5 mg of digoxin to give now. We will plan to given additional 0.25 mg in 6 hr. 3. She will receive 5 mg of IV metoprolol now. We may give an additional 2 doses if needed. 4. I will start her on metoprolol 25 mg twice daily. 5. We will try to achieve a resting heart rate between 101 110 beats per minute. 6. I will start her on Lovenox 1 milligram/kilogram subcu twice daily. 7. We will plan to reassess her in the morning. At that time, we can consider options for long-term systemic anticoagulation. 8. She will have a TSH drawn. 9. We will follow along with you. Review of Systems Review of Systems: A complete review of systems was not possible as the patient has a history of dimension is currently not oriented. When talking to her about her current medical condition she specifically denies symptoms of palpitations, chest pain, dizziness, lightheadedness and dyspnea.
[2018-03-17] MEDS: METOPROLOL TARTRATE 5 MG/5 ML INJ IVP SCH ×3 (12:27→13:54)
--- NOTE | 2018-03-17 13:17 | CPEKG ---
Heart Rate: 144 RR Interval: 417 QRSD Interval: 76 QT Interval: 312 QTC Interval: 483 P [place]: 0 QRS [place]: 39 T Wave [place]: 232 EKG Severity - ABNORMAL ECG - EKG Impression: SINUS TACHYCARDIA EKG Impression: REPOLARIZATION ABNORMALITY, PROB RATE RELATED Electronically Signed By: Chu Lopez 22-Mar-2018 21:12:55
[2018-03-17] MEDS ORDERED: ENOXAPARIN 40 MG/0.4 ML SYR SC SCH (21:00)
[2018-03-17] MEDS: traZODone 50 MG TAB PO SCH (22:09)
[2018-03-17] MEDS: ACETAMINOPHEN 325 MG TAB PO PRN (22:11)
--- NOTE | 2018-03-18 05:51 | CPEKG ---
Heart Rate: 89 RR Interval: 674 QRSD Interval: 72 QT Interval: 308 QTC Interval: 375 QRS [place]: 50 T Wave [place]: 225 EKG Severity - ABNORMAL ECG - EKG Impression: ATRIAL FIBRILLATION, V-RATE 71-127 Electronically Signed By: Chu Lopez 22-Mar-2018 21:12:30
--- NOTE | 2018-03-18 08:40 | SOAPPROG ---
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 [id number] score of 7, high risk for CVA. Discussed risks and benefits of OAC with pt's daughter and explained the risk of fall and bleed as well as risk of CVA. She understands and is agreeable to use of OAC. Will start Eliquis if OK per GI. Rate vs rhythm control: Pt is asymptomatic and hence rate control strategy will be ideal. Will use Metoprolol 25mg po bid. s/p TAVR: Appears asymptomatic from standpoint. No further eval needed. 03/18/18 08:36 Subjective: Pt was resting comfortably.Denies any complains. No chest pain or pressure. Denies palpitations Objective: Vital Signs Temp Pulse Resp BP Pulse Ox 36.7 C 89 17 120/79 94 03/18/18 08:00 03/18/18 08:00 03/18/18 08:00 03/18/18 08:00 03/18/18 08:00 Microbiology 03/12/18 04:35 Blood Culture - Final Blood Laboratory Results 03/15/18 04:35 03/15/18 04:35 03/17/18 03/18/18 03/19/18 05:59 05:59 05:59 Intake Total 1050 Output Total 350 1200 Balance -350 -150 PT 15.2 SEC (12.0-15.0) H 03/11/18 09:20 INR 1.18 (0.83-1.16) H 03/11/18 09:20 Physical Exam - Physical Exam General Appearance: alert, no apparent distress EENT: PERRL/EOMI, normal ENT inspection Neck: non-tender, supple, No lymphadenopathy (R), No lymphadenopathy (L) Respiratory: lungs clear, No crackles, No rales Cardiac/Chest: systolic murmur, irregularly irregular Abdomen: non-tender, soft Back: Normal inspection ICD10 Worksheet Patient Problems: Problems Problem Status Onset Chronic Disease Mgmt/Transitional Care Acute Status post lobectomy of lung Acute Diarrhea Acute Encephalopathy acute Acute Chronic obstructive pulmonary disease with acute exacerbation Acute Fever Acute
[2018-03-18] MEDS: ALLOPURINOL 300 MG TAB PO SCH (08:45)
[2018-03-18] MEDS: ASPIRIN 81 MG CHEWABLE TAB PO SCH (08:45)
[2018-03-18] MEDS: SENNOSIDES/DOCUSATE SODIUM TAB PO SCH (08:45)
[2018-03-18] MEDS: FUROSEMIDE 40 MG TAB PO SCH (08:45)
[2018-03-18] MEDS: ATORVASTATIN CALCIUM 40 MG TAB PO SCH (08:45)
[2018-03-18] MEDS ORDERED: METOPROLOL TARTRATE 25 MG TAB PO SCH (09:00)
[2018-03-18] MEDS ORDERED: APIXABAN 2.5 MG TAB PO SCH (09:00)
[2018-03-18] MEDS: TRIAMTERENE/HCTZ 37.5/25 1 EACH TAB PO SCH (09:09)
[2018-03-18] MEDS: [UNRECOGNIZED DRUG - MIXTURE] IH SCH (11:15)
[2018-03-18 11:40] VITALS: BP 125/74
--- NOTE | 2018-03-18 14:18 | HOSPPROG ---
Hospitalist Progress Note Assessment/Plan: 78-year-old female presents with weakness and not feeling right. #Streptococcus bovis bacteremia -strong association with this and colon ca, s/p colonoscopy (awaiting pathology but no signs of cancer) -Ceftriaxone per ID -hx of TAVR (AUGUSTINA today doesn't show any vegetations but she has multiple areas of plaque) repeat colonoscopy w neg path #plaque on distal arch and descending aorta noted on AUGUSTINA -recommendation is possibly dual anti-platelet treatment and should discuss this with Dr Jerome will do asa plus eliquis given AF # Acute COPD exacerbation. - resolved - respiratory viral panel negative #Hyperglycemia -secondary form steroids # Chronic encephalopathy. -Secondary to dementia # Hypertension. -Continue patient's home medications # Cecal ulcer -path pending # Weakness -PT/OT # Constipation -bowel therapy home today > 30 minutes see dc summary Subjective: anxious for dc. d/ dr antoine, dr lindsay Objective: Vital Signs Temp Pulse Resp BP Pulse Ox 36.6 C 111 H 19 125/74 H 97 03/18/18 11:39 03/18/18 11:39 03/18/18 11:39 03/18/18 11:39 03/18/18 11:39 Laboratory Results 03/15/18 04:35 03/15/18 04:35 03/17/18 03/18/18 03/19/18 05:59 05:59 05:59 Intake Total 1050 Output Total 350 1200 Balance -350 -150 PT 15.2 SEC (12.0-15.0) H 03/11/18 09:20 INR 1.18 (0.83-1.16) H 03/11/18 09:20 - Physical Exam Constitutional: no apparent distress, appears nourished Eyes: PERRL, anicteric sclera Ears, Nose, Mouth, Throat: moist mucous membranes, hearing normal Cardiovascular: regular rate and rhythym, no murmur, rub, or gallop Respiratory: no respiratory distress, no rales or rhonchi Gastrointestinal: normoactive bowel sounds, soft, non-tender abdomen Genitourinary: no bladder fullness, No pace in urethra Skin: warm, normal color Musculoskeletal: full muscle strength Neurologic: AAOx3 ICD10 Worksheet Patient Problems: Problems Problem Status Onset Chronic Disease Mgmt/Transitional Care Acute Chronic obstructive pulmonary disease with acute exacerbation Acute Fever Acute Diarrhea Acute Encephalopathy acute Acute Status post lobectomy of lung Acute
[2018-03-18] MEDS: ACETAMINOPHEN 325 MG TAB PO PRN (14:35)
--- NOTE | 2018-03-18 14:36 | ASDISCHSUM ---
Discharge Information Plan Status:Home with Home Health Medically Cleared to Leave:03/18/2018 Discharge Date:03/18/2018 CM D/C Disposition:Home Health Service ADT D/C Disposition: Projected Discharge Date:03/18/2018 09:00 AM Transportation at D/C:Family Discharge Delay Reason: Follow-Up Date:03/18/2018 09:00 AM Discharge Slot: Final Diagnosis:Acute COPD exascerbation, Encephalopathy, HTN, Cecal Ulcer Placement Information Referral Type:*Home Health Care Services Referral ID:[id number] Provider Name:[facility] Address 1:[address] Address 2: City:[place] Selection Factors: State:[place] Referral Type:Home Infusion Referral ID:[id number] Provider Name:[facility] [place] [facility] Address 1:[address] Address 2: City:[place] Selection Factors: State:[place] Patient Contact Information Contact Name:LAINE Relationship:Daughter Address:[id number] City:[facility] Phone: [facility]/Zip Code:[place] [address] Email: Financial Information Financial Class:Medicare Primary Plan Desc:MEDICARE INPATIENT Primary Plan Number:[id number] Secondary Plan Desc:BRIDGET/JONNA SUPPLEMENT Secondary Plan Number:[id number] Assessment Information [facility] CM Progress Note CM Note CM Note Notes: 78yr old female admitted for Acute COPD exascerbation, Encephalopathy, HTN, Cecal Ulcer. Patient has a Hx of Dementia, COPD, GIOVANNI, Depression Lung CA, CVA, HLD, Aortic stenosis-s/p TAVR. H&P reports that patient lives with her daughter. OT recommending SNF depending on O2 needs. PT notes aren't in as yet. CM to follow. Date Signed: 03/11/2018 02:54 PM Electronically Signed By:Jennifer Corral LCSW LACE LACE Length of stay for Answers: 7-13 days current admission Acuity / Level of Answers: Yes Care: Did the patient have an inpatient admission? Comorbidities - select Answers: Any tumor (including all that apply lymphoma or leukemia) Cerebrovascular disease (CVA, TIA, aneurysms, vasc ular dementia) Chronic pulmonary disease Coronary Artery Disease Dementia # of Emergency department Answers: 3-4 visits in the last 6 months Score: 21 Date Signed: 03/18/2018 02:33 PM Electronically Signed By:Sumi Enriquez RN [facility] CM Progress Note CM Note CM Note Notes: Chart reviewed. Per PT patient able to dc home if she has 24 hour supervision. Attempted to call Meredith her daughter and left message for her to return my call. Query need for SNF rehab at this point. CM to follow. Plan: TBD Date Signed: 03/13/2018 09:25 AM Electronically Signed By:Carin Martinez RN [facility] CM Progress Note CM Note CM Note Notes: Chart reviewed. Spoke with daughter Meredith. Patient lives independently. 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 PT and OT have recommendations for possible SNF, daughter feels that is not needed at this time. She reports her mom has been safe at home with her equipment and she checks on her frequently. CM to follow. Plan: Home with [facility] and family support. Date Signed: 03/13/2018 04:10 PM Electronically Signed By:Carin Martinez RN [facility] CM Progress Note CM Note CM Note Notes: CM spoke w/dtr Meredith, pt continues to be weak and not ready for dc. The plan is for the pt to go home w/[facility], and if needed her daughter will stay with her. Daughter does not want SNF, states they have been "everywhere" and she "just sits in her room all day." Pt will also need IV abx, referral sent to [facility], d/w [employer], will continue to asses, PATRICK w/f, updates sent to [facility]. DC Plan: Home care/ [facility] + [facility] +Family assistance Date Signed: 03/16/2018 09:55 AM Electronically Signed By:Thea Schmidt RN [facility] CM Progress Note CM Note CM Note Notes: Received a call from Gretel at [facility] [phone], she wants to make sure that dtr will be the one adminstering the medication since the pt may not be teachable. PATRICK called pt's dtr Meredith but vm was full, Barbara from [facility] also called pt's daughter and left message. DC Plan: Home care/ [facility] ([facility]ADY) + [facility] + family assistance Date Signed: 03/16/2018 05:09 PM Electronically Signed By:Thea Schmidt RN Case Management Discharge Plan Note Case Management Discharge Discharge Order Complete? Answers: Yes Patient to Obtain Answers: via Family [facility] Transportation Arranged Answers: Family/Friends Faxed Final Orders Answers: Yes Agency/Facility Transfer Answers: Yes Report Printed & Faxed to Receiving Agency Family Notified Answers: Yes Notes: in room Discharge Comments Notes: 03/18/2018 Case Management Note IM signed. Pt discharging home with support from daughter. Faxed final orders to [facility] and [facility]. Rory contacted daughter already for appointment. Daughter to transport home. There are no further discharge needs from case management. Date Signed: 03/18/2018 02:35 PM Electronically Signed By:Sumi Enriquez RN Intervention Information Intervention Type:*IM-Signed Date of Service:03/18/2018 02:32 PM Patient Type:Inpatient Staff Member:GRADY Enriquez, Sumi Hours: Discipline: Severity: Comment:
--- NOTE | 2018-03-18 14:42 | GDS ---
[f rep st] DISCHARGE SUMMARY DISCHARGE DIAGNOSES: 1. Streptococcus bovis bacteremia. 2. Colon polyp with low-grade dysplasia, but no cancer. 3. Atrial fibrillation. 4. History of recent transcatheter aortic valve replacement. 5. Deconditioning. 6. Gout. 7. Hyperlipidemia. 8. Mild dementia. 9. Obstructive sleep apnea. 10. History of squamous cell cancer of the lung status post resection, clean margins. 11. Cardioembolic cerebrovascular accident. 12. Peripheral vascular disease. Please see admission History and Physical by Dr. Yadiel Álvarez. The patient presented on the afte r having been recently admitted. Presenting symptoms were fever and dyspnea. She had blood cultures drawn, which grew out Strep bovis. She had a AUGUSTINA done showing no evidence of vegetation on TAVR. S he had a repeat colonoscopy despite having had one recently. There was a cecal ulcer that was re-bio psied and a couple of polyps. Path is negative on that. She had cleared her blood cultures, started on ceftriaxone as plan for therapy. She developed atrial fibrillation that was initially rapid, but controlled with beta porsche given her high CHADS VASc of 7. She was started on Eliquis. She aureliano nues aspirin. She does have an aortic atheroma, which is the indication for dual antiplatelet. Kernadalberto rios, given the addition of Eliquis, the patient will remain on Eliquis and aspirin. She is discharge d home. She had been offered SNF and recommended that, in fact, she declined. She is discharged kim e today. She has a PICC line. /[id number]/MODL
== END 2018-03-18 14:45 | disposition home health service (06) | DRG 872 ==
LOC: F3E 22:24 → OBSVTOIN 03-11 14:04 → F2W 03-17 12:11
PROVIDERS: ADMIT Internal Medicine; ATTEND Internal Medicine
PROC: 0DBP8ZX Excision of Rectum, Via Natural or Artificial Opening Endoscopic, Diagnostic (ICD-10-PCS; principal; 2018-03-15 10:30)
PROC: 0DBM8ZX Excision of Descending Colon, Via Natural or Artificial Opening Endoscopic, Diagnostic (ICD-10-PCS; principal; 2018-03-15 10:30)
PROC: 0DBH8ZX Excision of Cecum, Via Natural or Artificial Opening Endoscopic, Diagnostic (ICD-10-PCS; principal; 2018-03-15 10:30)
PROC: 02HV33Z Insertion of Infusion Device into Superior Vena Cava, Percutaneous Approach (ICD-10-PCS; 2018-03-16)
DX: R78.81 Bacteremia (principal); B95.4 Other streptococcus as the cause of diseases classified elsewhere; J44.1 Chronic obstructive pulmonary disease with (acute) exacerbation; D12.4 Benign neoplasm of descending colon; K57.30 Diverticulosis of large intestine without perforation or abscess without bleeding; K62.1 Rectal polyp; I48.91 Unspecified atrial fibrillation; G47.33 Obstructive sleep apnea (adult) (pediatric); E78.5 Hyperlipidemia, unspecified; F03.90 Unspecified dementia, unspecified severity, without behavioral disturbance, psychotic disturbance, mood disturbance, and anxiety; M10.9 Gout, unspecified; I10 Essential (primary) hypertension; Z85.118 Personal history of other malignant neoplasm of bronchus and lung; Z86.73 Personal history of transient ischemic attack (TIA), and cerebral infarction without residual deficits; Z87.891 Personal history of nicotine dependence; Z95.2 Presence of prosthetic heart valve
CPT/HCPCS: 82435-PO; 82565-PO; 82947-PO; 83605-PO; 84132-PO; 84295-PO; 84484-PO; 84520-PO; 85014-PO; 92523-GN; 96374; 97116-GP; 97161-GP; 97165-GO; 97530-GO; 97530-GP; 97535-GO; C1751; G8978-GP-CI; G8979-GP-CI; G8987-GO-CJ; G8988-GO-CI; G9168-GN-CK; G9169-GN-CJ; J0696; J1160; J1650; J2704; J2930; J3010; J7512; Q9967

== ENCOUNTER → 2018-07-18 | Outpatient (CLI) | payer OTHER, MEDICARE | LOC: FIMAGING 10:56 | PROVIDERS: ATTEND Internal Medicine Hematology & Oncology | DX: C34.11 Malignant neoplasm of upper lobe, right bronchus or lung (principal); R90.82 White matter disease, unspecified; G93.89 Other specified disorders of brain ==

== ENCOUNTER → 2018-11-07 | Outpatient (CLI) | payer OTHER, MEDICARE | LOC: BHFA 09:15 | PROVIDERS: ATTEND Internal Medicine Cardiovascular Disease | DX: Z95.2 Presence of prosthetic heart valve (principal) ==